=== PATIENT | female | born 1935 | race Caucasian/White ===

== ENCOUNTER 2017-06-08 05:00 | Inpatient (IN) | payer MEDICARE ==
[2017-06-08 07:39] VITALS: BMI 25.2
[2017-06-08] MEDS ORDERED: IPRATROPIUM-ALBUTEROL 3 ML NEB INHALATION PRN (08:46)
[2017-06-08] MEDS: PANTOPRAZOLE 40 MG/10 ML VIAL IVP SCH (10:33)
[2017-06-08] MEDS: HYDROcodone/APAP 5-325MG 1 EACH TAB PO PRN ×3 (10:33→23:53)
[2017-06-08 11:12] LABS: Glucose,Whole Blood 102 mg/dL (75-99)
[2017-06-08] MEDS: AZITHROMYCIN 500 MG in SODIUM CHLORIDE 0.9% 250 ML IVPB SCH (11:38)
[2017-06-08] MEDS: INSULIN ASPART 100 UNIT/ML 1 ML 10 ML VIAL SQ SCH ×3 (11:39→22:48)
[2017-06-08] MEDS: methylPREDNISolone SOD SUCCI 125 MG/2 ML VIAL IV SCH ×3 (12:16→23:51)
[2017-06-08] MEDS: IPRATROPIUM-ALBUTEROL 3 ML NEB INHALATION SCH ×3 (13:03→20:51)
[2017-06-08] MEDS ORDERED: ARTIFICIAL TEARS-HYPROMELLOSE DROPS 15 ML BTL BOTH EYES PRN (15:29)
[2017-06-08] MEDS ORDERED: ACETAMINOPHEN TAB 325 MG TAB PO PRN (15:29)
--- NOTE | 2017-06-08 16:03 | XR ---
EXAMINATION TYPE: XR chest 1V portable DATE OF EXAM: 06/08/2017 Comparison: None Clinical History: 81 year-old female shortness of breath, copd Findings: The cardiomediastinal silhouette, aorta, and pulmonary vasculature are within normal limits. Mild in terstitial prominence has a chronic appearance. Lungs And pleural spaces are otherwise clear. Impression: Chronic-appearing changes. No acute process seen.
[2017-06-08 16:21] LABS: Albumin 3.8 g/dL (3.5-5.0); Calcium 9.6 mg/dL (8.4-10.2); Potassium 4.9 mmol/L (3.5-5.1); Total Bilirubin 0.5 mg/dL (0.2-1.3); Total Protein 6.5 g/dL (6.3-8.2)
[2017-06-08 16:25] LABS: Basophils % (A) 0 %; Eosinophils % (A) 0 %; HCT 42.3 % (34.0-46.0); HGB 13.6 gm/dL (11.4-16.0); Lymphocytes # (A) 0.2 k/uL (1.0-4.8); Lymphocytes % (A) 4 %; MCH 29.3 pg (25.0-35.0); MCHC 32.1 g/dL (31.0-37.0); MCV 91.4 fL (80.0-100.0); Mean Platelet Volume 7.6; Monocytes # (A) 0.2 k/uL (0-1.0); Monocytes % (A) 4 %; Neutrophils # (A) 4.4 k/uL (1.3-7.7); Neutrophils % (A) 91 %; Platelet Count 261 k/uL (150-450); RBC 4.62 m/uL (3.80-5.40); RDW 13.1 % (11.5-15.5); WBC 4.8 k/uL (3.8-10.6)
--- NOTE | 2017-06-08 16:56 | HP ---
HISTORY AND PHYSICAL CHIEF COMPLAINT: Shortness of breath. HISTORY: This 79-year-old with a past medical history of asthma, COPD, history of gastroesophageal reflux disease, history of hearing deficit, memory impairment, history of back surgery, DJD being followed by primary physician in the [place] area, was having shortness of breath and cough and sputum. The patient presented to the [facility] and subsequently referred to [facility] for further evaluation and treatment. There is no history of fever, rigors or chills. No history of headache, loss of consciousness or seizures. PAST MEDICAL HISTORY: Asthma COPD. Hearing defects, memory impairment, dementia, appendectomy. MEDICATIONS: Prior to admission include: 1. Bowlegs 5 mg q.i.d. p.r.n. 2. Prednisone 10 mg. 3. Artificial Tears 1 drop both eyes t.i.d. 4. Tylenol Arthritis 650 q.8h p.r.n. 5. DuoNeb q.i.d. 6. Advair 500/50 1 puff b.i.d. 7. Aspirin 325 mg q.48h hours. ALLERGIES: PENICILLIN. FAMILY HISTORY: History of myocardial infarction in the family. SOCIAL HISTORY: Previous history of smoking. No history of current smoking. No alcohol intake. REVIEW OF SYSTEMS: ENT: Diminished hearing and vision. CARDIOVASCULAR: No angina or palpitations. Respiratory: As mentioned earlier. GI no nausea or vomiting. no dysuria. Nervous system: No numbness. Generalized weakness. Allergy/Immunology: No asthma or hayfever. Musculoskeletal: As mentioned earlier. Hematology/Oncology: No history anemia. Endocrine: No history of diabetes or hypothyroidism. Constitutional: As mentioned earlier. Rheumatology: Negative. Dermatology: Negative. Psychiatric: As mentioned earlier. PHYSICAL EXAMINATION: Alert and oriented times three. Pulse is 106. Blood pressure 140/81. Respiration 18, temperature 97.7, pulse ox 98% on room air. HEENT: Conjunctivae normal. Oral mucosa moist. Neck is no jugular venous distention. No carotid bruit. No thyroid enlargement. Cardiovascular System: S1, S2 muffled. No S3, no S4. Respirations: Breath sounds diminished in the bases. Breathing efforts are markedly increased. Bilateral scattered rhonchi and crackles. ABDOMEN: Soft, nontender. No mass palpable. Legs no edema and no swelling. NERVOUS SYSTEM: Higher functions as mentioned. Moves all 4 limbs. No focal motor or sensory deficits. Lymphatics: No lymph nodes palpable in the neck, axillae or groin. SKIN: No ulcers, rash or bleeding. LAB STUDIES: At this time shows glucose 102. ASSESSMENT: 1. Chronic obstructive pulmonary disease, asthma acute exacerbation with acute purulent tracheobronchitis. 2. History of dementia. 3. History of hard of hearing. 4. History of hepatitis C. 5. History of degenerative joint disease. 6. History of back surgery. 7. Remote history of nicotine dependence. 8. FULL CODE. RECOMMENDATIONS AND DISCUSSION: In this 81-year-old woman who presented with multiple complex medical issues, we will monitor the patient closely. Optimize the bronchodilator treatment. Resume the home medication. Broad-spectrum IV antibiotics. Started on Rocephin, Zithromax and heparin subcu. Consult Dr. Savage. Guarded prognosis because of multiple complex medical issues. PT/OT evaluation and we will also get the pediatric social worker and case Management evaluation for home situation and possibly ECF rehab if the patient is found to be extremely weak or not safe enough to return home. MMODL / IJN: [id number] /
[2017-06-08 17:22] LABS: Glucose,Whole Blood 108 mg/dL (75-99)
[2017-06-08] MEDS: ASPIRIN 325 MG TAB PO SCH (17:30)
[2017-06-08 20:41] LABS: Glucose,Whole Blood 126 mg/dL (75-99)
[2017-06-08] MEDS: BUDESONIDE 1 MG/2 ML NEBU INHALATION SCH (20:51)
[2017-06-08] MEDS: FORMOTEROL FUMARATE 20 MCG/2 ML NEBU INHALATION SCH (20:51)
[2017-06-08] MEDS: HEPARIN SODIUM,PORCINE 5,000 UNIT/ML 1 ML VIAL SQ SCH (23:51)
[2017-06-09 07:04] LABS: Appearance,Urine Clear (Clear); Bilirubin,Urine Negative (Negative); Blood,Urine Negative (Negative); Color,Urine Yellow; Glucose,Urine (UA) Negative (Negative); Ketones,Urine 1+ (Negative); Leukocyte Esterase,Urine Negative (Negative); Nitrite,Urine Negative (Negative); Protein,Urine Negative (Negative); Specific Gravity,Urine 1.015 (1.001-1.035); Urobilinogen,Urine <2.0 mg/dL (<2.0)
[2017-06-09 07:11] LABS: Glucose,Whole Blood 103 mg/dL (75-99)
[2017-06-09] MEDS: INSULIN ASPART 100 UNIT/ML 1 ML 10 ML VIAL SQ SCH ×4 (07:13→21:52)
[2017-06-09] MEDS: AZITHROMYCIN 500 MG in SODIUM CHLORIDE 0.9% 250 ML IVPB SCH (07:15)
[2017-06-09] MEDS: methylPREDNISolone SOD SUCCI 125 MG/2 ML VIAL IV SCH ×4 (07:15→23:08)
[2017-06-09] MEDS: HEPARIN SODIUM,PORCINE 5,000 UNIT/ML 1 ML VIAL SQ SCH ×2 (07:16→21:52)
[2017-06-09] MEDS: PANTOPRAZOLE 40 MG/10 ML VIAL IVP SCH (07:16)
[2017-06-09] MEDS: IPRATROPIUM-ALBUTEROL 3 ML NEB INHALATION SCH ×4 (08:03→21:30)
[2017-06-09] MEDS: FORMOTEROL FUMARATE 20 MCG/2 ML NEBU INHALATION SCH ×2 (08:03→21:30)
[2017-06-09] MEDS: BUDESONIDE 1 MG/2 ML NEBU INHALATION SCH ×2 (08:03→21:30)
[2017-06-09 08:07] LABS: Basophils % (A) 0 %; Eosinophils % (A) 0 %; HCT 42.9 % (34.0-46.0); HGB 13.5 gm/dL (11.4-16.0); Lymphocytes # (A) 0.3 k/uL (1.0-4.8); Lymphocytes % (A) 6 %; MCH 28.7 pg (25.0-35.0); MCHC 31.4 g/dL (31.0-37.0); MCV 91.5 fL (80.0-100.0); Mean Platelet Volume 7.7; Monocytes # (A) 0.3 k/uL (0-1.0); Monocytes % (A) 5 %; Neutrophils # (A) 5.4 k/uL (1.3-7.7); Neutrophils % (A) 89 %; Platelet Count 309 k/uL (150-450); RBC 4.69 m/uL (3.80-5.40); RDW 13.2 % (11.5-15.5); WBC 6.1 k/uL (3.8-10.6)
[2017-06-09 08:22] LABS: Anion Gap 7 mmol/L; Blood Urea Nitrogen 21 mg/dL (7-17); Calcium 9.4 mg/dL (8.4-10.2); Carbon Dioxide 29 mmol/L (22-30); Chloride 104 mmol/L (98-107); Glucose 112 mg/dL (74-99); Potassium 4.9 mmol/L (3.5-5.1); Sodium 140 mmol/L (137-145)
[2017-06-09] MEDS: HYDROcodone/APAP 5-325MG 1 EACH TAB PO PRN ×2 (11:01→18:14)
[2017-06-09] MEDS: cefTRIAXone IN SWFI 1,000 MG/10 ML SYRINGE IVP SCH (11:33)
[2017-06-09 11:50] LABS: Glucose,Whole Blood 106 mg/dL (75-99)
--- NOTE | 2017-06-09 16:25 | PN ---
PROGRESS NOTE DATE OF SERVICE: 06/09/2017 INTERVAL HISTORY: This 81-year-old woman who was admitted with COPD exacerbation with acute purulent tracheobronchitis is being closely monitored. No chest pain. No palpitations. No fever. The patient still has shortness of breath. Dr. Savage's evaluation in progress. PHYSICAL EXAM: Alert and oriented times three. Pulse is 92. Blood pressure is 170/83, respirations 16, temperature 97.2, pulse ox 98% on 3 L. HEENT conjunctivae normal. Oral mucosa moist. Neck is no jugular venous distention. No carotid bruit. No lymph node enlargement. Cardiovascular system: S1, S2 muffled. Respiratory: Breath sounds diminished in the bases. A few scattered rhonchi and expiratory wheezing also present. ABDOMEN: Soft, nontender. No mass palpable. Legs no edema. No swelling. Nervous system: No focal deficits. LABS: At this time, labs are reviewed. ASSESSMENT: 1. Chronic obstructive pulmonary disease exacerbation with acute purulent tracheobronchitis. 2. History of dementia. 3. History of hard of hearing. 4. History of Hepatitis C. 5. History of degenerative joint disease. 6. History of back surgery. 7. Remote history of nicotine dependence. 8. Hypertension. 9. FULL CODE. RECOMMENDATIONS AND DISCUSSION: Recommend to continue current medications, symptomatic treatment, otherwise continue with IV steroids. Continue the rest of medications. Empiric antibiotics. Await Dr. Savage's evaluation. I would add Norvasc to the current regimen. Further recommendations to follow. MMODL / IJN: [id number] /
--- NOTE | 2017-06-09 17:34 | P.CNPUL ---
History of Present Illness Consult date: 06/09/17 Reason for consult: dyspnea, asthma History of present illness: This is a pleasant 79-year-old female patient with known history of severe persistent steroid-dependent bronchial asthma in addition to multiple medical pros and comorbidities who came in from [facility] because of worsening shortness of breath. The patient was progressively getting worse over the past few weeks and she got to the point where she was unable to breathe while doing activities of daily today life. She was having increased cough chest congestion and wheezing. She was initially transferred to [facility] and she was transferred to [place] and she was placed on BiPAP overnight. This morning she is off the BiPAP. She is still having increased dyspnea cough and wheeze although her symptoms have subsided. No pleurisy. No hemoptysis. Chest x-ray is free of any acute pulmonary infiltrates. She is a bit tired and fatigued and she is losing weight. She is maintained on Advair and 10 mg of prednisone a daily basis. She does DuoNeb nebulized treatments around the clock. She has been on Xolair injections/anti- IgE treatment in the past. In addition, Aura has multiple other medical problems and complaints. Her most significant complaint is his inability is her inability to walk and the extensive pain that she is experiencing in her back. She has seen multiple neurosurgeons and spine surgeons and she is seen Dr. Stewart from pain management. The most recent MRI from 2013 showed L5-S1 degenerative disc disease and the bulge at the level of L4-L5 with anterolisthesis and the same was also noted at the level of L3-L4. The patient also has degenerative severe disc disease at the level of L2-L3 home at T10-T11, T11-T12 along with stenosis. There is also a right L5 L4 and L3 root compression, L2 neural foraminal narrowing, L2-L3 L4-L5 root compression on the left, diffuse facet arthrosis throughout the lumbar spine and central canal narrowing at the level of L3-L4. She is considering to go back to pain management for a possible pain stimulator. She is moving around with the help of a walker and wheelchair. She was at [facility] a few months back regarding an abnormal brain scan and intracranial hemorrhage as the patient was having headache and occasional dizziness. The patient had a small hemorrhage in the left temporal region. 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 She also had an MRI of the cervical spine without contrast and the neck pain was further evaluated and it showed senescent degenerative changes. 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 The small intracranial bleed was handled conservatively and the patient was discharged home without any significant issues. She is still having generalized weakness, occasional headaches and some occasional dizziness along with leg numbness and tingling. She has chronic insomnia and the patient is essentially awake and without multiple times at night she cannot get herself in a comfortable position. She has been on Ambien 5 mg to help her with sleep. She has been also told that her ovarian cysts and gotten larger however I do not have any clear documentation is on that. I think it's reasonable at a later stage to be seen by Dr. Sánchez in this regard. We have felt that this was a benign ovarian cyst Review of Systems Constitutional Constitutional: no fever, no night sweats, 12 pounds weight gain, no significant weight loss, exercise intolerance, in addition to diminished appetite. Eyes Eyes: no dry eyes, no vision change, no irritation ENMT Ears: no difficulty hearing, no ear pain Nose: no frequent nosebleeds, no nose problems, no sinus problems Mouth/Throat: no sore throat, no bleeding gums, no snoring, no dry mouth, no mouth ulcers, no oral abnormalities, no teeth problems Cardiovascular Cardiovascular: no chest pain, no arm pain on exertion, no shortness of breath when lying down, no palpitations, no known heart murmur, shortness of breath when walking Respiratory Respiratory: Patient has increased dyspnea cough chest tightness and wheezing typically of asthma exacerbation. Gastrointestinal Gastrointestinal: no abdominal pain, no nausea, no vomiting, no constipation, normal appetite, no diarrhea, not vomiting blood, no dyspepsia, no GERD Genitourinary Genitourinary: no incontinence, no difficulty urinating, no hematuria, no increased frequency Musculoskeletal Musculoskeletal: no muscle aches, no swelling in the extremities, muscle weakness, arthralgias/joint pain, back pain (neck pain) Integumentary Skin: no abnormal mole, no jaundice, no rashes, no laceration Neurologic Neurologic: no loss of consciousness, no weakness, no numbness, no seizures, no migraines, no headaches, no tremor, dizziness, restless legs (vertigo) Psychiatric Psych: feeling safe in a relationship, no alcohol abuse, no anxiety, no hallucinations, no suicidal thoughts, depression, sleep disturbances, restless sleep Endocrine Endocrine: no fatigue Hematologic/Lymphatic Hematologic/Lymphatic no swollen glands, no bruising, no excessive bleeding Allergic/Immunologic Allergy/Immunologic: no runny nose, no sinus pressure, no itching, no hives, no frequent sneezing Past Medical History Past Medical History: Asthma, Eye Disorder, Hearing Disorder / Deafness, Memory Impairment, Respiratory Disorder Additional Past Medical History / Comment(s): Chronic severe persistent bronchial asthma, chronic insomnia, history of TIA, history of benign positional vertigo, hyperlipidemia, and by medical ALLERGIES, are less, compression fracture of the thoracic spine, complex ovarian cyst labeled nonmalignant based on oncology evaluation [facility], 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 Munoz, spinal stenosis, obesity, coronary artery disease History of Any Multi-Drug Resistant Organisms: None Reported Past Surgical History: Appendectomy, Back Surgery, Breast Surgery, Cholecystectomy, Hysterectomy Additional Past Surgical History / Comment(s): cataracts, eye lid lift Past Anesthesia/Blood Transfusion Reactions: No Reported Reaction Past Psychological History: No Psychological Hx Reported Smoking Status: Former smoker Past Alcohol Use History: None Reported Past Drug Use History: None Reported - Past Family History Father Family Medical History: Myocardial Infarction ([place]) Mother Family Medical History: Myocardial Infarction ([place]) Medications and Allergies Home Medications Medication Instructions Recorded Confirmed Type Acetaminophen [Tylenol Arthritis] 650 mg PO Q8H PRN 06/08/17 06/08/17 History Artificial Tears-Hypromellose 1 drops BOTH EYES TID PRN 06/08/17 06/08/17 History [Artificial Tear Drops] Aspirin 325 mg PO Q48H 06/08/17 06/08/17 History Fluticasone/Salmeterol [Advair 1 puff INHALATION RT-BID 06/08/17 06/08/17 History 500-50 Diskus] HYDROcodone/APAP 5-325MG [[place] 1 tab PO QID PRN 06/08/17 06/08/17 History 5-325] Ipratropium-Albuterol Nebulize 3 ml INHALATION RT-QID 06/08/17 06/08/17 History [Duoneb 0.5 mg-3 mg/3 ml Soln] predniSONE 10 mg PO DAILY 06/08/17 06/08/17 History Allergies Allergy/AdvReac Type Severity Reaction Status Date / Time Penicillins Allergy Severe Rash/Hives Verified 06/08/17 08:24 Physical Exam Vitals: Vital Signs Temp Pulse Pulse Resp BP BP Pulse Ox 06/09/17 16:29 90 06/09/17 16:14 90 06/09/17 15:00 97.5 F L 78 15 135/73 96 06/09/17 12:25 88 06/09/17 12:06 88 06/09/17 08:06 92 06/09/17 08:05 92 06/09/17 07:55 92 06/09/17 07:03 97.7 F 91 16 174/83 98 06/09/17 01:20 97.5 F L 94 18 161/77 98 06/08/17 21:18 98 06/08/17 21:02 96 06/08/17 20:52 96 06/08/17 20:00 97.3 F L 95 22 137/67 96 Intake and Output 06/09/17 06/09/17 06/09/17 06:59 14:59 22:59 Intake Total 370 Balance 370 Intake: Oral 370 Other: Voiding Method Toilet # Voids 1 3 General Appearance no diaphoresis, no respiratory distress, speech not interrupted by breaths, no dyspnea, no pallor, not cachectic, well nourished, appears well, obesity HEENT no pursed lip breathing, no jugular venous distention, no mucous membrane cyanosis, no perioral cyanosis, mallampati classification: class 1, Mallampati Classification: Class 4 Chest no barrel chest, no retractions, no sternocleidomastoid muscle contractions, no supraclavicular retractions, no intercostal retractions, no prolonged expiratory wheezing, no decreased air movement, no rhonchi, no hyperinflation, (normal) adventitious sounds: rales / crackles: bilaterally: midlung french, decreased air movement Heart no right ventricular heave, no distant heart sounds, no s3 gallop, (normal ) jugular vein: jugular venous distention: by 0cm, (normal) jugular vein GI bowel sounds: hyperactive (borborygmi), bowel sounds: diminished or absent Extremities no cyanosis, no clubbing, no edema Neurologic no decreased mental status, no somnolence, no confusion Assisstive Devices: ambulates with no assitive devices, wheelchair manual Gait and Mobility: gait WNL, full weight bearing Results - Laboratory Findings CBC and BMP: 06/09/17 07:10 06/09/17 07:10 Abnormal lab findings: Abnormal Labs 06/08/17 06/08/17 06/08/17 11:09 15:52 15:52 Lymphocytes # 0.2 L BUN Glucose 121 H POC Glucose (mg/dL) 102 H Urine Ketones 06/08/17 06/08/17 06/09/17 17:20 20:34 06:10 Lymphocytes # BUN Glucose POC Glucose (mg/dL) 108 H 126 H Urine Ketones 1+ H 06/09/17 06/09/17 06/09/17 07:06 07:10 07:10 Lymphocytes # 0.3 L BUN 21 H Glucose 112 H POC Glucose (mg/dL) 103 H Urine Ketones 06/09/17 11:41 Lymphocytes # BUN Glucose POC Glucose (mg/dL) 106 H Urine Ketones - Diagnostic Findings Chest x-ray: image reviewed Assessment and Plan Plan: Assessment -Acute exacerbation of chronic severe persistent bronchial asthma with secondary shortness of breath. - severe persistent asthma, Continue on the Advair and singulair as maintenance and Prednisone maintenance of 10 mg daily. She'll be kept on a maintenance prednisone dose of 10 mg by mouth daily. -obesity -coronary arteriosclerosis -spinal stenosis, the patient is under the care of Dr. Stewart in regards to her chronic back pain. She has compression fracture of the T-spine and spinal stenosis and degenerative arthritis. She has taken herself off the Neurontin and she is considering a pain pump She also being considered for a pain stimulor -cyst of ovary, this is a complex cyst in the pelvic area , Dr. Sánchez and this was able to be benign and no further workup has been suggested by PROCESS [employer]OVEMENT [employer]INE[employer]/oncology. -compression fracture of thoracic spine -restless legs -environmental allergy -hyperlipidemia -benign paroxysmal positional vertigo (Bilateral), the patient is asymptromatic for now -transient cerebral ischemia -persistent insomnia -cerebral arteriovenous malformation, recent REPAIR ARMATURE WINDER bleed, asymptomatic and treated conservatively, followed up by Dr. Kovar Plan Agree on the current treatment. Continue DuoNeb neb last treatment around-the- clock. Perforomist and Pulmicort overestimates twice a day. IV Solu-Medrol. Chest x-ray was reviewed and there is no evidence of any pneumonia. Heparin subcu for DVT prophylaxis. We'll continue to follow.
[2017-06-09 17:57] LABS: Glucose,Whole Blood 103 mg/dL (75-99)
[2017-06-09 20:49] LABS: Glucose,Whole Blood 132 mg/dL (75-99)
[2017-06-09] MEDS: amLODIPine 5 MG TAB PO SCH (21:46)
[2017-06-10] MEDS: methylPREDNISolone SOD SUCCI 125 MG/2 ML VIAL IV SCH ×3 (05:37→17:43)
[2017-06-10 07:21] LABS: Basophils % (A) 0 %; Eosinophils % (A) 0 %; HCT 41.3 % (34.0-46.0); Lymphocytes # (A) 0.3 k/uL (1.0-4.8); Lymphocytes % (A) 5 %; MCHC 31.5 g/dL (31.0-37.0); Mean Platelet Volume 7.7; Monocytes # (A) 0.2 k/uL (0-1.0); Monocytes % (A) 4 %; Neutrophils # (A) 5.6 k/uL (1.3-7.7); Neutrophils % (A) 90 %; Platelet Count 272 k/uL (150-450); RBC 4.49 m/uL (3.80-5.40); RDW 13.1 % (11.5-15.5); WBC 6.2 k/uL (3.8-10.6)
[2017-06-10 07:26] LABS: Glucose,Whole Blood 117 mg/dL (75-99)
[2017-06-10 07:36] LABS: Anion Gap 9 mmol/L; Blood Urea Nitrogen 25 mg/dL (7-17); Calcium 8.9 mg/dL (8.4-10.2); Carbon Dioxide 27 mmol/L (22-30); Chloride 106 mmol/L (98-107); Glucose 117 mg/dL (74-99); Potassium 4.1 mmol/L (3.5-5.1); Sodium 142 mmol/L (137-145)
[2017-06-10] MEDS: HYDROcodone/APAP 5-325MG 1 EACH TAB PO PRN ×2 (08:15→17:47)
[2017-06-10] MEDS: amLODIPine 5 MG TAB PO SCH ×2 (08:16→21:57)
[2017-06-10] MEDS: HEPARIN SODIUM,PORCINE 5,000 UNIT/ML 1 ML VIAL SQ SCH ×2 (08:16→21:57)
[2017-06-10] MEDS: INSULIN ASPART 100 UNIT/ML 1 ML 10 ML VIAL SQ SCH ×4 (08:16→21:57)
[2017-06-10] MEDS: PANTOPRAZOLE 40 MG TABLET PO SCH (08:16)
[2017-06-10] MEDS: cefTRIAXone IN SWFI 1,000 MG/10 ML SYRINGE IVP SCH (08:17)
[2017-06-10] MEDS: AZITHROMYCIN 500 MG TAB PO SCH (08:17)
[2017-06-10] MEDS: FORMOTEROL FUMARATE 20 MCG/2 ML NEBU INHALATION SCH ×2 (08:58→18:45)
[2017-06-10] MEDS: BUDESONIDE 1 MG/2 ML NEBU INHALATION SCH ×2 (08:58→18:46)
[2017-06-10] MEDS: IPRATROPIUM-ALBUTEROL 3 ML NEB INHALATION SCH ×4 (08:58→18:46)
[2017-06-10] MEDS ORDERED: TEMAZEPAM 15 MG CAP PO PRN (11:14)
[2017-06-10] MEDS ORDERED: ALPRAZolam 0.25 MG TAB PO PRN (11:14)
[2017-06-10 11:28] LABS: Glucose,Whole Blood 151 mg/dL (75-99)
--- NOTE | 2017-06-10 13:14 | P.PN ---
<Lisa Hull - Last Filed: 06/10/17 13:07> Subjective Progress Note Date: 06/10/17 Principal diagnosis: Acute exacerbation of chronic severe persistent bronchial asthma This is a pleasant 79-year-old female patient with known history of severe persistent steroid-dependent bronchial asthma in addition to multiple medical pros and comorbidities who came in from [facility] because of worsening shortness of breath. The patient was progressively getting worse over the past few weeks and she got to the point where she was unable to breathe while doing activities of daily today life. She was having increased cough chest congestion and wheezing. She was initially transferred to [facility] and she was transferred to [place] and she was placed on BiPAP overnight. This morning she is off the BiPAP. She is still having increased dyspnea cough and wheeze although her symptoms have subsided. No pleurisy. No hemoptysis. Chest x-ray is free of any acute pulmonary infiltrates. She is a bit tired and fatigued and she is losing weight. She is maintained on Advair and 10 mg of prednisone a daily basis. She does DuoNeb nebulized treatments around the clock. She has been on Xolair injections/anti- IgE treatment in the past. In addition, Aura has multiple other medical problems and complaints. Her most significant complaint is his inability is her inability to walk and the extensive pain that she is experiencing in her back. She has seen multiple neurosurgeons and spine surgeons and she is seen Dr. Stewart from pain management. The most recent MRI from 2013 showed L5-S1 degenerative disc disease and the bulge at the level of L4-L5 with anterolisthesis and the same was also noted at the level of L3-L4. The patient also has degenerative severe disc disease at the level of L2-L3 home at T10-T11, T11-T12 along with stenosis. There is also a right L5 L4 and L3 root compression, L2 neural foraminal narrowing, L2-L3 L4-L5 root compression on the left, diffuse facet arthrosis throughout the lumbar spine and central canal narrowing at the level of L3-L4. She is considering to go back to pain management for a possible pain stimulator. She is moving around with the help of a walker and wheelchair. She was at [facility] a few months back regarding an abnormal brain scan and intracranial hemorrhage as the patient was having headache and occasional dizziness. The patient had a small hemorrhage in the left temporal region. 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 She also had an MRI of the cervical spine without contrast and the neck pain was further evaluated and it showed senescent degenerative changes. 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 The small intracranial bleed was handled conservatively and the patient was discharged home without any significant issues. She is still having generalized weakness, occasional headaches and some occasional dizziness along with leg numbness and tingling. She has chronic insomnia and the patient is essentially awake and without multiple times at night she cannot get herself in a comfortable position. She has been on Ambien 5 mg to help her with sleep. She has been also told that her ovarian cysts and gotten larger however I do not have any clear documentation is on that. I think it's reasonable at a later stage to be seen by Dr. Sánchez in this regard. We have felt that this was a benign ovarian cyst The patient is seen again today 06/10/2017 in follow-up in the regular medical floor. She is awake and alert in no acute distress. She is still dyspneic on minimal exertion. Not quite back to her baseline. She is maintaining good O2 saturations in the high 90s on 3 L/m per nasal cannula. She's been afebrile. No leukocytosis. She is maintained on IV Solu-Medrol, Pulmicort and Perforomist , DuoNeb inhalations. She is on antibiotics in the form of ceftriaxone and azithromycin. Objective - Vital Signs Vital signs: Vital Signs Temp 98.6 F 06/10/17 07:00 Pulse 96 06/10/17 12:33 Resp 20 06/10/17 07:00 BP 143/69 06/10/17 07:00 Pulse Ox 98 06/10/17 07:00 Intake & Output 06/09/17 06/10/17 06/10/17 18:59 06:59 18:59 Intake Total 240 180 Balance 240 180 Intake: Oral 240 180 Other: Voiding Method Bedside Commode Bedside Commode # Voids 3 1 - Exam General Appearance no diaphoresis, no respiratory distress, speech not interrupted by breaths, no dyspnea, no pallor, not cachectic, well nourished, appears well, obesity HEENT no pursed lip breathing, no jugular venous distention, no mucous membrane cyanosis, no perioral cyanosis, mallampati classification: class 1, Mallampati Classification: Class 4 Chest no barrel chest, no retractions, no sternocleidomastoid muscle contractions, no supraclavicular retractions, no intercostal retractions, no prolonged expiratory wheezing, no decreased air movement, no rhonchi, no hyperinflation, (normal) adventitious sounds: rales / crackles: bilaterally: midlung french, decreased air movement Heart no right ventricular heave, no distant heart sounds, no s3 gallop, (normal ) jugular vein: jugular venous distention: by 0cm, (normal) jugular vein GI bowel sounds: hyperactive (borborygmi), bowel sounds: diminished or absent Extremities no cyanosis, no clubbing, no edema Neurologic no decreased mental status, no somnolence, no confusion Assisstive Devices: ambulates with no assitive devices, wheelchair manual Gait and Mobility: gait WNL, full weight bearing - Labs CBC & Chem 7: 06/10/17 06:59 06/10/17 06:58 Labs: Abnormal Lab Results - Last 24 Hours (Table) 06/09/17 06/09/17 06/10/17 Range/Units 17:03 20:47 06:58 Lymphocytes # (1.0-4.8) k/uL BUN 25 H (7-17) mg/dL Glucose 117 H (74-99) mg/dL POC Glucose (mg/dL) 103 H 132 H (75-99) mg/dL 06/10/17 06/10/17 06/10/17 Range/Units 06:59 07:13 11:23 Lymphocytes # 0.3 L (1.0-4.8) k/uL BUN (7-17) mg/dL Glucose (74-99) mg/dL POC Glucose (mg/dL) 117 H 151 H (75-99) mg/dL Assessment and Plan Assessment: Assessment -Acute exacerbation of chronic severe persistent bronchial asthma with secondary shortness of breath. - severe persistent asthma, Continue on the Advair and singulair as maintenance and Prednisone maintenance of 10 mg daily. She'll be kept on a maintenance prednisone dose of 10 mg by mouth daily. -obesity -coronary arteriosclerosis -spinal stenosis, the patient is under the care of Dr. Stewart in regards to her chronic back pain. She has compression fracture of the T-spine and spinal stenosis and degenerative arthritis. She has taken herself off the Neurontin and she is considering a pain pump She also being considered for a pain stimulor -cyst of ovary, this is a complex cyst in the pelvic area , Dr. Sánchez and this was able to be benign and no further workup has been suggested by ENTERPRISE ARCHITECT/oncology. 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 Munoz Plan The patient is seen and evaluated by Dr. Savage. She is improving from the pulmonary standpoint but not quite back to her baseline. We'll continue with her current treatment plan. We will increase her activity as tolerated. The patient has continued concerns regarding the cysts of her ovaries and the enlargement reported last time. These were felt to be benign per Dr. Porter but a follow-up CAT scan was recommended. We will obtain one in the a.m. We will continue to follow make further recommendations based on her clinical status. I, the cosigning physician, performed a history & physical examination of the patient. Lungs sounds have bilateral wheezing. Maintaining good O2 saturations in the 90s on 2 L/m per nasal cannula I discussed the assessment and plan of care with my nurse practitioner, Lisa Hull. I attest to the above note as dictated by her. <Ara Savage - Last Filed: 06/10/17 15:49> Objective - Vital Signs Vital signs: Vital Signs Temp 98.1 F 06/10/17 14:16 Pulse 90 06/10/17 14:16 Resp 21 06/10/17 14:16 BP 126/74 06/10/17 14:16 Pulse Ox 96 06/10/17 14:16 Intake & Output 06/09/17 06/10/17 06/10/17 18:59 06:59 18:59 Intake Total 240 360 Balance 240 360 Intake: Oral 240 360 Other: Voiding Method Bedside Commode Bedside Commode # Voids 3 1 - Labs CBC & Chem 7: 06/10/17 06:59 06/10/17 06:58 Labs: Abnormal Lab Results - Last 24 Hours (Table) 06/09/17 06/09/17 06/10/17 Range/Units 17:03 20:47 06:58 Lymphocytes # (1.0-4.8) k/uL BUN 25 H (7-17) mg/dL Glucose 117 H (74-99) mg/dL POC Glucose (mg/dL) 103 H 132 H (75-99) mg/dL 06/10/17 06/10/17 06/10/17 Range/Units 06:59 07:13 11:23 Lymphocytes # 0.3 L (1.0-4.8) k/uL BUN (7-17) mg/dL Glucose (74-99) mg/dL POC Glucose (mg/dL) 117 H 151 H (75-99) mg/dL Assessment and Plan Assessment: The patient is seen in the joint evaluation along with respect additional. The patient doing well. The patient is still symptomatic from her bronchial asthma exacerbation. She is still having shortness of breath. Continue same treatment. We'll continue to follow. No major chest was done on her medication today
[2017-06-10] MEDS: ASPIRIN 325 MG TAB PO SCH (16:17)
[2017-06-10 17:21] LABS: Glucose,Whole Blood 141 mg/dL (75-99)
--- NOTE | 2017-06-10 17:29 | PN ---
PROGRESS NOTE DATE OF SERVICE: 06/10/2017 This 81-year-old woman who was admitted with COPD acute exacerbation as well as acute tracheobronchitis is being closely monitored and the patient still has shortness of breath and cough also. Dr. Savage is following the patient. She still remains on IV steroids. EXAM: Alert and oriented x3. Pulse 90, blood pressure 126/74, respiration 18, temperature 98 degrees, pulse ox 98% on room air. HEENT: Conjunctivae normal. NECK: No jugular venous distention. CARDIOVASCULAR: S1, S2. RESPIRATORY: Breath sounds diminished in the bases. A few rhonchi and crackles. Expiratory wheezing also present. ABDOMEN: Soft, nontender. LEGS: No edema. No swelling. NERVOUS SYSTEM: No focal deficits. LABS: CBC within normal limits and glucose 117, 1117, 151. ASSESSMENT: 1. Chronic obstructive pulmonary disease acute exacerbation with acute purulent tracheobronchitis. 2. History of dementia. 3. History of hard of hearing. 4. History of hepatitis C. 5. History of degenerative joint disease. 6. History of back surgery. 7. Remote history of nicotine dependence. 8. Hypertension. 9. FULL CODE. RECOMMENDATIONS AND DISCUSSION: I recommend to continue current medications, symptomatic treatment. Otherwise at this time I would recommend to continue to monitor. Continue with bronchodilators and steroids. Guarded prognosis because of multiple medical problems. Further recommendations to follow. MMODL / IJN: [id number] / MTDD
[2017-06-10 21:04] LABS: Glucose,Whole Blood 159 mg/dL (75-99)
[2017-06-11] MEDS: methylPREDNISolone SOD SUCCI 125 MG/2 ML VIAL IV SCH ×5 (00:07→23:42)
[2017-06-11 07:12] LABS: Glucose,Whole Blood 101 mg/dL (75-99)
[2017-06-11 07:14] LABS: Basophils % (A) 0 %; Eosinophils % (A) 0 %; HCT 41.9 % (34.0-46.0); HGB 13.8 gm/dL (11.4-16.0); Lymphocytes # (A) 0.4 k/uL (1.0-4.8); Lymphocytes % (A) 8 %; MCH 29.6 pg (25.0-35.0); MCHC 32.9 g/dL (31.0-37.0); MCV 89.8 fL (80.0-100.0); Mean Platelet Volume 7.6; Monocytes # (A) 0.2 k/uL (0-1.0); Monocytes % (A) 5 %; Neutrophils # (A) 4.4 k/uL (1.3-7.7); Neutrophils % (A) 85 %; Platelet Count 271 k/uL (150-450); RBC 4.66 m/uL (3.80-5.40); RDW 12.9 % (11.5-15.5); WBC 5.2 k/uL (3.8-10.6)
[2017-06-11 07:38] LABS: Anion Gap 6 mmol/L; Blood Urea Nitrogen 28 mg/dL (7-17); Calcium 9.1 mg/dL (8.4-10.2); Carbon Dioxide 29 mmol/L (22-30); Chloride 105 mmol/L (98-107); Glucose 112 mg/dL (74-99); Potassium 4.1 mmol/L (3.5-5.1); Sodium 140 mmol/L (137-145)
[2017-06-11] MEDS: HYDROcodone/APAP 5-325MG 1 EACH TAB PO PRN ×3 (07:38→19:36)
[2017-06-11] MEDS: AZITHROMYCIN 500 MG TAB PO SCH (07:38)
[2017-06-11] MEDS: amLODIPine 5 MG TAB PO SCH ×2 (07:38→21:10)
[2017-06-11] MEDS: HEPARIN SODIUM,PORCINE 5,000 UNIT/ML 1 ML VIAL SQ SCH ×2 (07:38→21:10)
[2017-06-11] MEDS: PANTOPRAZOLE 40 MG TABLET PO SCH (07:38)
[2017-06-11] MEDS: cefTRIAXone IN SWFI 1,000 MG/10 ML SYRINGE IVP SCH (07:39)
[2017-06-11] MEDS: INSULIN ASPART 100 UNIT/ML 1 ML 10 ML VIAL SQ SCH ×4 (07:45→21:07)
[2017-06-11] MEDS: FORMOTEROL FUMARATE 20 MCG/2 ML NEBU INHALATION SCH ×2 (08:46→19:51)
[2017-06-11] MEDS: IPRATROPIUM-ALBUTEROL 3 ML NEB INHALATION SCH ×4 (08:46→19:51)
[2017-06-11] MEDS: BUDESONIDE 1 MG/2 ML NEBU INHALATION SCH ×2 (08:46→19:51)
[2017-06-11 11:30] LABS: Glucose,Whole Blood 103 mg/dL (75-99)
[2017-06-11] MEDS ORDERED: RX INFO: IV CONTRAST WAS GIVEN 1 EACH MISC MISCELLANE PRN (13:12)
[2017-06-11] MEDS: IOHEXOL 350 MG/ML 25 ML BOTTLE (ORAL USE) PO PRN ×2 (15:03→16:51)
--- NOTE | 2017-06-11 17:03 | P.PN ---
Subjective Progress Note Date: 06/11/17 Principal diagnosis: Acute exacerbation of chronic severe persistent bronchial asthma This is a pleasant 79-year-old female patient with known history of severe persistent steroid-dependent bronchial asthma in addition to multiple medical pros and comorbidities who came in from [facility] because of worsening shortness of breath. The patient was progressively getting worse over the past few weeks and she got to the point where she was unable to breathe while doing activities of daily today life. She was having increased cough chest congestion and wheezing. She was initially transferred to [facility] and she was transferred to [place] and she was placed on BiPAP overnight. This morning she is off the BiPAP. She is still having increased dyspnea cough and wheeze although her symptoms have subsided. No pleurisy. No hemoptysis. Chest x-ray is free of any acute pulmonary infiltrates. She is a bit tired and fatigued and she is losing weight. She is maintained on Advair and 10 mg of prednisone a daily basis. She does DuoNeb nebulized treatments around the clock. She has been on Xolair injections/anti- IgE treatment in the past. In addition, Aura has multiple other medical problems and complaints. Her most significant complaint is his inability is her inability to walk and the extensive pain that she is experiencing in her back. She has seen multiple neurosurgeons and spine surgeons and she is seen Dr. Stewart from pain management. The most recent MRI from 2013 showed L5-S1 degenerative disc disease and the bulge at the level of L4-L5 with anterolisthesis and the same was also noted at the level of L3-L4. The patient also has degenerative severe disc disease at the level of L2-L3 home at T10-T11, T11-T12 along with stenosis. There is also a right L5 L4 and L3 root compression, L2 neural foraminal narrowing, L2-L3 L4-L5 root compression on the left, diffuse facet arthrosis throughout the lumbar spine and central canal narrowing at the level of L3-L4. She is considering to go back to pain management for a possible pain stimulator. She is moving around with the help of a walker and wheelchair. She was at [facility] a few months back regarding an abnormal brain scan and intracranial hemorrhage as the patient was having headache and occasional dizziness. The patient had a small hemorrhage in the left temporal region. 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 She also had an MRI of the cervical spine without contrast and the neck pain was further evaluated and it showed senescent degenerative changes. 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 The small intracranial bleed was handled conservatively and the patient was discharged home without any significant issues. She is still having generalized weakness, occasional headaches and some occasional dizziness along with leg numbness and tingling. She has chronic insomnia and the patient is essentially awake and without multiple times at night she cannot get herself in a comfortable position. She has been on Ambien 5 mg to help her with sleep. She has been also told that her ovarian cysts and gotten larger however I do not have any clear documentation is on that. I think it's reasonable at a later stage to be seen by Dr. Sánchez in this regard. We have felt that this was a benign ovarian cyst The patient is seen again today 06/10/2017 in follow-up in the regular medical floor. She is awake and alert in no acute distress. She is still dyspneic on minimal exertion. Not quite back to her baseline. She is maintaining good O2 saturations in the high 90s on 3 L/m per nasal cannula. She's been afebrile. No leukocytosis. She is maintained on IV Solu-Medrol, Pulmicort and Perforomist , DuoNeb inhalations. She is on antibiotics in the form of ceftriaxone and azithromycin. The patient is seen again today 06/10/2017 in follow-up in the regular medical floor. She is awake and alert in no acute distress. She continues with some dyspnea on minimal conversation. He is maintaining good O2 saturations in the upper 90s on 2 L/m per nasal cannula. She's been afebrile. Hemodynamically stable. She is continued on her current treatment plan. She is better today but not quite back to her baseline. White count 5.2. Hemoglobin 13.8. Creatinine 0.62. Computed tomography scan of the abdomen is pending based on her history of enlarging ovarian cyst. Objective - Vital Signs Vital signs: Vital Signs Temp 97.9 F 06/11/17 15:00 Pulse 98 06/11/17 15:25 Resp 18 06/11/17 15:00 BP 122/68 06/11/17 15:00 Pulse Ox 96 06/11/17 15:00 Intake & Output 06/10/17 06/11/17 06/11/17 18:59 06:59 18:59 Intake Total 680 480 538 Balance 680 480 538 Weight 60.5 kg Intake: Oral 680 480 538 Other: Voiding Method Bedside Commode Bedside Commode Bedside Commode # Voids 0 - Exam General Appearance no diaphoresis, no respiratory distress, speech not interrupted by breaths, no dyspnea, no pallor, not cachectic, well nourished, appears well, obesity HEENT no pursed lip breathing, no jugular venous distention, no mucous membrane cyanosis, no perioral cyanosis, mallampati classification: class 1, Mallampati Classification: Class 4 Chest no barrel chest, no retractions, no sternocleidomastoid muscle contractions, no supraclavicular retractions, no intercostal retractions, no prolonged expiratory wheezing, no decreased air movement, no rhonchi, no hyperinflation, (normal) adventitious sounds: rales / crackles: bilaterally: midlung french, decreased air movement Heart no right ventricular heave, no distant heart sounds, no s3 gallop, (normal ) jugular vein: jugular venous distention: by 0cm, (normal) jugular vein GI bowel sounds: hyperactive (borborygmi), bowel sounds: diminished or absent Extremities no cyanosis, no clubbing, no edema Neurologic no decreased mental status, no somnolence, no confusion Assisstive Devices: ambulates with no assitive devices, wheelchair manual Gait and Mobility: gait WNL, full weight bearing - Labs CBC & Chem 7: 06/11/17 06:41 06/11/17 06:41 Labs: Abnormal Lab Results - Last 24 Hours (Table) 06/10/17 06/10/17 06/11/17 Range/Units 17:17 20:58 06:41 Lymphocytes # 0.4 L (1.0-4.8) k/uL BUN (7-17) mg/dL Glucose (74-99) mg/dL POC Glucose (mg/dL) 141 H 159 H (75-99) mg/dL 06/11/17 06/11/17 06/11/17 Range/Units 06:41 07:05 11:15 Lymphocytes # (1.0-4.8) k/uL BUN 28 H (7-17) mg/dL Glucose 112 H (74-99) mg/dL POC Glucose (mg/dL) 101 H 103 H (75-99) mg/dL Assessment and Plan Assessment: Assessment -Acute exacerbation of chronic severe persistent bronchial asthma with secondary shortness of breath. - severe persistent asthma, Continue on the Advair and singulair as maintenance and Prednisone maintenance of 10 mg daily. -obesity -coronary arteriosclerosis -spinal stenosis, the patient is under the care of Dr. Stewart in regards to her chronic back pain. She has compression fracture of the T-spine and spinal stenosis and degenerative arthritis. She has taken herself off the Neurontin and she is considering a pain pump She also being considered for a pain stimulor -cyst of ovary, this is a complex cyst in the pelvic area , Dr. Porter felt that this to be benign and no further workup has been suggested by INFECTIOUS DISEASE TECHNICIAN/oncology. We will obtain a computed tomography scan of the abdomen and pelvis to reassure the patient. 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 Munoz Plan The patient is seen and evaluated by Dr. Savage. She is improving from the pulmonary standpoint but not quite back to her baseline. We'll continue with her current treatment plan. The patient has continued concerns regarding the cysts of her ovaries and the enlargement reported last time. These were felt to be benign per Dr. Porter but a follow-up CAT scan was recommended and has been ordered. We will continue to follow make further recommendations based on her clinical status. I, the cosigning physician, performed a history & physical examination of the patient. Lungs sounds have bilateral wheezing. Maintaining good O2 saturations in the 90s on 2 L/m per nasal cannul. I discussed the assessment and plan of care with my nurse practitioner, Lisa Hull. I attest to the above note as dictated by her.
[2017-06-11 17:11] LABS: Glucose,Whole Blood 127 mg/dL (75-99)
--- NOTE | 2017-06-11 19:02 | CT ---
EXAMINATION TYPE: CT abdomen pelvis w con DATE OF EXAM: 06/11/2017 COMPARISON: NONE HISTORY: Ovarian mass CT DLP: 677.4 mGycm Automated exposure control for dose reduction was used. TECHNIQUE: Helical acquisition of images was performed from the lung bases through the pelvis. CONTRAST: Performed with Oral Contrast and with IV Contrast, patient injected with 100 mL of Omnipaque 300. FINDINGS: Lung bases are clear of consolidation. There is no pleural effusion. There is no pericardial effusion . Liver spleen pancreas appear normal. Bile ducts are not dilated. Gallbladder is absent. There is no adrenal mass. There is 4.5 cm cyst on the anterior left kidney. There is [address] posterior left kidney. There is no hydronephrosis. Ureters are not dilated. There is small ventral hernia contains omental fat. I see no intestinal wall thickening. There are no dilated loops. There is probably a hysterectomy. Th ere is a large midline cystic pelvic mass. This measures 9 x 8 cm. The bladder distends smoothly. Appendix is not seen. There is no sign of appendicitis. I see no intestinal wall thickening. There is multilevel spondylosis in the lumbar spine. There is mild lumbar dextroscoliosis. IMPRESSION: LEFT RENAL CORTICAL CYSTS. NO EVIDENCE OF RENAL OBSTRUCTION. LARGE CYSTIC MASS IN THE PELVIS IS PROBABLY AN OVARIAN CYST ARISING FROM THE RIGHT OVARY. SPONDYLOTIC CHANGES IN THE LUMBAR SPINE. THERE IS DEGENERATIVE FIRST DEGREE L3-4 AND L4-5 SPONDYLOLISTHESIS.
[2017-06-11 20:11] LABS: Glucose,Whole Blood 138 mg/dL (75-99)
--- NOTE | 2017-06-11 23:12 | PN ---
PROGRESS NOTE DATE OF SERVICE: 06/11/17 The patient is seen in the room at the bedside. She voices no complaints. VITAL SIGNS: Temperature 97.8, pulse 98, respiration 18, blood pressure 122/58. General appearance: The patient is awake alert and oriented 3. She is in no acute distress HEENT: Atraumatic ;Normocephalic, pupils are equal and reactive to light. Extraocular movements are intact; buccal mucosa is fair Neck is supple. No goiter. No lymphadenopathy. JVD is negative. No carotid bruit heard. LUNGS; markedly decreased breath sounds with expiratory wheezing. No rhonchi Heart is regular rate and rhythm without gallop rhythm. Abdomen soft, nontender, nondistended. Bowel sounds positive. Extremities: No edema, clubbing or cyanosis. LAB: CBC white blood count 5.2, hemoglobin 13.8, hematocrit 41.9, and platelet count of 291. Chemical profile: Sodium 140, potassium 4.1, chloride 105, bicarb 29, BUN 28, creatinine 0.6, glucose 112. ASSESSMENT: 1. Acute exacerbation of COPD/asthma 2. Obesity. 3. Coronary atherosclerosis. 5. Compression fracture thoracic spine. 6. Restless legs syndrome. 7. History of transient ischemic attack. We will continue patient on the current nebulizer treatment. Continue with the IV Solu-Medrol until further recommendations from pulmonary service.Continue current medications. Will start tapering the steroids off once stable. Recommend increase activity. Possible discharge in about 24-48 hours once cleared by pulmonary. MMODL / IJN: [id number] / MTDD
[2017-06-12] MEDS: methylPREDNISolone SOD SUCCI 125 MG/2 ML VIAL IV SCH ×3 (06:46→17:53)
[2017-06-12 06:54] LABS: Basophils % (A) 0 %; Eosinophils % (A) 0 %; HCT 42.1 % (34.0-46.0); Lymphocytes # (A) 0.4 k/uL (1.0-4.8); Lymphocytes % (A) 7 %; MCH 29.9 pg (25.0-35.0); MCHC 33.4 g/dL (31.0-37.0); MCV 89.5 fL (80.0-100.0); Mean Platelet Volume 7.3; Monocytes # (A) 0.3 k/uL (0-1.0); Monocytes % (A) 5 %; Neutrophils # (A) 5.1 k/uL (1.3-7.7); Neutrophils % (A) 86 %; Platelet Count 301 k/uL (150-450); RDW 12.9 % (11.5-15.5); WBC 5.9 k/uL (3.8-10.6)
[2017-06-12 07:00] LABS: Glucose,Whole Blood 107 mg/dL (75-99)
[2017-06-12 07:08] LABS: Anion Gap 8 mmol/L; Blood Urea Nitrogen 27 mg/dL (7-17); Calcium 8.8 mg/dL (8.4-10.2); Carbon Dioxide 29 mmol/L (22-30); Chloride 103 mmol/L (98-107); Glucose 116 mg/dL (74-99); Potassium 4.4 mmol/L (3.5-5.1); Sodium 140 mmol/L (137-145)
[2017-06-12] MEDS: FORMOTEROL FUMARATE 20 MCG/2 ML NEBU INHALATION SCH ×2 (08:00→20:40)
[2017-06-12] MEDS: IPRATROPIUM-ALBUTEROL 3 ML NEB INHALATION SCH ×4 (08:00→20:40)
[2017-06-12] MEDS: BUDESONIDE 1 MG/2 ML NEBU INHALATION SCH ×2 (08:00→20:40)
[2017-06-12] MEDS: INSULIN ASPART 100 UNIT/ML 1 ML 10 ML VIAL SQ SCH ×4 (08:54→21:37)
[2017-06-12] MEDS: PANTOPRAZOLE 40 MG TABLET PO SCH (09:01)
[2017-06-12] MEDS: amLODIPine 5 MG TAB PO SCH ×2 (09:01→20:28)
[2017-06-12] MEDS: AZITHROMYCIN 500 MG TAB PO SCH (09:01)
[2017-06-12] MEDS: cefTRIAXone IN SWFI 1,000 MG/10 ML SYRINGE IVP SCH (09:02)
[2017-06-12] MEDS: HEPARIN SODIUM,PORCINE 5,000 UNIT/ML 1 ML VIAL SQ SCH ×2 (09:02→20:28)
[2017-06-12] MEDS: HYDROcodone/APAP 5-325MG 1 EACH TAB PO PRN ×2 (10:20→17:54)
[2017-06-12 12:00] LABS: Glucose,Whole Blood 127 mg/dL (75-99)
--- NOTE | 2017-06-12 15:39 | P.PN ---
Subjective Progress Note Date: 06/12/17 Principal diagnosis: Acute exacerbation of chronic severe persistent bronchial asthma This is a pleasant 79-year-old female patient with known history of severe persistent steroid-dependent bronchial asthma in addition to multiple medical pros and comorbidities who came in from [facility] because of worsening shortness of breath. The patient was progressively getting worse over the past few weeks and she got to the point where she was unable to breathe while doing activities of daily today life. She was having increased cough chest congestion and wheezing. She was initially transferred to [facility] and she was transferred to [place] and she was placed on BiPAP overnight. This morning she is off the BiPAP. She is still having increased dyspnea cough and wheeze although her symptoms have subsided. No pleurisy. No hemoptysis. Chest x-ray is free of any acute pulmonary infiltrates. She is a bit tired and fatigued and she is losing weight. She is maintained on Advair and 10 mg of prednisone a daily basis. She does DuoNeb nebulized treatments around the clock. She has been on Xolair injections/anti- IgE treatment in the past. In addition, Aura has multiple other medical problems and complaints. Her most significant complaint is his inability is her inability to walk and the extensive pain that she is experiencing in her back. She has seen multiple neurosurgeons and spine surgeons and she is seen Dr. Stewart from pain management. The most recent MRI from 2013 showed L5-S1 degenerative disc disease and the bulge at the level of L4-L5 with anterolisthesis and the same was also noted at the level of L3-L4. The patient also has degenerative severe disc disease at the level of L2-L3 home at T10-T11, T11-T12 along with stenosis. There is also a right L5 L4 and L3 root compression, L2 neural foraminal narrowing, L2-L3 L4-L5 root compression on the left, diffuse facet arthrosis throughout the lumbar spine and central canal narrowing at the level of L3-L4. She is considering to go back to pain management for a possible pain stimulator. She is moving around with the help of a walker and wheelchair. She was at [facility] a few months back regarding an abnormal brain scan and intracranial hemorrhage as the patient was having headache and occasional dizziness. The patient had a small hemorrhage in the left temporal region. She was transferred to 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 She also had an MRI of the cervical spine without contrast and the neck pain was further evaluated and it showed senescent degenerative changes. 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 The small intracranial bleed was handled conservatively and the patient was discharged home without any significant issues. She is still having generalized weakness, occasional headaches and some occasional dizziness along with leg numbness and tingling. She has chronic insomnia and the patient is essentially awake and without multiple times at night she cannot get herself in a comfortable position. She has been on Ambien 5 mg to help her with sleep. She has been also told that her ovarian cysts and gotten larger however I do not have any clear documentation is on that. I think it's reasonable at a later stage to be seen by Dr. Sánchez in this regard. We have felt that this was a benign ovarian cyst The patient is seen again today 06/10/2017 in follow-up in the regular medical floor. She is awake and alert in no acute distress. She is still dyspneic on minimal exertion. Not quite back to her baseline. She is maintaining good O2 saturations in the high 90s on 3 L/m per nasal cannula. She's been afebrile. No leukocytosis. She is maintained on IV Solu-Medrol, Pulmicort and Perforomist , DuoNeb inhalations. She is on antibiotics in the form of ceftriaxone and azithromycin. The patient is seen again today 06/11/2017 in follow-up in the regular medical floor. She is awake and alert in no acute distress. She continues with some dyspnea on minimal conversation. He is maintaining good O2 saturations in the upper 90s on 2 L/m per nasal cannula. She's been afebrile. Hemodynamically stable. She is continued on her current treatment plan. She is better today but not quite back to her baseline. White count 5.2. Hemoglobin 13.8. Creatinine 0.62. Computed tomography scan of the abdomen is pending based on her history of enlarging ovarian cyst. Patient is seen again today 06/12/2017 in follow-up in the surgical floor. She is awake and alert in no acute distress. She states she is breathing better today as compared to yesterday but still not back to her baseline. She is maintaining good O2 saturations in the mid 90s on room air. She's been afebrile. Hemodynamically stable. Computed tomography scan of the abdomen revealed left renal cortical cyst. No evidence of renal obstruction. There is a large cystic mass in the pelvis most likely the ovarian cyst arising from the right ovary. Objective - Vital Signs Vital signs: Vital Signs Temp 98.2 F 06/12/17 15:00 Pulse 89 06/12/17 15:00 Resp 16 06/12/17 15:00 BP 124/70 06/12/17 15:00 Pulse Ox 96 06/12/17 15:00 Intake & Output 06/11/17 06/12/17 06/12/17 18:59 06:59 18:59 Intake Total 538 120 Balance 538 120 Weight 60.5 kg Intake: Oral 538 120 Other: Voiding Method Bedside Commode Bedside Commode Bedside Commode # Voids 2 3 - Exam GENERAL EXAM: Alert, comfortable in no apparent distress. HEAD: Normocephalic. EYES: Normal reaction of pupils, equal size. NOSE: Clear with pink turbinates. THROAT: No erythema or exudates. NECK: No masses, no JVD. CHEST: No chest wall deformity. LUNGS: Equal air entry with bilateral end expiratory wheeze. Diminished. CVS: S1 and S2 normal with no audible murmur, regular rhythm. ABDOMEN: No hepatosplenomegaly, normal bowel sounds, no guarding or rigidity. SPINE: No scoliosis or deformity SKIN: No rashes CENTRAL NERVOUS SYSTEM: No focal deficits, tone is normal in all 4 extremities. EXTREMITIES: There is no peripheral edema. No clubbing, no cyanosis. Peripheral pulses are intact. - Labs CBC & Chem 7: 06/12/17 06:30 06/12/17 06:30 Labs: Abnormal Lab Results - Last 24 Hours (Table) 06/11/17 06/11/17 06/12/17 Range/Units 17:10 19:55 06:30 Lymphocytes # 0.4 L (1.0-4.8) k/uL BUN (7-17) mg/dL Glucose (74-99) mg/dL POC Glucose (mg/dL) 127 H 138 H (75-99) mg/dL 06/12/17 06/12/17 06/12/17 Range/Units 06:30 06:56 11:47 Lymphocytes # (1.0-4.8) k/uL BUN 27 H (7-17) mg/dL Glucose 116 H (74-99) mg/dL POC Glucose (mg/dL) 107 H 127 H (75-99) mg/dL Assessment and Plan Assessment: Assessment -Acute exacerbation of chronic severe persistent bronchial asthma with secondary shortness of breath. - severe persistent asthma, Continue on the Advair and singulair as maintenance and Prednisone maintenance of 10 mg daily. -obesity -coronary arteriosclerosis -spinal stenosis, the patient is under the care of Dr. Stewart in regards to her chronic back pain. She has compression fracture of the T-spine and spinal stenosis and degenerative arthritis. She has taken herself off the Neurontin and she is considering a pain pump She also being considered for a pain stimulor -cyst of ovary, this is a complex cyst in the pelvic area , Dr. 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 We will obtain a computed tomography scan of the abdomen and pelvis to reassure the patient. -compression fracture of thoracic spine -restless legs -environmental allergy -hyperlipidemia -benign paroxysmal positional vertigo (Bilateral), the patient is asymptromatic for now -transient cerebral ischemia -persistent insomnia -cerebral arteriovenous malformation, recent RN ON SITE bleed, asymptomatic and treated conservatively, followed up by Dr. Munoz Plan The patient is seen and evaluated by Dr. Savage. We'll continue with her current treatment plan. The patient was reassured of the CT results regarding the cysts of her right ovary.. These were felt to be benign per Dr. Porter but a follow-up CAT scan was recommended and has been ordered. We will continue to follow make further recommendations based on her clinical status. I, the cosigning physician, performed a history & physical examination of the patient. Lungs sounds have bilateral wheezing. Maintaining good O2 saturations in the 90s on room air. I discussed the assessment and plan of care with my nurse practitioner, Lisa Hull. I attest to the above note as dictated by her.
[2017-06-12] MEDS: ASPIRIN 325 MG TAB PO SCH (16:19)
[2017-06-12 17:16] LABS: Glucose,Whole Blood 146 mg/dL (75-99)
--- NOTE | 2017-06-12 18:16 | PN ---
PROGRESS NOTE DATE OF SERVICE: 06/12/2017 Patient was seen in the room. She is sitting up in the bed, claims that her breathing is somewhat better. VITAL SIGNS: Temperature of 98.2, pulse 89, respirations 16, blood pressure 124/70, oxygen saturation 96%. GENERAL EXAMINATION: Patient is alert and awake. She is comfortable. She is in no acute distress. HEENT: Atraumatic, normocephalic. Pupils equal and reactive to light. Extraocular movements intact. Buccal mucosa is fair. NECK: Supple. No goiter, lymphadenopathy. JVD is negative. No carotid bruit heard. LUNGS: Improving air entry with bilateral expiratory wheezing. Decreased breath sounds. Heart is regular rate and rhythm without murmurs or gallop rhythm. Abdomen is soft, nontender, nondistended. Bowel sounds are positive EXTREMITIES: No edema, clubbing or cyanosis. Skin is fair without any rashes, pigmentation. NEUROLOGICAL EXAMINATION: Cranial nerves 2-12 grossly intact. No gross motor or sensory deficit. LABS: CBC: White blood count of 5.9, hemoglobin of 14, hematocrit of 42.1 and platelet count of 301. Chemical profile: Sodium 140, potassium 4.4, chloride 103, bicarb 29, BUN 27, creatinine 0.6, glucose 116. ASSESSMENT: 1. Acute exacerbation of severe persistent bronchial asthma. 2. Acute exacerbation chronic obstructive pulmonary disease. 3. Obesity. 4. Coronary artery disease. 5. Compression fracture in thoracic spine. 6. Restless legs syndrome. 7. History of transient ischemic attack. Patient remains on IV steroids and nebulizer treatment. Patient has a right ovarian cyst and is to follow with Dr. Porter. She remains on IV steroids and nebulizer treatment per pulmonary recommendations and is going to be slowly tapered off. Will continue current management as recommended by Pulmonary and switch her to oral steroids and taper them once agreeable with the pulmonary service. Possible discharge in next 24 to 48 hours. MMODL / IJN: [id number] /
[2017-06-12 19:59] LABS: Glucose,Whole Blood 147 mg/dL (75-99)
[2017-06-13] MEDS: methylPREDNISolone SOD SUCCI 125 MG/2 ML VIAL IV SCH ×4 (00:55→18:20)
[2017-06-13 06:43] LABS: Glucose,Whole Blood 103 mg/dL (75-99)
[2017-06-13] MEDS: IPRATROPIUM-ALBUTEROL 3 ML NEB INHALATION SCH ×4 (06:57→19:47)
[2017-06-13] MEDS: FORMOTEROL FUMARATE 20 MCG/2 ML NEBU INHALATION SCH ×2 (06:58→19:47)
[2017-06-13] MEDS: BUDESONIDE 1 MG/2 ML NEBU INHALATION SCH ×2 (06:58→19:47)
[2017-06-13] MEDS: INSULIN ASPART 100 UNIT/ML 1 ML 10 ML VIAL SQ SCH ×4 (07:04→20:49)
[2017-06-13] MEDS: AZITHROMYCIN 500 MG TAB PO SCH (08:03)
[2017-06-13] MEDS: amLODIPine 5 MG TAB PO SCH (08:03)
[2017-06-13] MEDS: HEPARIN SODIUM,PORCINE 5,000 UNIT/ML 1 ML VIAL SQ SCH ×2 (08:03→20:53)
[2017-06-13] MEDS: cefTRIAXone IN SWFI 1,000 MG/10 ML SYRINGE IVP SCH (08:03)
[2017-06-13] MEDS: PANTOPRAZOLE 40 MG TABLET PO SCH (08:03)
[2017-06-13 08:19] LABS: Basophils % (A) 0 %; Eosinophils % (A) 0 %; HCT 44.1 % (34.0-46.0); HGB 14.6 gm/dL (11.4-16.0); Lymphocytes # (A) 0.5 k/uL (1.0-4.8); Lymphocytes % (A) 6 %; MCH 29.5 pg (25.0-35.0); MCHC 33.1 g/dL (31.0-37.0); MCV 89.1 fL (80.0-100.0); Monocytes # (A) 0.3 k/uL (0-1.0); Monocytes % (A) 3 %; Neutrophils # (A) 7.4 k/uL (1.3-7.7); Neutrophils % (A) 90 %; Platelet Count 350 k/uL (150-450); RBC 4.95 m/uL (3.80-5.40); RDW 12.9 % (11.5-15.5); WBC 8.2 k/uL (3.8-10.6)
[2017-06-13 08:46] LABS: Anion Gap 7 mmol/L; Blood Urea Nitrogen 31 mg/dL (7-17); Calcium 9.1 mg/dL (8.4-10.2); Carbon Dioxide 28 mmol/L (22-30); Chloride 105 mmol/L (98-107); Glucose 127 mg/dL (74-99); Potassium 4.4 mmol/L (3.5-5.1); Sodium 140 mmol/L (137-145)
[2017-06-13 11:49] LABS: Glucose,Whole Blood 104 mg/dL (75-99)
[2017-06-13] MEDS: HYDROcodone/APAP 5-325MG 1 EACH TAB PO PRN (16:12)
--- NOTE | 2017-06-13 16:50 | PN ---
PROGRESS NOTE DATE OF SERVICE: 06/13/2017 Patient was seen in the room, resting comfortably in the bed, claims she does not feel too good today. She has been having diarrhea, had several episodes this morning but has not had any since for past few hours. VITAL SIGNS: Temperature 98.6, pulse 91, respiration 15, blood pressure of 149/83, O2 saturation 97%. GENERAL EXAM: Patient is awake, alert and she is in no acute distress. HEENT: Atraumatic, normocephalic. Pupils equal and react to light. Extraocular movements intact. Buccal mucosa is fair. NECK: Supple. No goiter or lymphadenopathy. JVD is negative. No carotid bruit heard. LUNGS: Decreased air entry with bilateral expiration wheezes, decreased breath sounds. Heart is regular rate and rhythm without murmurs or gallop rhythm. ABDOMEN: Soft, nontender, nondistended. Bowel sounds positive. EXTREMITIES: No edema, clubbing or cyanosis. LABS: CBC: White blood count of 8.2, hemoglobin 14.6, hematocrit 44.1, and platelet count of 350. Chemical profile: Sodium 140, potassium 4.4, chloride 105, bicarb 28, BUN 31, creatinine 0.64, glucose of 104. ASSESSMENT: 1. Uncontrolled hypertension. The patient is currently on Norvasc 5 mg daily. We will increase it to 10 mg and monitor closely. 2. Acute exacerbation, severe persistent bronchial asthma. 3. Acute exacerbation chronic obstructive pulmonary disease. The patient remains on nebulizer treatment with the Pulmicort and Perforomist. Remains on IV Rocephin and DuoNeb nebulizer treatments are also in place. Pulmonary is following the patient. 4. Acute onset diarrhea. The patient is on IV antibiotics. We will proceed with ordering C diff toxin if the patient continues to have diarrhea. We will monitor CBC and treat and make adjustments accordingly. 5. Coronary artery disease. 6. Compression fracture in thoracic spine. 7. Restless legs syndrome. The patient patient remains stable otherwise. Pulmonary is recommending to continue current treatment at this point and anticipating discharge in next 24-48 hours. We will increase the patient's Norvasc to 10 mg and monitor blood pressure closely and make adjustments accordingly. MMODL / IJN: [id number] /
[2017-06-13 17:10] LABS: Glucose,Whole Blood 133 mg/dL (75-99)
--- NOTE | 2017-06-13 17:22 | P.PN ---
Subjective Progress Note Date: 06/13/17 Acute exacerbation of chronic severe persistent bronchial asthma This is a pleasant 79-year-old female patient with known history of severe persistent steroid-dependent bronchial asthma in addition to multiple medical pros and comorbidities who came in from [facility] because of worsening shortness of breath. The patient was progressively getting worse over the past few weeks and she got to the point where she was unable to breathe while doing activities of daily today life. She was having increased cough chest congestion and wheezing. She was initially transferred to [facility] and she was transferred to [place] and she was placed on BiPAP overnight. This morning she is off the BiPAP. She is still having increased dyspnea cough and wheeze although her symptoms have subsided. No pleurisy. No hemoptysis. Chest x-ray is free of any acute pulmonary infiltrates. She is a bit tired and fatigued and she is losing weight. She is maintained on Advair and 10 mg of prednisone a daily basis. She does DuoNeb nebulized treatments around the clock. She has been on Xolair injections/anti- IgE treatment in the past. In addition, Aura has multiple other medical problems and complaints. Her most significant complaint is his inability is her inability to walk and the extensive pain that she is experiencing in her back. She has seen multiple neurosurgeons and spine surgeons and she is seen Dr. Stewart from pain management. The most recent MRI from 2013 showed L5-S1 degenerative disc disease and the bulge at the level of L4-L5 with anterolisthesis and the same was also noted at the level of L3-L4. The patient also has degenerative severe disc disease at the level of L2-L3 home at T10-T11, T11-T12 along with stenosis. There is also a right L5 L4 and L3 root compression, L2 neural foraminal narrowing, L2-L3 L4-L5 root compression on the left, diffuse facet arthrosis throughout the lumbar spine and central canal narrowing at the level of L3-L4. She is considering to go back to pain management for a possible pain stimulator. She is moving around with the help of a walker and wheelchair. She was at [facility] a few months back regarding an abnormal brain scan and intracranial hemorrhage as the patient was having headache and occasional dizziness. The patient had a small hemorrhage in the left temporal region. 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 She also had an MRI of the cervical spine without contrast and the neck pain was further evaluated and it showed senescent degenerative changes. 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 The small intracranial bleed was handled conservatively and the patient was discharged home without any significant issues. She is still having generalized weakness, occasional headaches and some occasional dizziness along with leg numbness and tingling. She has chronic insomnia and the patient is essentially awake and without multiple times at night she cannot get herself in a comfortable position. She has been on Ambien 5 mg to help her with sleep. She has been also told that her ovarian cysts and gotten larger however I do not have any clear documentation is on that. I think it's reasonable at a later stage to be seen by Dr. Sánchez in this regard. We have felt that this was a benign ovarian cyst The patient is seen again today 06/10/2017 in follow-up in the regular medical floor. She is awake and alert in no acute distress. She is still dyspneic on minimal exertion. Not quite back to her baseline. She is maintaining good O2 saturations in the high 90s on 3 L/m per nasal cannula. She's been afebrile. No leukocytosis. She is maintained on IV Solu-Medrol, Pulmicort and Perforomist , DuoNeb inhalations. She is on antibiotics in the form of ceftriaxone and azithromycin. The patient is seen again today 06/11/2017 in follow-up in the regular medical floor. She is awake and alert in no acute distress. She continues with some dyspnea on minimal conversation. He is maintaining good O2 saturations in the upper 90s on 2 L/m per nasal cannula. She's been afebrile. Hemodynamically stable. She is continued on her current treatment plan. She is better today but not quite back to her baseline. White count 5.2. Hemoglobin 13.8. Creatinine 0.62. Computed tomography scan of the abdomen is pending based on her history of enlarging ovarian cyst. Patient is seen again today 06/12/2017 in follow-up in the surgical floor. She is awake and alert in no acute distress. She states she is breathing better today as compared to yesterday but still not back to her baseline. She is maintaining good O2 saturations in the mid 90s on room air. She's been afebrile. Hemodynamically stable. Computed tomography scan of the abdomen revealed left renal cortical cyst. No evidence of renal obstruction. There is a large cystic mass in the pelvis most likely the ovarian cyst arising from the right ovary. On 06/13/2017, the patient is doing slightly better compared to yesterday. Less focused spastic and wheezy. Some minimal soft diarrhea. No abdominal pain. She has some GI upset and she has dropped her oral intake. CAT scan of the abdomen and pelvis was noted. Objective - Vital Signs Vital signs: Vital Signs Temp 98.6 F 06/13/17 15:00 Pulse 92 06/13/17 16:08 Resp 15 06/13/17 15:00 BP 149/83 06/13/17 15:00 Pulse Ox 97 06/13/17 15:00 Intake & Output 06/12/17 06/13/17 06/13/17 17:59 06:59 18:59 Intake Total Balance Intake: Oral Other: Voiding Method Bedside Commode # Voids 2 # Bowel Movements 2 - Exam GENERAL EXAM: Alert, comfortable in no apparent distress. HEAD: Normocephalic. EYES: Normal reaction of pupils, equal size. NOSE: Clear with pink turbinates. THROAT: No erythema or exudates. NECK: No masses, no JVD. CHEST: No chest wall deformity. LUNGS: Equal air entry with bilateral end expiratory wheeze. Diminished. CVS: S1 and S2 normal with no audible murmur, regular rhythm. ABDOMEN: No hepatosplenomegaly, normal bowel sounds, no guarding or rigidity. SPINE: No scoliosis or deformity SKIN: No rashes CENTRAL NERVOUS SYSTEM: No focal deficits, tone is normal in all 4 extremities. EXTREMITIES: There is no peripheral edema. No clubbing, no cyanosis. Peripheral pulses are intact. - Labs CBC & Chem 7: 06/13/17 08:00 06/13/17 08:00 Labs: Abnormal Lab Results - Last 24 Hours (Table) 06/12/17 06/12/17 06/13/17 Range/Units 16:53 19:57 06:40 Lymphocytes # (1.0-4.8) k/uL BUN (7-17) mg/dL Glucose (74-99) mg/dL POC Glucose (mg/dL) 146 H 147 H 103 H (75-99) mg/dL 06/13/17 06/13/17 06/13/17 Range/Units 08:00 08:00 11:40 Lymphocytes # 0.5 L (1.0-4.8) k/uL BUN 31 H (7-17) mg/dL Glucose 127 H (74-99) mg/dL POC Glucose (mg/dL) 104 H (75-99) mg/dL 06/13/17 Range/Units 16:44 Lymphocytes # (1.0-4.8) k/uL BUN (7-17) mg/dL Glucose (74-99) mg/dL POC Glucose (mg/dL) 133 H (75-99) mg/dL Assessment and Plan Plan: Assessment -Acute exacerbation of chronic severe persistent bronchial asthma with secondary shortness of breath. The patient is improving slowly. - severe persistent asthma, Continue on the Advair and singulair as maintenance and Prednisone maintenance of 10 mg daily. -obesity -coronary arteriosclerosis -spinal stenosis, the patient is under the care of Dr. Stewart in regards to her chronic back pain. She has compression fracture of the T-spine and spinal stenosis and degenerative arthritis. She has taken herself off the Neurontin and she is considering a pain pump She also being considered for a pain stimulor -cyst of ovary, this is a complex cyst in the pelvic area , Dr. Porter felt that this to be benign and no further workup has been suggested by DIRECTOR ONLINE MARKETING/oncology. We will obtain a computed tomography scan of the abdomen and pelvis to reassure the patient. 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 Munoz Plan Stop the Zithromax. Continue the ceftriaxone. Continue bronchodilators. Continue the steroids. We'll continue to follow. Anticipate another 24-48 hours of inpatient antibiotic and steroid treatment.
[2017-06-14] MEDS: methylPREDNISolone SOD SUCCI 125 MG/2 ML VIAL IV SCH ×2 (00:34→05:59)
[2017-06-14 06:30] LABS: Glucose,Whole Blood 106 mg/dL (75-99)
[2017-06-14 07:35] LABS: Basophils % (A) 0 %; Eosinophils % (A) 0 %; HCT 41.3 % (34.0-46.0); HGB 13.9 gm/dL (11.4-16.0); Lymphocytes # (A) 0.4 k/uL (1.0-4.8); Lymphocytes % (A) 4 %; MCH 29.7 pg (25.0-35.0); MCHC 33.7 g/dL (31.0-37.0); MCV 88.3 fL (80.0-100.0); Mean Platelet Volume 8.1; Monocytes # (A) 0.4 k/uL (0-1.0); Monocytes % (A) 4 %; Neutrophils % (A) 90 %; Platelet Count 307 k/uL (150-450); RBC 4.68 m/uL (3.80-5.40); RDW 12.8 % (11.5-15.5)
[2017-06-14] MEDS: INSULIN ASPART 100 UNIT/ML 1 ML 10 ML VIAL SQ SCH ×3 (08:44→17:29)
[2017-06-14] MEDS: HYDROcodone/APAP 5-325MG 1 EACH TAB PO PRN ×2 (08:45→16:01)
[2017-06-14] MEDS: PANTOPRAZOLE 40 MG TABLET PO SCH (08:45)
[2017-06-14] MEDS: HEPARIN SODIUM,PORCINE 5,000 UNIT/ML 1 ML VIAL SQ SCH (08:46)
[2017-06-14] MEDS: amLODIPine 10 MG TAB PO SCH (08:46)
[2017-06-14] MEDS: cefTRIAXone IN SWFI 1,000 MG/10 ML SYRINGE IVP SCH (08:48)
[2017-06-14] MEDS: IPRATROPIUM-ALBUTEROL 3 ML NEB INHALATION SCH ×4 (09:22→19:53)
[2017-06-14] MEDS: FORMOTEROL FUMARATE 20 MCG/2 ML NEBU INHALATION SCH ×2 (09:22→19:53)
[2017-06-14] MEDS: BUDESONIDE 1 MG/2 ML NEBU INHALATION SCH ×2 (09:22→19:53)
[2017-06-14 11:24] LABS: Glucose,Whole Blood 136 mg/dL (75-99)
--- NOTE | 2017-06-14 11:52 | P.PN ---
Subjective Progress Note Date: 06/14/17 Principal diagnosis: Acute exacerbation of chronic severe persistent bronchial asthma This is a pleasant 79-year-old female patient with known history of severe persistent steroid-dependent bronchial asthma in addition to multiple medical pros and comorbidities who came in from [facility] because of worsening shortness of breath. The patient was progressively getting worse over the past few weeks and she got to the point where she was unable to breathe while doing activities of daily today life. She was having increased cough chest congestion and wheezing. She was initially transferred to [facility] and she was transferred to [place] and she was placed on BiPAP overnight. This morning she is off the BiPAP. She is still having increased dyspnea cough and wheeze although her symptoms have subsided. No pleurisy. No hemoptysis. Chest x-ray is free of any acute pulmonary infiltrates. She is a bit tired and fatigued and she is losing weight. She is maintained on Advair and 10 mg of prednisone a daily basis. She does DuoNeb nebulized treatments around the clock. She has been on Xolair injections/anti- IgE treatment in the past. In addition, Aura has multiple other medical problems and complaints. Her most significant complaint is his inability is her inability to walk and the extensive pain that she is experiencing in her back. She has seen multiple neurosurgeons and spine surgeons and she is seen Dr. Stewart from pain management. The most recent MRI from 2013 showed L5-S1 degenerative disc disease and the bulge at the level of L4-L5 with anterolisthesis and the same was also noted at the level of L3-L4. The patient also has degenerative severe disc disease at the level of L2-L3 home at T10-T11, T11-T12 along with stenosis. There is also a right L5 L4 and L3 root compression, L2 neural foraminal narrowing, L2-L3 L4-L5 root compression on the left, diffuse facet arthrosis throughout the lumbar spine and central canal narrowing at the level of L3-L4. She is considering to go back to pain management for a possible pain stimulator. She is moving around with the help of a walker and wheelchair. She was at [facility] a few months back regarding an abnormal brain scan and intracranial hemorrhage as the patient was having headache and occasional dizziness. The patient had a small hemorrhage in the left temporal region. 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 She also had an MRI of the cervical spine without contrast and the neck pain was further evaluated and it showed senescent degenerative changes. 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 The small intracranial bleed was handled conservatively and the patient was discharged home without any significant issues. She is still having generalized weakness, occasional headaches and some occasional dizziness along with leg numbness and tingling. She has chronic insomnia and the patient is essentially awake and without multiple times at night she cannot get herself in a comfortable position. She has been on Ambien 5 mg to help her with sleep. She has been also told that her ovarian cysts and gotten larger however I do not have any clear documentation is on that. I think it's reasonable at a later stage to be seen by Dr. Sánchez in this regard. We have felt that this was a benign ovarian cyst The patient is seen again today 06/10/2017 in follow-up in the regular medical floor. She is awake and alert in no acute distress. She is still dyspneic on minimal exertion. Not quite back to her baseline. She is maintaining good O2 saturations in the high 90s on 3 L/m per nasal cannula. She's been afebrile. No leukocytosis. She is maintained on IV Solu-Medrol, Pulmicort and Perforomist , DuoNeb inhalations. She is on antibiotics in the form of ceftriaxone and azithromycin. The patient is seen again today 06/11/2017 in follow-up in the regular medical floor. She is awake and alert in no acute distress. She continues with some dyspnea on minimal conversation. He is maintaining good O2 saturations in the upper 90s on 2 L/m per nasal cannula. She's been afebrile. Hemodynamically stable. She is continued on her current treatment plan. She is better today but not quite back to her baseline. White count 5.2. Hemoglobin 13.8. Creatinine 0.62. Computed tomography scan of the abdomen is pending based on her history of enlarging ovarian cyst. Patient is seen again today 06/12/2017 in follow-up in the surgical floor. She is awake and alert in no acute distress. She states she is breathing better today as compared to yesterday but still not back to her baseline. She is maintaining good O2 saturations in the mid 90s on room air. She's been afebrile. Hemodynamically stable. Computed tomography scan of the abdomen revealed left renal cortical cyst. No evidence of renal obstruction. There is a large cystic mass in the pelvis most likely the ovarian cyst arising from the right ovary. On 06/13/2017, the patient is doing slightly better compared to yesterday. Less focused spastic and wheezy. Some minimal soft diarrhea. No abdominal pain. She has some GI upset and she has dropped her oral intake. CAT scan of the abdomen and pelvis was noted. On 06/14/2017 patient seen in follow-up on medical surgical floor. She's had multiple episodes of diarrhea this morning, stool for C. diff toxin was positive. Patient will be initiated on oral vancomycin. She is complaining of being fatigued from multiple trips to the bedside commode. Gets wheezy and dyspneic with exertion as well. Lung sounds are positive for scattered expiratory wheezing, but this is noted to be improved from admission. Good air entry noted bilaterally. No significant cough, sputum production or chest congestion. She is afebrile, she is on room air with O2 sat at 97%. Today's lab work shows WBC of 10.0, hemoglobin 13.9. Patient continues on bronchodilators, IV steroids, Rocephin. In addition she is expressing concern about tenderness on palpation in her left breast. Left breast nipple is noted to be retracted, tenderness on palpation noted in the left breast at 9pm. No redness or warmth to palpation noted. No distinct mass was noted on exam, no lymph node enlargement. Objective - Vital Signs Vital signs: Vital Signs Temp 97.4 F L 06/14/17 07:22 Pulse 82 06/14/17 07:22 Resp 16 06/14/17 07:22 BP 130/74 06/14/17 07:22 Pulse Ox 97 06/14/17 07:22 Intake & Output 06/13/17 06/14/17 06/14/17 18:59 06:59 18:59 Intake Total 350 Balance 350 Intake: Oral 350 Other: Voiding Method Bedside Commode # Voids 2 1 # Bowel Movements 2 2 - Exam GENERAL EXAM: Alert, pleasant 82-year-old female comfortable in no apparent distress. HEAD: Normocephalic/atraumatic. EYES: Normal reaction of pupils, equal size. Conjunctiva pink, sclera white. NOSE: Clear with pink turbinates. THROAT: No erythema or exudates. NECK: No masses, no JVD, no thyroid enlargement, no adenopathy. CHEST: No chest wall deformity. Symmetrical expansion. Patient complains of tenderness on palpation in the left breast at 9 PM, no distinct masses noted, left nipple retracted LUNGS: Equal air entry with no crackles, scattered expiratory wheezes noted CVS: Regular rate and rhythm, normal S1 and S2, no gallops, no murmurs, no rubs ABDOMEN: Soft, nontender. No hepatosplenomegaly, normal bowel sounds, no guarding or rigidity. EXTREMITIES: No clubbing, no edema, no cyanosis, 2+ pulses and upper and lower extremities. MUSCULOSKELETAL: Muscle strength and tone normal. SPINE: No scoliosis or deformity SKIN: No rashes CENTRAL NERVOUS SYSTEM: Alert and oriented -3. No focal deficits, tone is normal in all 4 extremities. PSYCHIATRIC: Alert and oriented -3. Appropriate affect. Intact judgment and insight. - Labs CBC & Chem 7: 06/14/17 06:51 06/13/17 08:00 Labs: Abnormal Lab Results - Last 24 Hours (Table) 06/13/17 06/13/17 06/14/17 Range/Units 11:40 16:44 04:25 Neutrophils # (1.3-7.7) k/uL Lymphocytes # (1.0-4.8) k/uL POC Glucose (mg/dL) 104 H 133 H (75-99) mg/dL C. difficile (EIA) Intrp Positive A (Negative) 06/14/17 06/14/17 Range/Units 06:27 06:51 Neutrophils # 9.0 H (1.3-7.7) k/uL Lymphocytes # 0.4 L (1.0-4.8) k/uL POC Glucose (mg/dL) 106 H (75-99) mg/dL C. difficile (EIA) Intrp (Negative) Assessment and Plan Plan: Assessment: -Acute exacerbation of chronic severe persistent bronchial asthma with secondary shortness of breath. The patient is improving slowly. - severe persistent asthma, on the Advair and singulair as maintenance and Prednisone maintenance of 10 mg daily. - C. diff colitis -obesity -coronary arteriosclerosis -spinal stenosis, the patient is under the care of Dr. Stewart in regards to her chronic back pain. She has compression fracture of the T-spine and spinal stenosis and degenerative arthritis. She has taken herself off the Neurontin and she is considering a pain pump She also being considered for a pain stimulor -cyst of ovary, this is a complex cyst in the pelvic area , Dr. Porter felt that this to be benign and no further workup has been suggested by HEMATOLOGIST/oncology. We will obtain a computed tomography scan of the abdomen and pelvis to reassure the patient. 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 Tammy Charles Zithromax has been discontinued yesterday. Patient has C. diff colitis, we will initiate oral vancomycin. Continue nebulized treatments, we will decrease the Solu-Medrol down to 40 mg every 8 hours. Patient remains dyspneic and wheezy with exertion. Complains of generalized weakness and fatigue. Complaining of left breast tenderness. 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 I performed a history & physical examination of the patient and discussed their management with my nurse practitioner, Rona Bowman. I reviewed the nurse practitioner's note and agree with the documented findings and plan of care. Lung sounds are positive for scattered wheezes throughout the lung french. The findings and the impression was discussed with the patient. I attest to the documentation by the nurse practitioner. Time with Patient: Less than 30
[2017-06-14] MEDS: VANCOMYCIN ORAL SOLUTION 250 MG/5 ML BOTTLE PO SCH ×2 (13:53→18:00)
[2017-06-14] MEDS: methylPREDNISolone SOD SUCCI 40 MG/ML 1 ML VIAL IV SCH (16:01)
[2017-06-14] MEDS: ASPIRIN 325 MG TAB PO SCH (16:01)
[2017-06-14 17:09] LABS: Glucose,Whole Blood 133 mg/dL (75-99)
[2017-06-14 20:45] LABS: Glucose,Whole Blood 141 mg/dL (75-99)
--- NOTE | 2017-06-14 22:00 | PN ---
PROGRESS NOTE DATE OF SERVICE: 06/14/2017 This 82-year-old woman was admitted COPD exacerbation with acute atrial fibrillation is also complaining of diarrhea, patient with acute C difficile colitis. A CT scan of the abdomen and pelvis was done recently which showed some ovarian cyst. No chest pain. No palpitations. No fever. PHYSICAL EXAM: Alert and oriented x3. Pulse is 84, blood pressure 120/83, respiratory rate 16, temperature 98 degrees, pulse ox 98% on 2 L. HEENT conjunctivae normal, oral mucosa moist. Neck is no jugular venous distention. No carotid bruit. No lymph nodes enlargement. Cardiovascular: S1, S2 muffled. Respiratory: Breath sounds diminished in the bases. A few scattered rhonchi and no crackles. Legs no edema. No swelling. ABDOMEN: Soft. Mild diffuse tenderness. LABS: CBC within normal limits. Glucose noted. ASSESSMENT: 1. Chronic obstructive pulmonary disease exacerbation with acute tracheobronchitis. 2. Diarrhea with acute C difficile colitis. 3. History of dementia. 4. History of hard of hearing. 5. History of hepatitis C. 6. History of degenerative joint disease. 7. History of back surgery. 8. Remote history of nicotine dependence. 9. Hypertension. 10.FULL CODE. RECOMMENDATIONS AND DISCUSSION: Recommend to continue current medications, management and symptomatic treatment. At this time I recommend continue with vancomycin p.o. Stop antibiotic. Continue the bronchodilators. I would also recommend tapering the steroids at a faster rate and continue to monitor. Further recommendations to follow. MMODL / IJN: [id number] /
[2017-06-15] MEDS: VANCOMYCIN ORAL SOLUTION 250 MG/5 ML BOTTLE PO SCH ×4 (00:31→18:16)
[2017-06-15] MEDS: INSULIN ASPART 100 UNIT/ML 1 ML 10 ML VIAL SQ SCH ×5 (00:31→21:24)
[2017-06-15] MEDS: HEPARIN SODIUM,PORCINE 5,000 UNIT/ML 1 ML VIAL SQ SCH ×3 (00:35→21:24)
[2017-06-15] MEDS: methylPREDNISolone SOD SUCCI 40 MG/ML 1 ML VIAL IV SCH ×2 (00:35→08:58)
[2017-06-15 07:02] LABS: Glucose,Whole Blood 96 mg/dL (75-99)
[2017-06-15] MEDS: FORMOTEROL FUMARATE 20 MCG/2 ML NEBU INHALATION SCH ×2 (08:08→20:31)
[2017-06-15] MEDS: IPRATROPIUM-ALBUTEROL 3 ML NEB INHALATION SCH ×4 (08:08→20:31)
[2017-06-15] MEDS: BUDESONIDE 1 MG/2 ML NEBU INHALATION SCH ×2 (08:08→20:31)
[2017-06-15] MEDS: amLODIPine 10 MG TAB PO SCH (08:59)
[2017-06-15] MEDS: PANTOPRAZOLE 40 MG TABLET PO SCH (08:59)
[2017-06-15 11:26] LABS: Glucose,Whole Blood 129 mg/dL (75-99)
--- NOTE | 2017-06-15 11:41 | P.PN ---
Subjective Progress Note Date: 06/15/17 Principal diagnosis: Acute exacerbation of chronic severe persistent bronchial asthma This is a pleasant 79-year-old female patient with known history of severe persistent steroid-dependent bronchial asthma in addition to multiple medical pros and comorbidities who came in from [facility] because of worsening shortness of breath. The patient was progressively getting worse over the past few weeks and she got to the point where she was unable to breathe while doing activities of daily today life. She was having increased cough chest congestion and wheezing. She was initially transferred to [facility] and she was transferred to [place] and she was placed on BiPAP overnight. This morning she is off the BiPAP. She is still having increased dyspnea cough and wheeze although her symptoms have subsided. No pleurisy. No hemoptysis. Chest x-ray is free of any acute pulmonary infiltrates. She is a bit tired and fatigued and she is losing weight. She is maintained on Advair and 10 mg of prednisone a daily basis. She does DuoNeb nebulized treatments around the clock. She has been on Xolair injections/anti- IgE treatment in the past. In addition, Aura has multiple other medical problems and complaints. Her most significant complaint is his inability is her inability to walk and the extensive pain that she is experiencing in her back. She has seen multiple neurosurgeons and spine surgeons and she is seen Dr. Stewart from pain management. The most recent MRI from 2013 showed L5-S1 degenerative disc disease and the bulge at the level of L4-L5 with anterolisthesis and the same was also noted at the level of L3-L4. The patient also has degenerative severe disc disease at the level of L2-L3 home at T10-T11, T11-T12 along with stenosis. There is also a right L5 L4 and L3 root compression, L2 neural foraminal narrowing, L2-L3 L4-L5 root compression on the left, diffuse facet arthrosis throughout the lumbar spine and central canal narrowing at the level of L3-L4. She is considering to go back to pain management for a possible pain stimulator. She is moving around with the help of a walker and wheelchair. She was at [facility] a few months back regarding an abnormal brain scan and intracranial hemorrhage as the patient was having headache and occasional dizziness. The patient had a small hemorrhage in the left temporal region. 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 She also had an MRI of the cervical spine without contrast and the neck pain was further evaluated and it showed senescent degenerative changes. 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 The small intracranial bleed was handled conservatively and the patient was discharged home without any significant issues. She is still having generalized weakness, occasional headaches and some occasional dizziness along with leg numbness and tingling. She has chronic insomnia and the patient is essentially awake and without multiple times at night she cannot get herself in a comfortable position. She has been on Ambien 5 mg to help her with sleep. She has been also told that her ovarian cysts and gotten larger however I do not have any clear documentation is on that. I think it's reasonable at a later stage to be seen by Dr. Sánchez in this regard. We have felt that this was a benign ovarian cyst The patient is seen again today 06/10/2017 in follow-up in the regular medical floor. She is awake and alert in no acute distress. She is still dyspneic on minimal exertion. Not quite back to her baseline. She is maintaining good O2 saturations in the high 90s on 3 L/m per nasal cannula. She's been afebrile. No leukocytosis. She is maintained on IV Solu-Medrol, Pulmicort and Perforomist , DuoNeb inhalations. She is on antibiotics in the form of ceftriaxone and azithromycin. The patient is seen again today 06/11/2017 in follow-up in the regular medical floor. She is awake and alert in no acute distress. She continues with some dyspnea on minimal conversation. He is maintaining good O2 saturations in the upper 90s on 2 L/m per nasal cannula. She's been afebrile. Hemodynamically stable. She is continued on her current treatment plan. She is better today but not quite back to her baseline. White count 5.2. Hemoglobin 13.8. Creatinine 0.62. Computed tomography scan of the abdomen is pending based on her history of enlarging ovarian cyst. Patient is seen again today 06/12/2017 in follow-up in the surgical floor. She is awake and alert in no acute distress. She states she is breathing better today as compared to yesterday but still not back to her baseline. She is maintaining good O2 saturations in the mid 90s on room air. She's been afebrile. Hemodynamically stable. Computed tomography scan of the abdomen revealed left renal cortical cyst. No evidence of renal obstruction. There is a large cystic mass in the pelvis most likely the ovarian cyst arising from the right ovary. On 06/13/2017, the patient is doing slightly better compared to yesterday. Less focused spastic and wheezy. Some minimal soft diarrhea. No abdominal pain. She has some GI upset and she has dropped her oral intake. CAT scan of the abdomen and pelvis was noted. On 06/14/2017 patient seen in follow-up on medical surgical floor. She's had multiple episodes of diarrhea this morning, stool for C. diff toxin was positive. Patient will be initiated on oral vancomycin. She is complaining of being fatigued from multiple trips to the bedside commode. Gets wheezy and dyspneic with exertion as well. Lung sounds are positive for scattered expiratory wheezing, but this is noted to be improved from admission. Good air entry noted bilaterally. No significant cough, sputum production or chest congestion. She is afebrile, she is on room air with O2 sat at 97%. Today's lab work shows WBC of 10.0, hemoglobin 13.9. Patient continues on bronchodilators, IV steroids, Rocephin. In addition she is expressing concern about tenderness on palpation in her left breast. Left breast nipple is noted to be retracted, tenderness on palpation noted in the left breast at 9pm. No redness or warmth to palpation noted. No distinct mass was noted on exam, no lymph node enlargement. On 06/15/2017 patient seen in follow-up. Resting in bed, she states her breathing is not much improved, lung sounds are still positive for diffuse wheezes, her cough is a bit less bronchospastic. She states her diarrhea is subsiding, she was found to be positive for C. diff colitis, she is on oral vancomycin. She states her appetite is poor, she is experiencing early satiety. She remains on 2 L per nasal cannula with O2 sat 95%. Her vital signs are stable, she is afebrile. Her abiotic's have been discontinued, patient is remains on oral vancomycin, nebulized treatments, Pulmicort, Perforomist, and IV steroids. Objective - Vital Signs Vital signs: Vital Signs Temp 97.9 F 06/15/17 05:29 Pulse 74 06/15/17 08:35 Resp 16 06/15/17 08:00 BP 138/74 06/15/17 07:00 Pulse Ox 95 06/15/17 08:11 Intake & Output 06/14/17 06/15/17 06/15/17 18:59 06:59 18:59 Intake Total 350 200 120 Balance 350 200 120 Intake: Oral 350 200 120 Other: Voiding Method Bedside Commode Bedside Commode # Voids 2 1 1 # Bowel Movements 2 1 - Exam GENERAL EXAM: Alert, pleasant 82-year-old female comfortable in no apparent distress. HEAD: Normocephalic/atraumatic. EYES: Normal reaction of pupils, equal size. Conjunctiva pink, sclera white. NOSE: Clear with pink turbinates. THROAT: No erythema or exudates. NECK: No masses, no JVD, no thyroid enlargement, no adenopathy. CHEST: No chest wall deformity. Symmetrical expansion. Patient complains of tenderness on palpation in the left breast at 9 PM, no distinct masses noted, left nipple retracted LUNGS: Equal air entry with no crackles, scattered expiratory wheezes noted CVS: Regular rate and rhythm, normal S1 and S2, no gallops, no murmurs, no rubs ABDOMEN: Soft, nontender. No hepatosplenomegaly, normal bowel sounds, no guarding or rigidity. EXTREMITIES: No clubbing, no edema, no cyanosis, 2+ pulses and upper and lower extremities. MUSCULOSKELETAL: Muscle strength and tone normal. SPINE: No scoliosis or deformity SKIN: No rashes CENTRAL NERVOUS SYSTEM: Alert and oriented -3. No focal deficits, tone is normal in all 4 extremities. PSYCHIATRIC: Alert and oriented -3. Appropriate affect. Intact judgment and insight. - Labs CBC & Chem 7: 06/14/17 06:51 06/13/17 08:00 Labs: Abnormal Lab Results - Last 24 Hours (Table) 06/14/17 06/14/17 06/15/17 Range/Units 17:06 20:40 11:23 POC Glucose (mg/dL) 133 H 141 H 129 H (75-99) mg/dL Assessment and Plan Plan: Assessment: -Acute exacerbation of chronic severe persistent bronchial asthma with secondary shortness of breath. The patient is improving slowly. - severe persistent asthma, on the Advair and singulair as maintenance and Prednisone maintenance of 10 mg daily. - C. diff colitis -obesity -coronary arteriosclerosis -spinal stenosis, the patient is under the care of Dr. Stewart in regards to her chronic back pain. She has compression fracture of the T-spine and spinal stenosis and degenerative arthritis. She has taken herself off the Neurontin and she is considering a pain pump She also being considered for a pain stimulor -cyst of ovary, this is a complex cyst in the pelvic area , Dr. Porter felt that this to be benign and no further workup has been suggested by MATERIAL ASSISTANT/oncology. We will obtain a computed tomography scan of the abdomen and pelvis to reassure the patient. 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 Munoz Plan Patient is a bit less bronchospastic. Complains of weakness, fatigue, poor appetite. No acute distress. Vital signs are stable, patient is afebrile. Her Rocephin and Zithromax have been discontinued. Patient remains on oral vancomycin for the C. diff colitis. From pulmonary standpoint, there is slow improvement. We will decrease the Solu-Medrol to 40 mg every 12 hours. Continue with nebulized treatments, continue Pulmicort, Perforomist DuoNeb. Increase activity as tolerated. Patient's diarrhea is subsiding. Continue to follow I performed a history & physical examination of the patient and discussed their management with my nurse practitioner, Rona Bowman. I reviewed the nurse practitioner's note and agree with the documented findings and plan of care. Lung sounds are positive for scattered wheezes throughout the lung french. The findings and the impression was discussed with the patient. I attest to the documentation by the nurse practitioner. Time with Patient: Less than 30
[2017-06-15] MEDS: HYDROcodone/APAP 5-325MG 1 EACH TAB PO PRN ×2 (13:09→18:56)
[2017-06-15 16:46] LABS: Glucose,Whole Blood 105 mg/dL (75-99)
[2017-06-15] MEDS: CHERRY FLAVOR 60 ML BOTTLE PO PRN (18:14)
[2017-06-15] MEDS ORDERED: methylPREDNISolone SOD SUCCI 40 MG/ML 1 ML VIAL IV SCH (21:00)
[2017-06-15 21:01] LABS: Glucose,Whole Blood 130 mg/dL (75-99)
[2017-06-16] MEDS: VANCOMYCIN ORAL SOLUTION 250 MG/5 ML BOTTLE PO SCH ×5 (00:59→22:59)
[2017-06-16] MEDS: methylPREDNISolone SOD SUCCI 125 MG/2 ML VIAL IV SCH ×4 (00:59→22:59)
[2017-06-16 06:55] LABS: Glucose,Whole Blood 101 mg/dL (75-99)
[2017-06-16] MEDS: INSULIN ASPART 100 UNIT/ML 1 ML 10 ML VIAL SQ SCH ×3 (07:56→17:41)
[2017-06-16] MEDS: HYDROcodone/APAP 5-325MG 1 EACH TAB PO PRN ×2 (07:57→17:27)
[2017-06-16] MEDS: CHERRY FLAVOR 60 ML BOTTLE PO PRN ×3 (07:58→17:25)
[2017-06-16] MEDS: PANTOPRAZOLE 40 MG TABLET PO SCH (08:05)
[2017-06-16] MEDS: HEPARIN SODIUM,PORCINE 5,000 UNIT/ML 1 ML VIAL SQ SCH ×2 (08:05→20:24)
[2017-06-16] MEDS: amLODIPine 10 MG TAB PO SCH (08:05)
--- NOTE | 2017-06-16 09:09 | P.PN ---
Subjective Progress Note Date: 06/16/17 Principal diagnosis: Acute exacerbation of chronic severe persistent bronchial asthma This is a pleasant 79-year-old female patient with known history of severe persistent steroid-dependent bronchial asthma in addition to multiple medical pros and comorbidities who came in from [facility] because of worsening shortness of breath. The patient was progressively getting worse over the past few weeks and she got to the point where she was unable to breathe while doing activities of daily today life. She was having increased cough chest congestion and wheezing. She was initially transferred to [facility] and she was transferred to [facility] and she was placed on BiPAP overnight. This morning she is off the BiPAP. She is still having increased dyspnea cough and wheeze although her symptoms have subsided. No pleurisy. No hemoptysis. Chest x-ray is free of any acute pulmonary infiltrates. She is a bit tired and fatigued and she is losing weight. She is maintained on Advair and 10 mg of prednisone a daily basis. She does DuoNeb nebulized treatments around the clock. She has been on Xolair injections/anti- IgE treatment in the past. In addition, Aura has multiple other medical problems and complaints. Her most significant complaint is his inability is her inability to walk and the extensive pain that she is experiencing in her back. She has seen multiple neurosurgeons and spine surgeons and she is seen Dr. Stewart from pain management. The most recent MRI from 2013 showed L5-S1 degenerative disc disease and the bulge at the level of L4-L5 with anterolisthesis and the same was also noted at the level of L3-L4. The patient also has degenerative severe disc disease at the level of L2-L3 home at T10-T11, T11-T12 along with stenosis. There is also a right L5 L4 and L3 root compression, L2 neural foraminal narrowing, L2-L3 L4-L5 root compression on the left, diffuse facet arthrosis throughout the lumbar spine and central canal narrowing at the level of L3-L4. She is considering to go back to pain management for a possible pain stimulator. She is moving around with the help of a walker and wheelchair. She was at [facility] a few months back regarding an abnormal brain scan and intracranial hemorrhage as the patient was having headache and occasional dizziness. The patient had a small hemorrhage in the left temporal region. 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 She also had an MRI of the cervical spine without contrast and the neck pain was further evaluated and it showed senescent degenerative changes. 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 The small intracranial bleed was handled conservatively and the patient was discharged home without any significant issues. She is still having generalized weakness, occasional headaches and some occasional dizziness along with leg numbness and tingling. She has chronic insomnia and the patient is essentially awake and without multiple times at night she cannot get herself in a comfortable position. She has been on Ambien 5 mg to help her with sleep. She has been also told that her ovarian cysts and gotten larger however I do not have any clear documentation is on that. I think it's reasonable at a later stage to be seen by Dr. Sánchez in this regard. We have felt that this was a benign ovarian cyst The patient is seen again today 06/10/2017 in follow-up in the regular medical floor. She is awake and alert in no acute distress. She is still dyspneic on minimal exertion. Not quite back to her baseline. She is maintaining good O2 saturations in the high 90s on 3 L/m per nasal cannula. She's been afebrile. No leukocytosis. She is maintained on IV Solu-Medrol, Pulmicort and Perforomist , DuoNeb inhalations. She is on antibiotics in the form of ceftriaxone and azithromycin. The patient is seen again today 06/11/2017 in follow-up in the regular medical floor. She is awake and alert in no acute distress. She continues with some dyspnea on minimal conversation. He is maintaining good O2 saturations in the upper 90s on 2 L/m per nasal cannula. She's been afebrile. Hemodynamically stable. She is continued on her current treatment plan. She is better today but not quite back to her baseline. White count 5.2. Hemoglobin 13.8. Creatinine 0.62. Computed tomography scan of the abdomen is pending based on her history of enlarging ovarian cyst. Patient is seen again today 06/12/2017 in follow-up in the surgical floor. She is awake and alert in no acute distress. She states she is breathing better today as compared to yesterday but still not back to her baseline. She is maintaining good O2 saturations in the mid 90s on room air. She's been afebrile. Hemodynamically stable. Computed tomography scan of the abdomen revealed left renal cortical cyst. No evidence of renal obstruction. There is a large cystic mass in the pelvis most likely the ovarian cyst arising from the right ovary. On 06/13/2017, the patient is doing slightly better compared to yesterday. Less focused spastic and wheezy. Some minimal soft diarrhea. No abdominal pain. She has some GI upset and she has dropped her oral intake. CAT scan of the abdomen and pelvis was noted. On 06/14/2017 patient seen in follow-up on medical surgical floor. She's had multiple episodes of diarrhea this morning, stool for C. diff toxin was positive. Patient will be initiated on oral vancomycin. She is complaining of being fatigued from multiple trips to the bedside commode. Gets wheezy and dyspneic with exertion as well. Lung sounds are positive for scattered expiratory wheezing, but this is noted to be improved from admission. Good air entry noted bilaterally. No significant cough, sputum production or chest congestion. She is afebrile, she is on room air with O2 sat at 97%. Today's lab work shows WBC of 10.0, hemoglobin 13.9. Patient continues on bronchodilators, IV steroids, Rocephin. In addition she is expressing concern about tenderness on palpation in her left breast. Left breast nipple is noted to be retracted, tenderness on palpation noted in the left breast at 9pm. No redness or warmth to palpation noted. No distinct mass was noted on exam, no lymph node enlargement. On 06/15/2017 patient seen in follow-up. Resting in bed, she states her breathing is not much improved, lung sounds are still positive for diffuse wheezes, her cough is a bit less bronchospastic. She states her diarrhea is subsiding, she was found to be positive for C. diff colitis, she is on oral vancomycin. She states her appetite is poor, she is experiencing early satiety. She remains on 2 L per nasal cannula with O2 sat 95%. Her vital signs are stable, she is afebrile. Her abiotic's have been discontinued, patient is remains on oral vancomycin, nebulized treatments, Pulmicort, Perforomist, and IV steroids. On 06/16/2017 patient seen in follow-up. She appears very fatigued and worn out today. She states she was up all night going to the bedside commode to urinate and having frequent diarrhea. She is on oral vancomycin for her C. diff. From pulmonary standpoint, remains dyspneic with exertion, lung sounds are still positive for scattered wheezes, yesterday we increased her Solu- Medrol back up to 60 mg every 6 hours in view of her ongoing wheezing and chest tightness. She remains on 2 L per nasal cannula with O2 sat 97%. She is afebrile, hemodynamically stable. She has been complaining of poor appetite, early satiety, and sensation that the food is getting stuck at the distal portion of her esophagus. We will speak to the attending physician in regards to consult and GI service for investigation of her dysphagia. Patient was seen in consultation by the MOLD FINISHER in regards to left breast tenderness and a large cystic mass on her right ovary. Pelvic ultrasound and mammogram was ordered by the MOLD FINISHER service. Objective - Vital Signs Vital signs: Vital Signs Temp 98.0 F 06/16/17 08:00 Pulse 88 06/16/17 08:00 Resp 20 06/16/17 08:00 BP 140/77 06/16/17 08:00 Pulse Ox 97 06/16/17 08:00 Intake & Output 06/15/17 06/16/17 06/16/17 18:59 06:59 18:59 Intake Total 475 880 Balance 475 880 Weight 60.5 kg Intake: Oral 475 880 Other: Voiding Method Bedside Commode # Voids 1 1 # Bowel Movements 1 1 - Exam GENERAL EXAM: Alert, pleasant 82-year-old female comfortable in no apparent distress. HEAD: Normocephalic/atraumatic. EYES: Normal reaction of pupils, equal size. Conjunctiva pink, sclera white. NOSE: Clear with pink turbinates. THROAT: No erythema or exudates. NECK: No masses, no JVD, no thyroid enlargement, no adenopathy. CHEST: No chest wall deformity. Symmetrical expansion. Patient complains of tenderness on palpation in the left breast at 9 PM, no distinct masses noted, left nipple retracted LUNGS: Equal air entry with no crackles, diffuse expiratory wheezes noted CVS: Regular rate and rhythm, normal S1 and S2, no gallops, no murmurs, no rubs ABDOMEN: Soft, nontender. No hepatosplenomegaly, normal bowel sounds, no guarding or rigidity. EXTREMITIES: No clubbing, no edema, no cyanosis, 2+ pulses and upper and lower extremities. MUSCULOSKELETAL: Muscle strength and tone normal. SPINE: No scoliosis or deformity SKIN: No rashes CENTRAL NERVOUS SYSTEM: Alert and oriented -3. No focal deficits, tone is normal in all 4 extremities. PSYCHIATRIC: Alert and oriented -3. Appropriate affect. Intact judgment and insight. - Labs CBC & Chem 7: 06/14/17 06:51 06/13/17 08:00 Labs: Abnormal Lab Results - Last 24 Hours (Table) 06/15/17 06/15/17 06/15/17 Range/Units 11:23 16:41 20:58 POC Glucose (mg/dL) 129 H 105 H 130 H (75-99) mg/dL 06/16/17 Range/Units 06:49 POC Glucose (mg/dL) 101 H (75-99) mg/dL Assessment and Plan Plan: Assessment: -Acute exacerbation of chronic severe persistent bronchial asthma with secondary shortness of breath. Patient remains bronchospastic, wheezy and dyspneic on exertion - severe persistent asthma, on the Advair and singulair as maintenance and Prednisone maintenance of 10 mg daily. - C. diff colitis -cyst of ovary, this is a complex cyst in the pelvic area , Dr. Porter felt that this to be benign and no further workup has been suggested by AUTOMATION SOFTWARE ENGINEER/oncology. CT of abdomen and pelvis from 06/11/2017 showed a large cystic mass in the pelvis probably an ovarian cyst arising from the right ovary. In addition patient is having some left breast tenderness with nipple retraction and tender nodules. MOLD FINISHER service was consulted, patient will have pelvic ultrasound, mammogram -Dysphagia, sensation of food getting stuck in the distal portion of the esophagus, early satiety and weight loss of approximately 25-30 pounds in the last 3-4 months, will consult GI service for investigation -obesity -coronary arteriosclerosis -spinal stenosis, the patient is under the care of Dr. Stewart in regards to her chronic back pain. She has compression fracture of the T-spine and spinal stenosis and degenerative arthritis. She has taken herself off the Neurontin and she is considering a pain pump She also being considered for a pain stimulor -compression fracture of thoracic spine -restless legs -environmental allergy -hyperlipidemia -benign paroxysmal positional vertigo (Bilateral), the patient is asymptromatic for now -transient cerebral ischemia -persistent insomnia -cerebral arteriovenous malformation, recent WHARF TALLY CLERK bleed, asymptomatic and treated conservatively, followed up by Dr. Tammy Charles Patient remains wheezy and dyspneic with exertion. She appears to be very fatigued and worn out. We increased her Solu-Medrol to 60 mg every 6 hours yesterday evening in view of her ongoing wheezing. She continues on oral vancomycin for C. diff. Continue nebulized treatments, she completed her antibiotics. She is complaining of dysphagia, sensation of food getting stuck in the distal portion of her esophagus. She relates that she has lost 25-30 pounds in the last 3-4 months related to her early satiety and decreased oral intake. We'll consult GI service for investigation of her dysphagia. Spoke to the MOLD FINISHER service this morning, who is planning the pelvic ultrasound and a mammogram for investigation of the right ovarian cyst. I performed a history & physical examination of the patient and discussed their management with my nurse practitioner, Rona Bowman. I reviewed the nurse practitioner's note and agree with the documented findings and plan of care. Lung sounds are positive for scattered wheezes throughout the lung french. The findings and the impression was discussed with the patient. I attest to the documentation by the nurse practitioner. Time with Patient: Less than 30
[2017-06-16] MEDS: IPRATROPIUM-ALBUTEROL 3 ML NEB INHALATION SCH ×4 (09:30→21:46)
[2017-06-16] MEDS: BUDESONIDE 1 MG/2 ML NEBU INHALATION SCH ×2 (09:31→21:46)
[2017-06-16] MEDS: FORMOTEROL FUMARATE 20 MCG/2 ML NEBU INHALATION SCH ×2 (09:31→21:46)
--- NOTE | 2017-06-16 11:03 | US ---
EXAMINATION TYPE: US pelvic complete DATE OF EXAM: 06/16/2017 COMPARISON: CT 06/11/2017 CLINICAL HISTORY: 82-year-old female pelvic mass. Hysterectomy in 1969. Patient states no symptoms. TECHNIQUE: Transabdominal sonographic images of the pelvis were acquired. Date of LMP: 1969 Findings: Uterus: Surgically absent Right Ovary: Not visualized with certainty Left Ovary: Not visualized with certainty Within the midline pelvis, there is a cystic area with septations measuring 11.5 x 7.1 x 10.1 cm Posterior cul-de-sac: No free fluid visualized IMPRESSION: Large cystic mass in the midline pelvis shows internal septations and may be of ovarian origin. The ovaries could not be visualized on the current exam. Correlate as to if the patient still has her ova guy as there has been prior hysterectomy. Surgical consultation and further evaluation with female pelvic MRI is recommended as a cystic epithe lial ovarian neoplasm is a primary differential.
[2017-06-16 11:06] LABS: Glucose,Whole Blood 139 mg/dL (75-99)
--- NOTE | 2017-06-16 11:33 | P.CONS ---
History of Present Illness - Reason for Consult Consult date: 06/16/17 Dysphagia Requesting physician: Alexis Bolanos - History of Present Illness 82-year-old female with a history of left breast lump, COPD, chronic severe persistent bronchial asthma steroid dependent, degenerative disc disease, GERD transferred from [facility] with shortness of breath cough and sputum. Additionally patient was experiencing diarrhea with positive Clostridium stool testing. Consult requested for dysphagia. Patient states her last few months she's had increased dysphagia with solids and liquids mostly in the upper esophageal region. No emesis hematemesis or hematochezia however her bowel movements have been more dark near black in color. She is lost unintentionally 20-30 pounds over the last several months. No history of peptic ulcer disease or EGD. Hemoglobin 13.9. White count 10. Platelet 307. CT abdomen and pelvis reported large cystic mass probable ovarian cyst arising from the right ovary. Pelvic ultrasound large cystic mass midline pelvis internal septations may be of ovarian origin. Cystic epithelial ovarian neoplasm within the differential. Review of Systems Constitutional: Denies fever, chills, sweats, weight gain, or loss. HEENT: Negative for migraines, blurred vision or loss, earaches, drainage, tinnitus, oral mucosal lesions, dysphagia, or odynophagia. CARDIAC: Negative for chest pain, arrhythmias, or palpitation. RESPIRATORY: COPD. Asthma. Chronic severe persistent bronchial asthma, Negative for shortness of breath, hemoptysis, cough, or sputum production. GI: See HPI for pertinent findings. : Negative for hematuria, urgency, frequency, polyuria, or dysuria. GYNc: Denies possibility of . Negative vaginal discharge. MUSCULOSKELETAL: Degenerative disc disease. NEUROLOGIC: History of TIA.. ENDOCRINE: Negative for thyroid problems. SKIN: Negative for rash or itching. PSYCHIATRIC: Negative history for depression and anxiety Past Medical History Past Medical History: Asthma, Eye Disorder, Hearing Disorder / Deafness, Memory Impairment, Respiratory Disorder Additional Past Medical History / Comment(s): Chronic severe persistent bronchial asthma, chronic insomnia, history of TIA, history of benign positional vertigo, hyperlipidemia, and by medical ALLERGIES, are less, compression fracture of the thoracic spine, complex ovarian cyst labeled nonmalignant based on oncology evaluation [facility], cerebral arteriovenous malformation with previous 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 Munoz, spinal stenosis, obesity, coronary artery disease History of Any Multi-Drug Resistant Organisms: None Reported Past Surgical History: Appendectomy, Back Surgery, Breast Surgery, Cholecystectomy, Hysterectomy Additional Past Surgical History / Comment(s): cataracts, eye lid lift Past Anesthesia/Blood Transfusion Reactions: No Reported Reaction Past Psychological History: No Psychological Hx Reported Smoking Status: Former smoker Past Alcohol Use History: None Reported Past Drug Use History: None Reported - Past Family History Father Family Medical History: Myocardial Infarction ([place]) Mother Family Medical History: Myocardial Infarction ([place]) Medications and Allergies Home Medications Medication Instructions Recorded Confirmed Type Acetaminophen [Tylenol Arthritis] 650 mg PO Q8H PRN 06/08/17 06/08/17 History Artificial Tears-Hypromellose 1 drops BOTH EYES TID PRN 06/08/17 06/08/17 History [Artificial Tear Drops] Aspirin 325 mg PO Q48H 06/08/17 06/08/17 History Fluticasone/Salmeterol [Advair 1 puff INHALATION RT-BID 06/08/17 06/08/17 History 500-50 Diskus] HYDROcodone/APAP 5-325MG [[place] 1 tab PO QID PRN 06/08/17 06/08/17 History 5-325] Ipratropium-Albuterol Nebulize 3 ml INHALATION RT-QID 06/08/17 06/08/17 History [Duoneb 0.5 mg-3 mg/3 ml Soln] predniSONE 10 mg PO DAILY 06/08/17 06/08/17 History Allergies Allergy/AdvReac Type Severity Reaction Status Date / Time Penicillins Allergy Severe Rash/Hives Verified 06/08/17 08:24 Physical Exam Vitals: Vital Signs Temp Pulse Pulse Resp BP BP Pulse Ox 06/16/17 09:52 82 06/16/17 09:42 80 06/16/17 09:41 80 06/16/17 09:31 80 06/16/17 08:00 98.0 F 88 20 140/77 97 06/16/17 02:42 97.9 F 83 16 131/61 97 06/15/17 23:39 16 06/15/17 20:53 84 06/15/17 20:45 83 06/15/17 20:31 80 06/15/17 20:00 89 16 06/15/17 18:30 97.9 F 89 16 154/73 98 06/15/17 16:17 76 06/15/17 16:07 80 06/15/17 15:06 16 06/15/17 14:25 98.2 F 98 16 149/75 99 06/15/17 12:09 78 06/15/17 11:56 76 Intake and Output 06/15/17 06/16/17 06/16/17 22:59 06:59 14:59 Intake Total 917 200 175 Balance 917 200 175 Intake: Oral 917 200 175 Other: Voiding Method Bedside Commode Bedside Commode # Voids 1 1 # Bowel Movements 1 General appearance: The patient is alert, oriented, in no acute distress. HET: Head is normocephalic and atraumatic. Pupils are equal and reactive. Oropharynx is clear without lesions. Neck: Supple without lymphadenopathy. Trachea midline. Heart: S1 S2. Regular rate and rhythm. Lungs: No crackles or wheezes are heard. Abdomen: Soft, nontender, nondistended with bowel sounds. No peritoneal signs. No palpable organomegaly or masses. Extremities: Normal skin color and turgor. No cyanosis, rash, ulceration, clubbing, or edema. Radial and pedal pulses are 2/4 bilaterally. Neurological: No focal deficits. Strength and sensation are grossly intact. Results CBC & Chem 7: 06/14/17 06:51 06/13/17 08:00 Labs: Abnormal Lab Results - Last 24 Hours (Table) 06/15/17 06/15/17 06/15/17 Range/Units 11:23 16:41 20:58 POC Glucose (mg/dL) 129 H 105 H 130 H (75-99) mg/dL 06/16/17 06/16/17 Range/Units 06:49 10:58 POC Glucose (mg/dL) 101 H 139 H (75-99) mg/dL CT scan - abdomen: report reviewed (Dr. Anderson) Assessment and Plan (1) Dysphagia Narrative/Plan: 82-year-old female admitted with acute exacerbation of chronic severe persistent bronchial asthma steroid-dependent, Clostridium difficile colitis, cystic ovarian mass, and 2 month history of dysphagia with solids and liquids with reported dark near black colored bowel movements. Possible esophageal stricture disease possible neoplasm possible peptic ulcer disease. Current Visit: Yes Status: Acute Code(s): R13.10 - DYSPHAGIA, UNSPECIFIED SNOMED Code(s): 02455715 (2) Ovarian mass Current Visit: Yes Status: Acute Code(s): N83.9 - NONINFLAMMATORY DISORD OF OVARY, FALLOP & BROAD LIGMT, UNSP SNOMED Code(s): 435875866 (3) Clostridium difficile colitis Current Visit: Yes Status: Acute Code(s): A04.72 - ENTEROCOLITIS D/T CLOSTRIDIUM DIFFICILE, NOT SPCF RECUR SNOMED Code(s): 099325823 Plan: 1. EGD evaluation tomorrow; pulmonary clearance has provided clearance spoke with SUE Bowman. 2. Protonix 40 mg IV daily. The linen room attendant has discussed the risks, benefits and alternative therapies for the above-mentioned procedure and for both sedation/analgesia as well as necessary blood product administration, if indicated, as they pertain to this patient. The patient has indicated understanding and acceptance of the risks and procedures discussed. Thank you for this kind referral and the opportunity to participate in the care of your patient. This consultation was discussed with Dr. Anderson. The impression and plan of care have been directed as dictated.
--- NOTE | 2017-06-16 14:21 | USB ---
Reason for exam: clinical finding. Indicated problem(s): pain in the left breast. US Breast LT Left breast ultrasound includes all four quadrants, the retroareolar region and axilla. Finding demonstrates no cystic or solid lesion seen. These results were verbally communicated with the patient and result sheet given to the patient on 06/16/17. ASSESSMENT: Negative, BI-RAD 1 RECOMMENDATION: Follow-up diagnostic mammogram of both breasts. (out patient basis when patient is stable) Manage patient on a clinical basis.
[2017-06-16 17:14] LABS: Glucose,Whole Blood 91 mg/dL (75-99)
--- NOTE | 2017-06-16 17:20 | P.PN ---
Subjective Progress Note Date: 06/15/17 Progress note being dictated for Dr. Bolanos Interval history: This is a 82-year-old female admitted with acute COPD exacerbation, C. difficile colitis and multiple other medical issues. Maintained on nebulized bronchodilators, steroids with wheezing improving. Maintained on oral vancomycin .Diarrhea improving. Reports minimal diet intake. Computed tomography scan reporting ovarian cyst, complaining of left breast tenderness. Afebrile. Objective - Vital Signs Vital signs: Vital Signs Temp 98.2 F 06/15/17 14:25 Pulse 76 06/15/17 16:17 Resp 16 06/15/17 15:06 BP 149/75 06/15/17 14:25 Pulse Ox 99 06/15/17 14:25 Intake & Output 06/14/17 06/15/17 06/15/17 18:59 06:59 18:59 Intake Total 350 200 238 Balance 350 200 238 Weight 60.5 kg Intake: Oral 350 200 238 Other: Voiding Method Bedside Commode Bedside Commode # Voids 2 1 1 # Bowel Movements 2 1 - Exam PHYSICAL EXAM: VITAL SIGNS: As above GENERAL: Sitting up in bed, no acute distress HEENT: Conjunctivae normal. eyes normal. Oral mucosa moist NECK: No JVD. No thyroid enlargement. No LNs CARDIOVASCULAR: S1, S2 muffled. No murmur RESPIRATION: Breath sounds diminished in the bases. Occasional scattered rhonchi, no crackles. Expiratory wheezing improving. Left breast nodular tenderness at 9/ 10 PM, 6 PM retracted nipple ABDOMEN: Soft, mild diffuse tenderness, more so on the right lower quadrant . No guarding. no masses palpable. Bowel sounds heard. LEGS: No edema. no swelling PSYCHIATRY: Alert and oriented -3, mood and affect normal. NERVOUS SYSTEM: Cranial N 2-12 grossly normal. Moves all 4 limbs. Diffuse weakness No focal deficits. Skin: no ulcer no rash Joints: No active swelling. No inflammation. Lymphatic system. No LN neck axilla or groin. - Labs CBC & Chem 7: 06/14/17 06:51 06/13/17 08:00 Labs: Abnormal Lab Results - Last 24 Hours (Table) 06/14/17 06/15/17 06/15/17 Range/Units 20:40 11:23 16:41 POC Glucose (mg/dL) 141 H 129 H 105 H (75-99) mg/dL Assessment and Plan Assessment: 1. Acute COPD exacerbation with acute tracheobronchitis 2. Acute C. difficile colitis 3. History of dementia 4. Hard of hearing 5. History of hepatitis C 6. Degenerative joint disease 7. Remote history of nicotine dependence 8. Hypertension Plan: Continue on current medication regime , PPI, monitoring and symptomatic treatment. Maintain nebulized bronchodilators, steroids. Tapering of steroids in progress as per pulmonary. METAL FABRICATION SUPERVISOR consulted regarding ovarian cyst and complains of tender left breast, nodules. The impression and plan of care has been dictated as directed. : I performed a history and examination of this patient, discussed the same with the dictator. I agree with the dictator's note ,documented as a scribe. Any additional findings or plans will be noted.
[2017-06-16] MEDS: ASPIRIN 325 MG TAB PO SCH (17:27)
--- NOTE | 2017-06-16 17:31 | P.PN ---
Subjective Progress Note Date: 06/16/17 Progress note being dictated for Dr. Clemons Interval history: This is a 82-year-old female admitted with acute COPD exacerbation, C. difficile colitis and multiple other medical issues. Maintained on nebulized bronchodilators, steroids with wheezing improving. Maintained on oral vancomycin .Diarrhea improving. Reports minimal diet intake. Computed tomography scan reporting ovarian cyst, complaining of left breast tenderness. Afebrile. 06/16/17 evaluated by MI[employer] OPERATIONS VICE PRESIDENT, vaginal and left breast ultrasound ordered. Vague Historian, reports 30 pound weight loss over the last few months. Complains of dysphagia, only able to eat 3-4 bites at one sitting. Diarrhea continues to improve only one episode this morning reported as tarry. Evaluated by GI and scheduled for EGD tomorrow. Denies chest pain, palpitations. Afebrile. Objective - Vital Signs Vital signs: Vital Signs Temp 96.7 F L 06/16/17 15:00 Pulse 84 06/16/17 16:26 Resp 18 06/16/17 15:00 BP 137/73 06/16/17 15:00 Pulse Ox 100 06/16/17 15:00 Intake & Output 06/15/17 06/16/17 06/16/17 18:59 06:59 18:59 Intake Total 475 880 175 Balance 475 880 175 Weight 60.5 kg Intake: Oral 475 880 175 Other: Voiding Method Bedside Commode Bedside Commode # Voids 1 1 2 # Bowel Movements 1 1 - Exam PHYSICAL EXAM: VITAL SIGNS: As above GENERAL: Sitting up in bed, no acute distress HEENT: Conjunctivae normal. eyes normal. Oral mucosa moist NECK: No JVD. No thyroid enlargement. No LNs CARDIOVASCULAR: S1, S2 muffled. No murmur RESPIRATION: Breath sounds diminished in the bases. Occasional scattered rhonchi, no crackles. Expiratory wheezing. Left breast nodular tenderness at 9 / 10 PM, 6 PM, retracted nipple ABDOMEN: Soft, mild diffuse tenderness, more so on the right lower quadrant . No guarding. no masses palpable. Bowel sounds heard. LEGS: No edema. no swelling PSYCHIATRY: Alert and oriented -3, mood and affect normal. NERVOUS SYSTEM: Cranial N 2-12 grossly normal. Moves all 4 limbs. Diffuse weakness No focal deficits. Skin: no ulcer no rash Joints: No active swelling. No inflammation. Lymphatic system. No LN neck axilla or groin. - Labs CBC & Chem 7: 06/14/17 06:51 06/13/17 08:00 Labs: Abnormal Lab Results - Last 24 Hours (Table) 06/15/17 06/16/17 06/16/17 Range/Units 20:58 06:49 10:58 POC Glucose (mg/dL) 130 H 101 H 139 H (75-99) mg/dL Assessment and Plan Assessment: 1. Acute COPD exacerbation with acute tracheobronchitis 2. Acute C. difficile colitis 3. History of dementia 4. Hard of hearing 5. History of hepatitis C 6. Degenerative joint disease 7. Remote history of nicotine dependence 8. Hypertension 9. Ovarian mass 10. Dysphagia, EGD pending Plan: Continue on current medication regime , PPI, monitoring and symptomatic treatment. Maintain nebulized bronchodilators, steroids. Scheduled for EGD tomorrow with GI. Close monitoring of hemoglobin, electrolytes with repeat labs ordered for a.m. Currently being evaluated by MICRO[employer] OPERATIONS VICE PRESIDENT, ultrasounds ordered as mentioned above and recommendations pending. Further recommendations to follow. The impression and plan of care has been dictated as directed. : I performed a history and examination of this patient, discussed the same with the dictator. I agree with the dictator's note ,documented as a scribe. Any additional findings or plans will be noted.
--- NOTE | 2017-06-16 18:43 | P.OBCN ---
History of Present Illness Consult date: 06/16/17 Reason for consult: ovarian cyst, other Chief complaint: breast nodule, ovarian cyst/pelvic mass History of present illness: This is a very pleasant 82 yo that was admtted on 06/09 for exacerbation of COPD. She states she has been being followed for a 4cm ovarian cyst in the past. of notes she states she has been losing weight since she had the flu in april. She doesn't feel like eating and when she does she feels like "it just sits there" she states bowels are soft and frequent, and urinaruy urgency/nocturia. OBGYN hx: with 3 hysterectomy done in the 69 for menorrhagia, ovaries remain. She states that she did see a gynecologic oncologist approximately 1 year ago with ovarian cyst and was told that she was "fine" and didn't have to return for a follow-up appointment. 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 Munoz, spinal stenosis, obesity, coronary artery disease History of Any Multi-Drug Resistant Organisms: None Reported Past Surgical History: Appendectomy, Back Surgery, Breast Surgery, Cholecystectomy, Hysterectomy Additional Past Surgical History / Comment(s): cataracts, eye lid lift Past Anesthesia/Blood Transfusion Reactions: No Reported Reaction Past Psychological History: No Psychological Hx Reported Smoking Status: Former smoker Past Alcohol Use History: None Reported Past Drug Use History: None Reported - Past Family History Father Family Medical History: Myocardial Infarction ([place]) Mother Family Medical History: Myocardial Infarction ([place]) Medications and Allergies Home Medications Medication Instructions Recorded Confirmed Type Acetaminophen [Tylenol Arthritis] 650 mg PO Q8H PRN 06/08/17 06/08/17 History Artificial Tears-Hypromellose 1 drops BOTH EYES TID PRN 06/08/17 06/08/17 History [Artificial Tear Drops] Aspirin 325 mg PO Q48H 06/08/17 06/08/17 History Fluticasone/Salmeterol [Advair 1 puff INHALATION RT-BID 06/08/17 06/08/17 History 500-50 Diskus] HYDROcodone/APAP 5-325MG [[place] 1 tab PO QID PRN 06/08/17 06/08/17 History 5-325] Ipratropium-Albuterol Nebulize 3 ml INHALATION RT-QID 06/08/17 06/08/17 History [Duoneb 0.5 mg-3 mg/3 ml Soln] predniSONE 10 mg PO DAILY 06/08/17 06/08/17 History Allergies Allergy/AdvReac Type Severity Reaction Status Date / Time Penicillins Allergy Severe Rash/Hives Verified 06/08/17 08:24 Exam Osteopathic Statement: *. No significant issues noted on an osteopathic structural exam other than those noted in the History and Physical/Consult. - Vital Signs Vital signs: Vital Signs Temp Pulse Pulse Resp BP BP Pulse Ox 06/16/17 09:31 80 06/16/17 08:00 98.0 F 88 20 140/77 97 06/16/17 02:42 97.9 F 83 16 131/61 97 06/15/17 23:39 16 06/15/17 20:53 84 06/15/17 20:45 83 06/15/17 20:31 80 06/15/17 20:00 89 16 06/15/17 18:30 97.9 F 89 16 154/73 98 06/15/17 16:17 76 06/15/17 16:07 80 06/15/17 15:06 16 06/15/17 14:25 98.2 F 98 16 149/75 99 06/15/17 12:09 78 06/15/17 11:56 76 Intake and Output 06/15/17 06/16/17 06/16/17 22:59 06:59 14:59 Intake Total 917 200 175 Balance 917 200 175 Intake: Oral 917 200 175 Other: Voiding Method Bedside Commode # Voids 1 1 # Bowel Movements 1 - OBG Physical Exam Abdomen: Tender to touch no guarding is noted Results Result Diagrams: 06/14/17 06:51 06/13/17 08:00 Abnormal Lab Results - Last 24 Hours (Table) 06/15/17 06/15/17 06/15/17 Range/Units 11:23 16:41 20:58 POC Glucose (mg/dL) 129 H 105 H 130 H (75-99) mg/dL 06/16/17 Range/Units 06:49 POC Glucose (mg/dL) 101 H (75-99) mg/dL Assessment and Plan (1) Ovarian mass Narrative/Plan: Ultrasound was completed on this patient to revealing a 11.5 x 7 x 10.1 cm pelvic mass, suspicious from the right ovary, internal septations are noted. In addition an ova 1 was obtained. This will give us further information regarding this mass. Would highly recommend gynecologic oncologist consult once patient is discharged. This plan is discussed with the patient in detail and questions are answered. I would be happy to see this patient as an outpatient in addition to coordinate her continued gynecologic care. Current Visit: Yes Status: Acute Code(s): N83.9 - NONINFLAMMATORY DISORD OF OVARY, FALLOP & BROAD LIGMT, UNSP SNOMED Code(s): 086722582 Plan: We will follow and await over 1 result typically this test takes approximately 7 -10 days for a result and I anticipate that this patient will be discharged at that time. Would recommend that she sees Dr. Porter for gynecologic oncologist recommendation. Time with Patient: Greater than 30
[2017-06-16 20:25] LABS: Glucose,Whole Blood 132 mg/dL (75-99)
[2017-06-17] MEDS: INSULIN ASPART 100 UNIT/ML 1 ML 10 ML VIAL SQ SCH ×5 (01:10→22:18)
[2017-06-17 07:16] LABS: Glucose,Whole Blood 99 mg/dL (75-99)
[2017-06-17 07:35] LABS: Anion Gap 7 mmol/L; Blood Urea Nitrogen 34 mg/dL (7-17); Calcium 8.6 mg/dL (8.4-10.2); Carbon Dioxide 27 mmol/L (22-30); Chloride 106 mmol/L (98-107); Glucose 107 mg/dL (74-99); Sodium 140 mmol/L (137-145)
[2017-06-17 07:41] LABS: HCT 41.9 % (34.0-46.0); HGB 13.7 gm/dL (11.4-16.0); MCH 29.2 pg (25.0-35.0); MCHC 32.8 g/dL (31.0-37.0); MCV 88.9 fL (80.0-100.0); Mean Platelet Volume 8.6; Platelet Count 305 k/uL (150-450); RBC 4.71 m/uL (3.80-5.40); RDW 13.1 % (11.5-15.5); WBC 11.9 k/uL (3.8-10.6)
[2017-06-17 07:53] LABS: Potassium 4.9 mmol/L (3.5-5.1)
[2017-06-17 08:05] LABS: Band Neutrophils % 1 %; Lymphocytes # (M) 0.83 k/uL (1.0-4.8); Metamyelocytes # (M) 0.12 k/uL (0); Metamyelocytes % 1 %; Neutrophils % (M) 87 %; Nucleated Red Blood Cells 0 /100 WBC (0-0); Total Cells Counted 200
[2017-06-17] MEDS: IPRATROPIUM-ALBUTEROL 3 ML NEB INHALATION SCH ×4 (08:34→20:21)
[2017-06-17] MEDS: FORMOTEROL FUMARATE 20 MCG/2 ML NEBU INHALATION SCH ×2 (08:34→20:21)
[2017-06-17] MEDS: BUDESONIDE 1 MG/2 ML NEBU INHALATION SCH ×2 (08:34→20:21)
[2017-06-17] MEDS: methylPREDNISolone SOD SUCCI 125 MG/2 ML VIAL IV SCH ×2 (09:22→17:34)
[2017-06-17] MEDS: VANCOMYCIN ORAL SOLUTION 250 MG/5 ML BOTTLE PO SCH ×3 (09:23→17:34)
[2017-06-17] MEDS: HEPARIN SODIUM,PORCINE 5,000 UNIT/ML 1 ML VIAL SQ SCH ×2 (09:29→22:17)
[2017-06-17 11:26] LABS: Glucose,Whole Blood 93 mg/dL (75-99)
[2017-06-17] MEDS ORDERED: IV FLUID CONTINUATION 1,000 ML IV ONE (11:37)
[2017-06-17] MEDS ORDERED: PROPOFOL 10 MG/ML 20 ML VIAL IV ONE (11:37)
[2017-06-17] MEDS ORDERED: LIDOCAINE 1% INJ 10MG/ML (20 ML MDV) ONE (11:37)
[2017-06-17] MEDS ORDERED: SODIUM CHLORIDE 0.9% 1,000 ML IV ONE (11:40)
--- NOTE | 2017-06-17 11:51 | P.PCN ---
Date of Procedure: 06/17/17 Procedure(s) Performed: BRIEF HISTORY: Patient is a 82-year-old, pleasant, female, admitted to the hospital with shortness of breath and was also complaining of dysphagia and early satiety for the last several months duration progressive weight loss. She is hence scheduled for an upper endoscopy to evaluate further. PROCEDURE PERFORMED: Esophagogastroduodenoscopy with biopsy. PREOPERATIVE DIAGNOSIS: Dysphagia and early satiety for several months duration. IV sedation per anesthesia. PROCEDURE: After informed consent was obtained, the patient was brought into the endoscopy unit. IV sedation was administered by Anesthesia under continuous monitoring. Initially the Olympus GIF-140 video endoscope was inserted into the mouth. Esophagus intubated without any difficulty. It was gradually advanced into the stomach and duodenum and carefully examined. The bulb and the second part of the duodenum appeared normal. The scope at this time was withdrawn to the stomach, adequately insufflated with air, and upon careful examination, mucosa of the antrum had mild patchy areas of erythema noted throughout the antrum and biopsies were done from this area. In the distal body there was a 2 cm linear superficial ulceration identified with no active bleeding. The rest of the, body, cardia and the fundus appeared normal. The scope was then withdrawn into the esophagus. The GE junction was located at 39 cm from the incisors. Small sliding Hiatal hernia noted. The esophagus appeared normal. There were no erosions or ulcerations seen and the patient tolerated the procedure well. IMPRESSION: 1. Diffuse antral gastritis. 2. 2 cm linear superficial ulcer in the distal body of the stomach status post biopsy. RECOMMENDATIONS: The findings of this examination were discussed with the patient. She was advised to follow with the biopsy results. She will continue with Protonix 40 mg daily.
[2017-06-17] MEDS: HYDROcodone/APAP 5-325MG 1 EACH TAB PO PRN ×2 (12:53→18:37)
[2017-06-17] MEDS: PANTOPRAZOLE 40 MG TABLET PO SCH (12:56)
[2017-06-17] MEDS: amLODIPine 10 MG TAB PO SCH (12:56)
--- NOTE | 2017-06-17 14:40 | P.PN ---
Subjective Progress Note Date: 06/17/17 Principal diagnosis: Acute exacerbation of chronic severe persistent bronchial asthma This is a pleasant 79-year-old female patient with known history of severe persistent steroid-dependent bronchial asthma in addition to multiple medical pros and comorbidities who came in from [facility] because of worsening shortness of breath. The patient was progressively getting worse over the past few weeks and she got to the point where she was unable to breathe while doing activities of daily today life. She was having increased cough chest congestion and wheezing. She was initially transferred to [facility] and she was transferred to [place] and she was placed on BiPAP overnight. This morning she is off the BiPAP. She is still having increased dyspnea cough and wheeze although her symptoms have subsided. No pleurisy. No hemoptysis. Chest x-ray is free of any acute pulmonary infiltrates. She is a bit tired and fatigued and she is losing weight. She is maintained on Advair and 10 mg of prednisone a daily basis. She does DuoNeb nebulized treatments around the clock. She has been on Xolair injections/anti- IgE treatment in the past. In addition, Aura has multiple other medical problems and complaints. Her most significant complaint is his inability is her inability to walk and the extensive pain that she is experiencing in her back. She has seen multiple neurosurgeons and spine surgeons and she is seen Dr. Stewart from pain management. The most recent MRI from 2013 showed L5-S1 degenerative disc disease and the bulge at the level of L4-L5 with anterolisthesis and the same was also noted at the level of L3-L4. The patient also has degenerative severe disc disease at the level of L2-L3 home at T10-T11, T11-T12 along with stenosis. There is also a right L5 L4 and L3 root compression, L2 neural foraminal narrowing, L2-L3 L4-L5 root compression on the left, diffuse facet arthrosis throughout the lumbar spine and central canal narrowing at the level of L3-L4. She is considering to go back to pain management for a possible pain stimulator. She is moving around with the help of a walker and wheelchair. She was at [facility] a few months back regarding an abnormal brain scan and intracranial hemorrhage as the patient was having headache and occasional dizziness. The patient had a small hemorrhage in the left temporal region. 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 She also had an MRI of the cervical spine without contrast and the neck pain was further evaluated and it showed senescent degenerative changes. 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 The small intracranial bleed was handled conservatively and the patient was discharged home without any significant issues. She is still having generalized weakness, occasional headaches and some occasional dizziness along with leg numbness and tingling. She has chronic insomnia and the patient is essentially awake and without multiple times at night she cannot get herself in a comfortable position. She has been on Ambien 5 mg to help her with sleep. She has been also told that her ovarian cysts and gotten larger however I do not have any clear documentation is on that. I think it's reasonable at a later stage to be seen by Dr. Sánchez in this regard. We have felt that this was a benign ovarian cyst The patient is seen again today 06/10/2017 in follow-up in the regular medical floor. She is awake and alert in no acute distress. She is still dyspneic on minimal exertion. Not quite back to her baseline. She is maintaining good O2 saturations in the high 90s on 3 L/m per nasal cannula. She's been afebrile. No leukocytosis. She is maintained on IV Solu-Medrol, Pulmicort and Perforomist , DuoNeb inhalations. She is on antibiotics in the form of ceftriaxone and azithromycin. The patient is seen again today 06/11/2017 in follow-up in the regular medical floor. She is awake and alert in no acute distress. She continues with some dyspnea on minimal conversation. He is maintaining good O2 saturations in the upper 90s on 2 L/m per nasal cannula. She's been afebrile. Hemodynamically stable. She is continued on her current treatment plan. She is better today but not quite back to her baseline. White count 5.2. Hemoglobin 13.8. Creatinine 0.62. Computed tomography scan of the abdomen is pending based on her history of enlarging ovarian cyst. Patient is seen again today 06/12/2017 in follow-up in the surgical floor. She is awake and alert in no acute distress. She states she is breathing better today as compared to yesterday but still not back to her baseline. She is maintaining good O2 saturations in the mid 90s on room air. She's been afebrile. Hemodynamically stable. Computed tomography scan of the abdomen revealed left renal cortical cyst. No evidence of renal obstruction. There is a large cystic mass in the pelvis most likely the ovarian cyst arising from the right ovary. On 06/13/2017, the patient is doing slightly better compared to yesterday. Less focused spastic and wheezy. Some minimal soft diarrhea. No abdominal pain. She has some GI upset and she has dropped her oral intake. CAT scan of the abdomen and pelvis was noted. On 06/14/2017 patient seen in follow-up on medical surgical floor. She's had multiple episodes of diarrhea this morning, stool for C. diff toxin was positive. Patient will be initiated on oral vancomycin. She is complaining of being fatigued from multiple trips to the bedside commode. Gets wheezy and dyspneic with exertion as well. Lung sounds are positive for scattered expiratory wheezing, but this is noted to be improved from admission. Good air entry noted bilaterally. No significant cough, sputum production or chest congestion. She is afebrile, she is on room air with O2 sat at 97%. Today's lab work shows WBC of 10.0, hemoglobin 13.9. Patient continues on bronchodilators, IV steroids, Rocephin. In addition she is expressing concern about tenderness on palpation in her left breast. Left breast nipple is noted to be retracted, tenderness on palpation noted in the left breast at 9pm. No redness or warmth to palpation noted. No distinct mass was noted on exam, no lymph node enlargement. On 06/15/2017 patient seen in follow-up. Resting in bed, she states her breathing is not much improved, lung sounds are still positive for diffuse wheezes, her cough is a bit less bronchospastic. She states her diarrhea is subsiding, she was found to be positive for C. diff colitis, she is on oral vancomycin. She states her appetite is poor, she is experiencing early satiety. She remains on 2 L per nasal cannula with O2 sat 95%. Her vital signs are stable, she is afebrile. Her abiotic's have been discontinued, patient is remains on oral vancomycin, nebulized treatments, Pulmicort, Perforomist, and IV steroids. On 06/16/2017 patient seen in follow-up. She appears very fatigued and worn out today. She states she was up all night going to the bedside commode to urinate and having frequent diarrhea. She is on oral vancomycin for her C. diff. From pulmonary standpoint, remains dyspneic with exertion, lung sounds are still positive for scattered wheezes, yesterday we increased her Solu- Medrol back up to 60 mg every 6 hours in view of her ongoing wheezing and chest tightness. She remains on 2 L per nasal cannula with O2 sat 97%. She is afebrile, hemodynamically stable. She has been complaining of poor appetite, early satiety, and sensation that the food is getting stuck at the distal portion of her esophagus. We will speak to the attending physician in regards to consult and GI service for investigation of her dysphagia. Patient was seen in consultation by the CHICKEN CATCHER in regards to left breast tenderness and a large cystic mass on her right ovary. Pelvic ultrasound and mammogram was ordered by the CHICKEN CATCHER service. Patient is seen again today 06/17/2017 in follow-up on the surgical floor. She is awake and alert in no acute distress. She denies any worsening shortness of breath, cough or congestion. She continues to maintain good O2 saturations in the mid to upper 90s on 2 L/m per nasal cannula. She is now undergoing a EGD today. Objective - Vital Signs Vital signs: Vital Signs Temp 98 F 06/17/17 07:00 Pulse 88 06/17/17 12:13 Resp 14 06/17/17 08:00 BP 138/60 06/17/17 07:00 Pulse Ox 97 06/17/17 07:00 Intake & Output 06/16/17 06/17/17 06/17/17 18:59 06:59 18:59 Intake Total 175 75 Balance 175 75 Weight 67.2 kg Intake: IV 75 Oral 175 0 Other: Voiding Method Bedside Commode # Voids 2 2 - Exam GENERAL EXAM: Obese. Alert, comfortable in no apparent distress. HEAD: Normocephalic. EYES: Normal reaction of pupils, equal size. NOSE: Clear with pink turbinates. THROAT: No erythema or exudates. NECK: No masses, no JVD. CHEST: No chest wall deformity. LUNGS: Equal air entry with bilateral end expiratory wheeze. Diminished. CVS: S1 and S2 normal with no audible murmur, regular rhythm. ABDOMEN: No hepatosplenomegaly, normal bowel sounds, no guarding or rigidity. SPINE: No scoliosis or deformity SKIN: No rashes CENTRAL NERVOUS SYSTEM: No focal deficits, tone is normal in all 4 extremities. EXTREMITIES: There is no peripheral edema. No clubbing, no cyanosis. Peripheral pulses are intact. - Labs CBC & Chem 7: 06/17/17 06:28 06/17/17 06:28 Labs: Abnormal Lab Results - Last 24 Hours (Table) 06/16/17 06/17/17 06/17/17 Range/Units 20:22 06:28 06:28 WBC 11.9 H (3.8-10.6) k/uL Neutrophils # (Manual) 10.40 H (1.3-7.7) k/uL Lymphocytes # (Manual) 0.83 L (1.0-4.8) k/uL Metamyelocytes # (Man) 0.12 H (0) k/uL BUN 34 H (7-17) mg/dL Creatinine 0.50 L (0.52-1.04) mg/dL Glucose 107 H (74-99) mg/dL POC Glucose (mg/dL) 132 H (75-99) mg/dL Assessment and Plan Assessment: Assessment: -Acute exacerbation of chronic severe persistent bronchial asthma with secondary shortness of breath. Patient remains bronchospastic, wheezy and dyspneic on exertion - severe persistent asthma, on the Advair and singulair as maintenance and Prednisone maintenance of 10 mg daily. - C. diff colitis -cyst of ovary, this is a complex cyst in the pelvic area , Dr. Porter felt that this to be benign and no further workup has been suggested by LACE MACHINE OPERATOR/oncology. CT of abdomen and pelvis from 06/11/2017 showed a large cystic mass in the pelvis probably an ovarian cyst arising from the right ovary. In addition patient is having some left breast tenderness with nipple retraction and tender nodules. CHICKEN CATCHER service was consulted, patient will have pelvic ultrasound, mammogram -Dysphagia, sensation of food getting stuck in the distal portion of the esophagus, early satiety and weight loss of approximately 25-30 pounds in the last 3-4 months, EGD is planned for today. -obesity -coronary arteriosclerosis -spinal stenosis, the patient is under the care of Dr. Stewart in regards to her chronic back pain. She has compression fracture of the T-spine and spinal stenosis and degenerative arthritis. 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 Munoz Plan: The patient was seen and evaluated by Dr. Kennedy. She is stable from the pulmonary standpoint. An EGD is planned for today regarding her dysphagia. We' ll continue with her per her current medications. We'll continue to follow make further recommendations based on her clinical status. I, the cosigning physician, performed a history & physical examination of the patient. Lungs sounds are faint bilateral end expiratory wheeze, few scattered rhonchi. Diminished.. Maintaining good O2 saturations in the 90s on 2 L/m per nasal cannula. I discussed the assessment and plan of care with my nurse practitioner, Lisa Hull. I attest to the above note as dictated by her.
[2017-06-17 17:18] LABS: Glucose,Whole Blood 137 mg/dL (75-99)
--- NOTE | 2017-06-17 17:28 | P.PN ---
Subjective Progress Note Date: 06/17/17 Progress note being dictated for Dr. Clemons Interval history: This is a 82-year-old female admitted with acute COPD exacerbation, C. difficile colitis and multiple other medical issues. Maintained on nebulized bronchodilators, steroids with wheezing improving. Maintained on oral vancomycin .Diarrhea improving. Reports minimal diet intake. Computed tomography scan reporting ovarian cyst, complaining of left breast tenderness. Afebrile. 06/16/17 evaluated by STUDY COORDINATOR, vaginal and left breast ultrasound ordered. Vague Historian, reports 30 pound weight loss over the last few months. Complains of dysphagia, only able to eat 3-4 bites at one sitting. Diarrhea continues to improve only one episode this morning reported as tarry. Evaluated by GI and scheduled for EGD tomorrow. Denies chest pain, palpitations. Afebrile. 06/17/17 underwent EGD this morning, reporting diffuse antral gastritis, 2 cm linear superficial ulcer without active bleed in distal body of stomach, biopsy obtained. Maintained on PPI. Breast ultrasound reported negative diagnostic with no cystic or solid lesion seen. Pelvic ultrasound reported large cystic mass in the midline pelvis with internal septations, possibly ovarian origin, possible neoplasm. Further recommendations per STUDY COORDINATOR pending. Diarrhea significantly improved, reports only one episode early this morning. Breathing improving. Denies chest pain, palpitations or increasing shortness of breath. Objective - Vital Signs Vital signs: Vital Signs Temp 98.6 F 06/17/17 14:50 Pulse 88 06/17/17 17:01 Resp 18 06/17/17 16:00 BP 132/64 06/17/17 14:50 Pulse Ox 94 L 06/17/17 14:50 Intake & Output 06/16/17 06/17/17 06/17/17 18:59 06:59 18:59 Intake Total 175 255 Balance 175 255 Weight 67.2 kg Intake: IV 75 Oral 175 180 Other: Voiding Method Bedside Commode # Voids 2 2 2 - Exam PHYSICAL EXAM: VITAL SIGNS: As above GENERAL: Sitting up in bed, no acute distress HEENT: Conjunctivae normal. eyes normal. Oral mucosa moist NECK: No JVD. No thyroid enlargement. No LNs CARDIOVASCULAR: S1, S2 muffled. No murmur RESPIRATION: Breath sounds diminished in the bases. Occasional scattered rhonchi, no crackles. Improving Expiratory wheezing. ABDOMEN: Soft, nontender, nondistended. No guarding. no masses palpable. Bowel sounds heard. LEGS: No edema. no swelling PSYCHIATRY: Alert and oriented -3, mood and affect normal. NERVOUS SYSTEM: Cranial N 2-12 grossly normal. Moves all 4 limbs. Diffuse weakness No focal deficits. Skin: no ulcer no rash Joints: No active swelling. No inflammation. Lymphatic system. No LN neck axilla or groin. - Labs CBC & Chem 7: 06/17/17 06:28 06/17/17 06:28 Labs: Abnormal Lab Results - Last 24 Hours (Table) 06/16/17 06/17/17 06/17/17 Range/Units 20:22 06:28 06:28 WBC 11.9 H (3.8-10.6) k/uL Neutrophils # (Manual) 10.40 H (1.3-7.7) k/uL Lymphocytes # (Manual) 0.83 L (1.0-4.8) k/uL Metamyelocytes # (Man) 0.12 H (0) k/uL BUN 34 H (7-17) mg/dL Creatinine 0.50 L (0.52-1.04) mg/dL Glucose 107 H (74-99) mg/dL POC Glucose (mg/dL) 132 H (75-99) mg/dL Assessment and Plan Assessment: 1. Acute COPD exacerbation with acute tracheobronchitis 2. Acute C. difficile colitis 3. History of dementia 4. Hard of hearing 5. History of hepatitis C 6. Degenerative joint disease 7. Remote history of nicotine dependence 8. Hypertension 9. Ovarian mass, possible neoplasm 10. Dysphagia, EGD pending Plan: Continue on current medication regime , PPI, monitoring and symptomatic treatment. Maintain nebulized bronchodilators, steroids. Pelvis ultrasound as noted above with further STUDY COORDINATOR recommendations pending. Outpatient follow-up diagnostic mammogram of bilateral breasts recommended. Further recommendations to follow. The impression and plan of care has been dictated as directed. : I performed a history and examination of this patient, discussed the same with the dictator. I agree with the dictator's note ,documented as a scribe. Any additional findings or plans will be noted.
[2017-06-17 20:46] LABS: Glucose,Whole Blood 117 mg/dL (75-99)
[2017-06-17 21:28] VITALS: RESP 16
[2017-06-18] MEDS: VANCOMYCIN ORAL SOLUTION 250 MG/5 ML BOTTLE PO SCH ×3 (00:21→11:27)
[2017-06-18] MEDS: methylPREDNISolone SOD SUCCI 125 MG/2 ML VIAL IV SCH ×2 (00:58→08:50)
[2017-06-18 07:05] LABS: Glucose,Whole Blood 115 mg/dL (75-99)
[2017-06-18 07:37] LABS: Basophils # (A) 0.1 k/uL (0-0.2); Basophils % (A) 1 %; Eosinophils % (A) 0 %; HCT 41.7 % (34.0-46.0); HGB 13.4 gm/dL (11.4-16.0); Lymphocytes # (A) 0.4 k/uL (1.0-4.8); Lymphocytes % (A) 3 %; MCH 28.9 pg (25.0-35.0); MCHC 32.1 g/dL (31.0-37.0); Mean Platelet Volume 7.5; Monocytes # (A) 0.5 k/uL (0-1.0); Monocytes % (A) 4 %; Neutrophils # (A) 11.8 k/uL (1.3-7.7); Neutrophils % (A) 92 %; Platelet Count 332 k/uL (150-450); RBC 4.63 m/uL (3.80-5.40); WBC 12.8 k/uL (3.8-10.6)
[2017-06-18 07:58] LABS: Anion Gap 5 mmol/L; Blood Urea Nitrogen 35 mg/dL (7-17); Calcium 8.4 mg/dL (8.4-10.2); Carbon Dioxide 30 mmol/L (22-30); Chloride 105 mmol/L (98-107); Glucose 114 mg/dL (74-99); Potassium 4.5 mmol/L (3.5-5.1); Sodium 140 mmol/L (137-145)
[2017-06-18] MEDS: BUDESONIDE 1 MG/2 ML NEBU INHALATION SCH (08:06)
[2017-06-18] MEDS: IPRATROPIUM-ALBUTEROL 3 ML NEB INHALATION SCH ×2 (08:06→11:38)
[2017-06-18] MEDS: FORMOTEROL FUMARATE 20 MCG/2 ML NEBU INHALATION SCH (08:06)
[2017-06-18 08:49] VITALS: BP 147/77; TEMP 97.7
[2017-06-18] MEDS: PANTOPRAZOLE 40 MG TABLET PO SCH (08:50)
[2017-06-18] MEDS: INSULIN ASPART 100 UNIT/ML 1 ML 10 ML VIAL SQ SCH ×2 (08:50→11:28)
[2017-06-18] MEDS: HEPARIN SODIUM,PORCINE 5,000 UNIT/ML 1 ML VIAL SQ SCH (08:51)
[2017-06-18] MEDS: amLODIPine 10 MG TAB PO SCH (08:51)
[2017-06-18] MEDS: HYDROcodone/APAP 5-325MG 1 EACH TAB PO PRN (08:56)
[2017-06-18 11:08] LABS: Glucose,Whole Blood 107 mg/dL (75-99)
[2017-06-18] MEDS: CHERRY FLAVOR 60 ML BOTTLE PO PRN (11:26)
[2017-06-18 11:41] VITALS: PULSE 88
--- NOTE | 2017-06-18 12:02 | P.PN ---
Subjective Progress Note Date: 06/18/17 Principal diagnosis: Acute exacerbation of chronic severe persistent bronchial asthma This is a pleasant 79-year-old female patient with known history of severe persistent steroid-dependent bronchial asthma in addition to multiple medical pros and comorbidities who came in from [facility] because of worsening shortness of breath. The patient was progressively getting worse over the past few weeks and she got to the point where she was unable to breathe while doing activities of daily today life. She was having increased cough chest congestion and wheezing. She was initially transferred to [facility] and she was transferred to [place] and she was placed on BiPAP overnight. This morning she is off the BiPAP. She is still having increased dyspnea cough and wheeze although her symptoms have subsided. No pleurisy. No hemoptysis. Chest x-ray is free of any acute pulmonary infiltrates. She is a bit tired and fatigued and she is losing weight. She is maintained on Advair and 10 mg of prednisone a daily basis. She does DuoNeb nebulized treatments around the clock. She has been on Xolair injections/anti- IgE treatment in the past. In addition, Aura has multiple other medical problems and complaints. Her most significant complaint is his inability is her inability to walk and the extensive pain that she is experiencing in her back. She has seen multiple neurosurgeons and spine surgeons and she is seen Dr. Stewart from pain management. The most recent MRI from 2013 showed L5-S1 degenerative disc disease and the bulge at the level of L4-L5 with anterolisthesis and the same was also noted at the level of L3-L4. The patient also has degenerative severe disc disease at the level of L2-L3 home at T10-T11, T11-T12 along with stenosis. There is also a right L5 L4 and L3 root compression, L2 neural foraminal narrowing, L2-L3 L4-L5 root compression on the left, diffuse facet arthrosis throughout the lumbar spine and central canal narrowing at the level of L3-L4. She is considering to go back to pain management for a possible pain stimulator. She is moving around with the help of a walker and wheelchair. She was at [facility] a few months back regarding an abnormal brain scan and intracranial hemorrhage as the patient was having headache and occasional dizziness. The patient had a small hemorrhage in the left temporal region. 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 She also had an MRI of the cervical spine without contrast and the neck pain was further evaluated and it showed senescent degenerative changes. 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 The small intracranial bleed was handled conservatively and the patient was discharged home without any significant issues. She is still having generalized weakness, occasional headaches and some occasional dizziness along with leg numbness and tingling. She has chronic insomnia and the patient is essentially awake and without multiple times at night she cannot get herself in a comfortable position. She has been on Ambien 5 mg to help her with sleep. She has been also told that her ovarian cysts and gotten larger however I do not have any clear documentation is on that. I think it's reasonable at a later stage to be seen by Dr. Sánchez in this regard. We have felt that this was a benign ovarian cyst The patient is seen again today 06/10/2017 in follow-up in the regular medical floor. She is awake and alert in no acute distress. She is still dyspneic on minimal exertion. Not quite back to her baseline. She is maintaining good O2 saturations in the high 90s on 3 L/m per nasal cannula. She's been afebrile. No leukocytosis. She is maintained on IV Solu-Medrol, Pulmicort and Perforomist , DuoNeb inhalations. She is on antibiotics in the form of ceftriaxone and azithromycin. The patient is seen again today 06/11/2017 in follow-up in the regular medical floor. She is awake and alert in no acute distress. She continues with some dyspnea on minimal conversation. He is maintaining good O2 saturations in the upper 90s on 2 L/m per nasal cannula. She's been afebrile. Hemodynamically stable. She is continued on her current treatment plan. She is better today but not quite back to her baseline. White count 5.2. Hemoglobin 13.8. Creatinine 0.62. Computed tomography scan of the abdomen is pending based on her history of enlarging ovarian cyst. Patient is seen again today 06/12/2017 in follow-up in the surgical floor. She is awake and alert in no acute distress. She states she is breathing better today as compared to yesterday but still not back to her baseline. She is maintaining good O2 saturations in the mid 90s on room air. She's been afebrile. Hemodynamically stable. Computed tomography scan of the abdomen revealed left renal cortical cyst. No evidence of renal obstruction. There is a large cystic mass in the pelvis most likely the ovarian cyst arising from the right ovary. On 06/13/2017, the patient is doing slightly better compared to yesterday. Less focused spastic and wheezy. Some minimal soft diarrhea. No abdominal pain. She has some GI upset and she has dropped her oral intake. CAT scan of the abdomen and pelvis was noted. On 06/14/2017 patient seen in follow-up on medical surgical floor. She's had multiple episodes of diarrhea this morning, stool for C. diff toxin was positive. Patient will be initiated on oral vancomycin. She is complaining of being fatigued from multiple trips to the bedside commode. Gets wheezy and dyspneic with exertion as well. Lung sounds are positive for scattered expiratory wheezing, but this is noted to be improved from admission. Good air entry noted bilaterally. No significant cough, sputum production or chest congestion. She is afebrile, she is on room air with O2 sat at 97%. Today's lab work shows WBC of 10.0, hemoglobin 13.9. Patient continues on bronchodilators, IV steroids, Rocephin. In addition she is expressing concern about tenderness on palpation in her left breast. Left breast nipple is noted to be retracted, tenderness on palpation noted in the left breast at 9pm. No redness or warmth to palpation noted. No distinct mass was noted on exam, no lymph node enlargement. On 06/15/2017 patient seen in follow-up. Resting in bed, she states her breathing is not much improved, lung sounds are still positive for diffuse wheezes, her cough is a bit less bronchospastic. She states her diarrhea is subsiding, she was found to be positive for C. diff colitis, she is on oral vancomycin. She states her appetite is poor, she is experiencing early satiety. She remains on 2 L per nasal cannula with O2 sat 95%. Her vital signs are stable, she is afebrile. Her abiotic's have been discontinued, patient is remains on oral vancomycin, nebulized treatments, Pulmicort, Perforomist, and IV steroids. On 06/16/2017 patient seen in follow-up. She appears very fatigued and worn out today. She states she was up all night going to the bedside commode to urinate and having frequent diarrhea. She is on oral vancomycin for her C. diff. From pulmonary standpoint, remains dyspneic with exertion, lung sounds are still positive for scattered wheezes, yesterday we increased her Solu- Medrol back up to 60 mg every 6 hours in view of her ongoing wheezing and chest tightness. She remains on 2 L per nasal cannula with O2 sat 97%. She is afebrile, hemodynamically stable. She has been complaining of poor appetite, early satiety, and sensation that the food is getting stuck at the distal portion of her esophagus. We will speak to the attending physician in regards to consult and GI service for investigation of her dysphagia. Patient was seen in consultation by the VISUALIZER in regards to left breast tenderness and a large cystic mass on her right ovary. Pelvic ultrasound and mammogram was ordered by the VISUALIZER service. Patient is seen again today 06/17/2017 in follow-up on the surgical floor. She is awake and alert in no acute distress. She denies any worsening shortness of breath, cough or congestion. She continues to maintain good O2 saturations in the mid to upper 90s on 2 L/m per nasal cannula. She is now undergoing a EGD today. The patient is seen again today 06/18/2017 in follow-up on the surgical floor. She remains resting in bed. She has been reluctant to get out of bed. She is also adamant about going home versus inpatient rehabilitation. She denies any worsening shortness of breath, cough or congestion. She feels she is at her baseline. She is maintaining good O2 saturations in the upper 90s on 3 L/m per nasal cannula. She been afebrile. Hemodynamically stable. White count 12.8. Hemoglobin 13.4. Creatinine 0.60. EGD revealed evidence of diffuse antral gastritis and a a 2 cm linear superficial ulcer in the distal body of the stomach, status post biopsy. Pathology pending. Objective - Vital Signs Vital signs: Vital Signs Temp 97.7 F 06/18/17 08:44 Pulse 88 06/18/17 11:49 Resp 16 06/18/17 08:44 BP 147/77 06/18/17 08:44 Pulse Ox 97 06/18/17 08:44 Intake & Output 06/17/17 06/18/17 06/18/17 18:59 06:59 18:59 Intake Total 255 260 100 Balance 255 260 100 Intake: IV 75 Oral 180 260 100 Other: Voiding Method Bedside Commode Bedside Commode # Voids 2 2 1 # Bowel Movements 1 - Exam GENERAL EXAM: Obese. Alert, comfortable in no apparent distress. HEAD: Normocephalic. EYES: Normal reaction of pupils, equal size. NOSE: Clear with pink turbinates. THROAT: No erythema or exudates. NECK: No masses, no JVD. CHEST: No chest wall deformity. LUNGS: Equal air entry with bilateral end expiratory wheeze. Diminished. CVS: S1 and S2 normal with no audible murmur, regular rhythm. ABDOMEN: No hepatosplenomegaly, normal bowel sounds, no guarding or rigidity. SPINE: No scoliosis or deformity SKIN: No rashes CENTRAL NERVOUS SYSTEM: No focal deficits, tone is normal in all 4 extremities. EXTREMITIES: There is no peripheral edema. No clubbing, no cyanosis. Peripheral pulses are intact. - Labs CBC & Chem 7: 06/18/17 07:08 06/18/17 07:08 Labs: Abnormal Lab Results - Last 24 Hours (Table) 06/17/17 06/17/17 06/18/17 Range/Units 17:15 20:40 07:02 WBC (3.8-10.6) k/uL Neutrophils # (1.3-7.7) k/uL Lymphocytes # (1.0-4.8) k/uL BUN (7-17) mg/dL Glucose (74-99) mg/dL POC Glucose (mg/dL) 137 H 117 H 115 H (75-99) mg/dL 06/18/17 06/18/17 06/18/17 Range/Units 07:08 07:08 10:58 WBC 12.8 H (3.8-10.6) k/uL Neutrophils # 11.8 H (1.3-7.7) k/uL Lymphocytes # 0.4 L (1.0-4.8) k/uL BUN 35 H (7-17) mg/dL Glucose 114 H (74-99) mg/dL POC Glucose (mg/dL) 107 H (75-99) mg/dL Assessment and Plan Assessment: Assessment: -Acute exacerbation of chronic severe persistent bronchial asthma with secondary shortness of breath. Recovered back to her baseline. - severe persistent asthma, on the Advair and singulair as maintenance and Prednisone maintenance of 10 mg daily. - C. diff colitis -cyst of ovary, this is a complex cyst in the pelvic area , Dr. Porter felt that this to be benign and no further workup has been suggested by SPORT PSYCHOLOGIST/oncology. CT of abdomen and pelvis from 06/11/2017 showed a large cystic mass in the pelvis probably an ovarian cyst arising from the right ovary. In addition patient is having some left breast tenderness with nipple retraction and tender nodules. VISUALIZER service was consulted, patient will have pelvic ultrasound, mammogram -Dysphagia, sensation of food getting stuck in the distal portion of the esophagus, early satiety and weight loss of approximately 25-30 pounds in the last 3-4 months, EGD revealed diffuse antral gastritis, 2 cm linear superficial ulcer in the distal body of the stomach status post biopsy. Pathology pending. -obesity -coronary arteriosclerosis -spinal stenosis, the patient is under the care of Dr. Stewart in regards to her chronic back pain. She has compression fracture of the T-spine and spinal stenosis and degenerative arthritis. She has taken herself off the Neurontin and she is considering a pain pump She also being considered for a pain stimulor -compression fracture of thoracic spine -restless legs -environmental allergy -hyperlipidemia -benign paroxysmal positional vertigo (Bilateral), the patient is asymptromatic for now -transient cerebral ischemia -persistent insomnia -cerebral arteriovenous malformation, recent PHARMACY CLINICAL SPECIALIST bleed, asymptomatic and treated conservatively, followed up by Dr. Munoz Plan: The patient was seen and evaluated by Dr. Kennedy. She is stable from the pulmonary standpoint. She could be discharged home on a prednisone taper along with her usual home pulmonary medications including nebulized treatments. We' ll continue with her per her current medications. We'll continue to follow make further recommendations based on her clinical status. I, the cosigning physician, performed a history & physical examination of the patient. Lungs sounds are faint bilateral end expiratory wheeze, Diminished.. Maintaining good O2 saturations in the 90s on 2 L/m per nasal cannula. I discussed the assessment and plan of care with my nurse practitioner, Lisa Kurtis. I attest to the above note as dictated by her.
--- NOTE | 2017-06-18 21:28 | DS ---
DISCHARGE SUMMARY FINAL DIAGNOSES: 1. Chronic obstructive pulmonary disease exacerbation with acute purulent tracheobronchitis. 2. Acute Clostridium difficile colitis. 3. History of dementia. 4. Hard of hearing. 5. History of hepatitis C. 6. Degenerative joint disease. 7. History of nicotine dependence. 8. Hypertension. 9. Ovarian mass, possibly cyst. 10.Dysphagia, improved. 11.Status post endoscopy showing diffuse antral gastritis as well as 2 cm , superficial ulcer in the distal body of stomach, status post biopsy. DISCHARGE DISPOSITION: The patient will be discharged in stable condition with a guarded prognosis. Total time taken 35 minutes in discussion with multiple consultants. HISTORY OF PRESENT ILLNESS: This 82-year-old woman with a past medical history of multiple medical problems was admitted with shortness of breath, COPD. The patient also has acute C. diff. Colitis. The patient treated symptomatically. Patient also had GI symptoms and Dr. Anderson performed endoscopy with the findings as above. A breast ultrasound was also done which showed no other lesions. A pelvic ultrasound was also done which showed a cystic mass in the midline. Recommend TUB OPERATOR evaluation also. EXAM: Vitals are stable. CARDIOVASCULAR: S1, S2 muffled. RESPIRATORY: A few scattered rhonchi and crackles. ABDOMEN: Soft, nontender. NERVOUS SYSTEM: No focal deficits. DISCHARGE ADVICE: Diet is cardiac. Activity limited until followup. Follow up with Dr. Savage as advised. Followup Dr. Porter and TUB OPERATOR and Gastroenterology is recommended. MEDICATIONS: As follows: 1. Tylenol 650 q.8h p.r.n. 2. Norvasc 10 mg p.o. daily. 5. Advair 1 puff b.i.d. 6. [place] 5 mg p.o. t.i.d. p.r.n. 7. DuoNeb q.i.d. and p.r.n. 8. Protonix 40 mg. 9. Prednisone taper 10 mg p.o. daily. 10.Vancomycin 250 mg every 6 hours for 1 week. Once again, the patient will be discharged in stable condition with guarded prognosis. TOTAL TIME TAKEN: 35 minutes. MMODL / IJN: [id number] / MTDD
== END 2017-06-18 14:00 | disposition home or self-care (01) | DRG 190 ==
LOC: 3SUR 06:49
PROVIDERS: ADMIT Internal Medicine; ATTEND Internal Medicine
PROC: 0DB68ZX Excision of Stomach, Via Natural or Artificial Opening Endoscopic, Diagnostic (ICD-10-PCS; principal; 2017-06-08)
DX: J44.0 Chronic obstructive pulmonary disease with (acute) lower respiratory infection (principal); Q28.2 Arteriovenous malformation of cerebral vessels; A04.72 Enterocolitis due to Clostridium difficile, not specified as recurrent; I48.91 Unspecified atrial fibrillation; M48.54XA Collapsed vertebra, not elsewhere classified, thoracic region, initial encounter for fracture; J45.51 Severe persistent asthma with (acute) exacerbation; R13.10 Dysphagia, unspecified; G25.81 Restless legs syndrome; E66.9 Obesity, unspecified; E78.5 Hyperlipidemia, unspecified; K21.9 Gastro-esophageal reflux disease without esophagitis; F03.90 Unspecified dementia, unspecified severity, without behavioral disturbance, psychotic disturbance, mood disturbance, and anxiety; J20.9 Acute bronchitis, unspecified; J44.1 Chronic obstructive pulmonary disease with (acute) exacerbation; F51.04 Psychophysiologic insomnia; G89.29 Other chronic pain; H81.13 Benign paroxysmal vertigo, bilateral; H91.90 Unspecified hearing loss, unspecified ear; I10 Essential (primary) hypertension; I25.10 Atherosclerotic heart disease of native coronary artery without angina pectoris; K29.60 Other gastritis without bleeding; K44.9 Diaphragmatic hernia without obstruction or gangrene; M47.9 Spondylosis, unspecified; M48.061 Spinal stenosis, lumbar region without neurogenic claudication; N64.53 Retraction of nipple; N83.201 Unspecified ovarian cyst, right side; Q27.9 Congenital malformation of peripheral vascular system, unspecified; Z79.52 Long term (current) use of systemic steroids; Z79.82 Long term (current) use of aspirin; Z79.899 Other long term (current) drug therapy; Z82.49 Family history of ischemic heart disease and other diseases of the circulatory system; Z86.73 Personal history of transient ischemic attack (TIA), and cerebral infarction without residual deficits; Z87.891 Personal history of nicotine dependence; Z90.710 Acquired absence of both cervix and uterus
CPT/HCPCS: 43239; 71045; 74177; 76856; 80048; 80053; 81003; 81503; 83036; 85025; 87324; 88305; 93005; 94640; 94760

== ENCOUNTER → 2019-01-19 | Outpatient (CLI) | payer MEDICARE ==
--- NOTE | 2019-01-19 21:27 | CT ---
EXAMINATION TYPE: CT ChestAbdPelvis w con DATE OF EXAM: 01/19/2019 COMPARISON: CT abdomen and pelvis June 21, 2017 HISTORY: Melanoma of skin, ovarian cyst. palpable nodules LT chest wall CT DLP: 1071.10 mGycm. Automated Exposure Control for Dose Reduction was Utilized. CONTRAST: CT scan of the thorax, abdomen and pelvis is performed with oral and with IV Contrast, patient inject ed with 100 mL of Isovue 300. FINDINGS: LUNGS: The lungs are grossly clear, there is no concerning parenchymal mass or nodule identified. T here is no pleural effusion or pneumothorax seen. The tracheobronchial tree is patent. MEDIASTINUM: There are no greater than 1 cm hilar or mediastinal lymph nodes. No cardiomegaly or pe ricardial effusion is seen. Calcification at level of mitral and aortic valve are seen. Coronary scooby ry calcification is present which is noted marker for underlying coronary artery disease. Thyroid nod ules are present, greater than 1 cm lower pole left thyroid nodule axial image 10 is noted. OTHER: Few prominent tortuous vessels in the anterior abdominal wall for reference axial image 16. No suspicious soft tissue nodules clearly seen.. LIVER/GB: Gallbladder not visualized presumed surgically absent. PANCREAS: No significant abnormality is seen. SPLEEN: No significant abnormality is seen. ADRENALS: Stable small nodularity to left adrenal gland axial image 57 favored benign etiology given interval stability. KIDNEYS: Several larger simple appearing cysts scattered throughout the left kidney are redemonstrate d. Few smaller simple appearing cysts in the right kidney are seen. BOWEL: Oral contrast reaches level proximal transverse colon. No suspicious small or large bowel dila tation mild wall thickening transverse and left colon may be product of poor distention. Some diverti cula in the sigmoid colon. Mild wall thickening left and sigmoid colon. Findings presumed product of poor distention, mild colitis felt less likely but not entirely excluded. GENITAL ORGANS: Normal-appearing uterus not identified. Similar prior study there is cystic pelvic le khurram grossly stable measuring 9.2 x 9.0 cm axial image 88. Scattered pelvic phleboliths. LYMPH NODES: No greater than 1cm abdominal or pelvic lymph nodes are appreciated. OSSEOUS STRUCTURES: Postsurgical change to the lower lumbar spine with spinous process resection. Mul tilevel spondylolisthesis L3 on L4 and L4 on L5. Moderate multilevel spurring in the thoracic spine. There is disc space narrowing in mid to lower thoracic levels. Mild to moderate narrowing of both hip joints. Narrowing and spurring at pubic symphysis. There is S-shaped scoliosis. OTHER: No significant additional abnormality is seen. IMPRESSION: 1. No obvious subcutaneous soft tissue mass or adenopathy to suggest metastatic melanoma with particu lar attention to the left chest wall at area of clinical concern. 2. Stable 9 cm pelvic cystic mass or ovarian cystic neoplasm. Probably benign given interval stabilit y. Correlate clinically.
== END ==
LOC: RADCTMAIN 15:28
PROVIDERS: ATTEND Internal Medicine Hematology & Oncology
DX: C43.9 Malignant melanoma of skin, unspecified (principal); N85.8 Other specified noninflammatory disorders of uterus; R68.89 Other general symptoms and signs
CPT/HCPCS: 71260; 74177; Q9967 ×2

== ENCOUNTER 2020-12-20 05:10 | Inpatient (IN) | payer MEDICARE ==
[2020-12-20] MEDS ORDERED: IPRATROPIUM-ALBUTEROL 3 ML NEB INHALATION STA (05:12)
[2020-12-20] MEDS ORDERED: SODIUM CHLORIDE 0.9% 1,000 ML IV STA (05:12)
[2020-12-20] MEDS ORDERED: methylPREDNISolone SOD SUCCI 125 MG/2 ML VIAL IV STA (05:12)
[2020-12-20] MEDS ORDERED: fentaNYL (PF) 50 MCG/ML 2 ML AMP IVP STA (05:14)
--- NOTE | 2020-12-20 05:15 | ED ---
Recheck HPI - General Stated Complaint: A-Fib Time Seen by Provider: 12/20/20 05:12 Source: RN notes reviewed, old records reviewed Limitations: no limitations, altered mental status (Patient appears to suffer from some underlying altered mental status, memory loss) - History of Present Illness Initial Comments: This is a 85-year-old female to the ER as a transfer for atrial fibrillation with RVR, new onset. Patient is accepted with elevated heart rate. The patient otherwise has no complaints no chest pain no shortness of breath and no abdominal pain currently. Patient is requiring submental oxygen but that is her baseline. She does have recent long inpatient hospitalization for esophageal ev aluation and states she has been eating and chewing of food appropriately as she was directed. MD Complaint: other (Recheck of atrial fibrillation) -: hour(s) Returns Today for: Called Because of Abnormal Lab/Test (Elevated troponin) Symptoms Since Prior Visit: no new symptoms Associated Symptoms: none Treatments Prior to Arrival: other medications, other (Patient was cardioverted 3 times unsuccessfully of prior hospital) - Related Data Home Medications Medication Instructions Recorded Confirmed Fluticasone/Salmeterol [Advair 1 puff INHALATION DAILY 06/08/17 06/20/20 500-50 Diskus] predniSONE 10 mg PO DAILY 06/08/17 06/20/20 Hydrocodone/Acetaminophen [[place] 1 tab PO 1600 06/20/20 06/20/20 7.5-325] Ipratropium-Albuterol Nebulize 3 ml INHALATION BID 06/20/20 06/20/20 [Duoneb 0.5 mg-3 mg/3 ml Soln] Lovastatin [Mevacor] 10 mg PO DAILY 06/20/20 06/20/20 Multivitamins, Thera [Multivitamin 1 tab PO DAILY 06/20/20 06/20/20 (formulary)] Allergies Allergy/AdvReac Type Severity Reaction Status Date / Time Penicillins Allergy Severe Rash/Hives Verified 06/20/20 14:26 Review of Systems ROS Statement: Those systems with pertinent positive or pertinent negative responses have been documented in the HPI. ROS Other: All systems not noted in ROS Statement are negative. 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, spinal stenosis, hiatal hernia, bruises easily, melanoma, macular degeneration, History of Any Multi-Drug Resistant Organisms: None Reported Past Surgical History: Appendectomy, Back Surgery, Breast Surgery, Cholecystectomy, Hysterectomy Additional Past Surgical History / Comment(s): dick cataracts, dick eye lid lift, 4" cut left breast-pt not sure what was done, Past Anesthesia/Blood Transfusion Reactions: No Reported Reaction Smoking Status: Former smoker - Past Family History Sister(s) Family Medical History: Cancer General Exam General appearance: alert, in no apparent distress Head exam: Present: atraumatic, normocephalic, normal inspection Eye exam: Present: normal appearance, PERRL, EOMI. Absent: scleral icterus, conjunctival injection, periorbital swelling ENT exam: Present: normal exam, mucous membranes moist Neck exam: Present: normal inspection. Absent: tenderness, meningismus, lymphadenopathy Respiratory exam: Present: normal lung sounds bilaterally. Absent: respiratory distress, wheezes, rales, rhonchi, stridor Cardiovascular Exam: Present: tachycardia, irregular rhythm, normal heart soun ds. Absent: systolic murmur, diastolic murmur, rubs, gallop, clicks GI/Abdominal exam: Present: soft, normal bowel sounds. Absent: distended, tenderness, guarding, rebound, rigid Extremities exam: Present: normal inspection, full ROM, normal capillary refill. Absent: tenderness, pedal edema, joint swelling, calf tenderness Back exam: Present: normal inspection Neurological exam: Present: alert, oriented X3, CN II-XII intact Psychiatric exam: Present: normal affect, normal mood Skin exam: Present: warm, dry, intact, normal color. Absent: rash Course Vital Signs 12/20/20 12/20/20 12/20/20 05:12 05:32 05:46 Temperature 98.3 F Pulse Rate 144 H Pulse Rate [ 161 H Commercial Underwriter ] Respiratory 22 Rate Blood Pressure 132/83 97/48 O2 Sat by Pulse 99 Oximetry 12/20/20 12/20/20 12/20/20 05:47 06:00 06:03 Temperature Pulse Rate 126 H 147 H 120 H Pulse Rate [ Commercial Underwriter ] Respiratory 18 Rate Blood Pressure 86/54 O2 Sat by Pulse 99 Oximetry - Reevaluation(s) Reevaluation #1: 12/20/20 06:16 Medical record is reviewed 12/20/20 06:16 Patient's transferring paperwork is reviewed 12/20/20 06:16 Did speak with patient's transferring physician Reevaluation #2: 12/20/20 06:16 Patient's blood pressure did drop marginally from initial evaluation, Patient is unsure of events or activities and does have difficulty answering all questions Medical Decision Making - Medical Decision Making 85 female the admitted with new onset atrial fibrillation with RVR and elevated troponin - Lab Data Result diagrams: 12/20/20 05:29 12/20/20 05:29 Lab Results 12/20/20 12/20/20 12/20/20 Range/Units 05:29 05:29 05:29 WBC 15.3 H (3.8-10.6) k/uL RBC 4.09 (3.80-5.40) m/uL Hgb 12.9 (11.4-16.0) gm/dL Hct 38.9 (34.0-46.0) % MCV 95.3 (80.0-100.0) fL MCH 31.7 (25.0-35.0) pg MCHC 33.2 (31.0-37.0) g/dL RDW 13.4 (11.5-15.5) % Plt Count 280 (150-450) k/uL MPV 8.7 Neutrophils % 79 % Lymphocytes % 14 % Monocytes % 5 % Eosinophils % 1 % Basophils % 0 % Neutrophils # 12.1 H (1.3-7.7) k/uL Lymphocytes # 2.1 (1.0-4.8) k/uL Monocytes # 0.8 (0-1.0) k/uL Eosinophils # 0.1 (0-0.7) k/uL Basophils # 0.0 (0-0.2) k/uL PT 10.8 (9.0-12.0) sec INR 1.0 (<1.2) APTT 22.5 (22.0-30.0) sec Sodium 139 (137-145) mmol/L Potassium 4.0 (3.5-5.1) mmol/L Chloride 109 H (98-107) mmol/L Carbon Dioxide 23 (22-30) mmol/L Anion Gap 7 mmol/L BUN 28 H (7-17) mg/dL Creatinine 0.96 (0.52-1.04) mg/dL Est GFR (CKD-EPI)AfAm 62 (>60 ml/min/1.73 sqM) Est GFR (CKD-EPI)NonAf 54 (>60 ml/min/1.73 sqM) Glucose 82 (74-99) mg/dL Plasma Lactic Acid Aubrey (0.7-2.0) mmol/L Calcium 9.0 (8.4-10.2) mg/dL Phosphorus 3.7 (2.5-4.5) mg/dL Magnesium 2.1 (1.6-2.3) mg/dL Total Bilirubin 0.5 (0.2-1.3) mg/dL AST 40 H (14-36) U/L ALT 20 (4-34) U/L Alkaline Phosphatase 70 (38-126) U/L Creatine Kinase 138 H (30-135) U/L Total Protein 5.5 L (6.3-8.2) g/dL Albumin 3.2 L (3.5-5.0) g/dL 12/20/20 Range/Units 05:29 WBC (3.8-10.6) k/uL RBC (3.80-5.40) m/uL Hgb (11.4-16.0) gm/dL Hct (34.0-46.0) % MCV (80.0-100.0) fL MCH (25.0-35.0) pg MCHC (31.0-37.0) g/dL RDW (11.5-15.5) % Plt Count (150-450) k/uL MPV Neutrophils % % Lymphocytes % % Monocytes % % Eosinophils % % Basophils % % Neutrophils # (1.3-7.7) k/uL Lymphocytes # (1.0-4.8) k/uL Monocytes # (0-1.0) k/uL Eosinophils # (0-0.7) k/uL Basophils # (0-0.2) k/uL PT (9.0-12.0) sec INR (<1.2) APTT (22.0-30.0) sec Sodium (137-145) mmol/L Potassium (3.5-5.1) mmol/L Chloride (98-107) mmol/L Carbon Dioxide (22-30) mmol/L Anion Gap mmol/L BUN (7-17) mg/dL Creatinine (0.52-1.04) mg/dL Est GFR (CKD-EPI)AfAm (>60 ml/min/1.73 sqM) Est GFR (CKD-EPI)NonAf (>60 ml/min/1.73 sqM) Glucose (74-99) mg/dL Plasma Lactic Acid Aubrey 2.0 (0.7-2.0) mmol/L Calcium (8.4-10.2) mg/dL Phosphorus (2.5-4.5) mg/dL Magnesium (1.6-2.3) mg/dL Total Bilirubin (0.2-1.3) mg/dL AST (14-36) U/L ALT (4-34) U/L Alkaline Phosphatase (38-126) U/L Creatine Kinase (30-135) U/L Total Protein (6.3-8.2) g/dL Albumin (3.5-5.0) g/dL - EKG Data -: EKG Interpreted by Me (EKG shows Afib RVR QRS 84 QTc 439) Disposition Clinical Impression: Atrial fibrillation, Tachycardia, Palpitations, Atrial fibrillation with RVR Disposition: ADMITTED IP TO THIS HOSP Condition: Fair Is patient prescribed a controlled substance at d/c from ED?: No Referrals: Stanley Claudio MD [Primary Care Provider] - 1-2 days
[2020-12-20] MEDS ORDERED: NITROGLYCERIN SL TABS 0.4 MG TAB SUBLINGUAL PRN (05:26)
[2020-12-20] MEDS ORDERED: MORPHINE SULFATE 4 MG/ML SYRINGE IV PRN (05:26)
[2020-12-20] MEDS ORDERED: HEPARIN SOD,PORK IN 0.45% NACL 25,000 UNIT in 0.45% NACL 1 250ML.BAG IV SCH (05:30)
[2020-12-20] MEDS: ASPIRIN 81 MG PO STA ×2 (05:37→05:38)
[2020-12-20 05:57] LABS: Basophils % (A) 0 %; Eosinophils # (A) 0.1 k/uL (0-0.7); Eosinophils % (A) 1 %; HCT 38.9 % (34.0-46.0); HGB 12.9 gm/dL (11.4-16.0); Lymphocytes # (A) 2.1 k/uL (1.0-4.8); Lymphocytes % (A) 14 %; MCH 31.7 pg (25.0-35.0); MCHC 33.2 g/dL (31.0-37.0); MCV 95.3 fL (80.0-100.0); Mean Platelet Volume 8.7; Monocytes # (A) 0.8 k/uL (0-1.0); Monocytes % (A) 5 %; Neutrophils # (A) 12.1 k/uL (1.3-7.7); Neutrophils % (A) 79 %; Platelet Count 280 k/uL (150-450); RBC 4.09 m/uL (3.80-5.40); RDW 13.4 % (11.5-15.5); WBC 15.3 k/uL (3.8-10.6)
[2020-12-20 06:09] LABS: Partial Thromboplastin Time 22.5 sec (22.0-30.0); Prothrombin Time 10.8 sec (9.0-12.0)
[2020-12-20 06:11] LABS: Albumin 3.2 g/dL (3.5-5.0); Magnesium 2.1 mg/dL (1.6-2.3); Phosphorus 3.7 mg/dL (2.5-4.5); Total Bilirubin 0.5 mg/dL (0.2-1.3); Total Protein 5.5 g/dL (6.3-8.2)
--- NOTE | 2020-12-20 11:43 | ECHOF ---
Referral Reason:elevTrop MEASUREMENTS -------- HEIGHT: 152.4 cm WEIGHT: 65.8 kg BP: RVIDd: 2.8 cm (< 3.3) IVSd: 1.0 cm (0.6 - 1.1) LVIDd: 3.5 cm (3.9 - 5.3) LVPWd: 1.3 cm (0.6 - 1.1) IVSs: 1.3 cm LVIDs: 2.7 cm LVPWs: 1.2 cm LAESV Index (A-L): 37.33 ml/m Ao Diam: 2.3 cm (2.0 - 3.7) MV E Robinson: 0.46 m/s MV DecT: 168 ms MV A Robinson: 0.58 m/s MV E/A Ratio: 0.79 RAP: 5.00 mmHg RVSP: 27.81 mmHg FINDINGS -------- Undetermined rhythm. This was a technically adequate study. The left ventricular size is normal. There is mild concentric left ventricular hypertrophy. Overa ll left ventricular systolic function is low-normal with, an EF between 50 - 55 %. The right ventricle is normal in size. LA is moderately dilated 34-39 ml/m2 The right atrial size is normal. There is mild aortic valve sclerosis. There is mild aortic regurgitation. Mild mitral annular calcification present. [id number]-[id number] mitral regurgitation is present. Mild tricuspid regurgitation present. Right ventricular systolic pressure is normal at < 35 mmHg. There is no pulmonic regurgitation present. Echo free space represents a pericardial fat pad. CONCLUSIONS -------- 1. The left ventricular size is normal. 2. There is mild concentric left ventricular hypertrophy. 3. Overall left ventricular systolic function is low-normal with, an EF between 50 - 55 %. 4. The right ventricle is normal in size. 5. LA is moderately dilated 34-39 ml/m2 6. The right atrial size is normal. 7. There is mild aortic valve sclerosis. 8. There is mild aortic regurgitation. 9. Mild mitral annular calcification present. 10. Paor-kh-enovdipp mitral regurgitation is present. 11. Mild tricuspid regurgitation present. 12. Echo free space represents a pericardial fat pad. MANAGER HI: Pamella Vera RDCS
[2020-12-20] MEDS ORDERED: ATORVASTATIN 10 MG TAB PO SCH (11:45)
[2020-12-20] MEDS: IPRATROPIUM-ALBUTEROL 3 ML NEB INHALATION SCH ×2 (11:54→20:31)
[2020-12-20] MEDS ORDERED: ALPRAZolam 0.25 MG TAB PO PRN (12:29)
[2020-12-20] MEDS ORDERED: SODIUM CHLORIDE 0.9% 1,000 ML in EMPTY BAG 1 BAG IV ONE (12:29)
[2020-12-20] MEDS ORDERED: ALPRAZolam 0.5 MG TAB PO PRN (12:29)
[2020-12-20] MEDS ORDERED: ATORVASTATIN 80 MG TAB PO ONE (12:41)
[2020-12-20] MEDS ORDERED: ASPIRIN 81 MG PO STA (12:41)
[2020-12-20] MEDS: predniSONE 10 MG TAB PO SCH (13:22)
[2020-12-20] MEDS: MULTIVITAMINS, THERA 1 EACH TAB PO SCH (13:22)
--- NOTE | 2020-12-20 13:29 | P.CRDCN ---
History of Present Illness History of present illness: HISTORY OF PRESENTING ILLNESS This is a pleasant 85-year-old female past medical history significant for asthma, COPD, chronic back pain, former smoker quit 30 years ago, dyslipidemia. 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 We have been asked to see in consultation for atrial fibrillation with RVR. Patient is seen and examined at bedside. She was transferred from [facility]. Patient states at midnight last night she woke up to go to the bathroom and had sudden onset 10/10 jaw pain. She also had left-sided chest pain with some radiation to her left arm. She associated diaphoresis, shortness of breath. She denies nausea, vomiting, abdominal pain, lightheadedness, dizziness, syncope. She denies any palpitations. She states she was recently hospitalized at [facility] and had workup that included MRI, EGD, colonoscopy, ultrasounds. She states that they found some sort of mass possibly her ovaries and was told by a oncologist that she didn't need any acute intervention. She was discharged home on Wednesday12/16/20. At [facility], it is recommended for her to go to rehab If patient refuses and wanted to go home instead. She states she is not very active at home is able to get around with a walker, and perform all her daily activities. She denies history of atrial fibrillation, AL, stroke, diabetes, hypertension. She denies any family history of heart disease. She denies alcohol or illicit drug use. Quit smoking about 30 years ago. At [facility], Patient was found to be in atrial fibrillation with RVR patient was given 5 mg of Versed, with synchronized shock delivered at 120J, patient went into normal sinus rhythm heart rate in the 100, however passage into A. fib into the 150s. Per nursing documentation patient apparently was not responding and only r esponded to painful stimuli. A second synchronized shock was delivered at 120J, an OPA was secured in place, patient went back into atrial fibrillation with RVR, 3rd shock was delivered at 150J. Patient was started on IV Cardizem drip after 10 mg bolus. Laboratory data [facility] reveals troponin 0.27 sodium 142, potassium 4.1, BUN 27, serum creatinine 1.0. DIAGNOSTICS EKG reveals on admission to [facility] atrial fibrilation with RVR 144. Patient converted to sinus mechanism. EKGs afternoon revealed sinus rhythm, heart rate 81, T wave inversion in lead III, no significant ST-T wave abnormalities. Telemetry tracings indicate currently in sinus mechanism heart rate in the 80s. Laboratory reviewed, WBC 15.3, hemoglobin 12.9, platelet 280, sodium 139, potassium 4.0, BUN 28, serum creatinine 0.9, magnesium 2.1, troponin 2.8-->3.9, proBNP 991, TSH within normal limits, Covid-19 PCR negative Current home cardiac medications include lovastatin 10 mg daily Echocardiogram revealed an EF of 5055 percent, LA is mildly dilated, mild aortic regurgitation, mild to moderate mitral regurgitation, mild tricuspid regurgitation. REVIEW OF SYSTEMS At the time of my exam: CONSTITUTIONAL: Denies fever or chills. CARDIOVASCULAR: Positive chest pain, positive shortness of breath Denies orthopnea, PND or palpitations. RESPIRATORY: Denies cough. GASTROINTESTINAL: Denies abdominal pain, diarrhea, constipation, nausea or vomiting. MUSCULOSKELETAL: +back pain. NEUROLOGIC: Denies numbness, tingling, headacbe or weakness. ENDOCRINE: Denies fatigue, weight change, polydipsia or polyurina. GENITOURINARY: Denies burning, hematuria or urgency with micturation. HEMATOLOGIC: Denies history of anemia or bleeding. PHYSICAL EXAMINATION Blood pressure 160-55 heart rate to 69 afebrile and maintaining oxygen saturation on 2 L nasal cannula. CONSTITUTIONAL: No apparent distress. HEENT: Head is normocephalic. Pupils are equal, round. Sclerae anicteric. Mucous membranes of the mouth are moist. No JVD. No carotid bruit. CHEST EXAMINATION: Lungs are diminished in the bases bilaterally. Some chest tenderness to the left chest. No chest wall tenderness with deep breathing. HEART EXAMINATION: Regular rate and rhythm. S1, S2 heard. Systolic murmur at apex, No gallops or rub. ABDOMEN: Soft, nontender. Positive bowel sounds. EXTREMITIES: 2+ peripheral pulses,trace bilateral lower extremity edema and no calf tenderness. SKIN: bilateral arm ecchymosis NEUROLOGIC EXAMINATION: Patient is awake, alert and oriented x3. ASSESSMENT NSTEMI Paroxysmal atrial fibrillation with RVR- s/p cardioversion at [facility], now maintaining sinus mechanism Asthma/COPD Former tobacco use Dyslipidemia PLAN Obtain 2D echocardiogram We recommend cardiac catheterization I have discussed the risks, benefits and alternative therapies for the above- mentioned procedure and for both sedation/analgesia as well as necessary blood product administration, if indicated, as they pertain to this patient. The patient has indicated understanding and acceptance of the risks and procedures discussed. Questions have been answered appropriately and he is agreeable to move forward with the above-stated procedure. NPO Continue aspirin, statin Further recommendations based on clinical course Nurse Practitioner note has been reviewed, I agree with a documented findings and plan of care. Patient was seen and examined. 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, spinal stenosis, hiatal hernia, bruises easily, melanoma, macular degeneration, History of Any Multi-Drug Resistant Organisms: None Reported Past Surgical History: Appendectomy, Back Surgery, Breast Surgery, Cholecystectomy, Hysterectomy Additional Past Surgical History / Comment(s): dick cataracts, dick eye lid lift, 4" cut left breast-pt not sure what was done, Past Anesthesia/Blood Transfusion Reactions: No Reported Reaction Smoking Status: Former smoker - Past Family History Sister(s) Family Medical History: Cancer Medications and Allergies Home Medications Medication Instructions Recorded Confirmed Type Fluticasone/Salmeterol [Advair 1 puff INHALATION RT-DAILY@0700 06/08/17 12/20/20 History 500-50 Diskus] predniSONE 10 mg PO DAILY 06/08/17 12/20/20 History Ipratropium-Albuterol Nebulize 3 ml INHALATION RT-BID@1130,1800 06/20/20 12/20/20 History [Duoneb 0.5 mg-3 mg/3 ml Soln] Lovastatin [Mevacor] 10 mg PO DAILY 06/20/20 12/20/20 History Multivitamins, Thera [Multivitamin 1 tab PO DAILY 06/20/20 12/20/20 History (formulary)] Bimatoprost [[place] .01% Ophth 1 drop BOTH EYES HS 12/20/20 12/20/20 History Soln] Cholecalciferol [Vitamin D3 (25 25 mcg PO DAILY 12/20/20 12/20/20 History Mcg = 1000 Iu)] Ibuprofen [Motrin Ib] 200 mg PO BID@0600,1600 12/20/20 12/20/20 History Allergies Allergy/AdvReac Type Severity Reaction Status Date / Time Penicillins Allergy Severe Rash/Hives Verified 12/20/20 06:31 Physical Exam Vitals: Vital Signs Temp Pulse Pulse Resp BP Pulse Ox 12/20/20 10:10 69 18 116/55 99 12/20/20 08:43 65 18 112/57 99 12/20/20 08:28 66 18 112/57 99 12/20/20 06:59 131 H 20 91/59 97 12/20/20 06:03 120 H 18 86/54 99 12/20/20 06:00 147 H 12/20/20 05:47 126 H 12/20/20 05:46 161 H 12/20/20 05:32 97/48 12/20/20 05:12 98.3 F 144 H 22 132/83 99 Intake and Output 12/19/20 12/20/20 12/20/20 22:59 06:59 14:59 Other: Weight 65.771 kg Results 12/20/20 05:29 12/20/20 05:29 Cardiac Enzymes 12/20/20 12/20/20 12/20/20 Range/Units 05:29 05:29 08:52 AST 40 H (14-36) U/L Troponin I 2.830 H* 3.980 H* (0.000-0.034) ng/mL Coagulation 12/20/20 Range/Units 05:29 PT 10.8 (9.0-12.0) sec APTT 22.5 (22.0-30.0) sec CBC 12/20/20 Range/Units 05:29 WBC 15.3 H (3.8-10.6) k/uL RBC 4.09 (3.80-5.40) m/uL Hgb 12.9 (11.4-16.0) gm/dL Hct 38.9 (34.0-46.0) % Plt Count 280 (150-450) k/uL Comprehensive Metabolic Panel 12/20/20 Range/Units 05:29 Sodium 139 (137-145) mmol/L Potassium 4.0 (3.5-5.1) mmol/L Chloride 109 H (98-107) mmol/L Carbon Dioxide 23 (22-30) mmol/L BUN 28 H (7-17) mg/dL Creatinine 0.96 (0.52-1.04) mg/dL Glucose 82 (74-99) mg/dL Calcium 9.0 (8.4-10.2) mg/dL AST 40 H (14-36) U/L ALT 20 (4-34) U/L Alkaline Phosphatase 70 (38-126) U/L Total Protein 5.5 L (6.3-8.2) g/dL Albumin 3.2 L (3.5-5.0) g/dL Current Medications Generic Name Dose Route Start Last Admin Trade Name Freq PRN Reason Stop Dose Admin Aspirin 325 mg 12/21/20 09:00 Aspirin 325 Mg Tab PO DAILY SOPHY Heparin Sodium/Sodium Chloride 250 mls @ 7.893 mls/hr 12/20/20 05:30 12/20/20 05:36 25,000 unit/ Sodium Chloride IV 12 units/kg/hr .Q24H SOPHY 7.893 mls/hr Administration Protocol 12 UNITS/KG/HR Morphine Sulfate 4 mg 12/20/20 05:26 Morphine Sulfate 4 Mg/Ml Syringe IV Q4HR PRN Chest Pain Nitroglycerin 0.4 mg 12/20/20 05:26 Nitroglycerin Sl Tabs 0.4 Mg Tab SUBLINGUAL Q5M PRN Chest Pain Intake and Output 12/19/20 12/20/20 12/20/20 22:59 06:59 14:59 Other: Weight 65.771 kg 12/20/20 05:29 12/20/20 05:29
--- NOTE | 2020-12-20 14:14 | XR ---
EXAMINATION TYPE: XR chest 2V DATE OF EXAM: 12/20/2020 COMPARISON: 10/24/2020 TECHNIQUE: PA and lateral views submitted. HISTORY: Shortness of breath FINDINGS: The lungs are clear and there is no pneumothorax, pleural effusion, or focal pneumonia. Subsegmenta l changes right lung base. Arthropathy of the shoulders. Diffuse osteopenia atherosclerotic change ao rta. Degenerative change of the spine. Calcified granuloma seen in the abdomen left upper quadrant. IMPRESSION: 1. Right basilar atelectasis or early infiltrate correlate clinically.
[2020-12-20] MEDS ORDERED: VERAPAMIL SYRINGE (5 MG/10 ML) INTRAARTER ONE (14:37)
[2020-12-20] MEDS ORDERED: IV FLUID CONTINUATION 950 ML IV ONE (15:39)
[2020-12-20] MEDS ORDERED: VERAPAMIL 2.5 MG/ML 2 ML AMP ONE (15:58)
[2020-12-20] MEDS ORDERED: LIDOCAINE 1% INJ 10MG/ML (20 ML MDV) ONE (15:58)
[2020-12-20] MEDS ORDERED: fentaNYL (PF) 50 MCG/ML 2 ML AMP ONE ×2 (15:58→17:12)
[2020-12-20] MEDS ORDERED: HEPARIN SODIUM 1,000 UN/ML (10ML VL) ONE (15:58)
--- NOTE | 2020-12-20 16:07 | P.HPIM ---
History of Present Illness H&P Date: 12/20/20 Chief Complaint: Chest pain History of presenting complaint: This is a pleasant [address] Claudio. Chronic stable medical conditions include, as well, hard of hearing, some cognitive impairment, osteoarthritis, rheumatoid arthritis, chronic severe persistent bronchial asthma, chronic insomnia, cerebral AV malformation with prior history of bleed 4-5 years ago, spinal stenosis, hiatal hernia macular degeneration. Patient was recently discharged from [facility] 5 days ago. She was there for 8 days. What she describes is that a computed tomography scan of the chest to [facility] had shown some abnormalities and esophagitis. Hence he was transferred down there. She had endoscopy. And she was told she has aging of the esophagus and she is recommended to eat small bites. Since coming home from [facility] she has been doing fine. Doing the chores at home. Last night she developed pain across the chest. Rather severe and achiness of the jaws. Perspiration. Short of breath. As symptoms persisted she decided to go down to the ER. The pain also radiated to the left arm. No nausea vomiting. Patient reported for an acute myocardial infarction. Seen by cardiology earlier today. Pending cardiac catheterization. Patient normally uses a walker to get about. Lives with her son. Patient also was found to be in atrial fibrillation. Review of systems: GEN.: Tired EYES: None HEENT: Decreased hearing NECK: None RESPIRATORY: As above CARDIOVASCULAR: As above GASTROINTESTINAL: Some trouble swallowing GENITOURINARY: None MUSCULOSKELETAL: Arthritic pain in the joints LYMPHATICS: None HEMATOLOGICAL: None PSYCHIATRY: Mild forgetfulness NEUROLOGICAL: Does use a wheelchair Past medical history to include: Chronic severe persistent bronchial asthma, chronic insomnia, cerebral AV malformation with prior history of lead 4-5 years ago, spinal stenosis, mitral hernia, melanoma, macular degeneration, osteoarthritis, rheumatoid arthritis, mild cognitive impairment, esophageal dysmotility causing trouble with swallowing Social history: Social smoking 33 years ago. Does use Levitra to get about. Son lives with her. Alcohol rarely. Family history: Smoker Physical examination: VITAL SIGNS: 98.3, 144, 22, 132/83, 99% on 2 L this morning GENERAL: BMI 27.4, laying in bed, not in distress. EYES: Pupils equal. Conjunctiva normal. HEENT: External appearance of nose and ears normal, oral cavity grossly normal. NECK: JVD not raised; masses not palpable. HEART: Irregular heart sounds; no edema. LUNGS: Respiratory rate normal; decreased breath sounds. ABDOMEN: Soft, nontender, liver spleen not palpable, no masses palpable. PSYCH: Alert and oriented x3; mood and affect normal. MUSCULAR skeletal: Evidence of OA in multiple joints NEUROLOGICAL: Cranial nerves grossly intact; no facial asymmetry, power and sensation grossly intact. LYMPHATICS: No lymph nodes palpable in the axilla and neck INVESTIGATIONS, reviewed in the clinical context: White count 15.3 hemoglobin 12.9 platelets 280 potassium 4 creatinine 0.96 Troponin I 2.8, 3.9 TSH 2.1 Coronavirus [PCR]: Not detected EKG tracing personally reviewed by me-atrial fibrillation, rate 144 Chest x-ray film personally reviewed by me-mild venous prominence 2-D echocardiogram: EF 50-55% Assessment and plan: -Acute non-Q wave myocardial infarction Patient is put on IV heparin the ER, aspirin. Cardiology consulted. For cardiac catheterization. -New onset atrial fibrillation with rapid ventricular rate IV heparin, cardiology consulted. Patient on eliquis 5 mg twice a day at home -Chronic gait dysfunction, uses a wheelchair at home -Chronic esophageal dysmotility, causing some dysphagia Patient advised to take small meals and to her food. Slowly. Recent admission at [facility] -COPD in a previous smoker DuoNeb twice a day -Primary osteoarthritis multiple joints bilaterally Use pain medication as needed -Chronic insomnia from medical problems Melatonin as needed -Hiatal hernia with GERD PPI -History of cerebral AV malformation with a prior history of cerebral bleed 4-5 years ago. Follow clinically Care was discussed with the patient. Continue current medications. Per cardiology patient proceed for cardiac catheterization Given the complexity and severity of patient's condition expect the patient to be in the hospital at least for 2 overnights 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, spinal stenosis, hiatal hernia, bruises easily, melanoma, macular degeneration, History of Any Multi-Drug Resistant Organisms: None Reported Past Surgical History: Appendectomy, Back Surgery, Breast Surgery, Cholecystectomy, Hysterectomy Additional Past Surgical History / Comment(s): dikc cataracts, dick eye lid lift, 4" cut left breast-pt not sure what was done, Past Anesthesia/Blood Transfusion Reactions: No Reported Reaction Smoking Status: Former smoker - Past Family History Sister(s) Family Medical History: Cancer Medications and Allergies Home Medications Medication Instructions Recorded Confirmed Type Fluticasone/Salmeterol [Advair 1 puff INHALATION RT-DAILY@0700 06/08/17 12/20/20 History 500-50 Diskus] predniSONE 10 mg PO DAILY 06/08/17 12/20/20 History Ipratropium-Albuterol Nebulize 3 ml INHALATION RT-BID@1130,1800 06/20/20 12/20/20 History [Duoneb 0.5 mg-3 mg/3 ml Soln] Lovastatin [Mevacor] 10 mg PO DAILY 06/20/20 12/20/20 History Multivitamins, Thera [Multivitamin 1 tab PO DAILY 06/20/20 12/20/20 History (formulary)] Apixaban [Eliquis] 5 mg PO BID 30 Days #60 tab 12/20/20 Rx Bimatoprost [Lumigan .01% Ophth 1 drop BOTH EYES HS 12/20/20 12/20/20 History Soln] Cholecalciferol [Vitamin D3 (25 25 mcg PO DAILY 12/20/20 12/20/20 History Mcg = 1000 Iu)] Ibuprofen [Motrin Ib] 200 mg PO BID@0600,1600 12/20/20 12/20/20 History Allergies Allergy/AdvReac Type Severity Reaction Status Date / Time Penicillins Allergy Severe Rash/Hives Verified 12/20/20 06:31 Physical Exam Vitals: Vital Signs Temp Pulse Pulse Resp BP Pulse Ox 12/20/20 10:10 69 18 116/55 99 12/20/20 08:43 65 18 112/57 99 12/20/20 08:28 66 18 112/57 99 12/20/20 06:59 131 H 20 91/59 97 12/20/20 06:03 120 H 18 86/54 99 12/20/20 06:00 147 H 12/20/20 05:47 126 H 12/20/20 05:46 161 H 12/20/20 05:32 97/48 12/20/20 05:12 98.3 F 144 H 22 132/83 99 Intake and Output 12/19/20 12/20/20 12/20/20 22:59 06:59 14:59 Other: Weight 65.771 kg Results CBC & Chem 7: 12/20/20 05:29 12/20/20 05:29 Labs: Abnormal Lab Results - Last 24 Hours (Table) 12/20/20 12/20/20 12/20/20 Range/Units 05:29 05:29 05:29 WBC 15.3 H (3.8-10.6) k/uL Neutrophils # 12.1 H (1.3-7.7) k/uL Chloride 109 H (98-107) mmol/L BUN 28 H (7-17) mg/dL AST 40 H (14-36) U/L Creatine Kinase 138 H (30-135) U/L Troponin I 2.830 H* (0.000-0.034) ng/mL Total Protein 5.5 L (6.3-8.2) g/dL Albumin 3.2 L (3.5-5.0) g/dL 12/20/20 Range/Units 08:52 WBC (3.8-10.6) k/uL Neutrophils # (1.3-7.7) k/uL Chloride (98-107) mmol/L BUN (7-17) mg/dL AST (14-36) U/L Creatine Kinase (30-135) U/L Troponin I 3.980 H* (0.000-0.034) ng/mL Total Protein (6.3-8.2) g/dL Albumin (3.5-5.0) g/dL
[2020-12-20] MEDS ORDERED: MIDAZOLAM 2 MG/2 ML VIAL IV ONE (16:23)
[2020-12-20] MEDS ORDERED: LIDOCAINE 1% INJ 10MG/ML (20 ML MDV) SQ ONE (16:24)
[2020-12-20] MEDS ORDERED: fentaNYL (PF) 50 MCG/ML 2 ML AMP IV ONE ×2 (16:40→17:22)
[2020-12-20] MEDS ORDERED: IOPAMIDOL-370 50ML BTL INJ ONE (16:59)
[2020-12-20] MEDS ORDERED: IOPAMIDOL-370 125ML BTL INJ ONE (17:00)
[2020-12-20] MEDS ORDERED: RX INFO: IV CONTRAST WAS GIVEN 1 EACH MISC MISCELLANE PRN (17:09)
[2020-12-20] MEDS ORDERED: PROTAMINE SULFATE 10 MG/ML 5 ML VIAL IV ONE (17:13)
[2020-12-20] MEDS ORDERED: PROTAMINE SULFATE 10 MG/ML 25 ML VIAL IV ONE (17:22)
--- NOTE | 2020-12-20 17:22 | P.CARDCATH ---
Description of Procedure: PROCEDURES PERFORMED: Left heart catheterization, bilateral coronary angiography INDICATION: Non-STEMI HISTORY: Patient is a pleasant 85-year-old female with history of arthritis, hypertension who woke up with jaw pain, shortness breath, diaphoresis and chest pain and was found to have non-STEMI. She is also found to be in A. fib with RVR and was cardioverted at outside hospital however appeared to be unsuccessful. She has been in sinus rhythm and only has minimal chest discomfort. Therefore heart catheterization was recommended. CONSENT:I have discussed the risks, benefits and alternative therapies for the above-mentioned procedure and for both sedation/analgesia as well as necessary blood product administration, if indicated, as they pertain to this patient. The patient has indicated understanding and acceptance of the risks and procedures discussed. PROCEDURE: After the risks, benefits and alternatives of the above mentioned procedure explained in detail with the patient, informed consent was obtained. Patient was taken to the catheterization lab and prepped and draped in usual fashion. 1% lidocaine was used to anesthetize the right radial artery. A 6- Bahraini sheath was placed in the right radial artery using modified Seldinger technique. Left coronary angiography was performed with a 5-Bahraini JL 3.5 catheter and right coronary angiography was performed with a 5-Bahraini JR5 catheter in various views. A 5-Bahraini FR5 catheter was inserted into the left ventricle and pressure measurements were obtained. A left ventriculogram was performed in the HERMAN projection with power injection. The right radial sheath was removed and a TR band was placed with hemostasis achieved. The patient tolerated the procedure well. Patient was transported back to the post catheterization holding area in stable condition. Conscious Sedation: Patient was monitored under the direct supervision of vision of myself for conscious sedation using Versed and fentanyl for a total duration of 38 minutes HEMODYNAMICS: Aortic: 123/77 LV: 140/10, LVEDP 20 SELECTIVE CORONARY ARTERIOGRAPHY: LEFT MAIN: The left main is a large caliber vessel which bifurcates into the LAD and circumflex. There is no significant stenosis. LEFT ANTERIOR DESCENDING CORONARY ARTERY: LAD is a large caliber vessel which wraps around to the apex. There is mid LAD 30-40% stenosis after a moderate caliber diagonal 1 branch and otherwise mild luminal irregularities. LEFT CIRCUMFLEX CORONARY ARTERY: Left circumflex is a moderate caliber vessel with proximal 30-40% stenosis. RIGHT CORONARY ARTERY: The right coronary artery is a large caliber vessel which gives off a PDA and PLV branch and is the dominant vessel. There is a proximal RCA 40% stenosis. LEFT VENTRICULOGRAM: Ejection fraction 55%. There is 2+ catheter induced mitral regurgitation. There is no hypokinesis. No significant gradient with pullback across the aortic valve. FINAL IMPRESSION: 1. Mild coronary artery disease as described above including mid LAD 30-40% stenosis, circumflex 30-40% stenosis and proximal RCA 40% stenosis. 2. Mildly elevated left sided filling pressures 3. Normal ejection fraction 55% PLAN: 1. Aggressive risk factor modification per most recent ACC/AHA guidelines. 2. Follow-up in the office in 1-2 weeks.
--- NOTE | 2020-12-20 17:23 | P.PN ---
Subjective Patient with some increased fullness of her wrist despite TR band placement. Therefore blood pressure cuff was placed on the arm with protamine given for recent heparin administration as well as a second TR band was placed with improvement of swelling. We will continue to monitor. Hold any anticoagulation and likely restart anticoagulation tomorrow for atrial fibrillation. Objective - Vital Signs Vital signs: Vital Signs Temp 98.3 F 12/20/20 05:12 Pulse 84 12/20/20 12:06 Resp 18 12/20/20 10:10 BP 116/55 12/20/20 10:10 Pulse Ox 99 12/20/20 10:10 Intake & Output 12/19/20 12/20/20 12/20/20 18:59 06:59 18:59 Intake Total 390 Balance 390 Weight 65.771 kg Intake: IV 150 Oral 240 Other: # Voids 1 # Bowel Movements 1 - Labs CBC & Chem 7: 12/20/20 05:29 12/20/20 05:29 Labs: Abnormal Lab Results - Last 24 Hours (Table) 12/20/20 12/20/20 12/20/20 Range/Units 05:29 05:29 05:29 WBC 15.3 H (3.8-10.6) k/uL Neutrophils # 12.1 H (1.3-7.7) k/uL Chloride 109 H (98-107) mmol/L BUN 28 H (7-17) mg/dL AST 40 H (14-36) U/L Creatine Kinase 138 H (30-135) U/L Troponin I 2.830 H* (0.000-0.034) ng/mL Total Protein 5.5 L (6.3-8.2) g/dL Albumin 3.2 L (3.5-5.0) g/dL 12/20/20 12/20/20 Range/Units 08:52 12:54 WBC (3.8-10.6) k/uL Neutrophils # (1.3-7.7) k/uL Chloride (98-107) mmol/L BUN (7-17) mg/dL AST (14-36) U/L Creatine Kinase (30-135) U/L Troponin I 3.980 H* 3.230 H* (0.000-0.034) ng/mL Total Protein (6.3-8.2) g/dL Albumin (3.5-5.0) g/dL
[2020-12-20] MEDS: IBUPROFEN 200 MG TAB PO SCH (18:07)
[2020-12-20] MEDS: SYMBICORT 160-4.5 MCG INHALER INHALATION SCH (20:31)
[2020-12-20] MEDS: LATANOPROST 0.005% OPHTH DROPS 2.5 ML BTL BOTH EYES SCH (20:36)
[2020-12-20] MEDS: HYDROcodone/APAP 7.5-325MG 1 EACH TAB PO PRN (20:37)
[2020-12-20 22:40] LABS: Magnesium 2.1 mg/dL (1.6-2.3)
[2020-12-20 22:42] LABS: Potassium 4.6 mmol/L (3.5-5.1)
[2020-12-21] MEDS ORDERED: ATORVASTATIN 80 MG TAB PO ONE (05:00)
[2020-12-21] MEDS: IBUPROFEN 200 MG TAB PO SCH ×2 (05:26→14:52)
[2020-12-21] MEDS ORDERED: HEPARIN SODIUM,PORCINE 2,500 UNIT in SODIUM CHLORIDE 0.9% 250 ML IRRIGATION PRN (07:00)
[2020-12-21] MEDS ORDERED: HEPARIN SODIUM,PORCINE 10,000 UNIT in SODIUM CHLORIDE 0.9% 1,000 ML IRRIGATION PRN (07:00)
[2020-12-21] MEDS: SYMBICORT 160-4.5 MCG INHALER INHALATION SCH ×2 (08:09→19:09)
[2020-12-21] MEDS: IPRATROPIUM-ALBUTEROL 3 ML NEB INHALATION SCH ×2 (08:09→19:09)
[2020-12-21] MEDS: MULTIVITAMINS, THERA 1 EACH TAB PO SCH (08:41)
[2020-12-21] MEDS: predniSONE 10 MG TAB PO SCH (08:41)
[2020-12-21] MEDS: CHOLECALCIFEROL 25 MCG (1000 IU) TABLET PO SCH (08:41)
[2020-12-21] MEDS: HYDROcodone/APAP 7.5-325MG 1 EACH TAB PO PRN ×2 (08:42→20:32)
[2020-12-21] MEDS ORDERED: ASPIRIN 325 MG TAB PO SCH (09:00)
[2020-12-21] MEDS ORDERED: ASPIRIN 81 MG PO SCH (09:00)
[2020-12-21 09:23] LABS: Calcium 8.9 mg/dL (8.4-10.2); Magnesium 2.2 mg/dL (1.6-2.3); Potassium 4.2 mmol/L (3.5-5.1)
[2020-12-21 10:50] LABS: HCT 39.4 % (34.0-46.0); HGB 12.1 gm/dL (11.4-16.0); Hypochromasia Marked; MCH 32.5 pg (25.0-35.0); MCHC 30.6 g/dL (31.0-37.0); Macrocytosis Moderate; Mean Platelet Volume 10.8; Platelet Count 200 k/uL (150-450); RBC 3.71 m/uL (3.80-5.40); RDW 14.3 % (11.5-15.5); WBC 11.7 k/uL (3.8-10.6)
[2020-12-21 10:52] LABS: MCV 106.2 fL (80.0-100.0)
[2020-12-21 12:42] LABS: Appearance,Urine Clear (Clear); Bilirubin,Urine Negative (Negative); Blood,Urine Negative (Negative); Color,Urine Yellow; Glucose,Urine (UA) Negative (Negative); Ketones,Urine Negative (Negative); Leukocyte Esterase,Urine Negative (Negative); Nitrite,Urine Negative (Negative); PH, Urine 5.5 (5.0-8.0); Protein,Urine Trace (Negative); Specific Gravity,Urine 1.043 (1.001-1.035); Urobilinogen,Urine <2.0 mg/dL (<2.0)
--- NOTE | 2020-12-21 14:45 | P.PN ---
Progress Note - Text Progress Note Date: 12/21/20 Chief Complaint: Chest pain History of presenting complaint: This is a pleasant [address] Claudio. Chronic stable medical conditions include, as well, hard of hearing, some cognitive impairment, osteoarthritis, rheumatoid arthritis, chronic severe persistent bronchial asthma, chronic insomnia, cerebral AV malformation with prior history of bleed 4-5 years ago, spinal stenosis, hiatal hernia macular degeneration. Patient was recently discharged from 5 days ago. She was there for 8 days. What she describes is that a computed tomography scan of the chest to [facility] had shown some abnormalities and esophagitis. Hence he was transferred down there. She had endoscopy. And she was told she has aging of the esophagus and she is recommended to eat small bites. Since coming home from she has been doing fine. Doing the chores at home. Last night she developed pain across the chest. Rather severe and achiness of the jaws. Perspiration. Short of breath. As symptoms persisted she decided to go down to the ER. The pain also radiated to the left arm. No nausea vomiting. Patient reported for an acute myocardial infarction. Seen by cardiology earlier today. Pending cardiac catheterization. Patient normally uses a walker to get about. Lives with her son. Patient also was found to be in atrial fibrillation. Admitted with acute non-Q-wave MT. Uncontrolled atrial fibrillation. Cardiac catheterization showed nonobstructive disease. Being managed medically. Started on beta blockers. December 21: Laying in bed. No chest pain. Oral intake fair. Heart rate better controlled. Remains in A. fib. Breathing stable. Review of systems: Was done for constitutional, cardiovascular, GI, pulmonary. relevant finding as above Active Medications Hydrocodone Bitart/Acetaminophen (Hydrocodone/Apap 7.5-325mg 1 Each Tab) 1 each PO Q6HR PRN PRN Reason: Pain Last Admin: 12/21/20 08:42 Dose: 1 each Documented by: Albuterol/Ipratropium (Ipratropium-Albuterol 3 Ml Neb) 3 ml INHALATION RT- BID@1130,1800 SOPHY Last Admin: 12/21/20 08:09 Dose: 3 ml Documented by: Alprazolam (Alprazolam 0.25 Mg Tab) 0.25 mg PO Q6HR PRN PRN Reason: Mild Anxiety Alprazolam (Alprazolam 0.5 Mg Tab) 0.5 mg PO Q6HR PRN PRN Reason: Moderate Anxiety Budesonide/Formoterol Fumarate (Symbicort 160-4.5 Mcg Inhaler) 2 puff INHALATION RT-BID [facility] Last Admin: 12/21/20 08:09 Dose: 2 puff Documented by: Cholecalciferol (Cholecalciferol 25 Mcg (1000 Iu) Tablet) 25 mcg PO DAILY [facility] Last Admin: 12/21/20 08:41 Dose: 25 mcg Documented by: Ibuprofen (Ibuprofen 200 Mg Tab) 200 mg PO BID@0600,1600 [facility] Last Admin: 12/21/20 05:26 Dose: 200 mg Documented by: Latanoprost (Latanoprost 0.005% Ophth Drops 2.5 Ml Btl) 1 drops BOTH EYES HS [facility] Last Admin: 12/20/20 20:36 Dose: 1 drops Documented by: Miscellaneous Information (Rx Info: Iv Contrast Was Given 1 Each Misc) 1 each MISCELLANE DAILY PRN PRN Reason: Per Protocol Stop: 12/22/20 17:10 Morphine Sulfate (Morphine Sulfate 4 Mg/Ml Syringe) 4 mg IV Q4HR PRN PRN Reason: Chest Pain Multivitamins (Multivitamins, Thera 1 Each Tab) 1 each PO DAILY [facility] Last Admin: 12/21/20 08:41 Dose: 1 each Documented by: Nitroglycerin (Nitroglycerin Sl Tabs 0.4 Mg Tab) 0.4 mg SUBLINGUAL Q5M PRN PRN Reason: Chest Pain Prednisone (Prednisone 10 Mg Tab) 10 mg PO DAILY [facility] Last Admin: 12/21/20 08:41 Dose: 10 mg Documented by: Past medical history to include: Chronic severe persistent bronchial asthma, chronic insomnia, cerebral AV malformation with prior history of lead 4-5 years ago, spinal stenosis, mitral hernia, melanoma, macular degeneration, osteoarthritis, rheumatoid arthritis, mild cognitive impairment, esophageal dysmotility causing trouble with swallowing Social history: Social smoking 33 years ago. Does use Levitra to get about. Son lives with her. Alcohol rarely. Family history: Smoker Physical examination: VITAL SIGNS: 97.2, 64, 18, 132/61, 100% room air GENERAL: Laying in bed, comfortable EYES: Pupils equal. Conjunctiva normal. NECK: JVD not raised; masses not palpable. HEART: Irregular heart sounds; no edema. LUNGS: Respiratory rate normal; decreased breath sounds. ABDOMEN: Soft, nontender, liver spleen not palpable, no masses palpable. PSYCH: Alert and oriented x3; mood and affect normal. MUSCULAR skeletal: Evidence of OA in multiple joints INVESTIGATIONS, reviewed in the clinical context: December 21: White count 11.7 hemoglobin 12.1 platelets 200 potassium 4.2 creatinine 0.81 Cardiac catheterization: Mild CAD including mid LAD 30-40% stenosis, circumflex 30-40% stenosis, proximal RCA 40% stenosis. EF 55% White count 15.3 hemoglobin 12.9 platelets 280 potassium 4 creatinine 0.96 Troponin I 2.8, 3.9 TSH 2.1 Coronavirus [PCR]: Not detected EKG tracing personally reviewed by me-atrial fibrillation, rate 144 Chest x-ray film personally reviewed by me-mild venous prominence 2-D echocardiogram: EF 50-55% Assessment and plan: -Acute non-Q wave myocardial infarction Patient is put on IV heparin the ER, aspirin. Cardiology consulted. For cardiac catheterization. -Nonobstructive CAD per cardiac catheterization -Persistent atrial fibrillation with rate better controlled IV heparin-discontinued, cardiology consulted. Patient on eliquis 5 mg twice a day at home -Chronic gait dysfunction, uses a wheelchair at home -Chronic esophageal dysmotility, causing some dysphagia Patient advised to take small meals and to her food. Slowly. Recent admission at -COPD in a previous smoker DuoNeb twice a day -Primary osteoarthritis multiple joints bilaterally Use pain medication as needed -Chronic insomnia from medical problems Melatonin as needed -Hiatal hernia with GERD PPI -History of cerebral AV malformation with a prior history of cerebral bleed 4-5 years ago. Follow clinically Resume home dose of eliquis when okay with cardiology. Care was discussed with the patient. Continue other medications.
--- NOTE | 2020-12-21 15:42 | P.PN ---
Subjective HISTORY OF PRESENTING ILLNESS This is a pleasant 85-year-old female past medical history significant for asthma, COPD, chronic back pain, former smoker quit 30 years ago, dyslipidemia. 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 We have been asked to see in consultation for atrial fibrillation with RVR. Patient is seen and examined at bedside. She was transferred from [facility]. Patient states at midnight last night she woke up to go to the bathroom and had sudden onset 10/10 jaw pain. She also had left-sided chest pain with some radiation to her left arm. She associated diaphoresis, shortness of breath. She denies nausea, vomiting, abdominal pain, lightheadedness, dizziness, syncope. She denies any palpitations. She states she was recently hospitalized at [facility] and had workup that included MRI, EGD, colonoscopy, ultrasounds. She states that they found some sort of mass possibly her ovaries and was told by a oncologist that she didn't need any acute intervention. She was discharged home on Wednesday12/16/20. At [facility], it is recommended for her to go to rehab If patient refuses and wanted to go home instead. She states she is not very active at home is able to get around with a walker, and perform all her daily activities. She denies history of atrial fibrillation, LA, stroke, diabetes, hypertension. She denies any family history of heart disease. She denies alcohol or illicit drug use. Quit smoking about 30 years ago. At [facility], Patient was found to be in atrial fibrillation with RVR patient was given 5 mg of Versed, with synchronized shock delivered at 120J, patient went into normal sinus rhythm heart rate in the 100, however passage into A. fib into the 150s. Per nursing documentation patient apparently was not responding and only responded to painful stimuli. A second synchronized shock was delivered at 120J, an OPA was secured in place, patient went back into atrial fibrillation with RVR, 3rd shock was delivered at 150J. Patient was started on IV Cardizem drip after 10 mg bolus. Laboratory data [facility] reveals troponin 0.27 sodium 142, potassium 4.1, BUN 27, serum creatinine 1.0. 12/21 Patient seen and examined. Patient denies any further chest pain, jaw pain, shortness breath. Patient did have some swelling around her right radial site, there is ecchymosis. It is somewhat painful to press on however if not pressing no significant pain. REVIEW OF SYSTEMS At the time of my exam: CONSTITUTIONAL: Denies fever or chills. CARDIOVASCULAR: Positive chest pain, positive shortness of breath Denies orthopnea, PND or palpitations. RESPIRATORY: Denies cough. GASTROINTESTINAL: Denies abdominal pain, diarrhea, constipation, nausea or vomiting. MUSCULOSKELETAL: +back pain. NEUROLOGIC: Denies numbness, tingling, headacbe or weakness. ENDOCRINE: Denies fatigue, weight change, polydipsia or polyurina. GENITOURINARY: Denies burning, hematuria or urgency with micturation. HEMATOLOGIC: Denies history of anemia or bleeding. PHYSICAL EXAMINATION Vitals reviewed CONSTITUTIONAL: No apparent distress. HEENT: Head is normocephalic. Pupils are equal, round. Sclerae anicteric. Mucous membranes of the mouth are moist. No JVD. No carotid bruit. CHEST EXAMINATION: Lungs are diminished in the bases bilaterally. Some chest tenderness to the left chest. No chest wall tenderness with deep breathing. HEART EXAMINATION: Regular rate and rhythm. S1, S2 heard. Systolic murmur at ap ex, No gallops or rub. ABDOMEN: Soft, nontender. Positive bowel sounds. EXTREMITIES: 2+ peripheral pulses,trace bilateral lower extremity edema and no calf tenderness. SKIN: bilateral arm ecchymosis NEUROLOGIC EXAMINATION: Patient is awake, alert and oriented x3. ASSESSMENT NSTEMI Paroxysmal atrial fibrillation with RVR- s/p cardioversion at [facility], now maintaining sinus mechanism [id number] score 3 Asthma/COPD Former tobacco use Dyslipidemia Mild coronary artery disease by heart catheterization 12/20/2020 PLAN Patient with mild hematoma of right radial site, appears to be stable, no n umbness or tingling with a good radial pulse. We will start Lokesh quan. Appears her main issue was A. fib with RVR, currently in sinus rhythm. Continue beta nathalie for rate control. If patient has further issues of A. fib may consider rhythm control. Objective - Vital Signs Vital signs: Vital Signs Temp 97.2 F L 12/21/20 12:26 Pulse 64 12/21/20 12:26 Resp 18 12/21/20 12:26 BP 132/61 12/21/20 12:26 Pulse Ox 100 12/21/20 12:26 Intake & Output 12/20/20 12/21/20 12/21/20 18:59 06:59 18:59 Intake Total 390 510 Output Total 250 Balance 390 260 Weight 65.771 kg 75 kg 75 kg Intake: IV 150 130 .9 KVO 100 Invasive Line 3 30 Oral 240 380 Output: Urine 250 Other: # Voids 1 1 1 # Bowel Movements 1 - Labs CBC & Chem 7: 12/21/20 09:47 12/21/20 08:58 Labs: Abnormal Lab Results - Last 24 Hours (Table) 12/21/20 12/21/20 12/21/20 Range/Units 05:29 08:58 09:47 WBC 11.7 H (3.8-10.6) k/uL RBC 3.71 L (3.80-5.40) m/uL MCV 106.2 H D (80.0-100.0) fL MCHC 30.6 L (31.0-37.0) g/dL Chloride 113 H (98-107) mmol/L BUN 29 H (7-17) mg/dL Glucose 110 H (74-99) mg/dL Ur Specific [place] 1.043 H (1.001-1.035) Urine Protein Trace H (Negative)
[2020-12-21] MEDS: METOPROLOL SUCCINATE (ER) 25 MG TAB.ER.24H PO SCH (16:00)
[2020-12-21 20:07] LABS: Chol/HDL Ratio 2.68; LDL Cholesterol,Calculated 69.6 mg/dL (0.0-131.0); VLDL Calculation 24.4 mg/dL (5.00-40.00)
[2020-12-21] MEDS: LATANOPROST 0.005% OPHTH DROPS 2.5 ML BTL BOTH EYES SCH (20:32)
[2020-12-21] MEDS: APIXABAN 5 MG TAB PO SCH (20:32)
[2020-12-22] MEDS: IBUPROFEN 200 MG TAB PO SCH ×2 (05:20→15:53)
[2020-12-22] MEDS: SYMBICORT 160-4.5 MCG INHALER INHALATION SCH ×2 (07:29→20:03)
[2020-12-22] MEDS: predniSONE 10 MG TAB PO SCH (09:03)
[2020-12-22] MEDS: CHOLECALCIFEROL 25 MCG (1000 IU) TABLET PO SCH (09:03)
[2020-12-22] MEDS: HYDROcodone/APAP 7.5-325MG 1 EACH TAB PO PRN ×2 (09:03→18:19)
[2020-12-22] MEDS: MULTIVITAMINS, THERA 1 EACH TAB PO SCH (09:03)
[2020-12-22] MEDS: METOPROLOL SUCCINATE (ER) 25 MG TAB.ER.24H PO SCH (09:03)
[2020-12-22] MEDS: APIXABAN 5 MG TAB PO SCH ×2 (09:03→20:51)
[2020-12-22] MEDS: IPRATROPIUM-ALBUTEROL 3 ML NEB INHALATION SCH ×2 (11:05→20:03)
--- NOTE | 2020-12-22 14:17 | P.PN ---
Progress Note - Text Progress Note Date: 12/22/20 Chief Complaint: Chest pain History of presenting complaint: This is a pleasant [address] Claudio. Chronic stable medical conditions include, as well, hard of hearing, some cognitive impairment, osteoarthritis, rheumatoid arthritis, chronic severe persistent bronchial asthma, chronic insomnia, cerebral AV malformation with prior history of bleed 4-5 years ago, spinal stenosis, hiatal hernia macular degeneration. Patient was recently discharged from [facility] 5 days ago. She was there for 8 days. What she describes is that a computed tomography scan of the chest to [facility] had shown some abnormalities and esophagitis. Hence he was transferred down there. She had endoscopy. And she was told she has aging of the esophagus and she is recommended to eat small bites. Since coming home from [facility] she has been doing fine. Doing the chores at home. Last night she developed pain across the chest. Rather severe and achiness of the jaws. Perspiration. Short of breath. As symptoms persisted she decided to go down to the ER. The pain also radiated to the left arm. No nausea vomiting. Patient reported for an acute myocardial infarction. Seen by cardiology earlier today. Pending cardiac catheterization. Patient normally uses a walker to get about. Lives with her son. Patient also was found to be in atrial fibrillation. Admitted with acute non-Q-wave CT. Uncontrolled atrial fibrillation. Cardiac catheterization showed nonobstructive disease. Being managed medically. Started on beta blockers. December 21: Laying in bed. No chest pain. Oral intake fair. Heart rate better controlled. Remains in A. fib. Breathing stable. December 22: Sitting in a recliner. Had developed a hematoma on the right forearm at the cardiac catheterization access site. Being followed by currently. Stable. She doesn't feel, she can manage at home hence inpatient rehab is to be evaluated. Review of systems: Was done for constitutional, cardiovascular, GI, pulmonary. relevant finding as above Active Medications Hydrocodone Bitart/Acetaminophen (Hydrocodone/Apap 7.5-325mg 1 Each Tab) 1 each PO Q6HR PRN PRN Reason: Pain Last Admin: 12/22/20 09:03 Dose: 1 each Documented by: Albuterol/Ipratropium (Ipratropium-Albuterol 3 Ml Neb) 3 ml INHALATION RT- BID@1130,1800 SOPHY Last Admin: 12/22/20 11:05 Dose: 3 ml Documented by: Alprazolam (Alprazolam 0.25 Mg Tab) 0.25 mg PO Q6HR PRN PRN Reason: Mild Anxiety Alprazolam (Alprazolam 0.5 Mg Tab) 0.5 mg PO Q6HR PRN PRN Reason: Moderate Anxiety Apixaban (Apixaban 5 Mg Tab) 5 mg PO BID [facility]; Protocol Last Admin: 12/22/20 09:03 Dose: 5 mg Documented by: Budesonide/Formoterol Fumarate (Symbicort 160-4.5 Mcg Inhaler) 2 puff INHALATION RT-BID [facility] Last Admin: 12/22/20 07:29 Dose: Not Given Documented by: Cholecalciferol (Cholecalciferol 25 Mcg (1000 Iu) Tablet) 25 mcg PO DAILY [facility] Last Admin: 12/22/20 09:03 Dose: 25 mcg Documented by: Ibuprofen (Ibuprofen 200 Mg Tab) 200 mg PO BID@0600,1600 [facility] Last Admin: 12/22/20 05:20 Dose: 200 mg Documented by: Latanoprost (Latanoprost 0.005% Ophth Drops 2.5 Ml Btl) 1 drops BOTH EYES HS [facility] Last Admin: 12/21/20 20:32 Dose: 1 drops Documented by: Metoprolol Succinate (Metoprolol Succinate (Er) 25 Mg Tab.Er.24h) 25 mg PO DAILY [facility] Last Admin: 12/22/20 09:03 Dose: 25 mg Documented by: Miscellaneous Information (Rx Info: Iv Contrast Was Given 1 Each Misc) 1 each MISCELLANE DAILY PRN PRN Reason: Per Protocol Stop: 12/22/20 17:10 Multivitamins (Multivitamins, Thera 1 Each Tab) 1 each PO DAILY [facility] Last Admin: 12/22/20 09:03 Dose: 1 each Documented by: Nitroglycerin (Nitroglycerin Sl Tabs 0.4 Mg Tab) 0.4 mg SUBLINGUAL Q5M PRN PRN Reason: Chest Pain Prednisone (Prednisone 10 Mg Tab) 10 mg PO DAILY [facility] Last Admin: 12/22/20 09:03 Dose: 10 mg Documented by: Past medical history to include: Chronic severe persistent bronchial asthma, chronic insomnia, cerebral AV malformation with prior history of lead 4-5 years ago, spinal stenosis, mitral hernia, melanoma, macular degeneration, osteoarthritis, rheumatoid arthritis, mild cognitive impairment, esophageal dysmotility causing trouble with swallowing Social history: Social smoking 33 years ago. Does use Levitra to get about. Son lives with her. Alcohol rarely. Family history: Smoker Physical examination: VITAL SIGNS: 97.7, 74, 20, 165/80, 96% room air GENERAL: In a recliner comfortable EYES: Pupils equal. Conjunctiva normal. NECK: JVD not raised; masses not palpable. HEART: Irregular heart sounds; no edema. LUNGS: Respiratory rate normal; decreased breath sounds. ABDOMEN: Soft, nontender, liver spleen not palpable, no masses palpable. PSYCH: Alert and oriented x3; mood and affect normal. MUSCULAR skeletal: Evidence of OA in multiple joints EXTREMITY: Right forearm showing bruising at the cardiac cath access site INVESTIGATIONS, reviewed in the clinical context: December 21: White count 11.7 hemoglobin 12.1 platelets 200 potassium 4.2 creatinine 0.81 Cardiac catheterization: Mild CAD including mid LAD 30-40% stenosis, circumflex 30-40% stenosis, proximal RCA 40% stenosis. EF 55% White count 15.3 hemoglobin 12.9 platelets 280 potassium 4 creatinine 0.96 Troponin I 2.8, 3.9 TSH 2.1 Coronavirus [PCR]: Not detected EKG tracing personally reviewed by me-atrial fibrillation, rate 144 Chest x-ray film personally reviewed by me-mild venous prominence 2-D echocardiogram: EF 50-55% Assessment and plan: -Acute non-Q wave myocardial infarction Patient is put on IV heparin the ER, aspirin. Cardiology : Status post cardiac catheterization. -Nonobstructive CAD per cardiac catheterization -Paroxysmal atrial fibrillation , currently sinus rhythm IV heparin-discontinued, cardiology consulted. Patient on eliquis 5 mg twice a day at home -Hematoma in the right forearm at the cardiac catheterization access site. Keep elevated. She was on eliquis -Chronic gait dysfunction, uses a wheelchair at home -Chronic esophageal dysmotility, causing some dysphagia Patient advised to take small meals and to her food. Slowly. Recent admission at [facility] -COPD in a previous smoker DuoNeb twice a day -Primary osteoarthritis multiple joints bilaterally Use pain medication as needed -Chronic insomnia from medical problems Melatonin as needed -Hiatal hernia with GERD PPI -History of cerebral AV malformation with a prior history of cerebral bleed 4-5 years ago. Follow clinically Continue current medication treatment plan. Consult social media editor/Dr. Canseco for evaluation i PD rehab. Care was discussed with the patient..
[2020-12-22] MEDS: LATANOPROST 0.005% OPHTH DROPS 2.5 ML BTL BOTH EYES SCH (20:51)
--- NOTE | 2020-12-22 21:03 | P.PN ---
Subjective HISTORY OF PRESENTING ILLNESS This is a pleasant 85-year-old female past medical history significant for asthma, COPD, chronic back pain, former smoker quit 30 years ago, dyslipidemia. She does not follow with a vp patient. We have been asked to see in consultation for atrial fibrillation with RVR. Patient is seen and examined at bedside. She was transferred from [facility]. Patient states at midnight last night she woke up to go to the bathroom and had sudden onset 10/10 jaw pain. She also had left-sided chest pain with some radiation to her left arm. She associated diaphoresis, shortness of breath. She denies nausea, vomiting, abdominal pain, lightheadedness, dizziness, syncope. She denies any palpitations. She states she was recently hospitalized at [place] and had workup that included MRI, EGD, colonoscopy, ultrasounds. She states that they found some sort of mass possibly her ovaries and was told by a oncologist that she didn't need any acute intervention. She was discharged home on Wednesday12/16/20. At [place], it is recommended for her to go to rehab If patient refuses and wanted to go home instead. She states she is not very active at home is able to get around with a walker, and perform all her daily activities. She denies history of atrial fibrillation, DE, stroke, diabetes, hypertension. She denies any family history of heart disease. She denies alcohol or illicit drug use. Quit smoking about 30 years ago. At [facility], Patient was found to be in atrial fibrillation with RVR patient was given 5 mg of Versed, with synchronized shock delivered at 120J, patient went into normal sinus rhythm heart rate in the 100, however passage into A. fib into the 150s. Per nursing documentation patient apparently was not responding and only responded to painful stimuli. A second synchronized shock was delivered at 120J, an OPA was secured in place, patient went back into atrial fibrillation with RVR, 3rd shock was delivered at 150J. Patient was started on IV Cardizem drip after 10 mg bolus. Laboratory data [facility] reveals troponin 0.27 sodium 142, potassium 4.1, BUN 27, serum creatinine 1.0. 12/21 Patient seen and examined. Patient denies any further chest pain, jaw pain, shortness breath. Patient did have some swelling around her right radial site, there is ecchymosis. It is somewhat painful to press on however if not pressing no significant pain. 12/22 Patient seen and examined. Patient denies any further chest pain, pressure, jaw pain, shortness breath. She does still have significant pain around the right radial site however appears mainly hematoma and ecchymosis, palpable right radial pulse and no significant findings of pseudoaneurysm. Eliquis was started and has been tolerating REVIEW OF SYSTEMS At the time of my exam: CONSTITUTIONAL: Denies fever or chills. CARDIOVASCULAR: Positive chest pain, positive shortness of breath Denies orthopnea, PND or palpitations. RESPIRATORY: Denies cough. GASTROINTESTINAL: Denies abdominal pain, diarrhea, constipation, nausea or vomiting. MUSCULOSKELETAL: +back pain. NEUROLOGIC: Denies numbness, tingling, headacbe or weakness. ENDOCRINE: Denies fatigue, weight change, polydipsia or polyurina. GENITOURINARY: Denies burning, hematuria or urgency with micturation. HEMATOLOGIC: Denies history of anemia or bleeding. PHYSICAL EXAMINATION Vitals reviewed CONSTITUTIONAL: No apparent distress. HEENT: Head is normocephalic. Pupils are equal, round. Sclerae anicteric. Mucous membranes of the mouth are moist. No JVD. No carotid bruit. CHEST EXAMINATION: Lungs are diminished in the bases bilaterally. Some chest tenderness to the left chest. No chest wall tenderness with deep breathing. HEART EXAMINATION: Regular rate and rhythm. S1, S2 heard. Systolic murmur at apex, No gallops or rub. ABDOMEN: Soft, nontender. Positive bowel sounds. EXTREMITIES: 2+ peripheral pulses,trace bilateral lower extremity edema and no calf tenderness. SKIN: bilateral arm ecchymosis NEUROLOGIC EXAMINATION: Patient is awake, alert and oriented x3. ASSESSMENT NSTEMI Paroxysmal atrial fibrillation with RVR- s/p cardioversion at [facility], now maintaining sinus mechanism [id number] score 3 Asthma/COPD Former tobacco use Dyslipidemia Mild coronary artery disease by heart catheterization 12/20/2020 PLAN Continue to monitor hematoma site while on Eliquis. Continue his been normal sinus rhythm. Continue with beta nathalie for rate control. Continue supportive care. Further recommendations follow. Objective - Vital Signs Vital signs: Vital Signs Temp 97.6 F 12/22/20 15:50 Pulse 64 12/22/20 20:20 Resp 18 12/22/20 15:50 BP 153/67 12/22/20 15:50 Pulse Ox 96 12/22/20 15:50 Intake & Output 12/22/20 12/22/20 12/23/20 06:59 18:59 06:59 Intake Total 840 Output Total 200 825 Balance -200 15 Weight 72.3 kg Intake: IV 160 .9 KVO 160 Oral 680 Output: Urine 200 825 Other: Voiding Method Bedside Commode Bedpan # Voids 1 1 # Bowel Movements 1 - Labs CBC & Chem 7: 12/21/20 09:47 12/21/20 08:58
[2020-12-23] MEDS: HYDROcodone/APAP 7.5-325MG 1 EACH TAB PO PRN ×2 (04:44→16:32)
--- NOTE | 2020-12-23 05:54 | P.CONS ---
History of Present Illness - Chief Complaint Walking difficulty - History of Present Illness I had the opportunity to see patient for inpatient rehab consultation with regard to walking difficulty. Patient admitted to [facility] December 20 as a transfer [facility] where she was admitted with heart disease and atrial fibrillation underwent cardioversion, converted to normal sinus rhythm and transferred to [facility]. History of recent [facility] stay 5 days, 8 days prior for esophagitis. By cardiology for atrial fibrillation with RVR and did undergo catheterization which demonstrated 30-40% stenosis LAD and circumflex and 40% stenosis RCA and 55% ejection fraction. Chest x-ray demonstrates right base atelectasis. Does not have order for therapies yet. Patient reports that she hasn't walked for years, uses chair and reports right hand and wrist dysfunction related to recent catheterization procedure. Previous functional history as elicited from patient: 85-year-old right-handed white female who is lives in a first-floor return floor home with the son. Son had stroke and is on half-way/disability. Patient retired. Describes independent with cooking, laundry, driving, sitdown shower and mobility with a chair for many years. PCP Dr. Savage. Denies tobacco or alc ohol. Review of Systems Review of systems: ENT: Denies sneezes or discharge. Eyes: Denies discharge or photophobia. Cardiac: Denies chest pain or palpitation. Pulmonary: Denies cough or shortness of breath. Breast: Denies discharge or lumps. Gastrointestinal: Denies nausea, emesis, constipation, diarrhea. Genitourinary: Denies discharge or frequency. Musculoskeletal: Discomfort right wrist. Neurologic: Weakness legs and has not walked for years. Endocrine: Denies shakes or sweats. Oncology: Denies cancers. Dermatologic: Denies rash, itching, pruritus. ALLERGY/immunology: Denies sneezes, rashes. 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, spinal stenosis, hiatal hernia, bruises easily, melanoma, macular degeneration, History of Any Multi-Drug Resistant Organisms: None Reported Past Surgical History: Appendectomy, Back Surgery, Breast Surgery, Cholecystectomy, Hysterectomy Additional Past Surgical History / Comment(s): dick cataracts, dick eye lid lift, 4" cut left breast-pt not sure what was done, Past Anesthesia/Blood Transfusion Reactions: No Reported Reaction Smoking Status: Former smoker - Past Family History Sister(s) Family Medical History: Cancer Medications and Allergies Home Medications Medication Instructions Recorded Confirmed Type Fluticasone/Salmeterol [Advair 1 puff INHALATION RT-DAILY@0700 06/08/17 12/20/20 History 500-50 Diskus] predniSONE 10 mg PO DAILY 06/08/17 12/20/20 History Ipratropium-Albuterol Nebulize 3 ml INHALATION RT-BID@1130,1800 06/20/20 12/20/20 History [Duoneb 0.5 mg-3 mg/3 ml Soln] Lovastatin [Mevacor] 10 mg PO DAILY 06/20/20 12/20/20 History Multivitamins, Thera [Multivitamin 1 tab PO DAILY 06/20/20 12/20/20 History (formulary)] Apixaban [Eliquis] 5 mg PO BID 30 Days #60 tab 12/20/20 Rx Bimatoprost [Lumigan .01% Ophth 1 drop BOTH EYES HS 12/20/20 12/20/20 History Soln] Cholecalciferol [Vitamin D3 (25 25 mcg PO DAILY 12/20/20 12/20/20 History Mcg = 1000 Iu)] Ibuprofen [Motrin Ib] 200 mg PO BID@0600,1600 12/20/20 12/20/20 History Allergies Allergy/AdvReac Type Severity Reaction Status Date / Time Penicillins Allergy Severe Rash/Hives Verified 12/20/20 06:31 Physical Exam Vitals: Vital Signs Temp Pulse Pulse Resp BP Pulse Ox 12/23/20 03:18 97.6 F 58 L 16 155/87 97 12/22/20 23:40 97.6 F 58 L 17 157/72 97 12/22/20 20:20 64 12/22/20 20:05 62 12/22/20 20:00 97.7 F 68 17 152/66 96 12/22/20 15:50 97.6 F 62 18 153/67 96 12/22/20 12:00 97.7 F 74 20 165/80 96 12/22/20 11:15 62 12/22/20 11:06 60 12/22/20 08:00 97.8 F 63 20 153/65 97 Intake and Output 12/22/20 12/22/20 12/23/20 14:59 22:59 06:59 Intake Total 640 200 Output Total 825 100 200 Balance -185 100 -200 Intake: IV 160 .9 KVO 160 Oral 480 200 Output: Urine 825 100 200 Other: Voiding Method Bedside Commode Bedside Commode Bedpan Bedpan # Voids 1 1 # Bowel Movements 1 Skin: Atrophic, intact. General: Medium build and comfortable appearance. Head: Normocephalic, atraumatic. Eyes: Symmetric. Pupils equal round. Ears: Symmetric. Hearing within normal limits. Mouth: Clear. Neck: Supple. Carotid without bruit. Cardiac: Regular rate and rhythm. Lungs: Clear anteriorly and posteriorly. Abdomen: Soft active nontender. Extremities: Normal tone. Neurological: Mental status: Alert, cooperative, pleasant. Cranial nerves: Symmetric facial tone and trapezius. Motor: Active movement arms but with giveaway weakness right forearm and wrist and hand. Legs less than antigravity. Sensation: Intact throughout. DTRs: Symmetric and equal throughout. Mobility: Decline bed mobility and reports has not walked for years.. Results CBC & Chem 7: 12/21/20 09:47 12/21/20 08:58 Assessment and Plan (1) Atrial fibrillation Current Visit: Yes Status: Acute Code(s): I48.91 - UNSPECIFIED ATRIAL FIBRILLATION SNOMED Code(s): 51074928 (2) NSTEMI (non-ST elevated myocardial infarction) Current Visit: Yes Status: Acute Code(s): I21.4 - NON-ST ELEVATION (NSTEMI) MYOCARDIAL INFARCTION SNOMED Code(s): 33366939 (3) Clostridium difficile colitis Current Visit: No Status: Acute Code(s): A04.72 - ENTEROCOLITIS D/T CLOSTRIDIUM DIFFICILE, NOT SPCF RECUR SNOMED Code(s): 615821340 Plan: Impression: 1. Cardiac debility of recent non-STEMI and A. fib with RVR, cardioverted. 2. Right wrist hematoma. 3. Asthma. 4. Rheumatoid arthritis and osteoarthritis. 5. History of cancer. Comments and plan: At this time of prescribed PT and OT but patient has discussed many reasons why she we'll be unable to do therapies. Rehab prognosis currently guarded thus.
[2020-12-23] MEDS: SYMBICORT 160-4.5 MCG INHALER INHALATION SCH ×2 (07:29→20:29)
[2020-12-23] MEDS: IPRATROPIUM-ALBUTEROL 3 ML NEB INHALATION SCH ×2 (07:29→17:16)
[2020-12-23] MEDS: MULTIVITAMINS, THERA 1 EACH TAB PO SCH (08:30)
[2020-12-23] MEDS: predniSONE 10 MG TAB PO SCH (08:30)
[2020-12-23] MEDS: APIXABAN 5 MG TAB PO SCH (08:30)
[2020-12-23] MEDS: CHOLECALCIFEROL 25 MCG (1000 IU) TABLET PO SCH (08:30)
[2020-12-23] MEDS: METOPROLOL SUCCINATE (ER) 25 MG TAB.ER.24H PO SCH (08:30)
[2020-12-23 08:56] LABS: Basophils % (A) 0 %; Eosinophils # (A) 0.1 k/uL (0-0.7); Eosinophils % (A) 0 %; HCT 40.3 % (34.0-46.0); HGB 13.2 gm/dL (11.4-16.0); Lymphocytes # (A) 2.2 k/uL (1.0-4.8); Lymphocytes % (A) 18 %; MCH 30.8 pg (25.0-35.0); MCHC 32.8 g/dL (31.0-37.0); Mean Platelet Volume 8.8; Monocytes # (A) 0.5 k/uL (0-1.0); Monocytes % (A) 5 %; Neutrophils # (A) 9.1 k/uL (1.3-7.7); Neutrophils % (A) 75 %; Platelet Count 268 k/uL (150-450); RBC 4.28 m/uL (3.80-5.40); RDW 13.9 % (11.5-15.5)
[2020-12-23 09:04] LABS: MCV 94.1 fL (80.0-100.0)
[2020-12-23 09:10] LABS: Calcium 9.8 mg/dL (8.4-10.2); Potassium 4.2 mmol/L (3.5-5.1)
[2020-12-23] MEDS: IBUPROFEN 200 MG TAB PO SCH ×2 (11:12→16:33)
--- NOTE | 2020-12-23 11:27 | P.PN ---
Subjective HISTORY OF PRESENTING ILLNESS This is a pleasant 85-year-old female past medical history significant for asthma, COPD, chronic back pain, former smoker quit 30 years ago, dyslipidemia. She does not follow with a track mechanic. We have been asked to see in consultation for atrial fibrillation with RVR. Patient is seen and examined at bedside. She was transferred from [facility]. Patient states at midnight last night she woke up to go to the bathroom and had sudden onset 10/10 jaw pain. She also had left-sided chest pain with some radiation to her left arm. She associated diaphoresis, shortness of breath. She denies nausea, vomiting, abdominal pain, lightheadedness, dizziness, syncope. She denies any palpitations. She states she was recently hospitalized at [place] and had workup that included MRI, EGD, colonoscopy, ultrasounds. She states that they found some sort of mass possibly her ovaries and was told by a oncologist that she didn't need any acute intervention. She was discharged home on Wednesday12/16/20. At [place], it is recommended for her to go to rehab If patient refuses and wanted to go home instead. She states she is not very active at home is able to get around with a walker, and perform all her daily activities. She denies history of atrial fibrillation, MS, stroke, diabetes, hypertension. She denies any family history of heart disease. She denies alcohol or illicit drug use. Quit smoking about 30 years ago. At [facility], Patient was found to be in atrial fibrillation with RVR patient was given 5 mg of Versed, with synchronized shock delivered at 120J, patient went into normal sinus rhythm heart rate in the 100, however passage into A. fib into the 150s. Per nursing documentation patient apparently was not responding and only responded to painful stimuli. A second synchronized shock was delivered at 120J, an OPA was secured in place, patient went back into atrial fibrillation with RVR, 3rd shock was delivered at 150J. Patient was started on IV Cardizem drip after 10 mg bolus. Laboratory data [facility] reveals troponin 0.27 sodium 142, potassium 4.1, BUN 27, serum creatinine 1.0. 12/23/2020 Pt seen and examined sitting up in recliner chair in no acute distress. She denies chest pain, shortness of breath, dizziness or palpitations. Blood pressure 172/69 heart rate 74 afebrile and maintaining oxygen saturation on room air. She continues to feel pain in her right arm near the site of her radial access. PHYSICAL EXAMINATION CONSTITUTIONAL: No apparent distress. HEENT: Head is normocephalic. Pupils are equal, round. Sclerae anicteric. Mucous membranes of the mouth are moist. No JVD. No carotid bruit. CHEST EXAMINATION: Lungs are diminished in the bases bilaterally. Some chest tenderness to the left chest. No chest wall tenderness with deep breathing. HEART EXAMINATION: Regular rate and rhythm. S1, S2 heard. Systolic murmur at apex, No gallops or rub. EXTREMITIES: 2+ peripheral pulses,trace bilateral lower extremity edema and no calf tenderness. Right radial access site hematoma stable in size. Significant ecchymosis noted around the site. Arm is soft to touch. SKIN: bilateral arm ecchymosis ASSESSMENT NSTEMI Paroxysmal atrial fibrillation with RVR- s/p cardioversion at [facility], now maintaining sinus mechanism [id number] score 3 Asthma/COPD Former tobacco use Dyslipidemia Mild coronary artery disease by heart catheterization 12/20/2020 PLAN Add lisinopril for optimal blood pressure control. Continue eliquis for thromboembolic protection. Clinically stable for discharge from a cardiac perspective. Site of hematoma stable. Nurse Practitioner note has been reviewed, I agree with a documented findings and plan of care. Patient was seen and examined. Objective - Vital Signs Vital signs: Vital Signs Temp 97.8 F 12/23/20 07:56 Pulse 74 12/23/20 07:56 Resp 20 12/23/20 07:56 BP 172/69 12/23/20 07:56 Pulse Ox 95 12/23/20 07:56 Intake & Output 12/22/20 12/23/20 12/23/20 18:59 06:59 18:59 Intake Total 840 240 Output Total 825 300 400 Balance 15 -300 -160 Weight 72.3 kg Intake: IV 160 .9 KVO 160 Oral 680 240 Output: Urine 825 300 400 Other: Voiding Method Bedside Commode Bedpan # Voids 1 1 # Bowel Movements 1 - Labs CBC & Chem 7: 12/23/20 08:07 12/23/20 08:07 Labs: Abnormal Lab Results - Last 24 Hours (Table) 12/23/20 12/23/20 Range/Units 08:07 08:07 WBC 12.0 H (3.8-10.6) k/uL Neutrophils # 9.1 H (1.3-7.7) k/uL Chloride 108 H (98-107) mmol/L BUN 29 H (7-17) mg/dL
[2020-12-23] MEDS: lisinopriL 10 MG TAB PO SCH (12:20)
--- NOTE | 2020-12-23 14:13 | US ---
EXAMINATION TYPE: US upper ext pseudo RT DATE OF EXAM: 12/23/2020 COMPARISON: NONE CLINICAL HISTORY: swelling/pain R wrist - cardiac cath site. Pseudoaneurysm containing thrombus and flow measuring 1.0x0.7x0.8cm seen at insertion site. Neck allan ures 0.3cm. IMPRESSION: As above
--- NOTE | 2020-12-23 14:38 | P.PN ---
Progress Note - Text Progress Note Date: 12/23/20 Chief Complaint: Chest pain History of presenting complaint: This is a pleasant [address] Claudio. Chronic stable medical conditions include, as well, hard of hearing, some cognitive impairment, osteoarthritis, rheumatoid arthritis, chronic severe persistent bronchial asthma, chronic insomnia, cerebral AV malformation with prior history of bleed 4-5 years ago, spinal stenosis, hiatal hernia macular degeneration. Patient was recently discharged from [facility] 5 days ago. She was there for 8 days. What she describes is that a computed tomography scan of the chest to [facility] had shown some abnormalities and esophagitis. Hence he was transferred down there. She had endoscopy. And she was told she has aging of the esophagus and she is recommended to eat small bites. Since coming home from [facility] she has been doing fine. Doing the chores at home. Last night she developed pain across the chest. Rather severe and achiness of the jaws. Perspiration. Short of breath. As symptoms persisted she decided to go down to the ER. The pain also radiated to the left arm. No nausea vomiting. Patient reported for an acute myocardial infarction. Seen by cardiology earlier today. Pending cardiac catheterization. Patient normally uses a walker to get about. Lives with her son. Patient also was found to be in atrial fibrillation. Admitted with acute non-Q-wave PA. Uncontrolled atrial fibrillation. Cardiac catheterization showed nonobstructive disease. Being managed medically. Started on beta blockers. December 21: Laying in bed. No chest pain. Oral intake fair. Heart rate better controlled. Remains in A. fib. Breathing stable. December 22: Sitting in a recliner. Had developed a hematoma on the right forearm at the cardiac catheterization access site. Being followed by currently. Stable. She doesn't feel, she can manage at home hence inpatient rehab is to be evaluated. December 23: In the recliner. No chest pain or short of breath. Complaining of pain in the right wrist of the hematoma site. Ultrasound ordered. Vascular consulted. Patient looking to going to rehab. web worker consulted. Review of systems: Was done for constitutional, cardiovascular, GI, pulmonary. relevant finding as above Active Medications Hydrocodone Bitart/Acetaminophen (Hydrocodone/Apap 7.5-325mg 1 Each Tab) 1 each PO Q6HR PRN PRN Reason: Pain Last Admin: 12/23/20 04:44 Dose: 1 each Documented by: Albuterol/Ipratropium (Ipratropium-Albuterol 3 Ml Neb) 3 ml INHALATION RT- BID@1130,1800 [facility] Last Admin: 12/23/20 07:29 Dose: 3 ml Documented by: Alprazolam (Alprazolam 0.25 Mg Tab) 0.25 mg PO Q6HR PRN PRN Reason: Mild Anxiety Alprazolam (Alprazolam 0.5 Mg Tab) 0.5 mg PO Q6HR PRN PRN Reason: Moderate Anxiety Apixaban (Apixaban 5 Mg Tab) 5 mg PO BID [facility]; Protocol Last Admin: 12/23/20 08:30 Dose: 5 mg Documented by: Budesonide/Formoterol Fumarate (Symbicort 160-4.5 Mcg Inhaler) 2 puff INHALATION RT-BID [facility] Last Admin: 12/23/20 07:29 Dose: 2 puff Documented by: Cholecalciferol (Cholecalciferol 25 Mcg (1000 Iu) Tablet) 25 mcg PO DAILY [facility] Last Admin: 12/23/20 08:30 Dose: 25 mcg Documented by: Ibuprofen (Ibuprofen 200 Mg Tab) 200 mg PO BID@0600,1600 [facility] Last Admin: 12/23/20 11:12 Dose: Not Given Documented by: Latanoprost (Latanoprost 0.005% Ophth Drops 2.5 Ml Btl) 1 drops BOTH EYES HS [facility] Last Admin: 12/22/20 20:51 Dose: 1 drops Documented by: Lisinopril (Lisinopril 10 Mg Tab) 10 mg PO DAILY [facility] Last Admin: 12/23/20 12:20 Dose: 10 mg Documented by: Metoprolol Succinate (Metoprolol Succinate (Er) 25 Mg Tab.Er.24h) 25 mg PO DAILY [facility] Last Admin: 12/23/20 08:30 Dose: 25 mg Documented by: Multivitamins (Multivitamins, Thera 1 Each Tab) 1 each PO DAILY [facility] Last Admin: 12/23/20 08:30 Dose: 1 each Documented by: Nitroglycerin (Nitroglycerin Sl Tabs 0.4 Mg Tab) 0.4 mg SUBLINGUAL Q5M PRN PRN Reason: Chest Pain Prednisone (Prednisone 10 Mg Tab) 10 mg PO DAILY [facility] Last Admin: 12/23/20 08:30 Dose: 10 mg Documented by: Past medical history to include: Chronic severe persistent bronchial asthma, chronic insomnia, cerebral AV malformation with prior history of lead 4-5 years ago, spinal stenosis, mitral hernia, melanoma, macular degeneration, osteoarthritis, rheumatoid arthritis, mild cognitive impairment, esophageal dysmotility causing trouble with swallowing Social history: Social smoking 33 years ago. Does use Levitra to get about. Son lives with her. Alcohol rarely. Family history: Smoker Physical examination: VITAL SIGNS: 14, 65, 20, 1 47 x 64, 95% room air GENERAL: In a recliner comfortable EYES: Pupils equal. Conjunctiva normal. NECK: JVD not raised; masses not palpable. HEART: Irregular heart sounds; no edema. LUNGS: Respiratory rate normal; decreased breath sounds. ABDOMEN: Soft, nontender, liver spleen not palpable, no masses palpable. PSYCH: Alert and oriented x3; mood and affect normal. MUSCULAR skeletal: Evidence of OA in multiple joints EXTREMITY: Right forearm showing bruising at the cardiac cath access site . Tender. Some swelling INVESTIGATIONS, reviewed in the clinical context: December 23: WBC 12 hemoglobin 13.2 potassium 4.2 creatinine 0.75 Ultrasound upper extremity right wrist: Pseudoaneurysm containing thrombus. December 21: White count 11.7 hemoglobin 12.1 platelets 200 potassium 4.2 creatinine 0.81 Cardiac catheterization: Mild CAD including mid LAD 30-40% stenosis, circumflex 30-40% stenosis, proximal RCA 40% stenosis. EF 55% White count 15.3 hemoglobin 12.9 platelets 280 potassium 4 creatinine 0.96 Troponin I 2.8, 3.9 TSH 2.1 Coronavirus [PCR]: Not detected EKG tracing personally reviewed by me-atrial fibrillation, rate 144 Chest x-ray film personally reviewed by me-mild venous prominence 2-D echocardiogram: EF 50-55% Assessment and plan: -Acute non-Q wave myocardial infarction Cardiology : Status post cardiac catheterization. -Nonobstructive CAD per cardiac catheterization -Paroxysmal atrial fibrillation , currently sinus rhythm IV heparin-discontinued, cardiology consulted. Patient on eliquis 5 mg twice a day -Acute pseudoaneurysm at the right wrist cardiac cath site, with intraluminal thrombus: New diagnosis Vascular surgery consulted -Chronic gait dysfunction, uses a wheelchair at home -Chronic esophageal dysmotility, causing some dysphagia Patient advised to take small meals and to her food. Slowly. Recent admission at [facility] -COPD in a previous smoker DuoNeb twice a day -Primary osteoarthritis multiple joints bilaterally Use pain medication as needed -Chronic insomnia from medical problems Melatonin as needed -Hiatal hernia with GERD PPI -History of cerebral AV malformation with a prior history of cerebral bleed 4-5 years ago. Follow clinically Spoke to SUE Ocampo from vascular. Other medications to continue. sap manager looking into inpatient rehab. Discussed with the patient. Follow
[2020-12-23 15:12] VITALS: BMI 30.1
--- NOTE | 2020-12-23 15:18 | P.GSCN ---
History of Present Illness Consult date: 12/23/20 Reason for Consult: right wrist pain and swelling at cardiac cath site Requesting physician: Esdras Armijo History of present illness: This is an 85-year-old female with a past medical history significant for asthma, COPD, chronic back pain, former smoker and dyslipidemia who presented to the emergency department with associated diaphoresis, shortness of breath and found to be in atrial fibrillation with RVR. She was diagnosed with an STEMI, proximal atrial fibrillation with RVR and underwent a cardiac catheterization on 12/20/[address] Anderson accessing the right radial artery. The patient subsequently had some swelling and pain at the right wrist siteand underwent an ultrasound of the right upper extremity with findings of pseudoaneurysm containing thrombus and flow measuringx 1.0x 0.7 0.8 cm seen at the insertion site. Neck measures 0.3 cm. Vascular surgery was consulted in regards to the pseudoaneurysm. Patient is currently on Eliquis 5 mg by mouth twice a day. the patient states she had swelling and bruising with pain since the procedure. States she continues to have pain. She is able to move her upper extremity and hand freely.she denies any shortness of breath, chest pain, fevers, chills, abdominal pain, nausea, or vomiting. Review of Systems A 14 point review systems was completed all pertinent positives and negatives as stated in the HPI Past Medical History Past Medical History: Asthma, Cancer, Eye Disorder, Hearing Disorder / Deafness, Memory Impairment, Osteoarthritis (OA), Rheumatoid Arthritis (RA) Additional Past Medical History / Comment(s): Chronic severe persistent bronc hial asthma, chronic insomnia, cerebral arteriovenous malformation with previous history of bleed 4-5 yrs ago, spinal stenosis, hiatal hernia, bruises easily, melanoma, macular degeneration, History of Any Multi-Drug Resistant Organisms: None Reported Past Surgical History: Appendectomy, Back Surgery, Breast Surgery, Cholecystectomy, Hysterectomy Additional Past Surgical History / Comment(s): dick cataracts, dick eye lid lift, 4" cut left breast-pt not sure what was done, Past Anesthesia/Blood Transfusion Reactions: No Reported Reaction Smoking Status: Former smoker - Past Family History Sister(s) Family Medical History: Cancer Medications and Allergies Home Medications Medication Instructions Recorded Confirmed Type Fluticasone/Salmeterol [Advair 1 puff INHALATION RT-DAILY@0700 06/08/17 12/20/20 History 500-50 Diskus] predniSONE 10 mg PO DAILY 06/08/17 12/20/20 History Ipratropium-Albuterol Nebulize 3 ml INHALATION RT-BID@1130,1800 06/20/2012/04 History [Duoneb 0.5 mg-3 mg/3 ml Soln] Lovastatin [Mevacor] 10 mg PO DAILY 06/20/20 12/20/20 History Multivitamins, Thera [Multivitamin 1 tab PO DAILY 06/20/20 12/20/20 History (formulary)] Apixaban [Eliquis] 5 mg PO BID 30 Days #60 tab 12/20/20 Rx Bimatoprost [Lumigan .01% Ophth 1 drop BOTH EYES HS 12/20/20 12/20/20 History Soln] Cholecalciferol [Vitamin D3 (25 25 mcg PO DAILY 12/20/20 12/20/20 History Mcg = 1000 Iu)] Ibuprofen [Motrin Ib] 200 mg PO BID@0600,1600 12/20/20 12/20/20 History Allergies Allergy/AdvReac Type Severity Reaction Status Date / Time Penicillins Allergy Severe Rash/Hives Verified 12/20/20 06:31 Surgical - Exam Vital Signs Temp Pulse Resp BP Pulse Ox 98.3 F 144 H 22 132/83 99 12/20/20 05:12 12/20/20 05:12 12/20/20 05:12 12/20/20 05:12 12/20/20 05:12 General appearance: The patient is alert, oriented, in no acute distress. HET: Head is normocephalic and atraumatic. Pupils are equal and reactive. Oropharynx is clear without lesions. Neck: Supple without lymphadenopathy. Trachea midline. Heart: S1 S2. Regular rate and rhythm with systolic murmur. Lungs: Clear to auscultation. Abdomen: Soft, nontender, nondistended with bowel sounds. No peritoneal signs. No palpable organomegaly or masses. Extremities: mild lower extremity edema. Right upper extremity with swelling and ecchymosis from right wrist up to elbow. +2 palpable radial pulse. Patient is able to move her right upper extremity without difficulty. It is tender to palpation Neurological: No focal deficits. Strength and sensation are grossly intact. Results - Labs 12/23/20 08:07 12/23/20 08:07 Abnormal Lab Results - Last 24 Hours (Table) 12/23/20 12/23/20 Range/Units 08:07 08:07 WBC 12.0 H (3.8-10.6) k/uL Neutrophils # 9.1 H (1.3-7.7) k/uL Chloride 108 H (98-107) mmol/L BUN 29 H (7-17) mg/dL Diabetes panel 12/23/20 Range/Units 08:07 Sodium 138 (137-145) mmol/L Potassium 4.2 (3.5-5.1) mmol/L Chloride 108 H (98-107) mmol/L Carbon Dioxide 26 (22-30) mmol/L BUN 29 H (7-17) mg/dL Creatinine 0.75 (0.52-1.04) mg/dL Glucose 96 (74-99) mg/dL Calcium 9.8 (8.4-10.2) mg/dL Calcium panel 12/23/20 Range/Units 08:07 Calcium 9.8 (8.4-10.2) mg/dL Pituitary panel 12/23/20 Range/Units 08:07 Sodium 138 (137-145) mmol/L Potassium 4.2 (3.5-5.1) mmol/L Chloride 108 H (98-107) mmol/L Carbon Dioxide 26 (22-30) mmol/L BUN 29 H (7-17) mg/dL Creatinine 0.75 (0.52-1.04) mg/dL Glucose 96 (74-99) mg/dL Calcium 9.8 (8.4-10.2) mg/dL Adrenal panel 12/23/20 Range/Units 08:07 Sodium 138 (137-145) mmol/L Potassium 4.2 (3.5-5.1) mmol/L Chloride 108 H (98-107) mmol/L Carbon Dioxide 26 (22-30) mmol/L BUN 29 H (7-17) mg/dL Creatinine 0.75 (0.52-1.04) mg/dL Glucose 96 (74-99) mg/dL Calcium 9.8 (8.4-10.2) mg/dL - Imaging Comments: ultrasound right upper extremity shows a pseudoaneurysm containing thrombus and flow measuring 1.0 x 1.7 x 0.8 cm seen at insertion site. Neck measures 0.3 cm. Assessment and Plan Assessment: 1. Pseudoaneurysm right radial access site status post cardiac catheterization 2. Paroxysmal atrial fibrillation with RVR 3. NSTEMI Plan: 1. Patient discussed with Dr. South will have laboratory animal care veterinarian apply FEM-Stop to right wrist 2. Hold Eliquis 3. Repeat US of RUE tomorrow 4. Further recommendations to follow Thank you for this consultation and allowing us take part in the plan of care of your patient during her hospital stay . The impression and plan of care has been dictated as directed. Dr. South I performed a history and examination of this patient, discussed the same with the dictator. I agree with the dictator's note ,documented as a scribe. Any additional findings or plans will be noted.
[2020-12-23] MEDS: LATANOPROST 0.005% OPHTH DROPS 2.5 ML BTL BOTH EYES SCH (21:40)
[2020-12-24] MEDS: HYDROcodone/APAP 7.5-325MG 1 EACH TAB PO PRN ×2 (01:58→08:25)
[2020-12-24] MEDS: IBUPROFEN 200 MG TAB PO SCH ×3 (05:13→14:00)
[2020-12-24] MEDS: predniSONE 10 MG TAB PO SCH (08:26)
[2020-12-24] MEDS: CHOLECALCIFEROL 25 MCG (1000 IU) TABLET PO SCH (08:26)
[2020-12-24] MEDS: MULTIVITAMINS, THERA 1 EACH TAB PO SCH (08:26)
[2020-12-24] MEDS: METOPROLOL SUCCINATE (ER) 25 MG TAB.ER.24H PO SCH (08:26)
[2020-12-24] MEDS: lisinopriL 10 MG TAB PO SCH (08:26)
--- NOTE | 2020-12-24 09:25 | US ---
EXAMINATION TYPE: US upper ext pseudo RT DATE OF EXAM: 12/24/2020 COMPARISON: 12/23/2020 CLINICAL HISTORY: re-evaluate right upper extremity pseudoaneurysm. Pseudoaneurysm still prevalent in right forearm at cath insertion site. Appears to have slightly more thrombus than previous study. Measures 0.8x0.6x0.9cm (previously 1.0x0.7x0.8cm) Neck thickness measures 0.3cm and approximately 1.2cm in length. IMPRESSION: 1. Pseudoaneurysm right forearm, color flow present.
--- NOTE | 2020-12-24 10:27 | P.PN ---
Subjective Progress Note Date: 12/24/20 Principal diagnosis: Pseudoaneurysm She was seen and examined with Dr. Hurtado at the bedside. Patient states she still having pain and discomfort and her right arm. She had been stopped on yesterday with a repeat arterial ultrasound done today showing a slightly smaller pseudoaneurysm with more thrombus. Patient continues to be able to move her hand and upper extremity freely. No other acute changes through the night. Plan is for discharge to rehab today. Objective - Vital Signs Vital signs: Vital Signs Temp 98 F 12/24/20 08:00 Pulse 66 12/24/20 08:00 Resp 20 12/24/20 08:00 BP 122/68 12/24/20 08:00 Pulse Ox 97 12/24/20 08:00 Intake & Output 12/23/20 12/24/20 12/24/20 18:59 06:59 18:59 Intake Total 660 120 240 Output Total 800 250 Balance -140 -130 240 Weight 72.3 kg 74 kg Intake: IV 120 .9 KVO 120 Oral 660 240 Output: Urine 800 250 Other: # Voids 2 # Bowel Movements 2 - Exam General appearance: The patient is alert, oriented, in no acute distress. HET: Head is normocephalic and atraumatic Neck: Supple without lymphadenopathy. Trachea midline. Extremities: Right upper extremity with ecchymosis from wrist to past elbow. Palpable area of thrombus, tender to palpation. Patient able to freely move hand fingers and left upper extremity. Palpable +2 radial pulse. Neurological: No focal deficits. Strength and sensation are grossly intact. - Labs CBC & Chem 7: 12/23/20 08:07 12/23/20 08:07 Assessment and Plan Assessment: 1. Pseudoaneurysm right radial access site status post cardiac catheterization 2. Paroxysmal atrial fibrillation with RVR 3. NSTEMI Plan: 1. Keep pressure/wrap to left upper extremity 2. Hold Eliquis per 24 hours then may resume 3. Repeat US reviewed with some decrease in size 4. Patient may be discharged, however will need arterial ultrasound of right upper extremity or Wednesday with either Dr. Hurtado or Dr. Anderson's office Thank you for this consultation and allowing us take part in the plan of care of your patient during her hospital stay . The impression and plan of care has been dictated as directed. Dr. Hurtado I performed a history and examination of this patient, discussed the same with the dictator. I agree with the dictator's note ,documented as a scribe. Any additional findings or plans will be noted.
[2020-12-24] MEDS: IPRATROPIUM-ALBUTEROL 3 ML NEB INHALATION SCH (11:23)
[2020-12-24] MEDS: SYMBICORT 160-4.5 MCG INHALER INHALATION SCH (11:23)
[2020-12-24 11:43] VITALS: BP 133/58; PULSE 58; RESP 16; TEMP 97.8
--- NOTE | 2020-12-24 12:20 | P.PN ---
Subjective HISTORY OF PRESENTING ILLNESS This is a pleasant 85-year-old female past medical history significant for asthma, COPD, chronic back pain, former smoker quit 30 years ago, dyslipidemia. 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 We have been asked to see in consultation for atrial fibrillation with RVR. Patient is seen and examined at bedside. She was transferred from [facility]. Patient states at midnight last night she woke up to go to the bathroom and had sudden onset 10/10 jaw pain. She also had left-sided chest pain with some radiation to her left arm. She associated diaphoresis, shortness of breath. She denies nausea, vomiting, abdominal pain, lightheadedness, dizziness, syncope. She denies any palpitations. She states she was recently hospitalized at [facility] and had workup that included MRI, EGD, colonoscopy, ultrasounds. She states that they found some sort of mass possibly her ovaries and was told by a oncologist that she didn't need any acute intervention. She was discharged home on Wednesday12/16/20. At [facility], it is recommended for her to go to rehab If patient refuses and wanted to go home instead. She states she is not very active at home is able to get around with a walker, and perform all her daily activities. She denies history of atrial fibrillation, NE, stroke, diabetes, hypertension. She denies any family history of heart disease. She denies alcohol or illicit drug use. Quit smoking about 30 years ago. 12/24/2020 Patient seen and examined resting comfortably laying flat in bed in no acute distress. She has no symptoms chest discomfort, shortness of breath, dizziness or palpitations. Primary care team ordered an ultrasound of her right radial site yesterday revealing pseudoaneurysm with thrombosis. She was evaluated by the vascular care team and they recommended discontinuation of Eliquis). Application. The patient is complaining of significant soreness at the site today. Blood pressure 122/68 heart rate 66 afebrile maintaining oxygen saturation on room air. PHYSICAL EXAMINATION CONSTITUTIONAL: No apparent distress. HEENT: Head is normocephalic. Pupils are equal, round. Sclerae anicteric. Mucous membranes of the mouth are moist. No JVD. No carotid bruit. CHEST EXAMINATION: Lungs are diminished in the bases bilaterally. Some chest tenderness to the left chest. No chest wall tenderness with deep breathing. HEART EXAMINATION: Regular rate and rhythm. S1, S2 heard. Systolic murmur at apex, No gallops or rub. EXTREMITIES: 2+ peripheral pulses,trace bilateral lower extremity edema and no calf tenderness. Right radial access site hematoma stable in size. Significant ecchymosis noted around the site. Arm is soft to touch. SKIN: bilateral arm ecchymosis ASSESSMENT NSTEMI Paroxysmal atrial fibrillation with RVR- s/p cardioversion at [facility], now maintaining sinus mechanism [id number] score 3 Asthma/COPD Former tobacco use Dyslipidemia Mild coronary artery disease by heart catheterization 12/20/2020 PLAN Clinically stable on current medical regimen. Anticoagulation per vascular surgery. Follow up upon discharge with Dr. Anderson. Nurse Practitioner note has been reviewed, I agree with a documented findings and plan of care. Patient was seen and examined. Objective - Vital Signs Vital signs: Vital Signs Temp 98 F 12/24/20 08:00 Pulse 66 12/24/20 08:00 Resp 20 12/24/20 08:00 BP 122/68 12/24/20 08:00 Pulse Ox 97 12/24/20 08:00 Intake & Output 12/23/20 12/24/20 12/24/20 18:59 06:59 18:59 Intake Total 660 120 240 Output Total 800 250 Balance -140 -130 240 Weight 72.3 kg 74 kg Intake: IV 120 .9 KVO 120 Oral 660 240 Output: Urine 800 250 Other: # Voids 2 # Bowel Movements 2 - Labs CBC & Chem 7: 12/23/20 08:07 12/23/20 08:07
--- NOTE | 2020-12-24 13:14 | P.DS ---
Providers Date of admission: 12/20/20 05:26 Expected date of discharge: 12/24/20 Attending physician: Esdras Armijo Consults: 12/20/20 05:26 Consult Physician Urgent Consulting Provider: Katie Moore Consult Reason/Comments: NEwAfib Do you want consulting provider notified?: Yes 12/22/20 14:14 Consult Physician Routine Consulting Provider: Tino Canseco Consult Reason/Comments: [facility] Do you want consulting provider notified?: Yes 12/23/20 13:23 Consult Physician Routine Consulting Provider: Marie García Consult Reason/Comments: R wrist pain/swelling - c. cath site Do you want consulting provider notified?: Yes Primary care physician: [facility] Course: Chief Complaint: Chest pain History of presenting complaint: This is a pleasant [address] Claudio. Chronic stable medical conditions include, as well, hard of hearing, some cognitive impairment, osteoarthritis, rheumatoid arthritis, chronic severe persistent bronchial asthma, chronic insomnia, cerebral AV malformation with prior history of bleed 4-5 years ago, spinal stenosis, hiatal hernia macular degeneration. Patient was recently discharged from [facility] 5 days ago. She was there for 8 days. What she describes is that a computed tomography scan of the chest to [facility] had shown some abnormalities and esophagitis. Hence he was transferred down there. She had endoscopy. And she was told she has aging of the esophagus and she is recommended to eat small bites. Since coming home from [facility] she has been doing fine. Doing the chores at home. Last night she developed pain across the chest. Rather severe and achiness of the jaws. Perspiration. Short of breath. As symptoms persisted she decided to go down to the ER. The pain also radiated to the left arm. No nausea vomiting. Patient reported for an acute myocardial infarction. Seen by cardiology earlier today. Pending cardiac catheterization. Patient normally uses a walker to get about. Lives with her son. Patient also was found to be in atrial fibrillation. Admitted with acute non-Q-wave KS. Uncontrolled atrial fibrillation. Cardiac catheterization showed nonobstructive disease. Being managed medically. Started on beta blockers. Patient developed a hematoma on the right forearm at the cardiac catheterization access site. 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 Seen by vascular. Also treated for COPD exacerbation. Counseled about smoking. December 24: Patient was seen by Dr. Hurtado from vascular. Repeat ultrasound showed increasing thrombus in the pseudoaneurysm. Decided to use compression wrap. No chest pain. Communicated with long term care social worker. Discussed with patient. Discussion and discharge planning more than 35 minutes Consultants: Dr. Anderson and partners from cardiology Dr natasha kerr and partners from vascular Past medical history to include: Chronic severe persistent bronchial asthma, chronic insomnia, cerebral AV malformation with prior history of lead 4-5 years ago, spinal stenosis, mitral hernia, melanoma, macular degeneration, osteoarthritis, rheumatoid arthritis, mild cognitive impairment, esophageal dysmotility causing trouble with swallowing Social history: Social smoking 33 years ago. Does use Levitra to get about. Son lives with her. Alcohol rarely. Family history: Smoker Physical examination: VITAL SIGNS: 98, 66, 20, 122.68, 97% room air GENERAL: comfortable EYES: Pupils equal. Conjunctiva normal. NECK: JVD not raised; masses not palpable. HEART: Irregular heart sounds; no edema. LUNGS: Respiratory rate normal; decreased breath sounds. ABDOMEN: Soft, nontender, liver spleen not palpable, no masses palpable. PSYCH: Alert and oriented x3; mood and affect normal. MUSCULAR skeletal: Evidence of OA in multiple joints EXTREMITY: Right forearm in a Tomasz wrap. Some tenderness INVESTIGATIONS, reviewed in the clinical context: Doppler ultrasound right upper extremity [December 24]: A bit more thrombus in the [place] aneurysm December 23: WBC 12 hemoglobin 13.2 potassium 4.2 creatinine 0.75 Ultrasound upper extremity right wrist: Pseudoaneurysm containing thrombus. December 21: White count 11.7 hemoglobin 12.1 platelets 200 potassium 4.2 creatinine 0.81 Cardiac catheterization: Mild CAD including mid LAD 30-40% stenosis, circumflex 30-40% stenosis, proximal RCA 40% stenosis. EF 55% White count 15.3 hemoglobin 12.9 platelets 280 potassium 4 creatinine 0.96 Troponin I 2.8, 3.9 TSH 2.1 Coronavirus [PCR]: Not detected EKG tracing personally reviewed by me-atrial fibrillation, rate 144 Chest x-ray film personally reviewed by me-mild venous prominence 2-D echocardiogram: EF 50-55% Assessment and plan: -Acute non-Q wave myocardial infarction Cardiology : Status post cardiac catheterization. -Nonobstructive CAD per cardiac catheterization Baby aspirin added -Paroxysmal atrial fibrillation , currently sinus rhythm IV heparin-discontinued, cardiology . eliquis 5 mg twice a day -Acute pseudoaneurysm at the right wrist cardiac cath site, with intraluminal thrombus: Seen by Dr. Hurtado today. Repeat ultrasound showing increasing thrombus. No further intervention today. Repeat ultrasound late in the week and follow-up with them. Right wrist has been compression wrapped by vascular -Chronic gait dysfunction, uses a wheelchair at home -Chronic esophageal dysmotility, causing some dysphagia Patient advised to take small meals and to her food. Slowly. Recent admission at [facility] -COPD in a previous smoker DuoNeb twice a day -Primary osteoarthritis multiple joints bilaterally Use pain medication as needed -Chronic insomnia from medical problems Melatonin as needed -Hiatal hernia with GERD PPI -History of cerebral AV malformation with a prior history of cerebral bleed 4-5 years ago. Follow clinically Disposition: Rehab/[facility] medical care facility Patient Condition at Discharge: Fair Plan - Discharge Summary Discharge Rx Participant: Yes New Discharge Prescriptions: New Apixaban [Eliquis] 5 mg PO BID 30 Days #60 tab lisinopriL [Zestril] 10 mg PO DAILY tab Aspirin 81 mg PO DAILY #30 tab Nitroglycerin Sl Tabs [Nitrostat] 0.4 mg SUBLINGUAL Q5M PRN tab PRN Reason: Chest Pain Metoprolol Succinate (ER) [Toprol XL] 25 mg PO DAILY tablet Famotidine [Pepcid] 20 mg PO BID #1 tablet Continue predniSONE 10 mg PO DAILY Fluticasone/Salmeterol [Advair 500-50 Diskus] 1 puff INHALATION RT-DAILY@0700 Multivitamins, Thera [Multivitamin (formulary)] 1 tab PO DAILY Lovastatin [Mevacor] 10 mg PO DAILY Ipratropium-Albuterol Nebulize [Duoneb 0.5 mg-3 mg/3 ml Soln] 3 ml INHALATION RT-BID@1130,1800 Bimatoprost [[place] .01% Ophth Soln] 1 drop BOTH EYES HS Cholecalciferol [Vitamin D3 (25 Mcg = 1000 Iu)] 25 mcg PO DAILY Discontinued Ibuprofen [Motrin Ib] 200 mg PO BID@0600,1600 Discharge Medication List Fluticasone/Salmeterol [Advair 500-50 Diskus] 1 puff INHALATION RT-DAILY@0700 06/08/17 [History] predniSONE 10 mg PO DAILY 06/08/17 [History] Ipratropium-Albuterol Nebulize [Duoneb 0.5 mg-3 mg/3 ml Soln] 3 ml INHALATION RT-BID@1130,1800 06/20/20 [History] Lovastatin [Mevacor] 10 mg PO DAILY 06/20/20 [History] Multivitamins, Thera [Multivitamin (formulary)] 1 tab PO DAILY 06/20/20 [History] Apixaban [Eliquis] 5 mg PO BID 30 Days #60 tab 12/20/20 [Rx] Bimatoprost [[place] .01% Ophth Soln] 1 drop BOTH EYES HS 12/20/20 [History] Cholecalciferol [Vitamin D3 (25 Mcg = 1000 Iu)] 25 mcg PO DAILY 12/20/20 [History] Aspirin 81 mg PO DAILY #30 tab 12/24/20 [Rx] Famotidine [Pepcid] 20 mg PO BID #1 tablet 12/24/20 [Rx] Metoprolol Succinate (ER) [Toprol XL] 25 mg PO DAILY tablet 12/24/20 [Rx] Nitroglycerin Sl Tabs [Nitrostat] 0.4 mg SUBLINGUAL Q5M PRN tab 12/24/20 [Rx] lisinopriL [Zestril] 10 mg PO DAILY tab 12/24/20 [Rx] Follow up Appointment(s)/Referral(s): Abdoulaye Anderson DO [STAFF PHYSICIAN] - 1 Week (Office will call you with an appointment. ) Deangelo Hurtado DO [STAFF PHYSICIAN] - 01/09/21 9:45 am (Follow up with Dr. Mclean) Stanley Claudio MD [Primary Care Provider] - 1-2 days (Please call office to make an appointment after rehab.) Activity/Diet/Wound Care/Special Instructions: Copay for Eliquis is $9.20. f/u orders from vasular surgery resume eliquis on 12/25/2020
== END 2020-12-24 16:04 | DRG 281 ==
LOC: EC 05:10 → 3SCARD 05:26
PROVIDERS: ADMIT Hospitalist; ATTEND Hospitalist
PROC: B2111ZZ Fluoroscopy of Multiple Coronary Arteries using Low Osmolar Contrast (ICD-10-PCS; 2020-12-20)
PROC: B2151ZZ Fluoroscopy of Left Heart using Low Osmolar Contrast (ICD-10-PCS; 2020-12-20)
PROC: 4A023N7 Measurement of Cardiac Sampling and Pressure, Left Heart, Percutaneous Approach (ICD-10-PCS; principal; 2020-12-20 16:15)
DX: I21.4 Non-ST elevation (NSTEMI) myocardial infarction (principal); J44.1 Chronic obstructive pulmonary disease with (acute) exacerbation; A04.72 Enterocolitis due to Clostridium difficile, not specified as recurrent; T81.718A Complication of other artery following a procedure, not elsewhere classified, initial encounter; I25.10 Atherosclerotic heart disease of native coronary artery without angina pectoris; E78.5 Hyperlipidemia, unspecified; H91.90 Unspecified hearing loss, unspecified ear; F51.04 Psychophysiologic insomnia; K22.4 Dyskinesia of esophagus; K44.9 Diaphragmatic hernia without obstruction or gangrene; K21.00 Gastro-esophageal reflux disease with esophagitis, without bleeding; M06.9 Rheumatoid arthritis, unspecified; M15.9 Polyosteoarthritis, unspecified; S60.211A Contusion of right wrist, initial encounter; J45.50 Severe persistent asthma, uncomplicated; G31.84 Mild cognitive impairment of uncertain or unknown etiology; I48.0 Paroxysmal atrial fibrillation; Z20.822 Contact with and (suspected) exposure to COVID-19; Z79.01 Long term (current) use of anticoagulants; Z79.899 Other long term (current) drug therapy; Z85.820 Personal history of malignant melanoma of skin; Z90.710 Acquired absence of both cervix and uterus; Z86.73 Personal history of transient ischemic attack (TIA), and cerebral infarction without residual deficits; Z88.0 Allergy status to penicillin; Z87.891 Personal history of nicotine dependence; R26.9 Unspecified abnormalities of gait and mobility
CPT/HCPCS: 36415; 71046; 80048; 80053; 80061; 81003; 82550; 83605; 83735; 83880; 84100; 84132; 84443; 84484; 85025; 85027; 85610; 85730; 87635; 93005; 93306; 93458; 94640; 94760; 99285

== ENCOUNTER 2020-12-31 08:48 | Inpatient (IN) | payer MEDICARE ==
--- NOTE | 2020-12-31 09:05 | ED ---
Chest Pain HPI - General Stated Complaint: AFib Time Seen by Provider: 12/31/20 08:55 Source: patient, RN/MD, EMS, RN notes reviewed, old records reviewed Mode of arrival: EMS - History of Present Illness Initial Comments: 85-year-old female transferred from [facility] after presenting there from a care facility with complaints of neck pain she was found to be in atrial fibrillation with rapid ventricular response who is also found have an elevated troponin initially was 0.04 to it did go up to 0.196. She did require Cardizem drip which did have to be titrated down due to hypotensive findings. He is pain-free at the time of arrival here she voices no other complaints. Patient does have a recent history of admission to this facility for A. fib RVR and non- ST elevation myocardial infarction he did have a cardiac catheterization at this time which showed no significant. Please see the complete report. Patient will be admitted for reevaluation. She did have an apparent anginal equivalent with elevated troponin. Also A. fib RVR. Case is discussed with Dr. Armijo. Complaint: chest pain, other - Related Data Home Medications Medication Instructions Recorded Confirmed Fluticasone/Salmeterol [Advair 1 puff INHALATION RT-DAILY@0700 06/08/17 12/20/20 500-50 Diskus] predniSONE 10 mg PO DAILY 06/08/17 12/20/20 Ipratropium-Albuterol Nebulize 3 ml INHALATION RT-BID@1130,1800 06/20/20 12/20/20 [Duoneb 0.5 mg-3 mg/3 ml Soln] Lovastatin [Mevacor] 10 mg PO DAILY 06/20/20 12/20/20 Multivitamins, Thera [Multivitamin 1 tab PO DAILY 06/20/20 12/20/20 (formulary)] Bimatoprost [[place] .01% Ophth 1 drop BOTH EYES HS 12/20/20 12/20/20 Soln] Cholecalciferol [Vitamin D3 (25 25 mcg PO DAILY 12/20/20 12/20/20 Mcg = 1000 Iu)] Previous Rx's Medication Instructions Recorded Apixaban [Eliquis] 5 mg PO BID 30 Days #60 tab 12/20/20 Aspirin 81 mg PO DAILY #30 tab 12/24/20 Famotidine [Pepcid] 20 mg PO BID #1 tablet 12/24/20 Metoprolol Succinate (ER) [Toprol 25 mg PO DAILY tablet 12/24/20 XL] Nitroglycerin Sl Tabs [Nitrostat] 0.4 mg SUBLINGUAL Q5M PRN tab 12/24/20 lisinopriL [Zestril] 10 mg PO DAILY tab 12/24/20 Allergies Allergy/AdvReac Type Severity Reaction Status Date / Time Penicillins Allergy Severe Rash/Hives Verified 12/31/20 09:07 Review of Systems ROS Statement: Those systems with pertinent positive or pertinent negative responses have been documented in the HPI. ROS Other: All systems not noted in ROS Statement are negative. EKG Findings - EKG Results: EKG: interpreted by RONNY (Atrial fibrillation rate of 90 QRS 80 QT/QTC 338/413) 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, spinal stenosis, hiatal hernia, bruises easily, melanoma, macular degeneration, History of Any Multi-Drug Resistant Organisms: None Reported Past Surgical History: Appendectomy, Back Surgery, Breast Surgery, Cholecystectomy, Hysterectomy Additional Past Surgical History / Comment(s): dick cataracts, dick eye lid lift, 4" cut left breast-pt not sure what was done, Past Anesthesia/Blood Transfusion Reactions: No Reported Reaction Smoking Status: Former smoker - Past Family History Sister(s) Family Medical History: Cancer General Exam - General Exam Comments Initial Comments: Well-developed well-nourished awake alert oriented 3 female she does de monstrate difficulty with hearing General appearance: alert, in no apparent distress Head exam: Present: atraumatic, normocephalic, normal inspection Eye exam: Present: normal appearance, PERRL, EOMI. Absent: scleral icterus, conjunctival injection, periorbital swelling ENT exam: Present: normal exam, mucous membranes moist Neck exam: Present: normal inspection. Absent: tenderness, meningismus, lymphadenopathy Respiratory exam: Present: normal lung sounds bilaterally. Absent: respiratory distress, wheezes, rales, rhonchi, stridor Cardiovascular Exam: Present: tachycardia, irregular rhythm. Absent: systolic murmur, diastolic murmur, rubs, gallop, clicks GI/Abdominal exam: Present: soft, normal bowel sounds. Absent: distended, tenderness, guarding, rebound, rigid Extremities exam: Present: normal inspection, full ROM, normal capillary refill. Absent: tenderness, pedal edema, joint swelling, calf tenderness Back exam: Present: normal inspection Neurological exam: Present: alert, oriented X3, CN II-XII intact Psychiatric exam: Present: normal affect, normal mood Skin exam: Present: warm, dry, intact, normal color. Absent: rash Course Vital Signs 12/31/20 09:04 Temperature 97.7 F Pulse Rate 92 Respiratory 18 Rate Blood Pressure 106/84 O2 Sat by Pulse 98 Oximetry Chest Pain MDM - MDM I did review the materials from [facility] and did reveal that the patient. Patient will be admitted I did discuss the case with Dr. Armijo. Disposition Clinical Impression: Rapid atrial fibrillation, Anginal equivalent, Hypotensive episode, Elevated troponin Disposition: ADMITTED IP TO THIS HOSP Condition: Fair Referrals: Stanley Claudio MD [Primary Care Provider] - 1-2 days
[2020-12-31] MEDS: DILTIAZEM 125 MG in SODIUM CHLORIDE 0.9% 100 ML IV SCH (09:21)
[2020-12-31] MEDS ORDERED: NITROGLYCERIN SL TABS 0.4 MG TAB SUBLINGUAL PRN (09:40)
[2020-12-31] MEDS ORDERED: SODIUM CHLORIDE 0.9% 1,000 ML IV SCH (09:45)
[2020-12-31] MEDS: IPRATROPIUM-ALBUTEROL 3 ML NEB INHALATION SCH ×2 (11:42→20:57)
--- NOTE | 2020-12-31 12:57 | P.CRDCN ---
History of Present Illness History of present illness: HISTORY OF PRESENTING ILLNESS This is a pleasant 85-year-old female past medical history significant for paroxysmal atrial fibrillation, dyslipidemia, asthma, nonobstructive coronary artery disease and recent NSTEMI complicated by radial artery pseudoaneurysm. She follows in the office with Dr. Anderson. We have been asked to see in consultation for atrial fibrillation and chest pain with elevated troponins. She was discharged on 12/24 to [facility]. On that admission she was diagn osed with NSTEMI, afib and underwent catheterization revealing nonobstructive coronary artery disease with a lesion in the LAD 30-40%, circumflex 30-40% and proximal RCA 40%. Ejection fraction at that time was 55%. She was discharged to [facility] and apparently this morning was complaining of jaw discomfort which prompted her to be transferred to an outside emergency center. She was transferred here for further cardiac evaluation secondary to elevated troponins. Troponins at the outside facility were 0.04 and 0.196. On arrival here the third troponin was obtained and was 0.165. EKG on arrival here reveals atrial fibrillation with heart rate of 90 with no evidence of ischemic changes. Her jaw pain has resolved. She denies chest pain or shortness of breath or palpitations. REVIEW OF SYSTEMS At the time of my exam: CONSTITUTIONAL: Denies fever or chills. CARDIOVASCULAR: Denies chest pain, shortness of breath, orthopnea, PND or palpitations. RESPIRATORY: Denies cough. GASTROINTESTINAL: Denies abdominal pain, diarrhea, constipation, nausea or vomiting. MUSCULOSKELETAL: Denies myalgias. NEUROLOGIC: Denies numbness, tingling, headache or weakness. ENDOCRINE: Denies fatigue, weight change, polydipsia or polyurina. GENITOURINARY: Denies burning, hematuria or urgency with micturation. HEMATOLOGIC: Denies history of anemia or bleeding. PHYSICAL EXAMINATION Blood pressure 122/68 heart rate 55 afebrile and maintaining oxygen saturation on nasal cannula. CONSTITUTIONAL: No apparent distress. HEENT: Head is normocephalic. Pupils are equal, round. Sclerae anicteric. Mucous membranes of the mouth are moist. No JVD. No carotid bruit. CHEST EXAMINATION: Lungs are clear to auscultation. No chest wall tenderness is noted on palpation or with deep breathing. HEART EXAMINATION: Regular rate and rhythm. S1, S2 heard. Systolic ejection murmur at the apex, no gallops or rub. ABDOMEN: Soft, nontender. EXTREMITIES: 2+ peripheral pulses, no lower extremity edema and no calf tenderness. NEUROLOGIC EXAMINATION: Patient is awake, alert and oriented x3. ASSESSMENT Chest pain, atypical likely due to afib with RVR Paroxysmal atrial fibrillation with rapid ventricular rate, currently back in SR. Non-obstructive CAD Hypertension Dyslipidemia PLAN She has converted back to SR. Symptoms and troponin leak likely related to afib with RVR. Add small dose of daily amiodarone. She is stable for discharge back to [facility]. Follow up with Dr. Anderson as previously scheduled. Thank you kindly for this consultation. Nurse Practitioner note has been reviewed, I agree with a documented findings and plan of care. Patient was seen and examined. 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, spinal stenosis, hiatal hernia, bruises easily, melanoma, macular degeneration, History of Any Multi-Drug Resistant Organisms: None Reported Past Surgical History: Appendectomy, Back Surgery, Breast Surgery, Cholecystectomy, Hysterectomy Additional Past Surgical History / Comment(s): dick cataracts, dick eye lid lift, 4" cut left breast-pt not sure what was done, Past Anesthesia/Blood Transfusion Reactions: No Reported Reaction Smoking Status: Former smoker - Past Family History Sister(s) Family Medical History: Cancer Medications and Allergies Home Medications Medication Instructions Recorded Confirmed Type Fluticasone/Salmeterol [Advair 1 puff INHALATION RT-DAILY@0700 06/08/17 12/31/20 History 500-50 Diskus] predniSONE 10 mg PO DAILY@0700 06/08/17 12/31/20 History Ipratropium-Albuterol Nebulize 3 ml INHALATION RT-BID@1130,1800 06/20/20 12/31/20 History [Duoneb 0.5 mg-3 mg/3 ml Soln] Lovastatin [Mevacor] 10 mg PO HS 06/20/20 12/31/20 History Multivitamins, Thera [Multivitamin 1 tab PO DAILY@0700 06/20/20 12/31/20 History (formulary)] Cholecalciferol [Vitamin D3 (25 25 mcg PO DAILY@0700 12/20/20 12/31/20 History Mcg = 1000 Iu)] Acetaminophen Tab [Tylenol] 650 mg PO Q4H PRN 12/31/20 12/31/20 History Apixaban [Eliquis] 5 mg PO BID@0800,1700 12/31/20 12/31/20 History Aspirin EC [Ecotrin Low Dose] 81 mg PO DAILY@0712/31/20 12/31/20 History Calcium Carbonate 500 mg PO DAILY@0800 12/31/20 12/31/20 History Famotidine 20 mg PO BID@0700,2100 12/31/20 12/31/20 History HYDROcodone/APAP 7.5-325MG [[place] 1 tab PO Q6H PRN 12/31/20 12/31/20 History 7.5-325] Latanoprost/Pf [Latanoprost 0.005% 1 drop BOTH EYES HS 12/31/20 12/31/20 History Eye Drop] Lisinopril [Prinivil] 10 mg PO DAILY@0712/31/20 12/31/20 History Metoprolol Succinate [Toprol XL] 25 mg PO DAILY@69912/31/20 12/31/20 History Nitroglycerin Sl Tabs [Nitrostat] 0.4 mg SL Q5M PRN 12/31/20 12/31/20 History Allergies Allergy/AdvReac Type Severity Reaction Status Date / Time Penicillins Allergy Severe Rash/Hives Verified 12/31/20 10:52 Physical Exam Vitals: Vital Signs Temp Pulse Resp BP Pulse Ox 12/31/20 10:30 88 18 122/68 98 12/31/20 10:00 93 18 106/46 98 12/31/20 09:04 97.7 F 92 18 106/84 98 12/31/20 09:03 17 106/84 99 Intake and Output 12/30/20 12/31/20 12/31/20 22:59 06:59 14:59 Other: Weight 72.575 kg Results Cardiac Enzymes 12/31/20 Range/Units 10:05 Troponin I 0.165 H* (0.000-0.034) ng/mL Current Medications Generic Name Dose Route Start Last Admin Trade Name Freq PRN Reason Stop Dose Admin Albuterol/Ipratropium 3 ml 12/31/20 11:30 Ipratropium-Albuterol 3 Ml Neb INHALATION RT-BID@1130,1800 [facility] Apixaban 5 mg 12/31/20 21:00 Apixaban 5 Mg Tab PO BID [facility] Protocol Aspirin 81 mg 01/01/21 09:00 Aspirin 81 Mg PO DAILY [facility] Atorvastatin Calcium 40 mg 01/01/21 09:00 Atorvastatin 40 Mg Tab PO DAILY [facility] Budesonide/Formoterol Fumarate 2 puff 01/01/21 08:00 Symbicort 160-4.5 Mcg Inhaler INHALATION RT-BID [facility] Famotidine 20 mg 12/31/20 21:00 Famotidine 20 Mg Tab PO BID [facility] Diltiazem HCl 125 mg/ Sodium 125 mls @ 2.5 mls/hr 12/31/20 09:00 12/31/20 09:21 Chloride IV 2.5 mg/hr .Q24H SOPHY 2.5 mls/hr Administration 2.5 MG/HR Sodium Chloride 1,000 mls @ 100 mls/hr 12/31/20 09:45 Saline 0.9% IV .Q10H [facility] Latanoprost 1 drops 12/31/20 21:00 Latanoprost 0.005% Ophth Drops 2.5 Ml Btl BOTH EYES HS [facility] Lisinopril 10 mg 01/01/21 09:00 Lisinopril 10 Mg Tab PO DAILY [facility] Metoprolol Succinate 25 mg 01/01/21 09:00 Metoprolol Succinate (Er) 25 Mg Tab.Er.24h PO DAILY [facility] Nitroglycerin 0.4 mg 12/31/20 09:40 Nitroglycerin Sl Tabs 0.4 Mg Tab SUBLINGUAL Q5M PRN Chest Pain Intake and Output 12/30/20 12/31/20 12/31/20 22:59 06:59 14:59 Other: Weight 72.575 kg Patient Weight 01/01/21 06:59 Weight 72.575 kg
[2020-12-31] MEDS ORDERED: ACETAMINOPHEN TAB 325 MG TAB PO PRN (14:15)
[2020-12-31] MEDS: AMIODARONE 100 MG TAB PO SCH (15:51)
[2020-12-31] MEDS: HYDROcodone/APAP 7.5-325MG 1 EACH TAB PO PRN (15:53)
--- NOTE | 2020-12-31 17:47 | P.HPIM ---
History of Present Illness H&P Date: 12/31/20 Chief Complaint: Heart racing History of presenting complaint: This is a pleasant [address] Claudio. Chronic stable medical conditions include, hard of hearing, mild cognitive impairment, osteoarthritis, rheumatoid arthritis, chronic severe persistent bronchial asthma, chronic insomnia, cerebral AV malformation with prior history of bleed 4-5 years ago, spinal stenosis, hiatal hernia macular degeneration. Earlier in the month was discharged from [facility] ; was there for 8 days. What she describes is that a computed tomography scan of the chest to [facility] had shown some abnormalities and esophagitis. Hence was transferred down there. She had endoscopy. And she was told she has aging of the esophagus and she is recommended to eat small bites. Patient normally uses a walker to get about. Lives with her son. Patient also was found to be in atrial fibrillation. Was in the hospital from December 20 through December 24: Presented with shortness of breath and chest pain. acute non-Q-wave [place]. Uncontrolled atrial fibrillation. Cardiac catheterization showed nonobstructive disease. Being managed medically. Also developed right forearm pseudoaneurysm that was managed conservatively. She was discharged to [facility]. Patient now presents with chest pain and palpitation shortly bit tired. Jaw pain. Tired rundown. Found to be in atrial fibrillation with rapid ventricular rate. Started on a Cardizem drip in the ER. Feeling a bit tired. Review of systems: GEN.: Tired EYES: None HEENT: Decreased hearing NECK: None RESPIRATORY: As above CARDIOVASCULAR: As above GASTROINTESTINAL: Some trouble swallowing GENITOURINARY: None MUSCULOSKELETAL: Arthritic pain in the joints LYMPHATICS: None HEMATOLOGICAL: Right forearm pseudoaneurysm with some bruising PSYCHIATRY: Mild forgetfulness NEUROLOGICAL: Does use a wheelchair Past medical history to include: Chronic severe persistent bronchial asthma, chronic insomnia, cerebral AV malformation with prior history of lead 4-5 years ago, spinal stenosis, mitral hernia, melanoma, macular degeneration, osteoarthritis, rheumatoid arthritis, mild cognitive impairment, esophageal dysmotility causing trouble with swallowing. Acute [place] on December 20 with cardiac catching nonobstructive disease, atrial fibrillation Social history: Social smoking 33 years ago. Does use a wheelchair to get about. Normally Son lives with her. Currently at [facility] for rehab. Alcohol rarely. Family history: Noncontributory, reviewed Physical examination: VITAL SIGNS: 97.7, 92, 18, 106/84, 98% on 2 L GENERAL: BMI 30.2, laying in bed, tired, awake EYES: Pupils equal. Conjunctiva normal. HEENT: External appearance of nose and ears normal, oral cavity grossly normal. NECK: JVD not raised; masses not palpable. HEART: Irregular heart sounds; no edema. LUNGS: Respiratory rate normal; decreased breath sounds. ABDOMEN: Soft, nontender, liver spleen not palpable, no masses palpable. PSYCH: Alert and oriented x3; mood and affect slightly anxious MUSCULAR skeletal: Evidence of OA in multiple joints NEUROLOGICAL: Cranial nerves grossly intact; no facial asymmetry, power and sensation grossly intact. LYMPHATICS: No lymph nodes palpable in the axilla and neck INVESTIGATIONS, reviewed in the clinical context: White count 12 hemoglobin 13.2 platelets 268 potassium 4.2 crit and 0.75 Troponin I 0.165, 0.147 Coronavirus [PCL]: Not detected EKG tracing personally reviewed by me-atrial fibrillation From last admission Cardiac catheterization: Mild CAD including mid LAD 30-40% stenosis, circumflex 30-40% stenosis, proximal RCA 40% stenosis. EF 55% 2-D echocardiogram: EF 50-55% Assessment and plan: -Paroxysmal atrial fibrillation , currently atrial fibrillation with rapid ventricular rate IV Cardizem drip . eliquis 5 mg twice a day -Acute non-Q wave myocardial infarction on 12/20/2020 cardiac catheterization. -Nonobstructive CAD per cardiac catheterization recently Aspirin, Toprol-XL 25 mg daily -Acute pseudoaneurysm at the right wrist cardiac cath site, with intraluminal thrombus: Improving -Chronic gait dysfunction, uses a wheelchair at home -Chronic esophageal dysmotility, causing some dysphagia Patient advised to take small meals and to her food. Recent workup at [facility] -COPD in a previous smoker DuoNeb twice a day -Primary osteoarthritis multiple joints bilaterally Use pain medication as needed -Chronic insomnia from medical problems Melatonin as needed -Hiatal hernia with GERD PPI -History of cerebral AV malformation with a prior history of cerebral bleed 4-5 years ago. Follow clinically Home medications resumed. IV Cardizem drip. Eliquis resume. Cardiology consulted. Care was discussed with the patient. 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, spinal stenosis, hiatal hernia, bruises easily, melanoma, macular degeneration, History of Any Multi-Drug Resistant Organisms: None Reported Past Surgical History: Appendectomy, Back Surgery, Breast Surgery, Cholecystectomy, Hysterectomy Additional Past Surgical History / Comment(s): dick cataracts, dick eye lid lift, 4" cut left breast-pt not sure what was done, Past Anesthesia/Blood Transfusion Reactions: No Reported Reaction Smoking Status: Former smoker - Past Family History Sister(s) Family Medical History: Cancer Medications and Allergies Home Medications Medication Instructions Recorded Confirmed Type Fluticasone/Salmeterol [Advair 1 puff INHALATION RT-DAILY@0700 06/08/17 12/31/20 History 500-50 Diskus] predniSONE 10 mg PO DAILY@0700 06/08/17 12/31/20 History Ipratropium-Albuterol Nebulize 3 ml INHALATION RT-BID@1130,1800 06/20/20 12/31/20 History [Duoneb 0.5 mg-3 mg/3 ml Soln] Lovastatin [Mevacor] 10 mg PO HS 06/20/20 12/31/20 History Multivitamins, Thera [Multivitamin 1 tab PO DAILY@0700 06/20/20 12/31/20 History (formulary)] Cholecalciferol [Vitamin D3 (25 25 mcg PO DAILY@0700 12/20/20 12/31/20 History Mcg = 1000 Iu)] Acetaminophen Tab [Tylenol] 650 mg PO Q4H PRN 12/31/20 12/31/20 History Apixaban [Eliquis] 5 mg PO BID@0800,1700 12/31/20 12/31/20 History Aspirin EC [Ecotrin Low Dose] 81 mg PO DAILY@0700 12/31/20 12/31/20 History Calcium Carbonate 500 mg PO DAILY@0800 12/31/20 12/31/20 History Famotidine 20 mg PO BID@0700,2100 12/31/20 12/31/20 History HYDROcodone/APAP 7.5-325MG [[place] 1 tab PO Q6H PRN 12/31/20 12/31/20 History 7.5-325] Latanoprost/Pf [Latanoprost 0.005% 1 drop BOTH EYES HS 12/31/20 12/31/20 History Eye Drop] Lisinopril [Prinivil] 10 mg PO DAILY@0700 12/31/20 12/31/20 History Metoprolol Succinate [Toprol XL] 25 mg PO DAILY@0712/31/20 12/31/20 History Nitroglycerin Sl Tabs [Nitrostat] 0.4 mg SL Q5M PRN 12/31/20 12/31/20 History Allergies Allergy/AdvReac Type Severity Reaction Status Date / Time Penicillins Allergy Severe Rash/Hives Verified 12/31/20 10:52 Physical Exam Vitals: Vital Signs Temp Pulse Resp BP Pulse Ox 12/31/20 16:47 97.9 F 57 L 17 98 12/31/20 13:43 59 L 18 131/104 98 12/31/20 11:54 55 L 12/31/20 11:43 56 L 12/31/20 10:30 88 18 122/68 98 12/31/20 10:00 93 18 106/46 98 12/31/20 09:04 97.7 F 92 18 106/84 98 12/31/20 09:03 17 106/84 99 Intake and Output 12/31/20 12/31/20 12/31/20 06:59 14:59 22:59 Other: Weight 72.575 kg Results Labs: Abnormal Lab Results - Last 24 Hours (Table) 12/31/20 12/31/20 Range/Units 10:05 11:58 Troponin I 0.165 H* 0.147 H* (0.000-0.034) ng/mL
--- NOTE | 2020-12-31 18:09 | XR ---
EXAMINATION TYPE: XR chest 2V DATE OF EXAM: 12/31/2020 COMPARISON: 12/20/2020 HISTORY: Short of breath TECHNIQUE: 2 views FINDINGS: Heart is normal. Lungs are clear of consolidation. There are no hilar masses. Thoracic aort a is atheromatous. There are chest leads. There is some osteopenia. There is slight anterior wedging of mid thoracic vertebra. IMPRESSION: No active cardiopulmonary disease. No change.
[2020-12-31] MEDS ORDERED: LATANOPROST 0.005% OPHTH DROPS 2.5 ML BTL BOTH EYES SCH ×2 (21:00)
[2020-12-31] MEDS: FAMOTIDINE 20 MG TAB PO SCH (21:52)
[2020-12-31] MEDS: APIXABAN 5 MG TAB PO SCH (21:52)
[2021-01-01] MEDS: HYDROcodone/APAP 7.5-325MG 1 EACH TAB PO PRN (06:16)
[2021-01-01] MEDS ORDERED: CHOLECALCIFEROL 25 MCG (1000 IU) TABLET PO SCH (07:00)
[2021-01-01] MEDS ORDERED: ASPIRIN 81 MG PO SCH ×2 (07:00→09:00)
[2021-01-01] MEDS ORDERED: MULTIVITAMINS, THERA 1 EACH TAB PO SCH (07:00)
[2021-01-01 08:00] VITALS: RESP 20
[2021-01-01] MEDS ORDERED: CALCIUM CARBONATE 500 MG CHEWABLE PO SCH (08:00)
[2021-01-01] MEDS ORDERED: SYMBICORT 160-4.5 MCG INHALER INHALATION SCH (08:00)
[2021-01-01] MEDS: AMIODARONE 100 MG TAB PO SCH (08:16)
[2021-01-01] MEDS: FAMOTIDINE 20 MG TAB PO SCH (08:17)
[2021-01-01] MEDS: APIXABAN 5 MG TAB PO SCH (08:17)
[2021-01-01] MEDS: DILTIAZEM 125 MG in SODIUM CHLORIDE 0.9% 100 ML IV SCH (08:18)
[2021-01-01] MEDS ORDERED: METOPROLOL SUCCINATE (ER) 25 MG TAB.ER.24H PO SCH (09:00)
[2021-01-01] MEDS ORDERED: ASPIRIN 325 MG TAB PO SCH (09:00)
[2021-01-01] MEDS ORDERED: ATORVASTATIN 10 MG TAB PO SCH (09:00)
[2021-01-01] MEDS ORDERED: lisinopriL 10 MG TAB PO SCH (09:00)
[2021-01-01] MEDS ORDERED: ATORVASTATIN 40 MG TAB PO SCH (09:00)
--- NOTE | 2021-01-01 09:43 | P.PN ---
Subjective HISTORY OF PRESENTING ILLNESS This is a pleasant 85-year-old female past medical history significant for paroxysmal atrial fibrillation, dyslipidemia, asthma, nonobstructive coronary artery disease and recent NSTEMI complicated by radial artery pseudoaneurysm. She follows in the office with Dr. Anderson. We have been asked to see in consultation for atrial fibrillation and chest pain with elevated troponins. She was discharged on 12/24 to [facility]. On that admission she was diagnosed with NSTEMI, afib and underwent catheterization revealing nonobstructive coronary artery disease with a lesion in the LAD 30-40%, circumflex 30-40% and proximal RCA 40%. Ejection fraction at that time was 55%. She was discharged to [facility] and apparently this morning was complaining of jaw discomfort which prompted her to be transferred to an outside emergency center. She was transferred here for further cardiac evaluation secondary to elevated troponins. Troponins at the outside facility were 0.04 and 0.196. On arrival here the third troponin was obtained and was 0.165. EKG on arrival here reveals atrial fibrillation with heart rate of 90 with no evidence of ischemic changes. Her jaw pain has resolved. She denies chest pain or shortness of breath or palpitations. 01/01/2021 Patient seen and examined resting comfortably laying flat in no acute distress. She has no further symptoms of chest or jaw discomfort. She is converted to sinus mechanism and is maintaining at this time. Blood pressure 121/58 heart rate 73 afebrile maintaining oxygen saturation on room air. PHYSICAL EXAMINATION CONSTITUTIONAL: No apparent distress. HEENT: Head is normocephalic. Pupils are equal, round. Sclerae anicteric. Mucous membranes of the mouth are moist. No JVD. No carotid bruit. CHEST EXAMINATION: Lungs are clear to auscultation. No chest wall tenderness is noted on palpation or with deep breathing. HEART EXAMINATION: Regular rate and rhythm. S1, S2 heard. Systolic ejection murmur at the apex, no gallops or rub. EXTREMITIES: 2+ peripheral pulses, no lower extremity edema and no calf tenderness. ASSESSMENT Chest pain, atypical likely due to afib with RVR Paroxysmal atrial fibrillation with rapid ventricular rate, currently back in SR. Non-obstructive CAD Hypertension Dyslipidemia PLAN She is stable for discharge back to [facility]. Follow-up with Dr. Anderson as previously established. Nurse Practitioner note has been reviewed, I agree with a documented findings and plan of care. Patient was seen and examined. Objective - Vital Signs Vital signs: Vital Signs Temp 98.3 F 01/01/21 07:59 Pulse 73 01/01/21 07:59 Resp 20 01/01/21 07:59 BP 121/58 01/01/21 07:59 Pulse Ox 95 01/01/21 07:59 Intake & Output 12/31/20 01/01/21 01/01/21 18:59 06:59 18:59 Intake Total 6.625 0 Output Total 200 Balance 6.625 -200 0 Weight 72.575 kg 72 kg Intake: Intake, IV Titration 6.625 Amount Diltiazem 125 mg In 6.625 Sodium Chloride 0.9% 100 ml @ 2.5 MG/HR 2.5 mls/hr IV .Q24H SOPHY Rx#: [id number] Oral 0 Output: Urine 200 Other: Voiding Method Bedside Commode # Voids 1 - Labs Labs: Abnormal Lab Results - Last 24 Hours (Table) 12/31/20 12/31/20 Range/Units 10:05 11:58 Troponin I 0.165 H* 0.147 H* (0.000-0.034) ng/mL
[2021-01-01] MEDS: IPRATROPIUM-ALBUTEROL 3 ML NEB INHALATION SCH (11:24)
[2021-01-01 11:46] VITALS: BP 103/64; PULSE 64; TEMP 98
--- NOTE | 2021-01-01 12:59 | P.DS ---
Providers Date of admission: 12/31/20 09:40 Expected date of discharge: 01/01/21 Attending physician: Esdras Armijo Consults: 12/31/20 09:40 Consult Physician Urgent Consulting Provider: Abdoulaye Anderson Consult Reason/Comments: Rapid A. fib, chest pain, elevated troponin Do you want consulting provider notified?: Yes Primary care physician: [facility] Course: H&P Date: 12/31/20 Chief Complaint: Heart racing History of presenting complaint: This is a pleasant [address] Claudio. Chronic stable medical conditions include, hard of hearing, mild cognitive impairment, osteoarthritis, rheumatoid arthritis, chronic severe persistent bronchial asthma, chronic insomnia, cerebral AV malformation with prior history of bleed 4-5 years ago, spinal stenosis, hiatal hernia macular degeneration. Earlier in the month was discharged from [facility] ; was there for 8 days. What she describes is that a computed tomography scan of the chest to [facility] had shown some abnormalities and esophagitis. Hence was transferred down there. She had endoscopy. And she was told she has aging of the esophagus and she is recommended to eat small bites. Patient normally uses a walker to get about. Lives with her son. Patient also was found to be in atrial fibrillation. Was in the hospital from December 20 through December 24: Presented with shortness of breath and chest pain. acute non-Q-wave [place]. Uncontrolled atrial fibrillation. Cardiac catheterization showed nonobstructive disease. Being managed medically. Also developed right forearm pseudoaneurysm that was managed conservatively. She was discharged to [facility]. Patient now presents with chest pain and palpitation shortly bit tired. Jaw pain. Tired rundown. Found to be in atrial fibrillation with rapid ventricular rate. Started on a Cardizem drip in the ER. Feeling a bit tired. January 01: Patient is going back into sinus rhythm. No chest pain no shortness of breath. No jaw pain. Put on oral amiodarone by cardiology. Cleared to go back to F. Discussed with the patient. Patient's right wrist pseudoaneurysm has healed well . Consultation: Dr. CARROLL Carbone from cardiology Past medical history to include: Chronic severe persistent bronchial asthma, chronic insomnia, cerebral AV malformation with prior history of lead 4-5 years ago, spinal stenosis, mitral hernia, melanoma, macular degeneration, osteoarthritis, rheumatoid arthritis, mild cognitive impairment, esophageal dysmotility causing trouble with swallowing. Acute [place] on December 20 with cardiac catching nonobstructive disease, atrial fibrillation Social history: Social smoking 33 years ago. Does use a wheelchair to get about. Normally Son lives with her. Currently at [facility] for rehab. Alcohol rarely. Family history: Noncontributory, reviewed Physical examination: VITAL SIGNS: 98, 64, 20, 10 3 x 64, 98% room air GENERAL: BMI 30.2, laying in bed, comfortable, awake EYES: Pupils equal. Conjunctiva normal. HEENT: External appearance of nose and ears normal, oral cavity grossly normal. NECK: JVD not raised; masses not palpable. HEART: First seconds are normal; no edema. LUNGS: Respiratory rate normal; decreased breath sounds. ABDOMEN: Soft, nontender, liver spleen not palpable, no masses palpable. PSYCH: Alert and oriented x3; mood and affect slightly anxious MUSCULAR skeletal: Evidence of OA in multiple joints INVESTIGATIONS, reviewed in the clinical context: White count 12 hemoglobin 13.2 platelets 268 potassium 4.2 crit and 0.75 Troponin I 0.165, 0.147 Coronavirus [PCL]: Not detected EKG tracing personally reviewed by me-atrial fibrillation From last admission Cardiac catheterization: Mild CAD including mid LAD 30-40% stenosis, circumflex 30-40% stenosis, proximal RCA 40% stenosis. EF 55% 2-D echocardiogram: EF 50-55% Chest x-ray film personally reviewed by me-some elevation of the right diaphragm. Possible venous prominence. Assessment and plan: -Paroxysmal atrial fibrillation , with rapid ventricular rate on presentation, now back on sinus rhythm. IV Cardizem drip-discontinued. Started on oral amiodarone. . eliquis 5 mg twice a day -Acute non-Q wave myocardial infarction on 12/20/2020 cardiac catheterization. -Nonobstructive CAD per cardiac catheterization recently Aspirin, Toprol-XL 25 mg daily -Acute pseudoaneurysm at the right wrist cardiac cath site, with intraluminal thrombus: Improved -Chronic gait dysfunction, uses a wheelchair at home -Chronic esophageal dysmotility, causing some dysphagia Patient advised to take small meals and to her food. Recent workup at [facility] -COPD in a previous smoker DuoNeb twice a day -Primary osteoarthritis multiple joints bilaterally Use pain medication as needed -Chronic insomnia from medical problems Melatonin as needed -Hiatal hernia with GERD PPI -History of cerebral AV malformation with a prior history of cerebral bleed 4-5 years ago. Follow clinically Disposition: [facility] medical care facility. Patient Condition at Discharge: Fair Plan - Discharge Summary Discharge Rx Participant: No New Discharge Prescriptions: New Amiodarone [Cordarone] 100 mg PO DAILY tab Continue predniSONE 10 mg PO DAILY@0700 Fluticasone/Salmeterol [Advair 500-50 Diskus] 1 puff INHALATION RT-DAILY@0700 Multivitamins, Thera [Multivitamin (formulary)] 1 tab PO DAILY@0700 Lovastatin [Mevacor] 10 mg PO HS Ipratropium-Albuterol Nebulize [Duoneb 0.5 mg-3 mg/3 ml Soln] 3 ml INHALATION RT-BID@1130,1800 Metoprolol Succinate [Toprol XL] 25 mg PO DAILY@0700 Nitroglycerin Sl Tabs [Nitrostat] 0.4 mg SL Q5M PRN PRN Reason: Chest Pain Cholecalciferol [Vitamin D3 (25 Mcg = 1000 Iu)] 25 mcg PO DAILY@0700 Acetaminophen Tab [Tylenol] 650 mg PO Q4H PRN PRN Reason: Pain Famotidine 20 mg PO BID@0700,2100 Apixaban [Eliquis] 5 mg PO BID@0800,1700 Lisinopril [Prinivil] 10 mg PO DAILY@0700 Latanoprost/Pf [Latanoprost 0.005% Eye Drop] 1 drop BOTH EYES HS Calcium Carbonate 500 mg PO DAILY@0800 Aspirin EC [Ecotrin Low Dose] 81 mg PO DAILY@0700 HYDROcodone/APAP 7.5-325MG [[place] 7.5-325] 1 tab PO Q6H PRN #12 tab PRN Reason: Pain Discharge Medication List Fluticasone/Salmeterol [Advair 500-50 Diskus] 1 puff INHALATION RT-DAILY@0700 06/08/17 [History] predniSONE 10 mg PO DAILY@0700 06/08/17 [History] Ipratropium-Albuterol Nebulize [Duoneb 0.5 mg-3 mg/3 ml Soln] 3 ml INHALATION RT-BID@1130,1800 06/20/20 [History] Lovastatin [Mevacor] 10 mg PO HS 06/20/20 [History] Multivitamins, Thera [Multivitamin (formulary)] 1 tab PO DAILY@0700 06/20/20 [History] Cholecalciferol [Vitamin D3 (25 Mcg = 1000 Iu)] 25 mcg PO DAILY@0700 12/20/20 [History] Acetaminophen Tab [Tylenol] 650 mg PO Q4H PRN 12/31/20 [History] Apixaban [Eliquis] 5 mg PO BID@0800,1700 12/31/20 [History] Aspirin EC [Ecotrin Low Dose] 81 mg PO DAILY@0712/31/20 [History] Calcium Carbonate 500 mg PO DAILY@0812/31/20 [History] Famotidine 20 mg PO BID@0700,2100 12/31/20 [History] Latanoprost/Pf [Latanoprost 0.005% Eye Drop] 1 drop BOTH EYES HS 12/31/20 [History] Lisinopril [Prinivil] 10 mg PO DAILY@0712/31/20 [History] Metoprolol Succinate [Toprol XL] 25 mg PO DAILY@0712/31/20 [History] Nitroglycerin Sl Tabs [Nitrostat] 0.4 mg SL Q5M PRN 12/31/20 [History] Amiodarone [Cordarone] 100 mg PO DAILY tab 01/01/21 [Rx] HYDROcodone/APAP 7.5-325MG [[place] 7.5-325] 1 tab PO Q6H PRN #12 tab 01/01/21 [Rx] Follow up Appointment(s)/Referral(s): cardiology,dr [Other] - 1 Week Stanley Claudio MD [Primary Care Provider] - 1-2 days
[2021-01-01] MEDS ORDERED: predniSONE 10 MG TAB PO SCH (14:13)
[2021-01-01 20:28] LABS: Chol/HDL Ratio 3.23 Ratio; HDL Cholesterol 50.2 mg/dL (40.00-60.00); LDL Cholesterol,Calculated 81.2 mg/dL (0.0-131.0); VLDL Calculation 30.6 mg/dL (5.00-40.00)
== END 2021-01-01 14:15 | DRG 282 ==
LOC: SUPCPDRO 08:48 → EC 08:48 → 3SCARD 09:40
PROVIDERS: ADMIT Hospitalist; ATTEND Hospitalist
DX: I48.0 Paroxysmal atrial fibrillation (principal); I21.4 Non-ST elevation (NSTEMI) myocardial infarction; R07.89 Other chest pain; E78.5 Hyperlipidemia, unspecified; I25.10 Atherosclerotic heart disease of native coronary artery without angina pectoris; F51.04 Psychophysiologic insomnia; I95.9 Hypotension, unspecified; J44.9 Chronic obstructive pulmonary disease, unspecified; K44.9 Diaphragmatic hernia without obstruction or gangrene; Z20.822 Contact with and (suspected) exposure to COVID-19; K21.00 Gastro-esophageal reflux disease with esophagitis, without bleeding; H91.90 Unspecified hearing loss, unspecified ear; I10 Essential (primary) hypertension; M06.9 Rheumatoid arthritis, unspecified; K22.4 Dyskinesia of esophagus; I25.2 Old myocardial infarction; M15.9 Polyosteoarthritis, unspecified; Z79.01 Long term (current) use of anticoagulants; Z79.82 Long term (current) use of aspirin; Z79.899 Other long term (current) drug therapy; Z85.820 Personal history of malignant melanoma of skin; Z87.891 Personal history of nicotine dependence; Z90.710 Acquired absence of both cervix and uterus; Z88.0 Allergy status to penicillin; Z90.49 Acquired absence of other specified parts of digestive tract; Z98.42 Cataract extraction status, left eye; Z98.41 Cataract extraction status, right eye; Z87.19 Personal history of other diseases of the digestive system
CPT/HCPCS: 71046; 80061; 84484; 87635; 93005; 94640; 94760; 99285

== ENCOUNTER 2021-08-05 12:42 | Inpatient (IN) | payer MEDICARE ==
[2021-08-05] MEDS ORDERED: SODIUM CHLORIDE 0.9% 500 ML 500 ML IV ONE (13:03)
[2021-08-05] MEDS ORDERED: DILTIAZEM DRIP BOLUS FROM BAG 1 MG SOLN IV ONE (13:03)
[2021-08-05 13:12] LABS: Basophils % (A) 0 %; Eosinophils # (A) 0.1 k/uL (0-0.7); Eosinophils % (A) 1 %; HCT 42.6 % (34.0-46.0); HGB 13.2 gm/dL (11.4-16.0); Lymphocytes # (A) 0.8 k/uL (1.0-4.8); Lymphocytes % (A) 5 %; MCV 93.6 fL (80.0-100.0); Mean Platelet Volume 8.2; Monocytes % (A) 6 %; Neutrophils # (A) 12.9 k/uL (1.3-7.7); Neutrophils % (A) 86 %; Platelet Count 306 k/uL (150-450); RBC 4.56 m/uL (3.80-5.40); RDW 13.9 % (11.5-15.5)
--- NOTE | 2021-08-05 13:18 | ED ---
General Adult HPI - General Chief complaint: Arrhythmia/Palpitations Stated complaint: AFib Time Seen by Provider: 08/05/21 12:43 Source: patient, EMS, RN notes reviewed, old records reviewed Mode of arrival: EMS Limitations: physical limitation - History of Present Illness Initial comments: 86-year-old female presents for evaluation of central fibrillation with RVR. Patient was at the surgery Center awaiting epidural injection. She was noted to have a high heart rate and found to be an atrial ablation with RVR. She does have a previous history of this. However she states that she is not taking any medication regarding atrial fibrillation. She has no chest pain. She has some vague jaw discomfort. No vomiting. No diaphoresis. - Related Data Home Medications Medication Instructions Recorded Confirmed Fluticasone/Salmeterol [Advair 1 puff INHALATION RT-BID 06/08/17 08/05/21 500-50 Diskus] predniSONE 10 mg PO DAILY@0700 06/08/17 08/05/21 Ipratropium-Albuterol Nebulize 3 ml INHALATION RT-BID@1130,1800 06/20/20 08/05/21 [Duoneb 0.5 mg-3 mg/3 ml Soln] Lovastatin [Mevacor] 10 mg PO HS 06/20/20 08/05/21 Doxepin [SINEquan] 10 mg PO HS 08/05/21 08/05/21 Ibuprofen [Motrin Ib] 200 mg PO Q8H PRN 08/05/21 08/05/21 Travoprost [Travatan Z 0.004%] 1 drop BOTH EYES HS 08/05/21 08/05/21 Allergies Allergy/AdvReac Type Severity Reaction Status Date / Time Penicillins Allergy Severe pain all Verified 08/05/21 13:47 over Review of Systems ROS Statement: Those systems with pertinent positive or pertinent negative responses have been documented in the HPI. ROS Other: All systems not noted in ROS Statement are negative. 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, spinal stenosis, hiatal hernia, bruises easily, melanoma, macular degeneration, History of Any Multi-Drug Resistant Organisms: None Reported Past Surgical History: Appendectomy, Back Surgery, Breast Surgery, Cholecystectomy, Heart Catheterization, Hysterectomy Additional Past Surgical History / Comment(s): dick cataracts, dick eye lid lift, 4" cut left breast-pt not sure what was done, Past Anesthesia/Blood Transfusion Reactions: No Reported Reaction Past Psychological History: Anxiety, Depression Smoking Status: Former smoker Past Alcohol Use History: None Reported Past Drug Use History: None Reported - Past Family History Sister(s) Family Medical History: Cancer General Exam Limitations: physical limitation General appearance: alert, in no apparent distress Head exam: Present: atraumatic, normocephalic Eye exam: Present: normal appearance, PERRL ENT exam: Present: normal exam Neck exam: Present: normal inspection. Absent: tenderness, meningismus Respiratory exam: Present: normal lung sounds bilaterally. Absent: respiratory distress Cardiovascular Exam: Present: tachycardia, irregular rhythm GI/Abdominal exam: Present: soft. Absent: distended, tenderness, guarding Extremities exam: Present: normal inspection, normal capillary refill. Absent: pedal edema Neurological exam: Present: alert, oriented X3, CN II-XII intact. Absent: motor sensory deficit Psychiatric exam: Present: normal affect, normal mood Skin exam: Present: warm, dry, intact. Absent: cyanosis, diaphoretic Course Vital Signs 08/05/21 08/05/21 08/05/21 12:53 12:56 13:45 Temperature 98.1 F Pulse Rate 220 H 88 Pulse Rate [ 220 H [place] ] Respiratory 18 18 Rate Blood Pressure 110/85 79/59 O2 Sat by Pulse 98 98 Oximetry EKG Findings - EKG Comments: EKG Findings:: EKG: Atrial fibrillation with RVR rate of [address] segment elevation. QRS duration 72 QTC 317. Repeat EKG at 1340, sinus rhythm rate of 88, QRS duration 105, QTC 367, normal AL interval. No ST segment elevation. Medical Decision Making - Medical Decision Making 86-year-old female presenting for evaluation of HIV fibrillation with RVR. Patient was at the outpatient surgery center and found to be in fast rhythm with stable blood pressure. She was started on Cardizem upon arrival and does have return to sinus rhythm and rate control in the emergency department. Patient had a elevated troponin and I had initially ordered heparin however in reviewing the medical record the patient had a previous cerebral AV malformation and heparin was canceled. This order was never initiated. Patient has no active chest pain. Her vital signs are otherwise stable. She will be admitted for rate control, serial cardiac enzymes, and cardiology consultation. - Lab Data Result diagrams: 08/05/21 12:56 08/05/21 12:56 Lab Results 08/05/21 08/05/21 08/05/21 Range/Units 12:56 12:56 12:56 WBC 15.0 H (3.8-10.6) k/uL RBC 4.56 (3.80-5.40) m/uL Hgb 13.2 (11.4-16.0) gm/dL Hct 42.6 (34.0-46.0) % MCV 93.6 (80.0-100.0) fL MCH 29.0 (25.0-35.0) pg MCHC 31.0 (31.0-37.0) g/dL RDW 13.9 (11.5-15.5) % Plt Count 306 (150-450) k/uL MPV 8.2 Neutrophils % 86 % Lymphocytes % 5 % Monocytes % 6 % Eosinophils % 1 % Basophils % 0 % Neutrophils # 12.9 H (1.3-7.7) k/uL Lymphocytes # 0.8 L (1.0-4.8) k/uL Monocytes # 1.0 (0-1.0) k/uL Eosinophils # 0.1 (0-0.7) k/uL Basophils # 0.0 (0-0.2) k/uL PT 11.2 (9.0-12.0) sec INR 1.0 (<1.2) APTT 20.4 L (22.0-30.0) sec Sodium 139 (137-145) mmol/L Potassium 4.2 (3.5-5.1) mmol/L Chloride 109 H (98-107) mmol/L Carbon Dioxide 24 (22-30) mmol/L Anion Gap 6 mmol/L BUN 37 H (7-17) mg/dL Creatinine 1.07 H (0.52-1.04) mg/dL Est GFR (CKD-EPI)AfAm 54 (>60 ml/min/1.73 sqM) Est GFR (CKD-EPI)NonAf 47 (>60 ml/min/1.73 sqM) Glucose 86 (74-99) mg/dL Calcium 9.0 (8.4-10.2) mg/dL Magnesium 2.2 (1.6-2.3) mg/dL Total Bilirubin 0.6 (0.2-1.3) mg/dL AST 22 (14-36) U/L ALT 17 (4-34) U/L Alkaline Phosphatase 78 (38-126) U/L Troponin I (0.000-0.034) ng/mL Total Protein 5.7 L (6.3-8.2) g/dL Albumin 3.3 L (3.5-5.0) g/dL TSH 0.791 (0.465-4.680) mIU/L 08/05/21 Range/Units 12:56 WBC (3.8-10.6) k/uL RBC (3.80-5.40) m/uL Hgb (11.4-16.0) gm/dL Hct (34.0-46.0) % MCV (80.0-100.0) fL MCH (25.0-35.0) pg MCHC (31.0-37.0) g/dL RDW (11.5-15.5) % Plt Count (150-450) k/uL MPV Neutrophils % % Lymphocytes % % Monocytes % % Eosinophils % % Basophils % % Neutrophils # (1.3-7.7) k/uL Lymphocytes # (1.0-4.8) k/uL Monocytes # (0-1.0) k/uL Eosinophils # (0-0.7) k/uL Basophils # (0-0.2) k/uL PT (9.0-12.0) sec INR (<1.2) APTT (22.0-30.0) sec Sodium (137-145) mmol/L Potassium (3.5-5.1) mmol/L Chloride (98-107) mmol/L Carbon Dioxide (22-30) mmol/L Anion Gap mmol/L BUN (7-17) mg/dL Creatinine (0.52-1.04) mg/dL Est GFR (CKD-EPI)AfAm (>60 ml/min/1.73 sqM) Est GFR (CKD-EPI)NonAf (>60 ml/min/1.73 sqM) Glucose (74-99) mg/dL Calcium (8.4-10.2) mg/dL Magnesium (1.6-2.3) mg/dL Total Bilirubin (0.2-1.3) mg/dL AST (14-36) U/L ALT (4-34) U/L Alkaline Phosphatase (38-126) U/L Troponin I 0.076 H* (0.000-0.034) ng/mL Total Protein (6.3-8.2) g/dL Albumin (3.5-5.0) g/dL TSH (0.465-4.680) mIU/L Critical Care Time Critical Care Time: Yes Total Critical Care Time: 35 Disposition Clinical Impression: Atrial fibrillation with RVR Disposition: ADMITTED IP TO THIS HOSP Condition: Stable Is patient prescribed a controlled substance at d/c from ED?: No Referrals: Stanley Claudio MD [Primary Care Provider] - 1-2 days Time of Disposition: 14:04
[2021-08-05] MEDS: DILTIAZEM 125 MG in SODIUM CHLORIDE 0.9% 100 ML IV SCH ×2 (13:20→13:21)
--- NOTE | 2021-08-05 13:20 | XR ---
EXAMINATION TYPE: XR chest 1V portable DATE OF EXAM: 08/05/2021 COMPARISON: Chest x-ray 12/31/2020 HISTORY: Dysrhythmia, atrial fibrillation TECHNIQUE: Single frontal view of the chest is obtained. FINDINGS: There is no focal air space opacity, pleural effusion, or pneumothorax seen. The cardiac silhouette size is stable. Root of the aorta shows calcification, aorta is dense. Patient is rotated, there are overlying artifacts. Right hemidiaphragm is elevated. Arthropathy is noted within the shou lders. The osseous structures are intact. IMPRESSION: No acute process.
[2021-08-05 13:21] LABS: Albumin 3.3 g/dL (3.5-5.0); Magnesium 2.2 mg/dL (1.6-2.3); Potassium 4.2 mmol/L (3.5-5.1); Total Bilirubin 0.6 mg/dL (0.2-1.3); Total Protein 5.7 g/dL (6.3-8.2)
[2021-08-05 13:27] LABS: Prothrombin Time 11.2 sec (9.0-12.0)
[2021-08-05] MEDS ORDERED: ASPIRIN 325 MG TAB PO STA (13:51)
[2021-08-05] MEDS ORDERED: HEPARIN SODIUM 1,000 UN/ML (10ML VL) IV PRN (13:56)
[2021-08-05] MEDS ORDERED: HEPARIN SODIUM 1,000 UN/ML (10ML VL) IV ONE (13:56)
[2021-08-05] MEDS ORDERED: NALOXONE 0.4 MG/ML 1 ML VIAL IV PRN (13:57)
[2021-08-05 13:58] LABS: Partial Thromboplastin Time 20.4 sec (22.0-30.0)
[2021-08-05] MEDS ORDERED: HEPARIN SOD,PORK IN 0.45% NACL 25,000 UNIT in 0.45% NACL 1 250ML.BAG IV SCH ×2 (14:00→22:00)
[2021-08-05] MEDS: SODIUM CHLORIDE 0.9% 1,000 ML IV SCH (14:24)
--- NOTE | 2021-08-05 18:10 | P.HPIM ---
History of Present Illness H&P Date: 08/05/21 Chief Complaint: Past heart rate This is a pleasant [address] Claudio. Chronic stable medical conditions include, hard of hearing, mild cognitive impairment, osteoarthritis, rheumatoid arthritis, chronic severe persistent bronchial asthma, chronic insomnia, cerebral AV malformation with prior history of bleed 4-5 years ago, spinal stenosis, hiatal hernia macular degeneration. normally uses a walker to get about. Lives with her son. Known atrial fibrillation. In December 2020 had a non-Q-wave NH. Artery catheterization showed nonobstructive disease. Patient was done for an epidural injection today. When he was told to monitor found to be in atrial fibrillation rapid ventricular rate. Patient has been feeling a bit dizzy. Some discomfort and numbness in jaw and gum since this morning. Feeling unwell. No chest pain. Presented to the ER. Started on IV Cardizem drip. Review of systems: GEN.: Tired EYES: None HEENT: None NECK: None RESPIRATORY: Shortness of breath CARDIOVASCULAR: None GASTROINTESTINAL: None GENITOURINARY: None MUSCULOSKELETAL: Joint pains, limited range of motion left shoulder LYMPHATICS: None HEMATOLOGICAL: None PSYCHIATRY: None NEUROLOGICAL: Forgetful Past medical history to include: Chronic severe persistent bronchial asthma, chronic insomnia, cerebral AV malformation with prior history of lead 4-5 years ago, spinal stenosis, mitral hernia, melanoma, macular degeneration, osteoarthritis, rheumatoid arthritis, mild cognitive impairment, esophageal dysmotility causing trouble with swallowing. Acute NH on December 20 with cardiac catching nonobstructive disease, atrial fibrillation Social history: Stopped smoking 33 years ago. Does use a wheelchair to get about. Normally Son lives with her. Alcohol rarely. Family history: Noncontributory, reviewed Physical examination: VITAL SIGNS: 98.1, 220, 18, 110/85, 98% on 2 L GENERAL: BMI 31.2, laying in bed awake, bit tired]. EYES: Pupils equal. Conjunctiva normal. HEENT: External appearance of nose and ears normal, oral cavity grossly normal. NECK: JVD not raised; masses not palpable. HEART: Heart sounds irregular; no edema. LUNGS: Respiratory rate normal; clear to auscultation. ABDOMEN: Soft, nontender, liver spleen not palpable, no masses palpable. PSYCH: Alert and oriented x3; mood and affect normal. MUSCULOSKELETAL:No Clubbing/cyanosis;muscles-grossly intact. Evidence of OA and rheumatoid arthritis several joints NEUROLOGICAL: Cranial nerves grossly intact; no facial asymmetry, power and sensation grossly intact. LYMPHATICS: No lymph nodes palpable in the axilla and neck INVESTIGATIONS, reviewed in the clinical context: White count 15 hemoglobin 13.2 platelets 306 sodium 139 potassium 4.2 BUN 37 creatinine 1.07 Troponin I 0.076, 0.163 EKG tracing personally reviewed by me-atrial fibrillation. Rate 195 nonspecific T-wave changes Chest x-ray film personally reviewed by me-portable: Underexposed. No obvious abnormality From 2020 Cardiac catheterization: Mild CAD including mid LAD 30-40% stenosis, circumflex 30-40% stenosis, proximal RCA 40% stenosis. EF 55% 2-D echocardiogram: EF 50-55% Assessment and plan: -Paroxysmal atrial fibrillation , with rapid ventricular rate on presentation,. IV Cardizem drip- Started on oral amiodarone. . eliquis 5 mg twice a day -CAD with nonobstructive disease per cardiac catheterization. Aspirin, -Nonobstructive CAD per cardiac catheterization recently Aspirin, -Chronic gait dysfunction, uses a wheelchair at home -Chronic esophageal dysmotility, causing some dysphagia Patient advised to take small meals and to her food. Previous workup at [facility] -COPD in a previous smoker DuoNeb twice a day. Advair -Primary osteoarthritis and rheumatoid arthritis multiple joints bilaterally Use pain medication as needed -Chronic insomnia from medical problems Doxepin -Hiatal hernia with GERD PPI -History of cerebral AV malformation with a prior history of cerebral bleed 4-5 years ago. Follow clinically IV Cardizem drip. Resume home medications. Start Lopressor 25 mg twice a day. Taper off Cardizem accordingly. Telemetry. Consult cardiology. 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, spinal stenosis, hiatal hernia, bruises easily, melanoma, macular degeneration, History of Any Multi-Drug Resistant Organisms: None Reported Past Surgical History: Appendectomy, Back Surgery, Breast Surgery, Cholecystectomy, Heart Catheterization, Hysterectomy Additional Past Surgical History / Comment(s): dick cataracts, dick eye lid lift, 4" cut left breast-pt not sure what was done, Past Anesthesia/Blood Transfusion Reactions: No Reported Reaction Past Psychological History: Anxiety, Depression Additional Psychological History / Comment(s): memory loss Smoking Status: Former smoker Past Alcohol Use History: None Reported Additional Past Alcohol Use History / Comment(s): quit smoking 33 yrs ago, Past Drug Use History: None Reported - Past Family History Sister(s) Family Medical History: Cancer Medications and Allergies Home Medications Medication Instructions Recorded Confirmed Type Fluticasone/Salmeterol [Advair 1 puff INHALATION RT-BID 06/08/17 08/05/21 Hi story 500-50 Diskus] predniSONE 10 mg PO DAILY@0700 06/08/17 08/05/21 History Ipratropium-Albuterol Nebulize 3 ml INHALATION RT-BID@1130,1800 06/20/20 08/05/21 History [Duoneb 0.5 mg-3 mg/3 ml Soln] Lovastatin [Mevacor] 10 mg PO HS 06/20/20 08/05/21 History Doxepin [SINEquan] 10 mg PO HS 08/05/21 08/05/21 History Ibuprofen [Motrin Ib] 200 mg PO Q8H PRN 08/05/21 08/05/21 History Travoprost [Travatan Z 0.004%] 1 drop BOTH EYES HS 08/05/21 08/05/21 History Allergies Allergy/AdvReac Type Severity Reaction Status Date / Time Penicillins Allergy Severe pain all Verified 08/05/21 13:47 over Physical Exam Vitals: Vital Signs Temp Pulse Pulse Resp BP BP Pulse Ox 08/05/21 16:42 97.9 F 72 20 149/76 100 08/05/21 16:02 68 18 135/58 99 08/05/21 13:45 88 18 79/59 98 08/05/21 12:56 220 H 08/05/21 12:53 98.1 F 220 H 18 110/85 98 Intake and Output 08/05/21 08/05/21 08/05/21 06:59 14:59 22:59 Intake Total 2.500 Balance 2.500 Intake: Intake, IV Titration 2.500 Amount Diltiazem 125 mg In 2.500 Sodium Chloride 0.9% 100 ml @ 5 MG/HR 5 mls/hr IV .Q24H [facility] Rx#:[id number] Other: Weight 75 kg 75 kg Results CBC & Chem 7: 08/05/21 12:56 08/05/21 12:56 Labs: Abnormal Lab Results - Last 24 Hours (Table) 08/05/21 08/05/21 08/05/21 Range/Units 12:56 12:56 12:56 WBC 15.0 H (3.8-10.6) k/uL Neutrophils # 12.9 H (1.3-7.7) k/uL Lymphocytes # 0.8 L (1.0-4.8) k/uL APTT 20.4 L (22.0-30.0) sec Chloride 109 H (98-107) mmol/L BUN 37 H (7-17) mg/dL Creatinine 1.07 H (0.52-1.04) mg/dL Troponin I (0.000-0.034) ng/mL Total Protein 5.7 L (6.3-8.2) g/dL Albumin 3.3 L (3.5-5.0) g/dL 08/05/21 Range/Units 12:56 WBC (3.8-10.6) k/uL Neutrophils # (1.3-7.7) k/uL Lymphocytes # (1.0-4.8) k/uL APTT (22.0-30.0) sec Chloride (98-107) mmol/L BUN (7-17) mg/dL Creatinine (0.52-1.04) mg/dL Troponin I 0.076 H* (0.000-0.034) ng/mL Total Protein (6.3-8.2) g/dL Albumin (3.5-5.0) g/dL Thrombosis Risk Factor Assmnt - Choose All That Apply Each Risk Factor Represents 3 Points: Age 75 years or older Thrombosis Risk Factor Assessment Total Risk Factor Score: 3 Thrombosis Risk Factor Assessment Level: Moderate Risk
[2021-08-05] MEDS: SYMBICORT 160-4.5 MCG INHALER INHALATION SCH (19:23)
[2021-08-05] MEDS: ACETAMINOPHEN TAB 325 MG TAB PO PRN (20:03)
[2021-08-05] MEDS ORDERED: DOXEPIN 10 MG CAP PO SCH (21:00)
[2021-08-05] MEDS ORDERED: ATORVASTATIN 10 MG TAB PO SCH (21:00)
[2021-08-05] MEDS ORDERED: LATANOPROST 0.005% OPHTH DROPS 2.5 ML BTL BOTH EYES SCH (21:00)
[2021-08-06 04:55] VITALS: TEMP 98
[2021-08-06] MEDS: SODIUM CHLORIDE 0.9% 1,000 ML IV SCH (06:06)
[2021-08-06] MEDS ORDERED: predniSONE 10 MG TAB PO SCH (07:00)
[2021-08-06] MEDS: SYMBICORT 160-4.5 MCG INHALER INHALATION SCH (08:16)
[2021-08-06] MEDS ORDERED: APIXABAN 5 MG TAB PO SCH (09:00)
[2021-08-06] MEDS ORDERED: ASPIRIN 81 MG PO SCH (09:00)
[2021-08-06] MEDS ORDERED: METOPROLOL SUCCINATE (ER) 25 MG TAB.ER.24H PO SCH (09:00)
[2021-08-06 11:00] LABS: Appearance,Urine Clear (Clear); Bilirubin,Urine Negative (Negative); Blood,Urine Negative (Negative); Color,Urine Light Yellow; Glucose,Urine (UA) Negative (Negative); Ketones,Urine Negative (Negative); Leukocyte Esterase,Urine Negative (Negative); Nitrite,Urine Negative (Negative); PH, Urine 5.5 (5.0-8.0); Protein,Urine Negative (Negative); Specific Gravity,Urine 1.009 (1.001-1.035); Urobilinogen,Urine <2.0 mg/dL (<2.0)
--- NOTE | 2021-08-06 11:27 | P.CRDCN ---
History of Present Illness History of present illness: HISTORY OF PRESENTING ILLNESS This is a pleasant 85-year-old female past medical history significant for paroxysmal atrial fibrillation (was previously on Eliquis), hypertension, arthritis, mild nonobstructive coronary artery disease, asthma, sciatica, neuropathy, hyperlipidemia. She follows in the office with Dr. Anderson. We have been asked to see in consultation for atrial fibrillation with rapid ventricular response. Patient presents emergency department for evaluation due to age fibrillation with RVR. Patient was in outpatient surgery Center mean epidural injection was found to have elevated heart rate. She started to be in atrial fibrillation with RVR and was transported to the emergency department. She endorses symptoms of palpitations, shortness of breath and jaw discomfort. She states once her heart rate decreased her symptoms resolved. She denies any chest pain, lightheadedness, dizziness, syncope or near syncope,, nausea, vomiting. She denies any symptoms of orthopnea or PND. In December 2020 patient was admitted to the hospital shortness of breath, jaw pain and some chest pain. She was diagnosed with an NSTEMI with mild troponin elevation. She underwent cardiac catheterization which showed only mild CAD including 3040% stenosis LAD, 30-40% circumflex stenosis proximal RCA 40% stenosis. Echocardiogram revealed EF 5055 percent, mild aortic regurgitation, mild to moderate mitral regurgitation. She had a recurrent admission and was found to be in atrial fibrillation with RVR. Her symptoms were troponin and shortness of breath. She was placed on Toprol 25 mg daily, amiodarone 100 mg daily and Eliquis 5 mg BID. She was discharged to Rehab after this, and was states she was not given her medication. Initial EKG revealed atrial fibrillation with rapid ventricular response, heart rates in the 190s. Patient was given 5 mg of IV Cardizem and started on a Cardizem drip. She converted to sinus mechanism. He is maintaining sinus rhythm with heart rates 5560s. Started on IV heparin as well. DIAGNOSTICS -Repeat EKG revealed sinus rhythm, heart rate 88, PACs, T wave inversion in lead III, no acute ST-T wave abnormalities suggest ischemia. -Telemetry tracings indicate sinus rhythm, heart rate 5560s, occasional PVCs -Chest xray no acute cardiopulmonary process -Laboratory reviewed, troponin 0.07, 0.16, 0.19, 0.15,, sodium 139, potassium 4.2, BUN 37, serum creatinine 1.0, magnesium 2.2, TSH within normal limits -Current home medications include prednisone 10 mg daily, lovastatin, -Cardiac catheterization 12/2020 which showed only mild CAD including 3040% stenosis LAD, 30-40% circumflex stenosis proximal RCA 40% stenosis. -12/2020 Echocardiogram revealed EF 5055 %, mild aortic regurgitation, mild to moderate mitral regurgitation. REVIEW OF SYSTEMS At the time of my exam: CONSTITUTIONAL: Denies fever or chills. CARDIOVASCULAR: Denies chest pain, shortness of breath, orthopnea, PND or palpitations. RESPIRATORY: Denies cough. GASTROINTESTINAL: Denies abdominal pain, diarrhea, constipation, nausea or vomiting. MUSCULOSKELETAL: Denies myalgias. NEUROLOGIC: Denies numbness, tingling, headacbe or weakness. ENDOCRINE: Denies fatigue, weight change, polydipsia or polyurina. GENITOURINARY: Denies burning, hematuria or urgency with micturation. HEMATOLOGIC: Denies history of anemia or bleeding. PHYSICAL EXAMINATION Vitals 124/58, heart rate 64, afebrile, saturations 98% on room air CONSTITUTIONAL: No apparent distress. HEENT: Head is normocephalic. Pupils are equal, round. Sclerae anicteric. Mucous membranes of the mouth are moist. No JVD. No carotid bruit. CHEST EXAMINATION: Lungs are clear to auscultation. No chest wall tenderness is noted on palpation or with deep breathing. HEART EXAMINATION: Regular rate and rhythm. S1, S2 heard. Systolic ejection murmur at apex ABDOMEN: Soft, nontender. Positive bowel sounds. EXTREMITIES: 2+ peripheral pulses, trace bilateral lower extremity edema and no calf tenderness. SKIN: Warm, dry NEUROLOGIC EXAMINATION: Patient is awake, alert and oriented x3. ASSESSMENT Paroxysmal atrial fibrillation with RVR -[id number] score 5 Elevated troponin, likely secondary to A fib with RVR Hypertension Mild nonobstructive coronary artery disease History of asthma History of Sciatica Hyperlipidemia PLAN Start Eliquis 5mg BID Case management consulted for coverage Discontinue IV heparin Start metoprolol succinate 25mg daily Obtain 2D echocardiogram From a cardiology perspective, if patient remains stable in sinus rhythm, ok to discharge later today and follow up outpatient with Dr. Anderson Nurse practitioner note has been reviewed by physician. Signing provider agrees with the documented findings, assessment, and plan of care. Past Medical History Past Medical History: Atrial Fibrillation, Asthma, Cancer, Eye Disorder, Hearing Disorder / Deafness, Memory Impairment, Osteoarthritis (OA), Rheumatoid Arthr itis (RA) Additional Past Medical History / Comment(s): Chronic severe persistent bronchial asthma, chronic insomnia, cerebral arteriovenous malformation with previous history of bleed 4-5 yrs ago, spinal stenosis, hiatal hernia, bruises easily, melanoma, macular degeneration, History of Any Multi-Drug Resistant Organisms: None Reported Past Surgical History: Appendectomy, Back Surgery, Breast Surgery, Cholecystectomy, Heart Catheterization, Hysterectomy Additional Past Surgical History / Comment(s): dick cataracts, dick eye lid lift, 4" cut left breast-pt not sure what was done, Past Anesthesia/Blood Transfusion Reactions: No Reported Reaction Past Psychological History: Anxiety, Depression Additional Psychological History / Comment(s): memory loss Smoking Status: Former smoker Past Alcohol Use History: None Reported Additional Past Alcohol Use History / Comment(s): quit smoking 33 yrs ago, Past Drug Use History: None Reported - Past Family History Sister(s) Family Medical History: Cancer Medications and Allergies Home Medications Medication Instructions Recorded Confirmed Type Fluticasone/Salmeterol [Advair 1 puff INHALATION RT-BID 06/08/17 08/05/21 History 500-50 Diskus] predniSONE 10 mg PO DAILY@0700 06/08/17 08/05/21 History Ipratropium-Albuterol Nebulize 3 ml INHALATION RT-BID@1130,1800 06/20/20 08/05/21 History [Duoneb 0.5 mg-3 mg/3 ml Soln] Lovastatin [Mevacor] 10 mg PO HS 06/20/20 08/05/21 History Doxepin [SINEquan] 10 mg PO HS 08/05/21 08/05/21 History Ibuprofen [Motrin Ib] 200 mg PO Q8H PRN 08/05/21 08/05/21 History Travoprost [Travatan Z 0.004%] 1 drop BOTH EYES HS 08/05/21 08/05/21 History Apixaban [Eliquis] 5 mg PO BID 30 Days #60 tab 08/06/21 Rx Metoprolol Succinate (ER) [Toprol 25 mg PO DAILY 90 Days #90 tab 08/06/21 Rx XL] Allergies Allergy/AdvReac Type Severity Reaction Status Date / Time Penicillins Allergy Severe pain all Verified 08/05/21 13:47 over Physical Exam Vitals: Vital Signs Temp Pulse Pulse Resp BP BP Pulse Ox 08/06/21 08:31 64 08/06/21 08:17 64 08/06/21 04:00 98.0 F 77 20 150/62 96 08/06/21 02:00 80 17 08/06/21 00:00 97.9 F 65 18 136/77 97 08/05/21 20:00 97.9 F 81 18 109/74 98 08/05/21 16:42 97.9 F 72 20 149/76 100 08/05/21 16:02 68 18 135/58 99 08/05/21 13:45 88 18 79/59 98 08/05/21 12:56 220 H 08/05/21 12:53 98.1 F 220 H 18 110/85 98 Intake and Output 08/05/21 08/06/21 08/06/21 22:59 06:59 14:59 Intake Total 200 112.8 Output Total 300 300 Balance -100 -187.2 Intake: Intake, IV Titration 112.8 Amount Heparin Sod,Pork in 0.45% 112.8 NaCl 25,000 unit In 0.45 % NaCl 1 250ml.bag @ 12 UNITS/KG/HR 9 mls/hr IV . Q24H [facility] Rx#:[id number] Oral 200 Output: Urine 300 300 Other: Voiding Method Bedside Commode Bedside Commode # Voids 1 Weight 75 kg Results 08/05/21 12:56 08/05/21 12:56 Cardiac Enzymes 08/05/21 08/05/21 08/05/21 Range/Units 12:56 12:56 16:56 AST 22 (14-36) U/L Troponin I 0.076 H* 0.163 H* (0.000-0.034) ng/mL 08/05/21 08/06/21 Range/Units 19:58 00:12 AST (14-36) U/L Troponin I 0.194 H* 0.150 H* (0.000-0.034) ng/mL Coagulation 08/05/21 08/06/21 Range/Units 12:56 04:44 PT 11.2 (9.0-12.0) sec APTT 20.4 L 156.6 H* (22.0-30.0) sec CBC 08/05/21 Range/Units 12:56 WBC 15.0 H (3.8-10.6) k/uL RBC 4.56 (3.80-5.40) m/uL Hgb 13.2 (11.4-16.0) gm/dL Hct 42.6 (34.0-46.0) % Plt Count 306 (150-450) k/uL Comprehensive Metabolic Panel 08/05/21 Range/Units 12:56 Sodium 139 (137-145) mmol/L Potassium 4.2 (3.5-5.1) mmol/L Chloride 109 H (98-107) mmol/L Carbon Dioxide 24 (22-30) mmol/L BUN 37 H (7-17) mg/dL Creatinine 1.07 H (0.52-1.04) mg/dL Glucose 86 (74-99) mg/dL Calcium 9.0 (8.4-10.2) mg/dL AST 22 (14-36) U/L ALT 17 (4-34) U/L Alkaline Phosphatase 78 (38-126) U/L Total Protein 5.7 L (6.3-8.2) g/dL Albumin 3.3 L (3.5-5.0) g/dL Current Medications Generic Name Dose Route Start Last Admin Trade Name Freq PRN Reason Stop Dose Admin Acetaminophen 650 mg 08/05/21 13:57 08/05/21 20:03 Acetaminophen Tab 325 Mg Tab PO 650 mg Q6HR PRN Administration Mild Pain or Fever > 100.5 Albuterol/Ipratropium 3 ml 08/06/21 11:30 08/06/21 08:16 Ipratropium-Albuterol 3 Ml Neb INHALATION 3 ml RT-BID@1130,1800 SOPHY Administration Apixaban 5 mg 08/06/21 09:00 Apixaban 5 Mg Tab PO BID SOPHY Protocol Atorvastatin Calcium 10 mg 08/05/21 21:00 08/05/21 20:03 Atorvastatin 10 Mg Tab PO 10 mg HS OSPHY Administration Budesonide/Formoterol Fumarate 2 puff 08/05/21 20:00 08/06/21 08:16 Symbicort 160-4.5 Mcg Inhaler INHALATION 2 puff RT-BID SOPHY Administration Doxepin HCl 10 mg 08/05/21 21:00 08/05/21 20:04 Doxepin 10 Mg Cap PO 10 mg HS SOPHY Administration Sodium Chloride 1,000 mls @ 75 mls/hr 08/05/21 14:00 08/06/21 06:06 Saline 0.9% IV Not Given .[id number] SOPHY Latanoprost 1 drops 08/05/21 21:00 08/05/21 20:04 Latanoprost 0.005% Ophth Drops 2.5 Ml Btl BOTH EYES 1 drops HS SOPHY Administration Metoprolol Succinate 25 mg 08/06/21 09:00 Metoprolol Succinate (Er) 25 Mg Tab.Er.24h PO DAILY [facility] Naloxone HCl 0.2 mg 08/05/21 13:57 Naloxone 0.4 Mg/Ml 1 Ml Vial IV Q2M PRN Opioid Reversal Prednisone 10 mg 08/06/21 07:00 Prednisone 10 Mg Tab PO DAILY@0700 [facility] Intake and Output 08/05/21 08/06/21 08/06/21 22:59 06:59 14:59 Intake Total 200 112.8 Output Total 300 300 Balance -100 -187.2 Intake: Intake, IV Titration 112.8 Amount Heparin Sod,Pork in 0.45% 112.8 NaCl 25,000 unit In 0.45 % NaCl 1 250ml.bag @ 12 UNITS/KG/HR 9 mls/hr IV . Q24H [facility] Rx#:[id number] Oral 200 Output: Urine 300 300 Other: Voiding Method Bedside Commode Bedside Commode # Voids 1 Weight 75 kg 08/05/21 12:56 08/05/21 12:56
[2021-08-06] MEDS ORDERED: IPRATROPIUM-ALBUTEROL 3 ML NEB INHALATION SCH (11:30)
--- NOTE | 2021-08-06 11:42 | CA ---
Transthoracic Echo Report Name: Aura Vazquez Age: 86 Gender: F : 1935 Exam Date: 08/06/2021 08:40 Exam Location: [place] [facility] Ht (in): 61 Wt (lb): 165 Ordering Physician: Janett Newman Attending/Referring Phys: Air Chipper Joseline Beltran RDCS Procedure CPT: Indications: A FIB WITH RVR Cardiac Hx: Technical Quality: Fair Contrast 1: Total Dose (mL): Contrast 2: Total Dose (mL): MEASUREMENTS (Male / Female) Normal Values 2D ECHO LV Diastolic Diameter PLAX 3.5 cm 4.2 - 5.9 / 3.9 - 5.3 cm LV Systolic Diameter PLAX 2.4 cm IVS Diastolic Thickness 1.3 cm 0.6 - 1.0 / 0.6 - 0.9 cm LVPW Diastolic Thickness 1.7 cm 0.6 - 1.0 / 0.6 - 0.9 cm LV Relative Wall Thickness 0.9 LA Volume 94.6 cm??? 18 - 58 / 22 - 52 cm??? M-MODE Aortic Root Diameter MM 2.5 cm LA Systolic Diameter MM 4.6 cm LA Ao Ratio MM 1.8 AV Cusp Separation MM 1.8 cm DOPPLER AV Peak Velocity 139.0 cm/s AV Peak Gradient 7.7 mmHg AI Peak Velocity 390.8 cm/s AI Peak Gradient 61.1 mmHg AI Pressure Half Time 416.8 ms LVOT Peak Velocity 105.4 cm/s LVOT Peak Gradient 4.4 mmHg MV Area PHT 4.5 cm??? Mitral E Point Velocity 84.2 cm/s Mitral A Point Velocity 101.6 cm/s Mitral E to A Ratio 0.8 MV Deceleration Time 168.4 ms TR Peak Velocity 299.5 cm/s TR Peak Gradient 35.9 mmHg Right Ventricular Systolic Press 40.2 mmHg FINDINGS Left Ventricle Mildly increased left ventricular wall thickness. Left ventricular cavity size normal. Normal left ventricular systolic function with no obvious regional wall motion abnormalities. Left ventricular ejection fraction is estimated at 50-55 %. Right Ventricle Normal right ventricular size and function. Mild pulmonary hypertension. Right Atrium Normal right atrial size. Left Atrium Severely increased left atrial volume. Mildly increased left atrial area. No evidence for an atrial septal defect. Mitral Valve Mitral annular calcification. Mild to Moderate mitral regurgitation. Aortic Valve Aortic valve sclerosis. Mild aortic regurgitation. Tricuspid Valve [id number] tricuspid regurgitation. Pulmonic Valve Mild pulmonic regurgitation. Pericardium No pleural effusion. Aorta Aortic root and proximal ascending aorta not well visualized. CONCLUSIONS LVH with preserved LV systolic function left atrial enlargement Previewed by: Dr. Cody Lutz MD (Electronically Signed) Final Date: 06 Aug 2021 11:41
[2021-08-06] MEDS: ACETAMINOPHEN TAB 325 MG TAB PO PRN (13:04)
[2021-08-06 16:45] VITALS: BP 128/78; PULSE 74; RESP 16
--- NOTE | 2021-08-06 17:39 | P.DS ---
Providers Date of admission: 08/05/21 13:59 Expected date of discharge: 08/06/21 Attending physician: Esdras Armijo Consults: 08/05/21 13:57 Consult Physician Routine Consulting Provider: Cody Lutz Consult Reason/Comments: A-fib RVR Do you want consulting provider notified?: Yes Primary care physician: [facility] Course: Chief Complaint: Past heart rate This is a pleasant [address] Claudio. Chronic stable medical conditions include, hard of hearing, mild cognitive impairment, osteoarthritis, rheumatoid arthritis, chronic severe persistent bronchial asthma, chronic insomnia, cerebral AV malformation with prior history of bleed 4-5 years ago, spinal stenosis, hiatal hernia macular degeneration. normally uses a walker to get a bout. Lives with her son. Known atrial fibrillation. In December 2020 had a non-Q-wave IN. Artery catheterization showed nonobstructive disease. Patient was done for an epidural injection today. When he was told to monitor found to be in atrial fibrillation rapid ventricular rate. Patient has been feeling a bit dizzy. Some discomfort and numbness in jaw and gum since this morning. Feeling unwell. No chest pain. Presented to the ER. Started on IV Cardizem drip. Admitted with atrial fibrillation rapid ventricular rate. Started on IV Cardizem drip. August 06: Patient back in sinus rhythm. Seen by: RG. Started on eliquis. Toprol- XL. Positive trip troponin felt to be from hemodynamic mismatch. Cleared by currently to be discharged. Patient having no further symptoms. At the base line patient does use a walker to get about. Patient follow-up outpatient with Dr. Anderson. Discussion and discharge planning more than 35 minutes Past medical history to include: Chronic severe persistent bronchial asthma, chronic insomnia, cerebral AV malformation with prior history of lead 4-5 years ago, spinal stenosis, mitral hernia, melanoma, macular degeneration, osteoarthritis, rheumatoid arthritis, mild cognitive impairment, esophageal dysmotility causing trouble with swallowing. Acute IN on December 20 with cardiac catching nonobstructive disease, atrial fibrillation Social history: Stopped smoking 33 years ago. Does use a wheelchair to get about. Normally Son lives with her. Alcohol rarely. Family history: Noncontributory, reviewed Physical examination: VITAL SIGNS: , 74, 16, 120/78, 96% room air GENERAL: Declining in bed, awake, comfortable EYES: Pupils equal. Conjunctiva normal. HEENT: External appearance of nose and ears normal, oral cavity grossly normal. NECK: JVD not raised; masses not palpable. HEART: First seconds are normal; no edema. LUNGS: Respiratory rate normal; clear to auscultation. ABDOMEN: Soft, nontender, liver spleen not palpable, no masses palpable. PSYCH: Alert and oriented x3; mood and affect normal. MUSCULOSKELETAL:No Clubbing/cyanosis;muscles-grossly intact. Evidence of OA and rheumatoid arthritis several joints INVESTIGATIONS, reviewed in the clinical context: 2-D echocardiogram: EF 50-55% dilated left atrial volume. Ivnm-[id number] MR. White count 15 hemoglobin 13.2 platelets 306 sodium 139 potassium 4.2 BUN 37 creatinine 1.07 Troponin I 0.076, 0.163 EKG tracing personally reviewed by me-atrial fibrillation. Rate 195 nonspecific T-wave changes Chest x-ray film personally reviewed by me-portable: Underexposed. No obvious abnormality From 2020 Cardiac catheterization: Mild CAD including mid LAD 30-40% stenosis, circumflex 30-40% stenosis, proximal RCA 40% stenosis. EF 55% 2-D echocardiogram: EF 50-55% Assessment and plan: -Paroxysmal atrial fibrillation , with rapid ventricular rate on presentation,.: Back in sinus rhythm IV Cardizem drip- . eliquis 5 mg twice a day . Toprol-XL 25 mg a day -CAD with nonobstructive disease per cardiac catheterization. Aspirin, -Nonobstructive CAD per cardiac catheterization recently Aspirin, -Mild to moderate MR and TR. Follow with cardiology -Troponin leak from hemodynamic mismatch. From rapid ventricular rate. -Chronic gait dysfunction, uses a wheelchair at home -Chronic esophageal dysmotility, causing some dysphagia Patient advised to take small meals and to her food. Previous workup at [facility] -COPD in a previous smoker DuoNeb twice a day. Advair -Primary osteoarthritis and rheumatoid arthritis multiple joints bilaterally Use pain medication as needed -Chronic insomnia from medical problems Doxepin -Hiatal hernia with GERD PPI -History of cerebral AV malformation with a prior history of cerebral bleed 4-5 years ago. Follow clinically Disposition: Home Plan - Discharge Summary Discharge Rx Participant: No New Discharge Prescriptions: New Apixaban [Eliquis] 5 mg PO BID 30 Days #60 tab Metoprolol Succinate (ER) [Toprol XL] 25 mg PO DAILY 90 Days #90 tab Famotidine [Pepcid] 20 mg PO BID #60 tablet Continue predniSONE 10 mg PO DAILY@0700 Fluticasone/Salmeterol [Advair 500-50 Diskus] 1 puff INHALATION RT-BID Lovastatin [Mevacor] 10 mg PO HS Ipratropium-Albuterol Nebulize [Duoneb 0.5 mg-3 mg/3 ml Soln] 3 ml INHALATION RT-BID@1130,1800 Ibuprofen [Motrin Ib] 200 mg PO Q8H PRN PRN Reason: Pain Travoprost [Travatan Z 0.004%] 1 drop BOTH EYES HS Doxepin [SINEquan] 10 mg PO HS Discharge Medication List Fluticasone/Salmeterol [Advair 500-50 Diskus] 1 puff INHALATION RT-BID 06/08/17 [History] predniSONE 10 mg PO DAILY@0700 06/08/17 [History] Ipratropium-Albuterol Nebulize [Duoneb 0.5 mg-3 mg/3 ml Soln] 3 ml INHALATION RT-BID@1130,1800 06/20/20 [History] Lovastatin [Mevacor] 10 mg PO HS 06/20/20 [History] Doxepin [SINEquan] 10 mg PO HS 08/05/21 [History] Ibuprofen [Motrin Ib] 200 mg PO Q8H PRN 08/05/21 [History] Travoprost [Travatan Z 0.004%] 1 drop BOTH EYES HS 08/05/21 [History] Apixaban [Eliquis] 5 mg PO BID 30 Days #60 tab 08/06/21 [Rx] Famotidine [Pepcid] 20 mg PO BID #60 tablet 08/06/21 [Rx] Metoprolol Succinate (ER) [Toprol XL] 25 mg PO DAILY 90 Days #90 tab 08/06/21 [Rx] Follow up Appointment(s)/Referral(s): Abdoulaye Anderson DO [STAFF PHYSICIAN] - 08/14/21 11:00 am Stanley Claudio MD [Primary Care Provider] - 08/07/21 4:00 pm ([place] office. ) Patient Instructions/Handouts: A-fib (Atrial Fibrillation) (DC), Safe Use of Anticoagulants (DC) Discharge Disposition: HOME SELF-CARE
== END 2021-08-06 16:39 | disposition home or self-care (01) | DRG 308 ==
LOC: EC 12:42 → 3SCARD 13:59
PROVIDERS: ADMIT Hospitalist; ATTEND Hospitalist
DX: I48.0 Paroxysmal atrial fibrillation (principal); Q28.2 Arteriovenous malformation of cerebral vessels; J44.9 Chronic obstructive pulmonary disease, unspecified; M06.9 Rheumatoid arthritis, unspecified; I25.10 Atherosclerotic heart disease of native coronary artery without angina pectoris; J45.50 Severe persistent asthma, uncomplicated; I10 Essential (primary) hypertension; E78.5 Hyperlipidemia, unspecified; K21.9 Gastro-esophageal reflux disease without esophagitis; R26.9 Unspecified abnormalities of gait and mobility; K22.4 Dyskinesia of esophagus; M54.30 Sciatica, unspecified side; M19.91 Primary osteoarthritis, unspecified site; K44.9 Diaphragmatic hernia without obstruction or gangrene; F51.04 Psychophysiologic insomnia; M48.00 Spinal stenosis, site unspecified; I08.0 Rheumatic disorders of both mitral and aortic valves; R79.89 Other specified abnormal findings of blood chemistry; I49.3 Ventricular premature depolarization; G31.84 Mild cognitive impairment of uncertain or unknown etiology; H91.90 Unspecified hearing loss, unspecified ear; F32.A Depression, unspecified; F41.9 Anxiety disorder, unspecified; I25.2 Old myocardial infarction; Z90.49 Acquired absence of other specified parts of digestive tract; Z90.710 Acquired absence of both cervix and uterus; Z98.42 Cataract extraction status, left eye; Z98.41 Cataract extraction status, right eye; Z98.890 Other specified postprocedural states; Z88.0 Allergy status to penicillin; Z79.899 Other long term (current) drug therapy; Z85.820 Personal history of malignant melanoma of skin; Z87.891 Personal history of nicotine dependence; Z80.9 Family history of malignant neoplasm, unspecified; Z79.01 Long term (current) use of anticoagulants; Z87.19 Personal history of other diseases of the digestive system
CPT/HCPCS: 36415; 71045; 80053; 81003; 83735; 84443; 84484; 85025; 85610; 85730; 93005; 93306; 94640; 96365; 96366; 96375; 99291

== ENCOUNTER 2022-02-05 17:40 | Inpatient (IN) | payer MEDICARE ==
[2022-02-05] MEDS: DILTIAZEM DRIP BOLUS FROM BAG 1 MG SOLN IV ONE ×2 (18:27→20:49)
[2022-02-05] MEDS: DILTIAZEM 125 MG in SODIUM CHLORIDE 0.9% 100 ML IV SCH ×2 (18:27→20:50)
--- NOTE | 2022-02-05 18:32 | ED ---
Arrhythmia/Palpitations HPI - General Chief Complaint: Arrhythmia/Palpitations Stated Complaint: anemia Time Seen by Provider: 02/05/22 17:40 Source: patient, RN notes reviewed Mode of arrival: EMS Limitations: no limitations - History of Present Illness Initial Comments: 86-year-old female transferred from [facility] after presenting there with complaints of weakness generalized numbness tingling some dizziness and rapid heart rate is found have atrial fibrillation with a rapid ventricular response. Is also found have an elevation in her troponin. She was given IV Cardizem which did seem to control the heart rate in change her back into a sinus rhythm she had no other complaints was transferred here for further evaluation she has seen Dr. Anderson as well as Dr. Savage in the past. She did have a COvid test at [facility] that was negative. MD Complaint: rapid heart beat, atrial fibrillation - Related Data Home Medications Medication Instructions Recorded Confirmed Fluticasone Propion/Salmeterol 1 puff INHALATION RT-BID 06/08/17 08/05/21 [Advair 500-50 Diskus] predniSONE 10 mg PO DAILY@0700 06/08/17 08/05/21 Ipratropium-Albuterol Nebulize 3 ml INHALATION RT-BID@1130,1800 06/20/20 08/05/21 [Duoneb 0.5 mg-3 mg/3 ml Soln] Lovastatin [Mevacor] 10 mg PO HS 06/20/20 08/05/21 Doxepin [SINEquan] 10 mg PO HS 08/05/21 08/05/21 Ibuprofen [Motrin Ib] 200 mg PO Q8H PRN 08/05/21 08/05/21 Travoprost [Travatan Z 0.004%] 1 drop BOTH EYES HS 08/05/21 08/05/21 Previous Rx's Medication Instructions Recorded Apixaban [Eliquis] 5 mg PO BID 30 Days #60 tab 08/06/21 Famotidine [Pepcid] 20 mg PO BID #60 tablet 08/06/21 Metoprolol Succinate (ER) [Toprol 25 mg PO DAILY 90 Days #90 tab 08/06/21 XL] Allergies Allergy/AdvReac Type Severity Reaction Status Date / Time Penicillins Allergy Severe pain all Verified 08/05/21 13:47 over Review of Systems ROS Statement: Those systems with pertinent positive or pertinent negative responses have been documented in the HPI. ROS Other: All systems not noted in ROS Statement are negative. 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, spinal stenosis, hiatal hernia, bruises easily, melanoma, macular degeneration, History of Any Multi-Drug Resistant Organisms: None Reported Past Surgical History: Appendectomy, Back Surgery, Breast Surgery, Cholecystectomy, Heart Catheterization, Hysterectomy Additional Past Surgical History / Comment(s): dick cataracts, dick eye lid lift, 4" cut left breast-pt not sure what was done, Past Anesthesia/Blood Transfusion Reactions: No Reported Reaction Past Psychological History: Anxiety, Depression Smoking Status: Former smoker Past Alcohol Use History: None Reported Past Drug Use History: None Reported - Past Family History Sister(s) Family Medical History: Cancer General Exam - General Exam Comments Initial Comments: This is a well-developed well-nourished awake alert oriented 4 female Limitations: no limitations General appearance: alert, in no apparent distress Head exam: Present: atraumatic, normocephalic, normal inspection Eye exam: Present: normal appearance, PERRL, EOMI. Absent: scleral icterus, conjunctival injection, periorbital swelling ENT exam: Present: normal exam, mucous membranes moist Neck exam: Present: normal inspection, full ROM, other (No stridor JVD or bruits). Absent: tenderness, meningismus, lymphadenopathy Respiratory exam: Present: normal lung sounds bilaterally. Absent: respiratory distress, wheezes, rales, rhonchi, stridor Cardiovascular Exam: Present: regular rate, normal rhythm, normal heart sounds. Absent: systolic murmur, diastolic murmur, rubs, gallop, clicks GI/Abdominal exam: Present: soft, normal bowel sounds. Absent: distended, tenderness, guarding, rebound, rigid Extremities exam: Present: normal inspection, full ROM, normal capillary refill. Absent: tenderness, pedal edema, joint swelling, calf tenderness Back exam: Present: normal inspection Neurological exam: Present: alert, oriented X3, CN II-XII intact Psychiatric exam: Present: normal affect, normal mood Skin exam: Present: warm, dry, intact, normal color. Absent: rash Course Vital Signs 02/05/22 02/05/22 17:51 18:27 Temperature 98 F Pulse Rate 18 L 66 Respiratory 18 20 Rate Blood Pressure 99/61 99/60 O2 Sat by Pulse 98 98 Oximetry - Reevaluation(s) Reevaluation #1: 02/05/22 18:32 EKG was read by me as arrival showed atrial fibrillation with RVR rate of 138 QRS rate 60 QT since QTC to 89/[address] depression which was different than the postconversion 1 seen at [facility] which showed PACs. Medical Decision Making - Medical Decision Making I did review the imaging reports imaging and labs from the [facility] visit. Patient had converted to a sinus rhythm but then went back into A. fib RVR rhythm. Or Cardizem was ordered but that she spontaneously slowed below 100 beats a minute and did temporarily drop her blood pressure. She was given IV fluids Cardizem is held at this time she is feeling improved except for her sciatica which she complains of. She will be admitted with cardiology consultation. I did discuss the case with Dr. Armijo. Disposition Clinical Impression: Rapid atrial fibrillation, Elevated troponin Disposition: ADMITTED IP TO THIS HOSP Condition: Fair Referrals: Stanley Claudio MD [Primary Care Provider] - 1-2 days Decision Date: 02/05/22 Decision Time: 18:30
[2022-02-05] MEDS ORDERED: SODIUM CHLORIDE 0.9% 500 ML 500 ML IV STA (18:35)
[2022-02-05] MEDS ORDERED: NALOXONE 0.4 MG/ML 1 ML VIAL IV PRN (18:45)
[2022-02-05] MEDS: SODIUM CHLORIDE 0.9% 1,000 ML IV SCH (19:57)
[2022-02-05] MEDS: SYMBICORT 160-4.5 MCG INHALER INHALATION SCH (21:15)
[2022-02-05] MEDS: ATORVASTATIN 10 MG TAB PO SCH (21:28)
[2022-02-05] MEDS: FAMOTIDINE 20 MG TAB PO SCH (21:28)
[2022-02-05] MEDS: APIXABAN 5 MG TAB PO SCH (21:29)
[2022-02-05] MEDS: LATANOPROST 0.005% OPHTH DROPS 2.5 ML BTL BOTH EYES SCH (22:54)
[2022-02-05] MEDS: DOXEPIN 10 MG CAP PO SCH (22:55)
[2022-02-06] MEDS: DILTIAZEM 125 MG in SODIUM CHLORIDE 0.9% 100 ML IV SCH (06:22)
[2022-02-06] MEDS: predniSONE 10 MG TAB PO SCH (06:39)
[2022-02-06] MEDS: IPRATROPIUM-ALBUTEROL 3 ML NEB INHALATION SCH ×2 (08:03→19:32)
[2022-02-06] MEDS: SYMBICORT 160-4.5 MCG INHALER INHALATION SCH ×2 (08:03→19:32)
[2022-02-06] MEDS: APIXABAN 5 MG TAB PO SCH ×2 (08:49→21:07)
[2022-02-06] MEDS: FAMOTIDINE 20 MG TAB PO SCH (08:49)
[2022-02-06] MEDS: METOPROLOL SUCCINATE (ER) 50 MG TAB.ER.24H PO SCH (08:49)
[2022-02-06] MEDS: AMIODARONE 200 MG TAB PO SCH ×2 (08:49→21:07)
[2022-02-06 08:52] LABS: Basophils % (A) 0 %; Eosinophils % (A) 1 %; HCT 27.7 % (34.0-46.0); HGB 8.5 gm/dL (11.4-16.0); Hypochromasia Marked; Lymphocytes % (A) 10 %; MCH 28.3 pg (25.0-35.0); MCHC 30.7 g/dL (31.0-37.0); MCV 92.1 fL (80.0-100.0); Mean Platelet Volume 8.4; Monocytes # (A) 0.4 k/uL (0-1.0); Monocytes % (A) 4 %; Neutrophils # (A) 8.1 k/uL (1.3-7.7); Neutrophils % (A) 84 %; Platelet Count 362 k/uL (150-450); RBC 3.01 m/uL (3.80-5.40); RDW 15.5 % (11.5-15.5); WBC 9.7 k/uL (3.8-10.6)
[2022-02-06 08:53] LABS: Eosinophils # (A) 0.1 k/uL (0-0.7)
[2022-02-06] MEDS ORDERED: METOPROLOL SUCCINATE (ER) 25 MG TAB.ER.24H PO SCH (09:00)
[2022-02-06 09:05] LABS: Calcium 7.8 mg/dL (8.4-10.2)
--- NOTE | 2022-02-06 09:16 | P.CRDCN ---
History of Present Illness Consult date: 02/06/22 History of present illness: HISTORY OF PRESENT ILLNESS: This is a 86-year-old female with a past medical history significant for paroxysmal atrial fibrillation, mild coronary artery disease, hypertension, hyperlipidemia, and asthma. Patient follows in the office with Dr. Anderson. We have been asked to see the patient in consultation for atrial fibrillation with RVR. Patient examined at the bedside. Patient initially presented to [facility] with a chief complaint of tingling in her lower extremities. Patient was initially in SR. She then went into afib with RVR. She was transferred to [facility] for further evaluation. Patient denies chest pain or pressure. Reports SOB, which is at her baseline secondary to asthma per patient. She denies any dizziness or lightheadedness. She denies any palpitations. * EKG reveals atrial fibrillation with RVR * Laboratory data: WBC 9.7. Hemoglobin 8.5. Platelet count 362. Sodium 140. Potassium 4.0. BUN 29. Creatinine 1.15. Troponin 0.047. 0.038. Troponin at [facility] was 0.05. * Current home cardiac medications include chlorthalidone 25 mg daily, metoprolol succinate 25 mg daily, Eliquis 5 mg twice a day, and lovastatin 10 mg daily * Most recent echocardiogram obtained in August 2021 revealed ejection fraction 50- 55%, mild pulmonary hypertension, [id number] mitral regurgitation, mild aortic regurgitation, and mild to moderate tricuspid regurgitation * Cardiac catheterization history: December 2020 revealing mild coronary artery disease including mid LAD 30-40% stenosis, circumflex 30-40% stenosis in proximal RCA 40% stenosis. REVIEW OF SYSTEMS: At the time of my exam: CONSTITUTIONAL: Denies fever or chills. HEENT: Denies blurred vision, vision changes, or eye pain. Denies hemoptysis CARDIOVASCULAR: Denies chest pain. Denies orthopnea. Denies PND. Denies palpitations RESPIRATORY: Denies shortness of breath. GASTROINTESTINAL: Denies abdominal pain. Denies nausea or vomiting. HEMATOLOGIC: Denies bleeding disorders. GENITOURINARY: Denies any blood in urine. SKIN: Denies pruitis. Denies rash. PHYSICAL EXAM: VITAL SIGNS: Reviewed. GENERAL: Well-developed in no acute distress. HEENT: Head is normocephalic. Pupils are equal, round. Sclerae anicteric. Mucous membranes of the mouth are moist. Neck supple. No JVD or thyromegaly LUNGS: Respirations even and unlabored. Lungs essentially clear to auscultation bilaterally. HEART: Tachycardic. Irregular rate and rhythm. S1 and S2 heard. Systolic mur mur noted ABDOMEN: Soft. Nondistended. Nontender. EXTREMITIES: Normal range of motion. No clubbing or cyanosis. Peripheral pulses intact. Minimal lower extremity edema NEUROLOGIC: Awake and alert. Oriented x 3. ASSESSMENT: Numbness and tingling of bilateral lower extremities Paroxysmal atrial fibrillation with RVR Abnormal troponins, likely secondary to above, no evidence of acute coronary syndrome Mild nonobstructive coronary artery disease, per cardiac catheterization in 2020 Hypertension Hyperlipidemia Asthma Valvular heart disease PLAN: No need to repeat echocardiogram as this was performed in August 2021 Resume home cardiac medications Increase metoprolol succinate to 50 mg daily Add amiodarone 200 mg twice a day Wean off Cardizem drip Continue telemetry monitoring Further recommendations pending patient's course Nurse practitioner note has been reviewed by physician. Signing provider agrees with the documented findings, assessment, and plan of care. 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, spinal stenosis, hiatal hernia, bruises easily, melanoma, macular degeneration, History of Any Multi-Drug Resistant Organisms: None Reported Past Surgical History: Appendectomy, Back Surgery, Breast Surgery, Cholecystectomy, Heart Catheterization, Hysterectomy Additional Past Surgical History / Comment(s): dick cataracts, dick eye lid lift, 4" cut left breast-pt not sure what was done, Past Anesthesia/Blood Transfusion Reactions: No Reported Reaction Past Psychological History: Anxiety, Depression Additional Psychological History / Comment(s): memory loss Smoking Status: Former smoker Past Alcohol Use History: None Reported Additional Past Alcohol Use History / Comment(s): quit smoking 33 yrs ago, Past Drug Use History: None Reported - Past Family History Sister(s) Family Medical History: Cancer Medications and Allergies Home Medications Medication Instructions Recorded Confirmed Type Fluticasone Propion/Salmeterol 1 puff INHALATION RT-DAILY 06/08/17 02/05/22 History [Advair 500-50 Diskus] predniSONE 10 mg PO DAILY 06/08/17 02/05/22 History Lovastatin [Mevacor] 10 mg PO DAILY 06/20/20 02/05/22 History Doxepin [SINEquan] 10 mg PO HS 08/05/21 02/05/22 History Ibuprofen [Motrin Ib] 200 mg PO Q8H PRN 08/05/21 02/05/22 History Apixaban [Eliquis] 5 mg PO BID 30 Days #60 tab 08/06/21 02/05/22 Rx Metoprolol Succinate (ER) [Toprol 25 mg PO DAILY 90 Days #90 tab 08/06/21 02/05/22 Rx XL] Chlorthalidone [Hygroton] 25 mg PO DAILY 02/05/22 02/05/22 History Allergies Allergy/AdvReac Type Severity Reaction Status Date / Time Penicillins Allergy Severe pain all Verified 02/05/22 19:32 over Physical Exam Vitals: Vital Signs Temp Pulse Pulse Resp BP BP Pulse Ox 02/06/22 08:17 88 02/06/22 08:04 88 02/06/22 04:00 114 H 18 138/78 96 02/06/22 02:00 118 H 02/06/22 00:34 118 H 18 97 02/05/22 22:20 97.8 F 88 18 156/67 97 02/05/22 21:27 99 20 120/80 99 02/05/22 20:47 150 H 15 028/60 98 02/05/22 19:58 99 20 110/50 98 02/05/22 18:27 66 20 99/60 98 02/05/22 17:51 98 F 18 L 18 99/61 98 Intake and Output 02/05/22 02/06/22 02/06/22 22:59 06:59 14:59 Intake Total 240 90 Output Total 300 Balance 240 -300 90 Intake: Oral 240 90 Output: Urine 300 Other: Weight 61.235 kg Results 02/06/22 08:20 02/06/22 08:20 Cardiac Enzymes 02/05/22 02/06/22 Range/Units 21:43 00:05 Troponin I 0.047 H* 0.038 H* (0.000-0.034) ng/mL CBC 02/06/22 Range/Units 08:20 WBC 9.7 (3.8-10.6) k/uL RBC 3.01 L (3.80-5.40) m/uL Hgb 8.5 L (11.4-16.0) gm/dL Hct 27.7 L (34.0-46.0) % Plt Count 362 (150-450) k/uL Current Medications Generic Name Dose Route Start Last Admin Trade Name Freq PRN Reason Stop Dose Admin Albuterol/Ipratropium 3 ml 02/06/22 11:30 02/06/22 08:03 Ipratropium-Albuterol 3 Ml Neb INHALATION 3 ml RT-BID@1130,1800 SOPHY Administration Amiodarone HCl 200 mg 02/06/22 09:00 02/06/22 08:49 Amiodarone 200 Mg Tab PO 200 mg BID SOPHY Administration Apixaban 5 mg 02/05/22 21:00 02/06/22 08:49 Apixaban 5 Mg Tab PO 5 mg BID SOPHY Administration Protocol Atorvastatin Calcium 10 mg 02/05/22 21:00 02/05/22 21:28 Atorvastatin 10 Mg Tab PO 10 mg HS SOPHY Administration Budesonide/Formoterol Fumarate 2 puff 02/05/22 20:00 02/06/22 08:03 Symbicort 160-4.5 Mcg Inhaler INHALATION 2 puff RT-BID SOPHY Administration Doxepin HCl 10 mg 02/05/22 21:00 02/05/22 22:55 Doxepin 10 Mg Cap PO 10 mg HS SOPHY Administration Famotidine 20 mg 02/05/22 21:00 02/06/22 08:49 Famotidine 20 Mg Tab PO 20 mg BID SOPHY Administration Diltiazem HCl 125 mg/ Sodium 125 mls @ 10 mls/hr 02/05/22 18:00 02/06/22 06:22 Chloride IV Not Given .[id number] SOPHY 10 MG/HR Sodium Chloride 1,000 mls @ 75 mls/hr 02/05/22 18:45 02/05/22 19:57 Saline 0.9% IV 75 mls/hr .[id number] SOPHY Administration Ibuprofen 200 mg 02/05/22 18:51 Ibuprofen 200 Mg Tab PO Q8H PRN Pain Latanoprost 1 drops 02/05/22 21:00 02/05/22 22:54 Latanoprost 0.005% Ophth Drops 2.5 Ml Btl BOTH EYES 1 drops HS SOPHY Administration Metoprolol Succinate 50 mg 02/06/22 09:00 02/06/22 08:49 Metoprolol Succinate (Er) 50 Mg Tab.Er.24h PO 50 mg DAILY SOPHY Administration Naloxone HCl 0.2 mg 02/05/22 18:45 Naloxone 0.4 Mg/Ml 1 Ml Vial IV Q2M PRN Opioid Reversal Prednisone 10 mg 02/06/22 07:00 02/06/22 06:39 Prednisone 10 Mg Tab PO 10 mg DAILY@0700 SOPHY Administration Intake and Output 02/05/22 02/06/22 02/06/22 22:59 06:59 14:59 Intake Total 240 90 Output Total 300 Balance 240 -300 90 Intake: Oral 240 90 Output: Urine 300 Other: Weight 61.235 kg 02/06/22 08:20
[2022-02-06] MEDS: SODIUM CHLORIDE 0.9% 1,000 ML IV SCH ×2 (10:32→23:41)
[2022-02-06] MEDS ORDERED: LACTULOSE 20 GM/30 ML CUP PO PRN (14:00)
[2022-02-06] MEDS ORDERED: LORazepam 0.5 MG TAB PO PRN (14:00)
[2022-02-06] MEDS ORDERED: TEMAZEPAM 15 MG CAP PO PRN (14:00)
[2022-02-06] MEDS ORDERED: CALCIUM CARBONATE 500 MG CHEWABLE PO PRN (14:00)
[2022-02-06] MEDS ORDERED: ONDANSETRON 4 MG/2 ML VIAL IVP PRN (14:00)
--- NOTE | 2022-02-06 15:05 | P.HPIM ---
History of Present Illness H&P Date: 02/06/22 Chief Complaint: Heart racing This is a pleasant 86-year-old , follows Dr. Claudio. Chronic stable medical conditions include, hard of hearing, mild cognitive impairment, osteoarthritis, rheumatoid arthritis, chronic severe persistent bronchial asthma, chronic insomnia, cerebral AV malformation with prior history of bleed 4-5 years ago, spinal stenosis, hiatal hernia macular degeneration. normally uses a wheelchair to get about. Lives with her son. Known atrial fibrillation. In December 2020 had a non-Q-wave IN. Cardiac catheterization showed nonobstructive disease . Both atrial flutter fibrillation. Patient presents from [facility] where she felt burning tingling sensation in the whole body. Some shortness of breath. Heart racing. Has had jaw discomfort. She has a pulse ox. That showed a heart rate to be upper 200s. Appetite has been down. Sent in for the same. He started and IV Cardizem drip. Because of advanced rheumatoid arthritis not able to lift her arms. Also trouble getting up. Review of systems: GEN.: Tired EYES: None HEENT: None NECK: None RESPIRATORY: Shortness of breath CARDIOVASCULAR: None GASTROINTESTINAL: None GENITOURINARY: None MUSCULOSKELETAL: Joint pains, limited range of motion both shoulder LYMPHATICS: None HEMATOLOGICAL: None PSYCHIATRY: None NEUROLOGICAL: Forgetful Past medical history to include: Chronic severe persistent bronchial asthma, chronic insomnia, cerebral AV malformation with prior history of lead 4-5 years ago, spinal stenosis, mitral hernia, melanoma, macular degeneration, osteoarthritis, rheumatoid arthritis, mild cognitive impairment, esophageal dysmotility causing trouble with swal lowing. Acute IN on December 20 with cardiac catheterization- nonobstructive disease, atrial fibrillation Social history: Stopped smoking 33 years ago. Does use a wheelchair to get about. Normally Son lives with her. Alcohol rarely. Family history: Noncontributory, reviewed Physical examination: VITAL SIGNS: 96.7, 91, 18, 1 27 x 72, 96 with room air GENERAL: reclining in bed, awake, comfortable EYES: Pupils equal. Conjunctiva normal. HEENT: External appearance of nose and ears normal, oral cavity grossly normal. NECK: JVD not raised; masses not palpable. HEART: First seconds are normal; no edema. LUNGS: Respiratory rate normal; clear to auscultation. ABDOMEN: Soft, nontender, liver spleen not palpable, no masses palpable. PSYCH: Alert and oriented x3; mood and affect normal. MUSCULOSKELETAL:No Clubbing/cyanosis;muscles-grossly intact. Evidence of OA and rheumatoid arthritis several joints LYMPHATICS: No lymph nodes palpable, and the neck or axilla INVESTIGATIONS, reviewed in the clinical context: WBC 9.7 hemoglobin 8.5 platelets 362 potassium 4 BUN 29 creatinine 1.15 Troponin I 0.047, 0.038 EKG tracing personally reviewed by me-atrial fibrillation, rate 138 2-D echocardiogram [August 2021]: EF 50-55% dilated left atrial volume. [id number] MR. From 2020 Cardiac catheterization: Mild CAD including mid LAD 30-40% stenosis, circumflex 30-40% stenosis, proximal RCA 40% stenosis. EF 55% Assessment and plan: -Paroxysmal atrial fibrillation , with rapid ventricular rate on presentation, IV Cardizem drip started, being tapered off- . eliquis 5 mg twice a day . Toprol-XL increased to 50 mg a day. -CAD with nonobstructive disease per cardiac catheterization/2020. Aspirin, -Mild to moderate MR and TR. Follow with cardiology -Troponin leak from hemodynamic mismatch. From rapid ventricular rate. -Chronic gait dysfunction, uses a wheelchair at home -Chronic esophageal dysmotility, causing some dysphagia Patient advised to take small meals and to her food. Previous workup at [facility] -COPD in a previous smoker DuoNeb twice a day. Advair -Primary osteoarthritis and rheumatoid arthritis multiple joints bilaterally Use pain medication as needed -Chronic insomnia from medical problems Doxepin -Hiatal hernia with GERD PPI -History of cerebral AV malformation with a prior history of cerebral bleed 4-5 years ago. Follow clinically -Full code Initially put on IV Cardizem drip. Toprol-XL was increased. Cardizem drip b eing weaned off. Home medications resumed. Discussed with patient. Telemetry. Cartilage he consulted. 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, spinal stenosis, hiatal hernia, bruises easily, melanoma, macular degeneration, History of Any Multi-Drug Resistant Organisms: None Reported Past Surgical History: Appendectomy, Back Surgery, Breast Surgery, Cholecystectomy, Heart Catheterization, Hysterectomy Additional Past Surgical History / Comment(s): dick cataracts, dick eye lid lift, 4" cut left breast-pt not sure what was done, Past Anesthesia/Blood Transfusion Reactions: No Reported Reaction Past Psychological History: Anxiety, Depression Additional Psychological History / Comment(s): memory loss Smoking Status: Former smoker Past Alcohol Use History: None Reported Additional Past Alcohol Use History / Comment(s): quit smoking 33 yrs ago, Past Drug Use History: None Reported - Past Family History Sister(s) Family Medical History: Cancer Medications and Allergies Home Medications Medication Instructions Recorded Confirmed Type Fluticasone Propion/Salmeterol 1 puff INHALATION RT-DAILY 06/08/17 02/05/22 History [Advair 500-50 Diskus] predniSONE 10 mg PO DAILY 06/08/17 02/05/22 History Lovastatin [Mevacor] 10 mg PO DAILY 06/20/20 02/05/22 History Doxepin [SINEquan] 10 mg PO HS 08/05/21 02/05/22 History Ibuprofen [Motrin Ib] 200 mg PO Q8H PRN 08/05/21 02/05/22 History Apixaban [Eliquis] 5 mg PO BID 30 Days #60 tab 08/06/21 02/05/22 Rx Metoprolol Succinate (ER) [Toprol 25 mg PO DAILY 90 Days #90 tab 08/06/21 02/05/22 Rx XL] Chlorthalidone [Hygroton] 25 mg PO DAILY 02/05/22 02/05/22 History Allergies Allergy/AdvReac Type Severity Reaction Status Date / Time Penicillins Allergy Severe pain all Verified 02/05/22 19:32 over Physical Exam Vitals: Vital Signs Temp Pulse Pulse Resp BP BP Pulse Ox 02/06/22 08:45 96.7 F L 91 18 127/72 96 02/06/22 08:17 88 02/06/22 08:04 88 02/06/22 04:00 114 H 18 138/78 96 02/06/22 02:00 118 H 02/06/22 00:34 118 H 18 97 02/05/22 22:20 97.8 F 88 18 156/67 97 02/05/22 21:27 99 20 120/80 99 02/05/22 20:47 150 H 15 028/60 98 02/05/22 19:58 99 20 110/50 98 02/05/22 18:27 66 20 99/60 98 02/05/22 17:51 98 F 18 L 18 99/61 98 Intake and Output 02/05/22 02/06/22 02/06/22 22:59 06:59 14:59 Intake Total 240 90 Output Total 300 Balance 240 -300 90 Intake: Oral 240 90 Output: Urine 300 Other: Weight 61.235 kg Results CBC & Chem 7: 02/06/22 08:20 02/06/22 08:20 Labs: Abnormal Lab Results - Last 24 Hours (Table) 02/05/22 02/06/22 02/06/22 Range/Units 21:43 00:05 08:20 RBC 3.01 L (3.80-5.40) m/uL Hgb 8.5 L (11.4-16.0) gm/dL Hct 27.7 L (34.0-46.0) % MCHC 30.7 L (31.0-37.0) g/dL Neutrophils # 8.1 H (1.3-7.7) k/uL Chloride (98-107) mmol/L BUN (7-17) mg/dL Creatinine (0.52-1.04) mg/dL Glucose (74-99) mg/dL Calcium (8.4-10.2) mg/dL Troponin I 0.047 H* 0.038 H* (0.000-0.034) ng/mL 02/06/22 Range/Units 08:20 RBC (3.80-5.40) m/uL Hgb (11.4-16.0) gm/dL Hct (34.0-46.0) % MCHC (31.0-37.0) g/dL Neutrophils # (1.3-7.7) k/uL Chloride 110 H (98-107) mmol/L BUN 29 H (7-17) mg/dL Creatinine 1.15 H (0.52-1.04) mg/dL Glucose 102 H (74-99) mg/dL Calcium 7.8 L (8.4-10.2) mg/dL Troponin I (0.000-0.034) ng/mL Thrombosis Risk Factor Assmnt - Choose All That Apply Each Factor Represents 1 point: Obesity (BMI >25) Each Risk Factor Represents 3 Points: Age 75 years or older Thrombosis Risk Factor Assessment Total Risk Factor Score: 4 Thrombosis Risk Factor Assessment Level: Moderate Risk
[2022-02-06] MEDS: IBUPROFEN 200 MG TAB PO PRN (15:15)
[2022-02-06] MEDS: ATORVASTATIN 10 MG TAB PO SCH (21:07)
[2022-02-06] MEDS: DOXEPIN 10 MG CAP PO SCH (21:07)
[2022-02-06] MEDS: LATANOPROST 0.005% OPHTH DROPS 2.5 ML BTL BOTH EYES SCH (21:07)
[2022-02-07] MEDS: SYMBICORT 160-4.5 MCG INHALER INHALATION SCH ×2 (08:03→19:26)
[2022-02-07] MEDS ORDERED: IPRATROPIUM-ALBUTEROL 3 ML NEB INHALATION SCH (09:00)
[2022-02-07] MEDS: METOPROLOL SUCCINATE (ER) 50 MG TAB.ER.24H PO SCH (09:44)
[2022-02-07] MEDS: APIXABAN 5 MG TAB PO SCH ×2 (09:44→20:27)
[2022-02-07] MEDS: AMIODARONE 200 MG TAB PO SCH ×2 (09:44→20:27)
[2022-02-07] MEDS: FAMOTIDINE 20 MG TAB PO SCH (09:44)
[2022-02-07] MEDS: IBUPROFEN 200 MG TAB PO PRN (09:51)
[2022-02-07] MEDS: predniSONE 10 MG TAB PO SCH (10:59)
--- NOTE | 2022-02-07 11:05 | P.PN ---
Subjective Progress Note Date: 02/07/22 PROGRESS NOTE The patient is an 86-year-old female with history of mild CAD, paroxysmal atrial fibrillation, hypertension and hyperlipidemia, followed by Dr. Anderson who presented was paroxysmal atrial fibrillation and lower extremities discomfort. She is back in sinus mechanism. She continues to have dyspnea and cough. She is complaining of her severe arthritic pain in the lower extremities. She d enies any PND or orthopnea. She has no chest discomfort. Her left ventricle systolic function echocardiography in August showed an ejection fraction of 50-55%. She had mild troponin elevation with no associated evidence to suggest acute coronary syndrome Medications: Amiodarone 200 mg twice a day, Lipitor 10 mg daily, metoprolol succinate 50 mg daily, prednisone, Eliquis 5 mg bid PHYSICAL EXAMINATION: Blood pressure 116/60 heart rate 70 LUNGS: Clear to auscultation HEART: Regular rate and rhythm, S1, S2. No S3. systolic ejection murmur ABDOMEN: Soft, nontender, no organomegaly EXTREMETIES: No edema LAB: Pending IMPRESSION: 1. Paroxysmal atrial fibrillation, anticoagulated, back in sinus mechanism 2. Arthritic pain in the lower extremities 3. Troponin elevation with no evidence of acute coronary syndrome 4. Mild CAD 5. Anemia PLAN: 1. Continue present dose of amiodarone for one week then decrease to 200 mg daily 2. Follow her renal function and hemoglobin 3. Increase physical activity 4. Depending on her progress further recommendations will be made . Objective - Vital Signs Vital signs: Vital Signs Temp 97.9 F 02/07/22 08:00 Pulse 75 02/07/22 08:00 Resp 17 02/07/22 08:00 BP 161/89 02/07/22 08:00 Pulse Ox 95 02/07/22 08:00 FiO2 Intake & Output 02/06/22 02/07/22 02/07/22 18:59 06:59 18:59 Intake Total 1530 240 Output Total 300 Balance 1530 -60 Intake: Intake, IV Titration 1200 Amount Sodium Chloride 0.9% 1, 1200 000 ml @ 75 mls/hr IV . [id number] [facility] Rx#:[id number] Oral 330 240 Output: Urine 300 Other: Voiding Method External Catheter External Catheter - Labs CBC & Chem 7: 02/06/22 08:20 02/06/22 08:20
[2022-02-07] MEDS: SODIUM CHLORIDE 0.9% 1,000 ML IV SCH (12:40)
[2022-02-07] MEDS: IPRATROPIUM-ALBUTEROL 3 ML NEB INHALATION SCH ×2 (16:12→19:25)
--- NOTE | 2022-02-07 17:48 | P.PN ---
Progress Note - Text Progress Note Date: 02/07/22 Chief Complaint: Heart racing This is a pleasant 86-year-old , follows Dr. Claudio. Chronic stable medical conditions include, hard of hearing, mild cognitive impairment, osteoarthritis, rheumatoid arthritis, chronic severe persistent bronchial asthma, chronic insomnia, cerebral AV malformation with prior history of bleed 4-5 years ago, spinal stenosis, hiatal hernia macular degeneration. normally uses a wheelchair to get about. Lives with her son. Known atrial fibrillation. In December 2020 had a non-Q-wave HI. Cardiac catheterization showed nonobstructive disease. Both atrial flutter fibrillation. Patient presents from [facility] where she felt burning tingling sensation in the whole body. Some shortness of breath. Heart racing. Has had jaw discomfort. She has a pulse ox. That showed a heart rate to be upper 200s. Appetite has been down. Sent in for the same. He started and IV Cardizem drip. Because of advanced rheumatoid arthritis not able to lift her arms. Also trouble getting up. 02/07/2022: Patient has been off Cardizem drip since yesterday. On Toprol-XL and amiodarone. Sinus rhythm. Patient does not have a right home. Otherwise doing much better. Active Medications Albuterol/Ipratropium (Ipratropium-Albuterol 3 Ml Neb) 3 ml INHALATION RT-TID [facility] Last Admin: 02/07/22 16:12 Dose: 3 ml Amiodarone HCl (Amiodarone 200 Mg Tab) 200 mg PO BID [facility] Last Admin: 02/07/22 09:44 Dose: 200 mg Apixaban (Apixaban 5 Mg Tab) 5 mg PO BID [facility]; Protocol Last Admin: 02/07/22 09:44 Dose: 5 mg Atorvastatin Calcium (Atorvastatin 10 Mg Tab) 10 mg PO [facility] Last Admin: 02/06/22 21:07 Dose: 10 mg Budesonide/Formoterol Fumarate (Symbicort 160-4.5 Mcg Inhaler) 2 puff INHALATION RT-BID [facility] Last Admin: 02/07/22 08:03 Dose: 2 puff Calcium Carbonate/Glycine (Calcium Carbonate 500 Mg Chewable) 1,000 mg PO Q4HR PRN PRN Reason: Dyspepsia Doxepin HCl (Doxepin 10 Mg Cap) 10 mg PO [facility] Last Admin: 02/06/22 21:07 Dose: 10 mg Famotidine (Famotidine 20 Mg Tab) 20 mg PO DAILY [facility] Last Admin: 02/07/22 09:44 Dose: 20 mg Sodium Chloride (Saline 0.9%) 1,000 mls @ 75 mls/hr IV .[id number] [facility] Last Admin: 02/07/22 12:40 Dose: Not Given Ibuprofen (Ibuprofen 200 Mg Tab) 200 mg PO Q8H PRN PRN Reason: Pain Last Admin: 02/07/22 09:51 Dose: 200 mg Lactulose (Lactulose 20 Gm/30 Ml Cup) 20 gm PO DAILY PRN PRN Reason: Constipation Latanoprost (Latanoprost 0.005% Ophth Drops 2.5 Ml Btl) 1 drops BOTH EYES HS [facility] Last Admin: 02/06/22 21:07 Dose: 1 drops Lorazepam (Lorazepam 0.5 Mg Tab) 0.5 mg PO Q6HR PRN PRN Reason: Anxiety Metoprolol Succinate (Metoprolol Succinate (Er) 50 Mg Tab.Er.24h) 50 mg PO DAILY [facility] Last Admin: 02/07/22 09:44 Dose: 50 mg Naloxone HCl (Naloxone 0.4 Mg/Ml 1 Ml Vial) 0.2 mg IV Q2M PRN PRN Reason: Opioid Reversal Ondansetron HCl (Ondansetron 4 Mg/2 Ml Vial) 4 mg IVP Q8HR PRN PRN Reason: Nausea And Vomiting Prednisone (Prednisone 10 Mg Tab) 10 mg PO DAILY@0700 [facility] Last Admin: 02/07/22 10:59 Dose: Not Given Temazepam (Temazepam 15 Mg Cap) 15 mg PO HS PRN PRN Reason: Insomnia Past medical history to include: Chronic severe persistent bronchial asthma, chronic insomnia, cerebral AV malformation with prior history of lead 4-5 years ago, spinal stenosis, mitral hernia, melanoma, macular degeneration, osteoarthritis, rheumatoid arthritis, mild cognitive impairment, esophageal dysmotility causing trouble with swallowing. Acute HI on December 20 with cardiac catheterization- nonobstructive disease, atrial fibrillation Social history: Stopped smoking 33 years ago. Does use a wheelchair to get about. Normally Son lives with her. Alcohol rarely. Family history: Noncontributory, reviewed Physical examination: VITAL SIGNS: 97.7, 16, 17, 11 3 x 72, 97% room air GENERAL: reclining in bed, awake, comfortable EYES: Pupils equal. Conjunctiva normal. HEENT: External appearance of nose and ears normal, oral cavity grossly normal. NECK: JVD not raised; masses not palpable. HEART: Heart sounds normal; no edema. LUNGS: Respiratory rate normal; clear to auscultation. ABDOMEN: Soft, nontender, liver spleen not palpable, no masses palpable. PSYCH: Alert and oriented x3; mood and affect normal. MUSCULOSKELETAL:No Clubbing/cyanosis;muscles-grossly intact. Evidence of OA and rheumatoid arthritis several joints INVESTIGATIONS, reviewed in the clinical context: WBC 9.7 hemoglobin 8.5 platelets 362 potassium 4 BUN 29 creatinine 1.15 Troponin I 0.047, 0.038 EKG tracing personally reviewed by me-atrial fibrillation, rate 138 2-D echocardiogram [August 2021]: EF 50-55% dilated left atrial volume. Mild-to- moderate MR. From 2020 Cardiac catheterization: Mild CAD including mid LAD 30-40% stenosis, circumflex 30-40% stenosis, proximal RCA 40% stenosis. EF 55% Assessment and plan: -Paroxysmal atrial fibrillation , with rapid ventricular rate on presentation,: No sinus rhythm IV Cardizem drip-discontinued. eliquis 5 mg twice a day . Toprol-XL 50 mg a day. Amiodarone -CAD with nonobstructive disease per cardiac catheterization/2020. Aspirin, -Mild to moderate MR and TR. Follow with cardiology -Troponin leak from hemodynamic mismatch. From rapid ventricular rate. -Chronic gait dysfunction, uses a wheelchair at home -Chronic esophageal dysmotility, causing some dysphagia Patient advised to take small meals and to her food. Previous workup at [facility] -COPD in a previous smoker DuoNeb twice a day. Advair -Primary osteoarthritis and rheumatoid arthritis multiple joints bilaterally Use pain medication as needed -Chronic insomnia from medical problems Doxepin -Hiatal hernia with GERD PPI -History of cerebral AV malformation with a prior history of cerebral bleed 4-5 years ago. Follow clinically -Full code Continue current medications. In sinus rhythm. Patient does not have a right arm. He was nursing to help the patient is a right over discharged tomorrow.
[2022-02-07 18:39] LABS: Basophils % (A) 0 %; Eosinophils # (A) 0.1 k/uL (0-0.7); Eosinophils % (A) 1 %; HCT 25.6 % (34.0-46.0); HGB 7.8 gm/dL (11.4-16.0); Hypochromasia Marked; Lymphocytes # (A) 0.9 k/uL (1.0-4.8); Lymphocytes % (A) 11 %; MCH 28.2 pg (25.0-35.0); MCHC 30.4 g/dL (31.0-37.0); MCV 92.9 fL (80.0-100.0); Mean Platelet Volume 8.4; Monocytes # (A) 0.4 k/uL (0-1.0); Monocytes % (A) 5 %; Neutrophils # (A) 6.5 k/uL (1.3-7.7); Neutrophils % (A) 81 %; Platelet Count 325 k/uL (150-450); RBC 2.76 m/uL (3.80-5.40); RDW 15.6 % (11.5-15.5)
[2022-02-07 20:00] LABS: Calcium 7.6 mg/dL (8.4-10.2)
[2022-02-07] MEDS: DOXEPIN 10 MG CAP PO SCH (20:27)
[2022-02-07] MEDS: ATORVASTATIN 10 MG TAB PO SCH (20:27)
[2022-02-07] MEDS: LATANOPROST 0.005% OPHTH DROPS 2.5 ML BTL BOTH EYES SCH (20:28)
[2022-02-08] MEDS: SODIUM CHLORIDE 0.9% 1,000 ML IV SCH ×2 (01:25→15:29)
[2022-02-08] MEDS: predniSONE 10 MG TAB PO SCH (06:21)
[2022-02-08] MEDS: IPRATROPIUM-ALBUTEROL 3 ML NEB INHALATION SCH ×3 (07:23→21:00)
[2022-02-08] MEDS: SYMBICORT 160-4.5 MCG INHALER INHALATION SCH ×2 (07:23→21:00)
[2022-02-08 09:04] LABS: HCT 29.4 % (34.0-46.0); HGB 8.3 gm/dL (11.4-16.0); Hypochromasia Marked; MCH 27.3 pg (25.0-35.0); MCHC 28.1 g/dL (31.0-37.0); MCV 97.1 fL (80.0-100.0); Mean Platelet Volume 8.4; Platelet Count 392 k/uL (150-450); RBC 3.03 m/uL (3.80-5.40); RDW 15.7 % (11.5-15.5); WBC 11.8 k/uL (3.8-10.6)
[2022-02-08] MEDS: AMIODARONE 200 MG TAB PO SCH ×2 (09:21→20:59)
[2022-02-08] MEDS: METOPROLOL SUCCINATE (ER) 50 MG TAB.ER.24H PO SCH (09:21)
[2022-02-08] MEDS: APIXABAN 5 MG TAB PO SCH ×2 (09:21→20:59)
[2022-02-08] MEDS: IBUPROFEN 200 MG TAB PO PRN (09:21)
[2022-02-08] MEDS: FAMOTIDINE 20 MG TAB PO SCH (09:21)
[2022-02-08 10:00] LABS: Calcium 7.7 mg/dL (8.4-10.2); Potassium 4.1 mmol/L (3.5-5.1)
--- NOTE | 2022-02-08 11:49 | P.PN ---
Subjective Progress Note Date: 02/08/22 PROGRESS NOTE The patient is an 86-year-old female with history of mild CAD, paroxysmal atrial fibrillation, hypertension and hyperlipidemia, followed by Dr. Anderson who presented with paroxysmal atrial fibrillation and lower extremities discomfort. She is back in sinus mechanism. She continues to have dyspnea and cough. She is complaining of her severe arthritic pain in the lower extremities. She denies any PND or orthopnea. She has no chest discomfort. Her left ventricle systolic function echocardiography in August showed an ejection fraction of 50-55%. She had mild troponin elevation with no associated evidence to suggest acute coronary syndrome February 08: She continues to be in sinus mechanism but is complaining of severe back and lower extremities discomfort. Her breathing is stable. She denies any chest discomfort, dizziness or palpitations. She is very uncomfortable the cause of her arthritic pain. Medications: Amiodarone 200 mg twice a day, Lipitor 10 mg daily, metoprolol succinate 50 mg daily, prednisone, Eliquis 5 mg bid PHYSICAL EXAMINATION: Blood pressure 110/50 heart rate 70 LUNGS: Clear to auscultation HEART: Regular rate and rhythm, S1, S2. No S3. systolic ejection murmur ABDOMEN: Soft, nontender, no organomegaly EXTREMETIES: No edema LAB: Pending IMPRESSION: 1. Paroxysmal atrial fibrillation, anticoagulated, back in sinus mechanism 2. Arthritic pain in the lower extremities, severe, limiting 3. Troponin elevation with no evidence of acute coronary syndrome 4. Mild CAD 5. Anemia PLAN: 1. Continue present therapy and decrease amiodarone to 200 mg once a day in 1 Week 2. May require further evaluation regarding her arthritic pain 3. Depending on her progress further recommendations will be made Objective - Vital Signs Vital signs: Vital Signs Temp 98.3 F 02/08/22 08:00 Pulse 75 02/08/22 08:00 Resp 17 02/08/22 08:00 BP 110/51 02/08/22 08:00 Pulse Ox 95 02/08/22 08:00 FiO2 21 02/07/22 16:17 Intake & Output 02/07/22 02/08/22 02/08/22 19:59 06:59 18:59 Intake Total 240 Output Total 450 Balance -210 Intake: Oral 240 Output: Urine 450 Other: Voiding Method External Catheter # Bowel Movements 1 - Labs CBC & Chem 7: 02/08/22 08:34 11/06/22 08:34 Labs: Abnormal Lab Results - Last 24 Hours (Table) 02/07/22 02/07/22 02/08/22 Range/Units 08:16 08:16 08:34 WBC (3.8-10.6) k/uL RBC 2.76 L (3.80-5.40) m/uL Hgb 7.8 L (11.4-16.0) gm/dL Hct 25.6 L (34.0-46.0) % MCHC 30.4 L (31.0-37.0) g/dL RDW 15.6 H (11.5-15.5) % Lymphocytes # 0.9 L (1.0-4.8) k/uL Chloride 110 H 111 H (98-107) mmol/L Carbon Dioxide 21 L (22-30) mmol/L BUN 26 H 25 H (7-17) mg/dL Glucose 104 H (74-99) mg/dL Calcium 7.6 L 7.7 L (8.4-10.2) mg/dL 02/08/22 Range/Units 08:34 WBC 11.8 H (3.8-10.6) k/uL RBC 3.03 L (3.80-5.40) m/uL Hgb 8.3 L (11.4-16.0) gm/dL Hct 29.4 L (34.0-46.0) % MCHC 28.1 L (31.0-37.0) g/dL RDW 15.7 H (11.5-15.5) % Lymphocytes # (1.0-4.8) k/uL Chloride (98-107) mmol/L Carbon Dioxide (22-30) mmol/L BUN (7-17) mg/dL Glucose (74-99) mg/dL Calcium (8.4-10.2) mg/dL
--- NOTE | 2022-02-08 18:00 | P.PN ---
Progress Note - Text Progress Note Date: 02/08/22 Chief Complaint: Heart racing This is a pleasant 86-year-old , follows Dr. Claudio. Chronic stable medical conditions include, hard of hearing, mild cognitive impairment, osteoarthritis, rheumatoid arthritis, chronic severe persistent bronchial asthma, chronic insomnia, cerebral AV malformation with prior history of bleed 4-5 years ago, spinal stenosis, hiatal hernia macular degeneration. normally uses a wheelchair to get about. Lives with her son. Known atrial fibrillation. In December 2020 had a non-Q-wave IN. Cardiac catheterization showed nonobstructive disease. Both atrial flutter fibrillation. Patient presents from [facility] where she felt burning tingling sensation in the whole body. Some shortness of breath. Heart racing. Has had jaw discomfort. She has a pulse ox. That showed a heart rate to be upper 200s. Appetite has been down. Sent in for the same. He started and IV Cardizem drip. Because of advanced rheumatoid arthritis not able to lift her arms. Also trouble getting up. 02/07/2022: Patient has been off Cardizem drip since yesterday. On Toprol-XL and amiodarone. Sinus rhythm. Patient does not have a right home. Otherwise doing much better. 02/08/2022: Patient remains in sinus rhythm. She states she cannot manage at home. Her son cannot take care of her. Needs assistance. distribution operations manager been consulted to look for possible rehab. PTOT consulted. Active Medications Albuterol/Ipratropium (Ipratropium-Albuterol 3 Ml Neb) 3 ml INHALATION RT-TID COUNTS INCLUDE 234 BEDS AT [facility] Last Admin: 02/07/22 16:12 Dose: 3 ml Amiodarone HCl (Amiodarone 200 Mg Tab) 200 mg PO BID COUNTS INCLUDE 234 BEDS AT [facility] Last Admin: 02/07/22 09:44 Dose: 200 mg Apixaban (Apixaban 5 Mg Tab) 5 mg PO BID COUNTS INCLUDE 234 BEDS AT THE [facility]; Protocol Last Admin: 02/07/22 09:44 Dose: 5 mg Atorvastatin Calcium (Atorvastatin 10 Mg Tab) 10 mg PO HS COUNTS INCLUDE 234 BEDS AT [facility] Last Admin: 02/06/22 21:07 Dose: 10 mg Budesonide/Formoterol Fumarate (Symbicort 160-4.5 Mcg Inhaler) 2 puff INHALATION RT-BID COUNTS INCLUDE 234 BEDS AT THE [facility] Last Admin: 02/07/22 08:03 Dose: 2 puff Calcium Carbonate/Glycine (Calcium Carbonate 500 Mg Chewable) 1,000 mg PO Q4HR PRN PRN Reason: Dyspepsia Doxepin HCl (Doxepin 10 Mg Cap) 10 mg PO HS COUNTS INCLUDE 234 BEDS AT [facility] Last Admin: 02/06/22 21:07 Dose: 10 mg Famotidine (Famotidine 20 Mg Tab) 20 mg PO DAILY COUNTS INCLUDE 234 BEDS AT [facility] Last Admin: 02/07/22 09:44 Dose: 20 mg Sodium Chloride (Saline 0.9%) 1,000 mls @ 75 mls/hr IV .[id number] COUNTS INCLUDE 234 BEDS AT THE [facility] Last Admin: 02/07/22 12:40 Dose: Not Given Ibuprofen (Ibuprofen 200 Mg Tab) 200 mg PO Q8H PRN PRN Reason: Pain Last Admin: 02/07/22 09:51 Dose: 200 mg Lactulose (Lactulose 20 Gm/30 Ml Cup) 20 gm PO DAILY PRN PRN Reason: Constipation Latanoprost (Latanoprost 0.005% Ophth Drops 2.5 Ml Btl) 1 drops BOTH EYES [facility] Last Admin: 02/06/22 21:07 Dose: 1 drops Lorazepam (Lorazepam 0.5 Mg Tab) 0.5 mg PO Q6HR PRN PRN Reason: Anxiety Metoprolol Succinate (Metoprolol Succinate (Er) 50 Mg Tab.Er.24h) 50 mg PO DAILY COUNTS INCLUDE 234 BEDS AT [facility] Last Admin: 02/07/22 09:44 Dose: 50 mg Naloxone HCl (Naloxone 0.4 Mg/Ml 1 Ml Vial) 0.2 mg IV Q2M PRN PRN Reason: Opioid Reversal Ondansetron HCl (Ondansetron 4 Mg/2 Ml Vial) 4 mg IVP Q8HR PRN PRN Reason: Nausea And Vomiting Prednisone (Prednisone 10 Mg Tab) 10 mg PO DAILY@0700 COUNTS INCLUDE 234 BEDS AT [facility] Last Admin: 02/07/22 10:59 Dose: Not Given Temazepam (Temazepam 15 Mg Cap) 15 mg PO HS PRN PRN Reason: Insomnia Past medical history to include: Chronic severe persistent bronchial asthma, chronic insomnia, cerebral AV malformation with prior history of lead 4-5 years ago, spinal stenosis, mitral hernia, melanoma, macular degeneration, osteoarthritis, rheumatoid arthritis, mild cognitive impairment, esophageal dysmotility causing trouble with swa llowing. Acute IN on December 20 with cardiac catheterization- nonobstructive disease, atrial fibrillation Social history: Stopped smoking 33 years ago. Does use a wheelchair to get about. Normally Son lives with her. Alcohol rarely. Family history: Noncontributory, reviewed Physical examination: VITAL SIGNS: 97.7, 16, 17, 11 3 x 72, 97% room air GENERAL: reclining in bed, awake, comfortable EYES: Pupils equal. Conjunctiva normal. HEENT: External appearance of nose and ears normal, oral cavity grossly normal. NECK: JVD not raised; masses not palpable. HEART: Heart sounds normal; no edema. LUNGS: Respiratory rate normal; clear to auscultation. ABDOMEN: Soft, nontender, liver spleen not palpable, no masses palpable. PSYCH: Alert and oriented x3; mood and affect normal. MUSCULOSKELETAL:No Clubbing/cyanosis;muscles-grossly intact. Evidence of OA and rheumatoid arthritis several joints INVESTIGATIONS, reviewed in the clinical context: WBC 9.7 hemoglobin 8.5 platelets 362 potassium 4 BUN 29 creatinine 1.15 Troponin I 0.047, 0.038 EKG tracing personally reviewed by me-atrial fibrillation, rate 138 2-D echocardiogram [August 2021]: EF 50-55% dilated left atrial volume. [id number] MR. From 2020 Cardiac catheterization: Mild CAD including mid LAD 30-40% stenosis, circumflex 30-40% stenosis, proximal RCA 40% stenosis. EF 55% Assessment and plan: -Paroxysmal atrial fibrillation , with rapid ventricular rate on presentation,: No sinus rhythm IV Cardizem drip-discontinued. eliquis 5 mg twice a day . Toprol-XL 50 mg a day. Amiodarone -CAD with nonobstructive disease per cardiac catheterization/2020. Aspirin, -Mild to moderate MR and TR. Follow with cardiology -Troponin leak from hemodynamic mismatch. From rapid ventricular rate. -Chronic gait dysfunction, uses a wheelchair at home -Chronic esophageal dysmotility, causing some dysphagia Patient advised to take small meals and to her food. Previous workup at [facility] -COPD in a previous smoker DuoNeb twice a day. Advair -Primary osteoarthritis and rheumatoid arthritis multiple joints bilaterally Use pain medication as needed -Chronic insomnia from medical problems Doxepin -Hiatal hernia with GERD PPI -History of cerebral AV malformation with a prior history of cerebral bleed 4-5 years ago. Follow clinically -Full code Patient needing assistance. Feels cannot go home. PTOT consulted. Consult porter sample case to look for placement./Rehab
[2022-02-08] MEDS: LATANOPROST 0.005% OPHTH DROPS 2.5 ML BTL BOTH EYES SCH (20:59)
[2022-02-08] MEDS: ATORVASTATIN 10 MG TAB PO SCH (20:59)
[2022-02-08] MEDS: DOXEPIN 10 MG CAP PO SCH (21:02)
[2022-02-09] MEDS: SODIUM CHLORIDE 0.9% 1,000 ML IV SCH ×2 (04:21→21:38)
[2022-02-09 06:39] LABS: Glucose,Whole Blood 90 mg/dL (70-110)
[2022-02-09] MEDS: predniSONE 10 MG TAB PO SCH (06:47)
[2022-02-09] MEDS: METOPROLOL SUCCINATE (ER) 50 MG TAB.ER.24H PO SCH (08:22)
[2022-02-09] MEDS: AMIODARONE 200 MG TAB PO SCH ×2 (08:22→22:08)
[2022-02-09] MEDS: APIXABAN 5 MG TAB PO SCH ×2 (08:22→22:08)
[2022-02-09] MEDS: FAMOTIDINE 20 MG TAB PO SCH (08:22)
[2022-02-09] MEDS: IBUPROFEN 200 MG TAB PO PRN (08:23)
[2022-02-09] MEDS: IPRATROPIUM-ALBUTEROL 3 ML NEB INHALATION SCH ×3 (08:36→20:37)
--- NOTE | 2022-02-09 10:06 | P.PN ---
Subjective Progress Note Date: 02/09/22 HISTORY OF PRESENT ILLNESS: This is a 86-year-old female with a past medical history significant for paroxysmal atrial fibrillation, mild coronary artery disease, hypertension, hyperlipidemia, and asthma. Patient follows in the office with Dr. Anderson. We have been asked to see the patient in consultation for atrial fibrillation with RVR. Patient examined at the bedside. Patient initially presented to [facility] with a chief complaint of tingling in her lower extremities. Patient was initially in SR. She then went into afib with RVR. She was transferred to [facility] for further evaluation. Patient denies chest pain or pressure. Reports SOB, which is at her baseline secondary to asthma per patient. She denies any dizziness or lightheadedness. She denies any palpitations. * EKG reveals atrial fibrillation with RVR * Laboratory data: WBC 9.7. Hemoglobin 8.5. Platelet count 362. Sodium 140. Potassium 4.0. BUN 29. Creatinine 1.15. Troponin 0.047. 0.038. Troponin at [facility] was 0.05. * Current home cardiac medications include chlorthalidone 25 mg daily, metoprolol succinate 25 mg daily, Eliquis 5 mg twice a day, and lovastatin 10 mg daily * Most recent echocardiogram obtained in August 2021 revealed ejection fraction 50- 55%, mild pulmonary hypertension, [id number] mitral regurgitation, mild aortic regurgitation, and mild to moderate tricuspid regurgitation * Cardiac catheterization history: December 2020 revealing mild coronary artery disease including mid LAD 30-40% stenosis, circumflex 30-40% stenosis in proximal RCA 40% stenosis. 02/09/2022 Patient examined this morning at the bedside. Patient denies chest pain or pressure. She reports mild shortness of breath. She is currently receiving a breathing treatment. Telemetry reveals sinus mechanism with a heart rate in the 60s. PHYSICAL EXAM: VITAL SIGNS: Reviewed. GENERAL: Well-developed in no acute distress. HEENT: Head is normocephalic. Pupils are equal, round. Sclerae anicteric. Mucous membranes of the mouth are moist. Neck supple. No JVD or thyromegaly LUNGS: Respirations even and unlabored. Lungs diminished with a few wheezes. HEART: Regular rate and rhythm. S1 and S2 heard. Systolic murmur noted ABDOMEN: Soft. Nondistended. Nontender. EXTREMITIES: Normal range of motion. No clubbing or cyanosis. Peripheral pulses intact. No lower extremity edema NEUROLOGIC: Awake and alert. Oriented x 3. ASSESSMENT: Numbness and tingling of bilateral lower extremities Paroxysmal atrial fibrillation with RVR Abnormal troponins, likely secondary to above, no evidence of acute coronary syndrome Mild nonobstructive coronary artery disease, per cardiac catheterization in 2020 Hypertension Hyperlipidemia Asthma Valvular heart disease PLAN: Continue current cardiac medications Patient is stable from a cardiac standpoint Decrease amio to 200mg daily on 02/13/2022 Further recommendations pending patient's course Nurse practitioner note has been reviewed by physician. Signing provider agrees with the documented findings, assessment, and plan of care. Objective - Vital Signs Vital signs: Vital Signs Temp 97.3 F L 02/09/22 08:00 Pulse 70 02/09/22 08:48 Resp 18 02/09/22 08:00 BP 105/44 02/09/22 01:33 Pulse Ox 98 02/09/22 08:00 FiO2 21 02/07/22 16:17 Intake & Output 02/08/22 02/09/22 02/09/22 18:59 06:59 18:59 Intake Total 480 118 Output Total 450 800 Balance 30 -682 Intake: Oral 480 118 Output: Urine 450 800 Other: Voiding Method External Catheter Bedside Commode # Voids 3 # Bowel Movements 1 - Labs CBC & Chem 7: 02/08/22 08:34 02/08/22 08:34 Labs: Abnormal Lab Results - Last 24 Hours (Table) 02/08/22 Range/Units 08:34 Chloride 111 H (98-107) mmol/L BUN 25 H (7-17) mg/dL Glucose 104 H (74-99) mg/dL Calcium 7.7 L (8.4-10.2) mg/dL
[2022-02-09 11:29] LABS: Glucose,Whole Blood 100 mg/dL (70-110)
[2022-02-09] MEDS: SYMBICORT 160-4.5 MCG INHALER INHALATION SCH ×2 (11:44→20:37)
--- NOTE | 2022-02-09 13:52 | CDI ---
Documentation Clarification Form Date: 02/09/2022 01:40:12 PM From: Annia Glynn CCS, CCDS Admit Date: 02/05/2022 06:45:00 PM Patient Name: Aura Vazquez Visit Number: [id number] Discharge Date: ATTENTION: The Clinical Documentation Specialists (CDI) and [facility] Coding Staff appreciate your assistance in clarifying documentation. Please respond to the clarification below the line at the bottom and electronically sign. The CDI & [facility] Coding staff will review the response and follow-up if needed. Please note: Queries are made part of the Legal Health Record. If you have any questions, please contact the author of this message via ITS. Dr. Katie Moore: Unspecified anemia is documented in the 02/05 ED Note and in subsequent Cardiology Progress Notes on 02/07 and 02/08 without further specificity. Additional specificity regarding the Type & Acuity of Anemia is requested. History/Risk Factors per the 02/06 H/P: Chronic Severe Persistent Bronchial Asthma, Chronic Insomnia, Cerebral malformation, Spinal Stenosis, Hiatal Hernia, Melanoma, Macular degeneration, Osteoarthritis, Rheumatoid Arthritis, Mild Cognitive Impairment, Esophageal Dysmotility & trouble swallowing, Acute [place], CAD and Atrial fibrillation, former smoker. Clinical indicators: Presented to the ED at [facility] on 02/05 with Arrhythmia, Palpitations, generalized weakness, numbness & tingling, found to be in Atrial Fibrillation and had elevated Troponins, Transferred to [facility]. Admit with Rapid Atrial Fibrillation and Elevated Troponin. Hemoglobin 02/06: 8.5, 02/07: 7.8. 02/08: 8.3. Hematocrit 02/06: 27.7. 02/07: 25.6. 02/08: 29.4. Treatment 02/05: Telemetry, Fall precautions, IV Cardizem Drip Bolus, IV Na Chl 500 mls @ 999 mls/hr q31M, IV Na Chl 1,000 mls @ 75 mls/hr q13H, INH Symbicort 2 puffs BID, po Eliquis 5 mg BID. Please clarify the Type & Acuity of Anemia: [ ] Chronic blood loss anemia [ ] Hemolytic anemia [ ] Drug induced anemia [ ] Anemia of chronic disease [ xx ] Unable to determine [ ] Other, please specify (Template Last Revised: May 2020) MTDD
--- NOTE | 2022-02-09 14:16 | P.PN ---
Progress Note - Text Progress Note Date: 02/09/22 Chief Complaint: Heart racing This is a pleasant 86-year-old , follows Dr. Claudio. Chronic stable medical conditions include, hard of hearing, mild cognitive impairment, osteoarthritis, rheumatoid arthritis, chronic severe persistent bronchial asthma, chronic insomnia, cerebral AV malformation with prior history of bleed 4-5 years ago, spinal stenosis, hiatal hernia macular degeneration. normally uses a wheelchair to get about. Lives with her son. Known atrial fibrillation. In December 2020 had a non-Q-wave [place]. Cardiac catheterization showed nonobstructive disease. Both atrial flutter fibrillation. Patient presents from [facility] where she felt burning tingling sensation in the whole body. Some shortness of breath. Heart racing. Has had jaw discomfort. She has a pulse ox. That showed a heart rate to be upper 200s. Appetite has been down. Sent in for the same. He started and IV Cardizem drip. Because of advanced rheumatoid arthritis not able to lift her arms. Also trouble getting up. 02/07/2022: Patient has been off Cardizem drip since yesterday. On Toprol-XL and amiodarone. Sinus rhythm. Patient does not have a right home. Otherwise doing much better. 02/08/2022: Patient remains in sinus rhythm. She states she cannot manage at home. Her son cannot take care of her. Needs assistance. manager technical been consulted to look for possible rehab. PTOT consulted. 02/09/2022: Sitting up. Eating. Spoke to bilingual patient support caseworker. Looking into placement. Sinus rhythm. Active Medications Albuterol/Ipratropium (Ipratropium-Albuterol 3 Ml Neb) 3 ml INHALATION RT-TID [facility] Last Admin: 02/09/22 11:44 Dose: 3 ml Amiodarone HCl (Amiodarone 200 Mg Tab) 200 mg PO BID [facility] Last Admin: 02/09/22 08:22 Dose: 200 mg Apixaban (Apixaban 5 Mg Tab) 5 mg PO BID [facility]; Protocol Last Admin: 02/09/22 08:22 Dose: 5 mg Atorvastatin Calcium (Atorvastatin 10 Mg Tab) 10 mg PO HS [facility] Last Admin: 02/08/22 20:59 Dose: 10 mg Budesonide/Formoterol Fumarate (Symbicort 160-4.5 Mcg Inhaler) 2 puff INHALATION RT-BID [facility] Last Admin: 02/09/22 11:44 Dose: 2 puff Calcium Carbonate/Glycine (Calcium Carbonate 500 Mg Chewable) 1,000 mg PO Q4HR PRN PRN Reason: Dyspepsia Doxepin HCl (Doxepin 10 Mg Cap) 10 mg PO HS [facility] Last Admin: 02/08/22 21:02 Dose: 10 mg Famotidine (Famotidine 20 Mg Tab) 20 mg PO DAILY [facility] Last Admin: 02/09/22 08:22 Dose: 20 mg Sodium Chloride (Saline 0.9%) 1,000 mls @ 75 mls/hr IV .[id number] [facility] Last Admin: 02/09/22 04:21 Dose: 75 mls/hr Ibuprofen (Ibuprofen 200 Mg Tab) 200 mg PO Q8H PRN PRN Reason: Pain Last Admin: 02/09/22 08:23 Dose: 200 mg Lactulose (Lactulose 20 Gm/30 Ml Cup) 20 gm PO DAILY PRN PRN Reason: Constipation Latanoprost (Latanoprost 0.005% Ophth Drops 2.5 Ml Btl) 1 drops BOTH EYES [facility] Last Admin: 02/08/22 20:59 Dose: 1 drops Lorazepam (Lorazepam 0.5 Mg Tab) 0.5 mg PO Q6HR PRN PRN Reason: Anxiety Metoprolol Succinate (Metoprolol Succinate (Er) 50 Mg Tab.Er.24h) 50 mg PO DAILY [facility] Last Admin: 02/09/22 08:22 Dose: 50 mg Naloxone HCl (Naloxone 0.4 Mg/Ml 1 Ml Vial) 0.2 mg IV Q2M PRN PRN Reason: Opioid Reversal Ondansetron HCl (Ondansetron 4 Mg/2 Ml Vial) 4 mg IVP Q8HR PRN PRN Reason: Nausea And Vomiting Prednisone (Prednisone 10 Mg Tab) 10 mg PO DAILY@0700 [facility] Last Admin: 02/09/22 06:47 Dose: 10 mg Temazepam (Temazepam 15 Mg Cap) 15 mg PO HS PRN PRN Reason: Insomnia Past medical history to include: Chronic severe persistent bronchial asthma, chronic insomnia, cerebral AV malformation with prior history of lead 4-5 years ago, spinal stenosis, mitral hernia, melanoma, macular degeneration, osteoarthritis, rheumatoid arthritis, mild cognitive impairment, esophageal dysmotility causing trouble with swallowing. Acute DE on December 20 with cardiac catheterization- nonobstructive disease, atrial fibrillation Social history: Stopped smoking 33 years ago. Does use a wheelchair to get about. Normally Son lives with her. Alcohol rarely. Family history: Noncontributory, reviewed Physical examination: VITAL SIGNS: 97.3, 63, 18, 105/44, 98% room air GENERAL: reclining , comfortable EYES: Pupils equal. Conjunctiva normal. HEENT: External appearance of nose and ears normal, oral cavity grossly normal. NECK: JVD not raised; masses not palpable. HEART: Heart sounds normal; no edema. LUNGS: Respiratory rate normal; clear to auscultation. ABDOMEN: Soft, nontender, liver spleen not palpable, no masses palpable. PSYCH: Alert and oriented x3; mood and affect normal. MUSCULOSKELETAL:No Clubbing/cyanosis;muscles-grossly intact. Evidence of OA and rheumatoid arthritis several joints INVESTIGATIONS, reviewed in the clinical context: 02/08/2022: WBC 11.8 hemoglobin 8.3 potassium 4.1 creatinine 0.98 WBC 9.7 hemoglobin 8.5 platelets 362 potassium 4 BUN 29 creatinine 1.15 Troponin I 0.047, 0.038 EKG tracing personally reviewed by me-atrial fibrillation, rate 138 2-D echocardiogram [August 2021]: EF 50-55% dilated left atrial volume. [id number] MR. From 2020 Cardiac catheterization: Mild CAD including mid LAD 30-40% stenosis, circumflex 30-40% stenosis, proximal RCA 40% stenosis. EF 55% Assessment and plan: -Paroxysmal atrial fibrillation , with rapid ventricular rate on presentation,: Now sinus rhythm IV Cardizem drip-discontinued. eliquis 5 mg twice a day . Toprol-XL 50 mg a day. Amiodarone -CAD with nonobstructive disease per cardiac catheterization/2020. Aspirin, -Mild to moderate MR and TR. Follow with cardiology -Troponin leak from hemodynamic mismatch. From rapid ventricular rate. -Chronic gait dysfunction, uses a wheelchair at home -Chronic esophageal dysmotility, causing some dysphagia Patient advised to take small meals and to her food. Previous workup at [facility] -COPD in a previous smoker DuoNeb twice a day. Advair -Primary osteoarthritis and rheumatoid arthritis multiple joints bilaterally Use pain medication as needed -Chronic insomnia from medical problems Doxepin -Hiatal hernia with GERD PPI -History of cerebral AV malformation with a prior history of cerebral bleed 4-5 years ago. Follow clinically -Full code Continue current medication treatment plan. Spoke to bilingual patient support caseworker. Looking into placement.
[2022-02-09] MEDS: DOXEPIN 10 MG CAP PO SCH (22:08)
[2022-02-09] MEDS: ATORVASTATIN 10 MG TAB PO SCH (22:08)
[2022-02-09] MEDS: LATANOPROST 0.005% OPHTH DROPS 2.5 ML BTL BOTH EYES SCH (22:08)
[2022-02-10] MEDS: SODIUM CHLORIDE 0.9% 1,000 ML IV SCH (05:00)
[2022-02-10] MEDS: predniSONE 10 MG TAB PO SCH (06:09)
[2022-02-10 07:40] VITALS: RESP 19
[2022-02-10] MEDS: IPRATROPIUM-ALBUTEROL 3 ML NEB INHALATION SCH ×2 (07:42→10:42)
[2022-02-10] MEDS: SYMBICORT 160-4.5 MCG INHALER INHALATION SCH (07:43)
[2022-02-10 07:45] VITALS: BP 119/57; TEMP 98
[2022-02-10 07:47] VITALS: PULSE 72
[2022-02-10] MEDS: IBUPROFEN 200 MG TAB PO PRN (09:53)
[2022-02-10] MEDS: AMIODARONE 200 MG TAB PO SCH (09:53)
[2022-02-10] MEDS: APIXABAN 5 MG TAB PO SCH (09:54)
[2022-02-10] MEDS: METOPROLOL SUCCINATE (ER) 50 MG TAB.ER.24H PO SCH (09:54)
[2022-02-10] MEDS: FAMOTIDINE 20 MG TAB PO SCH (09:54)
--- NOTE | 2022-02-10 10:12 | P.PN ---
Subjective Progress Note Date: 02/10/22 HISTORY OF PRESENT ILLNESS: This is a 86-year-old female with a past medical history significant for paroxysmal atrial fibrillation, mild coronary artery disease, hypertension, hyperlipidemia, and asthma. Patient follows in the office with Dr. Anderson. We have been asked to see the patient in consultation for atrial fibrillation with RVR. Patient examined at the bedside. Patient initially presented to [facility] with a chief complaint of tingling in her lower extremities. Patient was initially in SR. She then went into afib with RVR. She was transferred to [facility] for further evaluation. Patient denies chest pain or pressure. Reports SOB, which is at her baseline secondary to asthma per patient. She denies any dizziness or lightheadedness. She denies any palpitations. * EKG reveals atrial fibrillation with RVR * Laboratory data: WBC 9.7. Hemoglobin 8.5. Platelet count 362. Sodium 140. Potassium 4.0. BUN 29. Creatinine 1.15. Troponin 0.047. 0.038. Troponin at [facility] was 0.05. * Current home cardiac medications include chlorthalidone 25 mg daily, metoprolol succinate 25 mg daily, Eliquis 5 mg twice a day, and lovastatin 10 mg daily * Most recent echocardiogram obtained in August 2021 revealed ejection fraction 50- 55%, mild pulmonary hypertension, [id number] mitral regurgitation, mild aortic regurgitation, and mild to moderate tricuspid regurgitation * Cardiac catheterization history: December 2020 revealing mild coronary artery disease including mid LAD 30-40% stenosis, circumflex 30-40% stenosis in proximal RCA 40% stenosis. 02/09/2022 Patient examined this morning at the bedside. Patient denies chest pain or pressure. She reports mild shortness of breath. She is currently receiving a breathing treatment. Telemetry reveals sinus mechanism with a heart rate in the 60s. 02/10/2022 Patient examined this morning at the bedside. Patient denies chest pain or pressure. She denies shortness of breath. She remains in sinus mechanism with a heart rate in the 70s. Vital signs are stable. PHYSICAL EXAM: VITAL SIGNS: Reviewed. GENERAL: Well-developed in no acute distress. HEENT: Head is normocephalic. Pupils are equal, round. Sclerae anicteric. Mucous membranes of the mouth are moist. Neck supple. No JVD or thyromegaly LUNGS: Respirations even and unlabored. Lungs diminished with a few wheezes. HEART: Regular rate and rhythm. S1 and S2 heard. Systolic murmur noted ABDOMEN: Soft. Nondistended. Nontender. EXTREMITIES: Normal range of motion. No clubbing or cyanosis. Peripheral pulses intact. No lower extremity edema NEUROLOGIC: Awake and alert. Oriented x 3. ASSESSMENT: Numbness and tingling of bilateral lower extremities Paroxysmal atrial fibrillation with RVR Abnormal troponins, likely secondary to above, no evidence of acute coronary syndrome Mild nonobstructive coronary artery disease, per cardiac catheterization in 2020 Hypertension Hyperlipidemia Asthma Valvular heart disease PLAN: Continue current cardiac medications Patient is stable from a cardiac standpoint Decrease amio to 200mg daily on 02/13/2022 We will sign off. Please reconsult if needed. Nurse practitioner note has been reviewed by physician. Signing provider agrees with the documented findings, assessment, and plan of care. Objective - Vital Signs Vital signs: Vital Signs Temp 98.0 F 02/10/22 07:45 Pulse 72 02/10/22 07:54 Resp 19 02/10/22 07:40 BP 119/57 02/10/22 07:45 Pulse Ox 98 02/10/22 07:40 FiO2 21 02/07/22 16:17 Intake & Output 02/09/22 02/10/22 02/10/22 18:59 06:59 18:59 Intake Total 900 585 Output Total 350 Balance 900 235 Intake: Intake, IV Titration 900 225 Amount Sodium Chloride 0.9% 1, 900 225 000 ml @ 75 mls/hr IV . [id number] SOPHY Rx#:[id number] Oral 360 Output: Urine 350 Other: Voiding Method Bedside Commode # Voids 1 # Bowel Movements 1 - Labs CBC & Chem 7: 02/08/22 08:34 02/08/22 08:34
--- NOTE | 2022-02-10 12:30 | P.DS ---
Providers Date of admission: 02/05/22 18:45 Expected date of discharge: 02/10/22 Attending physician: Esdras Armijo Primary care physician: [facility] Course: Chief Complaint: Heart racing This is a pleasant 86-year-old , follows Dr. Claudio. Chronic stable medical conditions include, hard of hearing, mild cognitive impairment, osteoarthritis, rheumatoid arthritis, chronic severe persistent bronchial asthma, chronic insomnia, cerebral AV malformation with prior history of bleed 4-5 years ago, spinal stenosis, hiatal hernia macular degeneration. normally uses a wheelchair to get about. Lives with her son. Known atrial fibrillation. In December 2020 had a non-Q-wave [place]. Cardiac catheterization showed nonobstructive disease. Both atrial flutter fibrillation. Patient presents from [facility] where she felt burning tingling sensation in the whole body. Some shortness of breath. Heart racing. Has had jaw discomfort. She has a pulse ox. That showed a heart rate to be upper 200s. Appetite has been down. Sent in for the same. He started and IV Cardizem drip. Because of advanced rheumatoid arthritis not able to lift her arms. Also trouble getting up. 02/07/2022: Patient has been off Cardizem drip since yesterday. On Toprol-XL and amiodarone. Sinus rhythm. Patient does not have a right home. Otherwise doing much better. 02/08/2022: Patient remains in sinus rhythm. She states she cannot manage at home. Her son cannot take care of her. Needs assistance. sheet manager been consulted to look for possible rehab. PTOT consulted. 02/09/2022: Sitting up. Eating. Spoke to pillowcase cleaner. Looking into placement. Sinus rhythm. 02/10/2022: Sitting up. Comfortable. Remains in sinus rhythm. Patient getting discharged to [facility] Past medical history to include: Chronic severe persistent bronchial asthma, chronic insomnia, cerebral AV malformation with prior history of lead 4-5 years ago, spinal stenosis, mitral hernia, melanoma, macular degeneration, osteoarthritis, rheumatoid arthritis, mild cognitive impairment, esophageal dysmotility causing trouble with swallowing. Acute LA on December 20 with cardiac catheterization- nonobstructi ve disease, atrial fibrillation Social history: Stopped smoking 33 years ago. Does use a wheelchair to get about. Normally Son lives with her. Alcohol rarely. Family history: Noncontributory, reviewed Physical examination: VITAL SIGNS: 98, 72, 19, 119.57, 98% room air GENERAL: Sitting up, comfortable EYES: Pupils equal. Conjunctiva normal. HEENT: External appearance of nose and ears normal, oral cavity grossly normal. NECK: JVD not raised; masses not palpable. HEART: Heart sounds normal; no edema. LUNGS: Respiratory rate normal; clear to auscultation. ABDOMEN: Soft, nontender, liver spleen not palpable, no masses palpable. PSYCH: Alert and oriented x3; mood and affect normal. MUSCULOSKELETAL:No Clubbing/cyanosis;muscles-grossly intact. Evidence of OA and rheumatoid arthritis several joints INVESTIGATIONS, reviewed in the clinical context: 02/08/2022: WBC 11.8 hemoglobin 8.3 potassium 4.1 creatinine 0.98 WBC 9.7 hemoglobin 8.5 platelets 362 potassium 4 BUN 29 creatinine 1.15 Troponin I 0.047, 0.038 EKG tracing personally reviewed by me-atrial fibrillation, rate 138 2-D echocardiogram [August 2021]: EF 50-55% dilated left atrial volume. [id number] MR. From 2020 Cardiac catheterization: Mild CAD including mid LAD 30-40% stenosis, circumflex 30-40% stenosis, proximal RCA 40% stenosis. EF 55% Assessment and plan: -Paroxysmal atrial fibrillation , with rapid ventricular rate on presentation,: Now sinus rhythm IV Cardizem drip-discontinued. eliquis 5 mg twice a day . Toprol-XL 50 mg a day. Amiodarone 1 mg a day -CAD with nonobstructive disease per cardiac catheterization/2020. Aspirin, -Mild to moderate MR and TR. Follow with cardiology -Troponin leak from hemodynamic mismatch. From rapid ventricular rate. No ACS -Chronic gait dysfunction, uses a wheelchair at home -Chronic esophageal dysmotility, causing some dysphagia Patient advised to take small meals and chew her food. Previous workup at [facility] -COPD in a previous smoker DuoNeb twice a day. Advair -Primary osteoarthritis and rheumatoid arthritis multiple joints bilaterally Use pain medication as needed -Chronic insomnia from medical problems Doxepin -Hiatal hernia with GERD PPI -History of cerebral AV malformation with a prior history of cerebral bleed 4-5 years ago. Follow clinically -Full code Disposition: [facility] Plan - Discharge Summary Discharge Rx Participant: No New Discharge Prescriptions: New Metoprolol Succinate (ER) [Toprol XL] 50 mg PO DAILY tab Amiodarone [Cordarone] 200 mg PO DAILY tab Ipratropium-Albuterol Nebulize [Duoneb 0.5 mg-3 mg/3 ml Soln] 3 ml INHALATION RT-TID each Latanoprost Ophth [Xalatan 0.005%] 1 drops BOTH EYES HS ml Continue predniSONE 10 mg PO DAILY Fluticasone Propion/Salmeterol [Advair 500-50 Diskus] 1 puff INHALATION RT- DAILY Lovastatin [Mevacor] 10 mg PO DAILY Ibuprofen [Motrin Ib] 200 mg PO Q8H PRN PRN Reason: Pain Apixaban [Eliquis] 5 mg PO BID 30 Days #60 tab Doxepin [SINEquan] 10 mg PO HS Discontinued Metoprolol Succinate (ER) [Toprol XL] 25 mg PO DAILY 90 Days #90 tab Chlorthalidone [Hygroton] 25 mg PO DAILY Discharge Medication List Fluticasone Propion/Salmeterol [Advair 500-50 Diskus] 1 puff INHALATION RT-DAILY 06/08/17 [History] predniSONE 10 mg PO DAILY 06/08/17 [History] Lovastatin [Mevacor] 10 mg PO DAILY 06/20/20 [History] Doxepin [SINEquan] 10 mg PO HS 08/05/21 [History] Ibuprofen [Motrin Ib] 200 mg PO Q8H PRN 08/05/21 [History] Apixaban [Eliquis] 5 mg PO BID 30 Days #60 tab 08/06/21 [Rx] Amiodarone [Cordarone] 200 mg PO DAILY tab 02/10/22 [Rx] Ipratropium-Albuterol Nebulize [Duoneb 0.5 mg-3 mg/3 ml Soln] 3 ml INHALATION RT-TID each 02/10/22 [Rx] Latanoprost Ophth [Xalatan 0.005%] 1 drops BOTH EYES HS ml 02/10/22 [Rx] Metoprolol Succinate (ER) [Toprol XL] 50 mg PO DAILY tab 02/10/22 [Rx] Follow up Appointment(s)/Referral(s): Katie Moore MD [STAFF PHYSICIAN] - 4 Weeks Stanley Claudio MD [REFERRING] - 02/11/22 3:00 pm
== END 2022-02-10 14:20 | DRG 310 ==
LOC: EC 17:40 → 3SCARD 18:45 → 4SSUR 02-08 22:11
PROVIDERS: ADMIT Hospitalist; ATTEND Hospitalist
DX: I48.0 Paroxysmal atrial fibrillation (principal); I48.92 Unspecified atrial flutter; I25.2 Old myocardial infarction; K21.9 Gastro-esophageal reflux disease without esophagitis; K22.4 Dyskinesia of esophagus; E78.5 Hyperlipidemia, unspecified; F32.A Depression, unspecified; F41.9 Anxiety disorder, unspecified; F51.04 Psychophysiologic insomnia; H91.90 Unspecified hearing loss, unspecified ear; I10 Essential (primary) hypertension; D64.9 Anemia, unspecified; M06.9 Rheumatoid arthritis, unspecified; J44.9 Chronic obstructive pulmonary disease, unspecified; I08.1 Rheumatic disorders of both mitral and tricuspid valves; I25.10 Atherosclerotic heart disease of native coronary artery without angina pectoris; R77.8 Other specified abnormalities of plasma proteins; H35.30 Unspecified macular degeneration; R26.9 Unspecified abnormalities of gait and mobility; R13.10 Dysphagia, unspecified; K44.9 Diaphragmatic hernia without obstruction or gangrene; K59.00 Constipation, unspecified; M19.91 Primary osteoarthritis, unspecified site; M54.30 Sciatica, unspecified side; Z79.01 Long term (current) use of anticoagulants; Z80.9 Family history of malignant neoplasm, unspecified; Z79.51 Long term (current) use of inhaled steroids; Z79.899 Other long term (current) drug therapy; Z85.820 Personal history of malignant melanoma of skin; Z87.891 Personal history of nicotine dependence; Z79.52 Long term (current) use of systemic steroids; Z88.0 Allergy status to penicillin
CPT/HCPCS: 80048; 84484; 85025; 85027; 93005; 94640; 96365; 96374; 99285